=== PATIENT | female | born 1965 | race Caucasian/White ===

== ENCOUNTER 2020-05-26 15:07 | Outpatient (REF) | payer MEDICARE, MEDICAID, SELFPAY ==
[2020-05-28 20:16] LABS: HPV mRNA E6/E7 rflx Not Detected (Not Detected)
== END 2020-05-26 15:08 | disposition home or self-care (01) ==
LOC: HO.LNP 15:07
PROVIDERS: Visit Provider Internal Medicine
DX: I26.99 Other pulmonary embolism without acute cor pulmonale (principal)
CPT/HCPCS: 87624; 87625; 88142

== ENCOUNTER 2020-06-02 10:58 | Outpatient (REF) | payer MEDICARE, MEDICAID, SELFPAY ==
[2020-06-02 14:22] LABS: Cholesterol 212 mg/dL; HDL Cholesterol 66 mg/dL; LDL Cholesterol Calculated 132 mg/dl; Triglycerides 72 mg/dL
== END 2020-06-02 10:59 | disposition home or self-care (01) ==
LOC: HO.HMGCLDS 10:58
PROVIDERS: PCP Internal Medicine; Visit Provider Internal Medicine
DX: Z00.01 Encounter for general adult medical examination with abnormal findings (principal); E66.9 Obesity, unspecified
CPT/HCPCS: 80061

== ENCOUNTER 2020-07-09 11:47 | Outpatient (REF) | payer MEDICARE, MEDICAID, SELFPAY ==
--- NOTE | 2020-07-09 11:50 | MM_ITS ---
EXAMINATION: MM SCREENING DIGITAL BREAST TOMOSYNTHESIS, BILATERAL CLINICAL INFORMATION: Screening. Asymptomatic. The lifetime risk of breast cancer based on the Tyrer-Cuzick Model is 6%. COMPARISON: Mammography: 10/02/2018, 09/28/2017, 09/07/2016, 08/06/2015 TECHNIQUE: Digital breast tomosynthesis is performed in both the craniocaudal and mediolateral oblique views along with computer-aided detection (CAD). Synthesized 2D images are generated from the tomosynthesis. Additional left CC view is provided. FINDINGS: There are scattered areas of fibroglandular density (ACR BI-RADS breast composition Category b). Right breast parenchymal pattern is similar to prior studies. There is no developing density or interval mass or architectural abnormality. There are bilateral biopsy clip marker with adjacent punctate calcifications. There is similar appearing group round calcifications anterior upper outer left breast unchanged since at least 2017. Left breast has focal asymmetric density mid upper outer quadrant, better appreciated on tomography. Suspect summation artifact or incompletely compressed glandular tissue. MM/MM tomosynthesis screening BI IMPRESSION: 1. Left: Focal asymmetric density mid upper outer quadrant, possibly summation artifact or incompletely compressed glandular tissue. 2. Right: No mammographic evidence of malignancy. ASSESSMENT: BI-RADS 0: Incomplete - Need Additional Imaging Evaluation RECOMMENDATION: 1. Additional views of the left breast (3-D spot CC, 3-D ML). 2. Targeted ultrasound if warranted after review of the additional views. 3. Radiology department staff will contact the patient for additional imaging. This patient's information was entered into a reminder system with a target due date for their next mammogram.
== END 2020-07-09 11:48 | disposition home or self-care (01) ==
LOC: HO.MAMMO 11:47
PROVIDERS: Visit Provider Internal Medicine
DX: Z12.31 Encounter for screening mammogram for malignant neoplasm of breast (principal)
CPT/HCPCS: 77063; 77067

== ENCOUNTER 2020-08-11 12:56 | Outpatient (REF) | payer OTHER, SELFPAY | END 2020-08-11 12:57 | disposition home or self-care (01) | LOC: HO.LAB 12:56 | PROVIDERS: Visit Provider Internal Medicine | DX: Z20.822 Contact with and (suspected) exposure to COVID-19 (principal) | CPT/HCPCS: 36415; C9803; U0003; U0005 ==

== ENCOUNTER 2020-08-11 13:38 | Outpatient (REF) | payer OTHER, SELFPAY ==
--- NOTE | 2020-08-11 | US_ITS ---
EXAMINATION: US DIAGNOSTIC ULTRASOUND BREAST, LEFT CLINICAL INFORMATION: Density upper outer aspect left breast. COMPARISON: July 09, 2020 and studies dating back to June 18, 2012. TECHNIQUE: Ultrasound of the breast is performed with real-time garrido scale imaging and color Doppler. FINDINGS: Targeted left breast ultrasound did not demonstrate any abnormal cystic or solid masses. No region of abnormal distal sound shadowing identified. Results are provided to the patient at time of visit by the technologist. US/US breast LT limited IMPRESSION: No mammographic or ultrasound evidence of malignancy. ASSESSMENT: BI-RADS 1: Negative RECOMMENDATION: Routine annual mammography screening due in 12 months. This patient's information was entered into a reminder system with a target due date for their next mammogram.
--- NOTE | 2020-08-11 | MM_ITS ---
EXAMINATION: MM DIAGNOSTIC DIGITAL BREAST TOMOSYNTHESIS, LEFT Targeted left breast ultrasound CLINICAL INFORMATION: Focal asymmetry mid upper outer quadrant. COMPARISON: Mammography: July 09, 2020 and studies dating back to June 18, 2012 TECHNIQUE: Digital breast tomosynthesis is performed. 2D images are generated from the tomosynthesis. The following views are obtained: Spot compression craniocaudal and 90 degree mediolateral views of the left breast. Targeted left breast ultrasound FINDINGS: There are scattered areas of fibroglandular density (ACR BI-RADS breast composition Category b). The additional spot compression views appear to demonstrate that the questioned lesion was related to superimposition of fibroglandular tissue with some residual dense parenchyma in this location remaining. Targeted left breast ultrasound did not demonstrate any abnormal cystic or solid masses. No region of abnormal distal sound shadowing identified. Results are provided to the patient at time of visit by the technologist. MM/MM tomosynthesis added views L IMPRESSION: No mammographic or ultrasound evidence of malignancy. ASSESSMENT: BI-RADS 1: Negative RECOMMENDATION: Routine annual mammography screening due in 12 months. This patient's information was entered into a reminder system with a target due date for their next mammogram.
== END 2020-08-11 13:39 | disposition home or self-care (01) ==
LOC: HO.MAMMO 13:38
PROVIDERS: PCP Internal Medicine; Visit Provider Internal Medicine
DX: N64.9 Disorder of breast, unspecified (principal)
CPT/HCPCS: 76642; 77061; 77062; 77065; 77066

== ENCOUNTER 2020-10-05 11:38 | Outpatient (REF) | payer OTHER, SELFPAY | END 2020-10-05 11:39 | disposition home or self-care (01) | LOC: HO.LAB 11:38 | PROVIDERS: Visit Provider Internal Medicine | DX: Z20.822 Contact with and (suspected) exposure to COVID-19 (principal) | CPT/HCPCS: 36415; C9803; U0003; U0005 ==

== ENCOUNTER 2020-11-04 11:44 | Outpatient (REF) | payer OTHER, SELFPAY ==
[2020-11-04 12:17] LABS: COVID-19 Test Negative (Negative); IDNOW Serial# 55D5AD1C
== END 2020-11-04 11:45 | disposition home or self-care (01) ==
LOC: HO.LAB 11:44
PROVIDERS: Visit Provider Internal Medicine
DX: Z20.822 Contact with and (suspected) exposure to COVID-19 (principal)
CPT/HCPCS: 36415; 87635; C9803

== ENCOUNTER → 2020-11-24 14:55 | Outpatient (REF) | payer OTHER, SELFPAY ==
--- NOTE | 2020-11-24 14:49 | CA_ITS ---
Transthoracic Echocardiogram Patient (Last, First, Middle): Tess Fallon A Gender: Female Date of : 1965 Age: 55 Procedure Date: 11/24/2020 Procedure Type: Transthoracic Echocardiogram Location: OP Height: 160.02 cm Weight: 86.18 kg BSA: 1.89 m2 Heart Rate: bpm BP: 122 / 78 mmHg Cath Lab Manager: RACHELE Referring MD: Suzy Lares MD Registered Nurse Maternal Child: Basil Levin MD Symptoms: R01.1 - Cardiac murmur, unspecified Study Quality: Fair ECG Rhythm: Sinus Conclusions: - Essentially normal study with mild left atrial enlargement Findings Left Ventricle Normal left ventricular size, thickness, and systolic function. The visually estimated ejection fraction is between 60-65%. Diastolic function is normal for age. Right Ventricle Normal right ventricular cavity size and systolic function. Atria The left atrium is mildly dilated. There is lipomatous hypertrophy of the interatrial septum. There is no evidence of interatrial shunt. The right atrium is normal in size. Aortic Valve Normal aortic valve structure and function. There is no aortic valve stenosis. There is no aortic valve regurgitation. Mitral Valve Normal mitral valve structure and function. There is no mitral valve regurgitation. There is no mitral valve stenosis. Pulmonic Valve The pulmonic valve was not well visualized. Tricuspid Valve Likely normal tricuspid valve structure and function. There is trace tricuspid valve regurgitation. The right ventricular systolic pressure is normal. The right ventricular systolic pressure is 22 mmHg. Normal right atrial pressure. There is no evidence of pulmonary hypertension. Great Vessels All visible segments of the aorta are normal in size. The pulmonary artery was not well visualized. Venous The inferior vena cava is normal in size and collapses greater than 50% with inspiration. Pericardium/Pleural There is no evidence of pericardial effusion. Prior Study Comparison No prior study available for comparison. Measurements M-Mode Liner Measurements Normals - Women/Men AOV Cusps: 2.20 1.5-2.6 cm/m2 2D Linear Measurements IVSd: 0.65 0.6-0.9/0.6-1.0 cm LVIDd: 4.93 3.9-5.3/4.2-5.9 cm LVIDd Index: 2.61 2.4-3.2/2.2-3.1 cm/m2 LVIDs: 3.66 2.0-3.6 cm LVPWd: 0.73 0.7-1.1 cm Ao Root: 3.60 2.1-3.5 cm LA Diam: 3.20 2.7-3.8/3.0-4.0 cm LAIDs Index: 1.69 1.5-2.3 cm/m2 LV Mass: 136.42 67-162/88-224 g LV Mass Index: 72.18 43-95/49-115 g/m2 LVOT Diam: 2.20 3.0+(-)1.3 cm 2D Systolic Function EF 4C: 59.30 >55% EF 2C: 62.50 >55% EF BiP: 61.60 >55% Mitral Valve MV Pk E: 0.97 MV PK A: 0.47 MV Decel Time: 380.00 E/A: 2.10 E'Lateral: 12.10 E'Medial: 8.59 E/E' Med: 11.30 E/E' Lat: 8.00 PHT: 111.00 MVA PHT: 1.98 Decel [place]: 2.56 Aortic Valve AoV Pk Ward: 1.46 AoV Mn Ward: 1.01 AoV VTI: 0.36 AoV Pk Grad: 9.00 Aov Mn Grad: 5.00 SHASHANK Cont.VTI: 2.70 AI Pk Ward: 4.29 AI [place]: 1.52 LVOT LVOT Pk Ward: 1.03 LVOT Mn Ward: 0.65 LVOT VTI: 0.26 LVOT Pk Grad: 4.00 LVOT Mn Grad: 2.00 LVOT Diam: 2.20 LVOT Area: 3.80 Diastolic Function MV Pk E: 0.97 MV Pk A: 0.47 E/A: 2.10 E'Medial: 8.59 E/E' Med: 11.30 E' Laterial: 12.10 E/E' Lat: 8.00 Tricuspid Valve TR Pk Ward: 2.17 TR Pk Grad: 19.00 RA Press: 3.00 RVSP: 22.00 Great Vessels Aorta Ao Root-2D: 3.60 2.0-3.7 cm Ao Asc: 3.50 2.1-3.4 cm Ao Arch: 2.70 Pulmonary Valve PV Pk Ward: 0.92 Peak PV Grad: 3.00 Updated in Other Vendor System with Status of Final Basil Levin MD electronically signed on 11/25/2020 4:07:19 PM with status of Final
== END ==
LOC: HO.CARD 14:55
PROVIDERS: PCP Internal Medicine; Visit Provider Internal Medicine
DX: R01.1 Cardiac murmur, unspecified (principal); E66.9 Obesity, unspecified; Z82.49 Family history of ischemic heart disease and other diseases of the circulatory system
CPT/HCPCS: 93306

== ENCOUNTER 2020-11-24 16:05 | Emergency (ER) | payer OTHER, SELFPAY ==
--- NOTE | ~2020-11-24 | XR_ITS ---
EXAMINATION: PORTABLE CHEST 1 VIEW CLINICAL INFORMATION: Dizziness . COMPARISON: No recent pertinent prior studies are available for comparison. TECHNIQUE: Portable frontal view of the chest was obtained. FINDINGS: The lungs are well expanded. No focal infiltrate, effusion, edema, or pneumothorax. Cardiac and mediastinal silhouettes are within normal limits for technique. No acute bony abnormality seen. Degenerative changes in the shoulders and spine with cervical spine hardware partially visualized XR/XR chest 1V IMPRESSION: No evidence of acute disease.
[2020-11-24 16:18] VITALS: BP 123/67; PULSE 45; RESP 16; TEMP 36.7; O2SAT 99; BMI 33.6
--- NOTE | 2020-11-24 16:52 | ED.DIZZY ---
HPI - Dizziness General Chief Complaint: Dizziness Stated Complaint: low heart rate Time Seen by Provider: 11/24/20 16:50 Source: patient Mode of arrival: ambulatory Limitations: no limitations History of Present Illness HPI Narrative: Patient was sent from ultrasound suite for evaluation of chronic dizziness. This is a 55-year-old female was getting an elective outpatient echocardiogram for evaluation of hereditary aortic valve stenosis, patient was found bradycardic during the exam and the master automotive technician recommended her to come to the emergency room because she has been having chronic dizziness. Patient described dizziness as everything spinning around her it is intermittent, do not have it now, patient was diagnosed in the past for vertigo, patient also been having intermittent epigastric pain with exertion, nothing in the last week, patient try to walk every day as an exercise with no exertional symptoms of chest pain or shortness of breath. Patient is not taking any medication that can cause bradycardia. Patient in the emergency room is asymptomatic. Today's echocardiogram result is unavailable. Related Data Home Medications Medication Instructions Recorded Confirmed mirabegron 50 mg tablet,extended 50 mg PO DAILY 05/26/20 release 24 hr timolol 0.5 % eye drops 1 drp OPHTHALMIC (EYE) DAILY 05/26/20 travoprost 0.004 % eye drops 1 drp OPHTHALMIC (EYE) QPM 05/26/20 Previous Rx's Medication Instructions Recorded famotidine 40 mg tablet 40 mg PO BID #180 tab 05/27/20 calcium citrate 500 mg PO BID #360 tab 10/13/20 cholecalciferol (vitamin D3) 50 50 mcg PO DAILY #90 cap 10/28/20 mcg (2,000 unit) capsule Allergies Allergy/AdvReac Type Severity Reaction Status Date / Time amoxicillin [Augmentin] Allergy Unknown hives Verified 11/24/20 16:17 clavulanic acid [Augmentin] Allergy Unknown hives Verified 11/24/20 16:17 Review of Systems Review of Systems: All other systems are reviewed and are negative Constitutional: Reports as per HPI and Reports no additional constitutional complaints Eyes: Reports as per HPI and Reports no additional eye complaints Reports system reviewed and no additional complaints, except as documented Cardiovascular: Reports as per HPI and Reports no additional cardiovascular complaints Respiratory: Reports as per HPI and Reports no additional respiratory complaints Gastrointestinal: Reports as per HPI and Reports no additional gastrointestinal complaints Genitourinary: Reports no additional female genitourinary complaints Musculoskeletal: Reports no additional musculoskeletal complaints Skin/Breast: Reports system reviewed and no additional complaints, except as docu Psychiatric: Reports no additional psychiatric complaints Endocrine: Reports no additional endocrine complaints Hematologic/Lymphatic: Reports no additional hematologic/lymphatic complaints Allergic/Immunologic: Reports no additional allergic/immunologic complaints Reports system reviewed and no additional complaints, except as documented and Reports Abnormal speech present [facility] Past Medical History Medical History Annual visit for general adult medical examination with abnormal findings Cardiac murmur Carpal tunnel syndrome on right Cervical disc disease Family history of aortic aneurysm GERD (gastroesophageal reflux disease) Glaucoma Hiatal hernia Impaired fasting glucose Irritable bowel syndrome Obesity (BMI 30.0-34.9) Osteopenia of multiple sites Urinary incontinence, mixed Surgical History History of carpal tunnel surgery of right wrist History of colonoscopy History of fusion of cervical spine History of hernia repair History of tonsillectomy Family History Family History Father Leukemia Mother HTN (hypertension) Small cell lung cancer Maternal Grandmother Alzheimer's disease Dementia Maternal Grandfather No problems noted. Paternal Grandmother No problems noted. Paternal Grandfather Alzheimer's disease Dementia Daughter No problems noted. Daughter No problems noted. Son No problems noted. Sister No problems noted. Brother No problems noted. Brother No problems noted. Brother No problems noted. Brother No problems noted. Brother No problems noted. Social History Social History Alcohol intake: current Alcohol intake frequency: a few times a week Smoking Status: Former smoker Smoked in Last 30 Days: No Use of substances other than those prescribed or required for medical reasons: No Advance Directives: No Advance Directives Information Provided: Yes Patient : No Physical Exam Vital Signs: Vital Signs: Last Vital Signs Temp 98.6 F 11/24/20 19:10 Pulse 44 L 11/24/20 19:10 Resp 12 11/24/20 19:10 BP 123/69 11/24/20 19:10 Pulse Ox 99 11/24/20 19:10 Body Mass Index 33.6 Vital signs have been reviewed as appeared to be correct. Blood pressure normal. Heart bradycardia. Respiration rate normal. Temperature normal. Oxygen saturation normal. Appearance: Alert. Oriented X3. No acute distress. Head: Normal external exam. Normocephalic. Atraumatic. No Justice signs noted. No raccoon eyes noted Eyes: PERRLA. EOMI. Conjunctiva and sclera normal. Eyelids normal. ENT: TM's Normal. Pharynx normal. Uvula midline. Moist mucous membranes. No trismus noted. No drooling noted. No muffled voice noted. Neck: Normal inspection. Neck supple. FROM. No adenopathy. Thyroid Normal. No meningeal signs. No neck mass noted. CVS: Normal heart rate and rhythm. Heart sound normal. No murmurs noted. Pulses normal throughout. Respiratory: No respiratory distress. Painless inspiration. Breath sounds normal. No wheezes/rales/rhonchi noted. Chest nontender. No accessory muscle usage noted or decreased air movement noted. Abdomen: Soft and nontender. Bowel sounds normal in all 4 quadrants. No distention noted. No organomegaly noted. No visible injury noted. Back: No CVA tenderness. Full range of motion noted. Skin: Skin warm and dry. Normal skin color. Normal skin turgor. No rashes/lesions/lacerations noted. Extremities: No lower extremity edema. Extremities exhibit normal range of motion. Extremities nontender. Neuro: Oriented X 3. No motor deficit. No sensory deficit. Reflexes normal. Course Course Course Narrative: Assessment and plan. 55-year-old female was incidental finding of bradycardia, patient was chronic symptoms of dizziness (vertigo in nature), bradycardia was discovered incidentally on the echocardiogram done today. Reviewing patient's medication history nothing to trigger bradycardia by her medication. No acute intervention is needed at this point, patient has stable vital sign otherwise, normal labs, normal chest x-ray. Some white cells in the urine but patient has no symptoms to suggest UTI. Will discharge the patient to follow up with Dr. Levin cash applications coordinator as an outpatient. [facility] - Dizziness Lab Data Attestation: I reviewed the patient's lab results. Result diagrams: 11/24/20 17:05 11/24/20 17:05 Labs: Lab Results 11/24/20 11/24/20 11/24/20 Range/Units 17:05 17:05 17:05 WBC 6.3 (4.8-10.8) X10*3/uL RBC 4.27 (4.20-5.50) X10*6/uL Hgb 13.1 (12.0-16.0) g/dl Hct 38.8 (37-47) % MCV 90.9 (80-98) fL MCH 30.7 (27.0-33.0) pg MCHC 33.8 (31.0-35.0) g/dl RDW 12.2 (11.0-16.0) % Plt Count 221 (160-400) X10*3/uL MPV 10.0 (9.4-12.3) fL Immature Gran % (Auto) 0.2 (0.0-0.4) % Neut % (Auto) 41.7 L (45-73) % Lymph % (Auto) 48.0 H (20-40) % [place] % (Auto) 6.5 (2-11) % Eos % (Auto) 3.3 (0-4) % Baso % (Auto) 0.3 (0-2) % Lymph # (Auto) 3.0 (1.2-4.9) X10*3/uL [place] # (Auto) 0.4 (0.1-1.2) X10*3/uL Eos # (Auto) 0.2 (0.0-0.4) X10*3/uL Baso # (Auto) 0.0 (0.0-0.2) X10*3/uL Abs Immat Gran (auto) 0.01 (0.00-0.03) X10*3/uL Absolute Neuts (auto) 2.6 (2.0-8.3) X10*3/uL Absolute Nucleated RBC 0.000 (0.0-0.012) X10*3/uL Nucleated RBC % (auto) 0.0 (0.0-0.2) /100WBC Sodium 140 (135-145) mmol/L Potassium 3.9 (3.3-5.1) mmol/L Chloride 107 (96-108) mmol/L Carbon Dioxide 26 (22-29) mmol/L Anion Gap 11 L (12-20) BUN 17 H (9-16) mg/dL Creatinine 0.87 (0.5-1.4) mg/dL Estim Creat Clear Calc 74.2 Estimated GFR > 60 Random Glucose 81 (60-115) mg/dL Calcium 9.7 (8.4-10.2) mg/dL Total Bilirubin 0.5 (0.0-1.0) mg/dL Direct Bilirubin 0.2 (0.0-0.5) mg/dL AST 19 (5-31) U/L ALT 25 (0-31) U/L Alkaline Phosphatase 52 (39-117) U/L Troponin I High Sens (<3.5-17.0) ng/L B-Natriuretic Peptide (<100) pg/mL Total Protein 6.6 (6.5-8.0) g/dL Albumin 4.3 (3.5-5.0) g/dL Lipase 43 (8-78) U/L Urine Color Urine Appearance Urine pH (5.0-8.0) Ur Specific [place] (1.005-1.025) Urine Protein (NEG-TRACE) MG/DL Urine Glucose (UA) (NEG) MG/DL Urine Ketones (NEG) MG/DL Urine Blood (NEG) Urine Nitrite (NEG) Ur Leukocyte Esterase (NEG) Urine RBC (0) /HPF Urine WBC (0-4) /HPF Ur Squamous Epith Cells /LPF Urine Bacteria /LPF 11/24/20 11/24/20 Range/Units 17:05 18:32 WBC (4.8-10.8) X10*3/uL RBC (4.20-5.50) X10*6/uL Hgb (12.0-16.0) g/dl Hct (37-47) % MCV (80-98) fL MCH (27.0-33.0) pg MCHC (31.0-35.0) g/dl RDW (11.0-16.0) % Plt Count (160-400) X10*3/uL MPV (9.4-12.3) fL Immature Gran % (Auto) (0.0-0.4) % Neut % (Auto) (45-73) % Lymph % (Auto) (20-40) % [place] % (Auto) (2-11) % Eos % (Auto) (0-4) % Baso % (Auto) (0-2) % Lymph # (Auto) (1.2-4.9) X10*3/uL [place] # (Auto) (0.1-1.2) X10*3/uL Eos # (Auto) (0.0-0.4) X10*3/uL Baso # (Auto) (0.0-0.2) X10*3/uL Abs Immat Gran (auto) (0.00-0.03) X10*3/uL Absolute Neuts (auto) (2.0-8.3) X10*3/uL Absolute Nucleated RBC (0.0-0.012) X10*3/uL Nucleated RBC % (auto) (0.0-0.2) /100WBC Sodium (135-145) mmol/L Potassium (3.3-5.1) mmol/L Chloride (96-108) mmol/L Carbon Dioxide (22-29) mmol/L Anion Gap (12-20) BUN (9-16) mg/dL Creatinine (0.5-1.4) mg/dL Estim Creat Clear Calc Estimated GFR Random Glucose (60-115) mg/dL Calcium (8.4-10.2) mg/dL Total Bilirubin (0.0-1.0) mg/dL Direct Bilirubin (0.0-0.5) mg/dL AST (5-31) U/L ALT (0-31) U/L Alkaline Phosphatase (39-117) U/L Troponin I High Sens < 3.5 (<3.5-17.0) ng/L B-Natriuretic Peptide 133 H (<100) pg/mL Total Protein (6.5-8.0) g/dL Albumin (3.5-5.0) g/dL Lipase (8-78) U/L Urine Color STRAW Urine Appearance CLEAR Urine pH 6.5 (5.0-8.0) Ur Specific [place] 1.010 (1.005-1.025) Urine Protein NEG (NEG-TRACE) MG/DL Urine Glucose (UA) NEG (NEG) MG/DL Urine Ketones NEG (NEG) MG/DL Urine Blood NEG (NEG) Urine Nitrite NEG (NEG) Ur Leukocyte Esterase TRACE H (NEG) Urine RBC 0 (0) /HPF Urine WBC 5-9 H (0-4) /HPF Ur Squamous Epith Cells NONE /LPF Urine Bacteria 3+ /LPF Discharge Plan Discharge Clinical Impression: Bradycardia Patient Disposition: Home, Self-Care Instructions: Bradycardia (ED) Prescriptions: No Action famotidine 40 mg tablet 40 mg PO BID Qty: 180 RF: 2 calcium citrate 250 mg calcium tablet 500 mg PO BID Qty: 360 RF: 0 cholecalciferol (vitamin D3) [Vitamin D3] 50 mcg (2,000 unit) capsule 50 mcg PO DAILY Qty: 90 RF: 2 Myrbetriq 50 mg tablet extended release 24 hr 50 mg PO DAILY RF: 0 travoprost [Travatan Z] 0.004 % drops 1 drp ophthalmic (eye) QPM RF: 0 timolol 0.5 % drops 1 drp ophthalmic (eye) DAILY RF: 0 Referrals: Basil Levin MD [Physician] - 2 days
--- NOTE | 2020-11-24 16:54 | ECG_ITS ---
Test Reason : BRADYCARDIA Blood Pressure : / mmHG Vent. Rate : 045 BPM Atrial Rate : 045 BPM P-R Int : 198 ms QRS Dur : 106 ms QT Int : 456 ms P-R-T Axes : 047 -30 040 degrees QTc Int : 394 ms Sinus bradycardia Left axis deviation Incomplete right bundle branch block Abnormal ECG No previous ECGs available Referred By: Sanaz Mensah Electronically Signed By:ADAM GONZALES MD
[2020-11-24 17:07] VITALS: BP 123/70; PULSE 44; RESP 16; O2SAT 99
[2020-11-24 17:15] LABS: Basophils Percent Auto 0.3 % (0-2); Eosinophils Absolute Auto 0.2 X10*3/uL (0.0-0.4); Eosinophils Percent Auto 3.3 % (0-4); Hematocrit 38.8 % (37-47); Hemoglobin 13.1 g/dl (12.0-16.0); Imm Gran Abs Auto 0.01 X10*3/uL (0.00-0.03); Imm Gran Pct Auto 0.2 % (0.0-0.4); MANUAL DIFF FLAG NO; Mean Corpuscular HGB Conc 33.8 g/dl (31.0-35.0); Mean Corpuscular Hemoglobin 30.7 pg (27.0-33.0); Mean Corpuscular Volume 90.9 fL (80-98); Monocytes Absolute Auto 0.4 X10*3/uL (0.1-1.2); Monocytes Percent Auto 6.5 % (2-11); Neutrophils Absolute Auto 2.6 X10*3/uL (2.0-8.3); Neutrophils Percent Auto 41.7 % (45-73); Platelet Count 221 X10*3/uL (160-400); Red Blood Count 4.27 X10*6/uL (4.20-5.50); Red Cell Distribution Width 12.2 % (11.0-16.0); White Blood Count 6.3 X10*3/uL (4.8-10.8)
[2020-11-24 18:04] LABS: Anion Gap 11 (12-20); Blood Urea Nitrogen 17 mg/dL (9-16); Calcium 9.7 mg/dL (8.4-10.2); Carbon Dioxide 26 mmol/L (22-29); Chloride 107 mmol/L (96-108); Creatinine Clr Calc Pharmacy 74.2; Estimated Glomerular Filt Rate > 60; Glucose Random 81 mg/dL (60-115); Potassium 3.9 mmol/L (3.3-5.1); Sodium 140 mmol/L (135-145)
[2020-11-24 18:09] LABS: Alanine Aminotransferase 25 U/L (0-31); Albumin Level 4.3 g/dL (3.5-5.0); Alkaline Phosphatase 52 U/L (39-117); Aspartate Amino Transferase 19 U/L (5-31); Bilirubin Direct 0.2 mg/dL (0.0-0.5); Bilirubin Total 0.5 mg/dL (0.0-1.0); Lipase 43 U/L (8-78); Total Protein 6.6 g/dL (6.5-8.0)
[2020-11-24 18:11] LABS: B Type Natriuretic Peptide 133 pg/mL (<100); Troponin-I High Sensitivity < 3.5 ng/L (<3.5-17.0)
[2020-11-24 18:28] VITALS: BP 133/66; PULSE 44; RESP 18; O2SAT 100
--- NOTE | 2020-11-24 18:35 | PC.NURSE ---
RN AWARE OF PATIENT LOW HEART RATE .
[2020-11-24 18:44] LABS: Glucose Urine UA NEG (NEG); Leukocyte Esterase Urine TRACE (NEG); Nitrite Urine NEG (NEG); PH 6.5 (5.0-8.0); UACC Culture Trigger YES; Urine Blood NEG (NEG); Urine Ketones NEG (NEG); Urine Protein NEG (NEG-TRACE)
[2020-11-24 18:46] LABS: Appearance Urine CLEAR; Color Urine STRAW
[2020-11-24 18:55] LABS: Bacteria Urine 3+ /LPF; RBC Urine 0 /HPF (0)
[2020-11-24 19:10] VITALS: BP 123/69; PULSE 44; RESP 12; TEMP 37; O2SAT 99
--- NOTE | 2020-11-24 19:12 | PC.NURSE ---
Pt resting on stretcher in NAD, breathing with ease on RA. Pt aaox4, denies sensation of dizziness/lightheadedness at this time. pt does report chronic dizziness I always have vertigo, but this is nothing new or different. Pt denies CP, sob, n/v/d. Pt offers no complaints. pt awaiting dispo, requesting DC to home. Pt stretcher is in lowest locked position, rails raised, call richards within reach. Pt SB on monitoring coordinator, vss.
== END 2020-11-24 19:51 | disposition home or self-care (01) ==
PROVIDERS: Emergency Provider Emergency Medicine; PCP Internal Medicine
DX: R00.1 Bradycardia, unspecified (principal); R42 Dizziness and giddiness
CPT/HCPCS: 36415; 71045; 80048; 80076; 81001; 81003; 83690; 83880; 84484; 85025; 87086; 87088; 87186; 93005; 99285

== ENCOUNTER → 2020-11-30 13:51 | Outpatient (BNVA) | payer OTHER, SELFPAY | PROVIDERS: PCP Internal Medicine; Referring Provider Internal Medicine; Visit Provider Internal Medicine Cardiovascular Disease | DX: R00.1 Bradycardia, unspecified (principal) | CPT/HCPCS: 99202 ==

== ENCOUNTER → 2020-12-14 09:24 | Outpatient (REF) | payer OTHER, SELFPAY ==
--- NOTE | 2020-12-14 09:27 | CA_ITS ---
Acquisition Time: 2020-12-14 09:37:47 Total Exercise Time: 00:07:09 Test Indications: Abnormal ECG Medications: MYRBETRIQ FAMOTIDINE Protocol: RENÉE Max HR: 108 BPM 66% of Pred: 163 BPM Max BP: 134/050 mmHG Max Work Load: 8.7 METS Exercise stress test with exercise 7 min 9 sec of Renée protocol, with moderate shortness of breath and request to stop exercise, no chest discomfort, without arrythmia, with normal chronotropic response in heart rate acheiving 105 b/min, 64% MPHR ( which was rise from 48 b/min, 29 % MPHR), with nondiagnostic EKG for ischemia. Ability to assess for blunted max heart rate limited by her sob and need to stop. In recovery heart rate returned the 40s with 3 min rest. Test reviewed with Dr Levin Referred By: Basil Levin Overread By: MICHELE MICHEL
--- NOTE | 2020-12-14 10:15 | ECG_ITS ---
Hook-up date: 2020-12-14 10:34:00 Duration: 27:39:00 Test Indications: BRADYCARDIA, UNSPECIFIED Medications: 92121 QRS complexes 12 Ventricular ectopics which represent <1 % of total QRS comp. 31 Supraventricular ectopics which represent <1 % of total QRS comp. * Paced QRS complexs which represent % of total QRS comp. VENTRICULAR ECTOPY 12 Isolated 10 Bigeminal Cycles 0 Couplets 0 Runs 0 Beats in Runs * Beats LONGEST at * BPM at :: -- * Beats FASTEST at * BPM at :: -- SUPRAVENTRICULAR ECTOPY 23 Isolated 0 Couplets 1 Runs 8 Beats in Runs 8 Beats LONGEST at 106 BPM at 00:06:03 2020-12-15 8 Beats FASTEST at 106 BPM at 00:06:03 2020-12-15 HEART RATES 38 MIN at 10:33:56 2020-12-15 54 AVG 106 MAX at 11:26:16 2020-12-14 LONGEST RR 1.7360 secs at 10:33:48 2020-12-15 S-T LEVELS Channel 1 - 128 mm at 10:34:00 2020-12-14 - 128 mm at 10:34:00 2020-12-14 Channel 2 - 128 mm at 10:34:00 2020-12-14 - 128 mm at 10:34:00 2020-12-14 Channel 3 - 128 mm at 02:95:31 -- - 128 mm at 02:95:31 Basic rhythm Sinus bradycardia 81% of time HR < 60 bpm with lowest HR of 38 bpm No long pauses Rare Premature ventricular complexes Rare Premature atrial complexes Patient reported symptoms correlated with NSR Referred By: Basil Levin Overread By: BASIL LEVIN MD
== END ==
LOC: HO.CARD 09:24
PROVIDERS: Visit Provider Internal Medicine Cardiovascular Disease
DX: R00.1 Bradycardia, unspecified (principal)
CPT/HCPCS: 93016; 93017; 93018; 93225; 93226

== ENCOUNTER 2020-12-15 12:41 | Outpatient (REF) | payer OTHER, SELFPAY ==
[2020-12-20 10:12] LABS: N-Telopeptide 37 (see note); NTXCreaRU 83 mg/dL (20-275)
== END 2020-12-15 12:42 | disposition home or self-care (01) ==
LOC: HO.LNP 12:41
PROVIDERS: Visit Provider Internal Medicine Endocrinology, Diabetes & Metabolism
DX: M85.89 Other specified disorders of bone density and structure, multiple sites (principal)
CPT/HCPCS: 82523

== ENCOUNTER → 2021-01-04 15:47 | Outpatient (BNVA) | payer OTHER, SELFPAY | PROVIDERS: PCP Internal Medicine; Visit Provider Internal Medicine Cardiovascular Disease | DX: I49.5 Sick sinus syndrome (principal); I45.89 Other specified conduction disorders; Z82.49 Family history of ischemic heart disease and other diseases of the circulatory system | CPT/HCPCS: Q3014 ==

== ENCOUNTER → 2021-02-09 13:08 | Outpatient (BNVA) | payer OTHER, SELFPAY | PROVIDERS: PCP Internal Medicine; Visit Provider Physician Assistant | DX: K21.9 Gastro-esophageal reflux disease without esophagitis (principal); R10.9 Unspecified abdominal pain; Z78.9 Other specified health status | CPT/HCPCS: 99212 ==

== ENCOUNTER 2021-02-16 | Outpatient (REF) | payer OTHER, SELFPAY | END 2021-02-16 00:01 | disposition home or self-care (01) | LOC: HO.LNP | PROVIDERS: Visit Provider Hospitalist | DX: R30.0 Dysuria (principal) | CPT/HCPCS: 87086 ==

== ENCOUNTER 2021-02-18 08:51 | Outpatient (REF) | payer OTHER, SELFPAY ==
--- NOTE | ~2021-02-18 | US_ITS ---
EXAMINATION: US ABDOMEN COMPLETE CLINICAL INFORMATION: Unspecified abdominal pain. COMPARISON: CT abdomen and pelvis with intravenous contrast only dated 03/29/2014. X-ray abdomen dated 02/24/2009. TECHNIQUE: Real-time imaging of the abdominal viscera. FINDINGS: PANCREAS: Normal. ABDOMINAL AORTA: The proximal, mid, and distal segments are normal in caliber. INFERIOR VENA CAVA: Visualized portions are normal. LIVER: There is anechoic cyst cyst in the left hepatic lobe measuring 1.5 x 1.0 x 2.0 cm and cyst in the right hepatic lobe posteriorly measuring 1.2 x 0.9 x 1.2 cm. The liver is normal in size. The liver contour is normal. Parenchymal echogenicity is normal. There is no intrahepatic biliary duct dilatation seen. GALLBLADDER: There are small nonmobile echogenic polyp measuring 0.3 x 0.2 x 0.4 cm. The gallbladder is physiologically distended without evidence of stones, sludge, wall thickening or pericholecystic fluid. COMMON BILE DUCT: Normal in caliber measuring 0.21 cm in diameter. RIGHT KIDNEY: No hydronephrosis. No renal calculi or focal parenchymal lesions. The kidney measures 11.0 cm in maximum dimension. No focal lesion seen as was noted on the CT abdomen exam. LEFT KIDNEY: There is a echogenic stone lower pole measuring 0.2 x 0.2 x 0.3 cm. No additional echogenic stones seen. There is no caliectasis. No hydronephrosis or focal parenchymal lesions. The kidney measures 10.3 cm in maximum dimension. SPLEEN: Normal. The spleen measures 9.8 cm in maximum dimension. FREE FLUID: None. US/US abdomen complete IMPRESSION: Small nonobstructive echogenic stone lower pole left kidney. There are 2, right and left hepatic lobe small cysts. There is a small nonmobile echogenic gallbladder polyp. No echogenic gallstones or wall thickening.
== END 2021-02-18 08:52 | disposition home or self-care (01) ==
LOC: HO.HMGCX 08:51
PROVIDERS: PCP Internal Medicine; Referring Provider Nurse Practitioner Family; Visit Provider Physician Assistant
DX: R68.89 Other general symptoms and signs (principal); R10.9 Unspecified abdominal pain; Z20.822 Contact with and (suspected) exposure to COVID-19
CPT/HCPCS: 76700; U0003; U0005

== ENCOUNTER 2021-03-26 10:49 | Day surgery (SDC) | payer OTHER, SELFPAY ==
[2021-03-23 14:42] VITALS: BMI 33.6
[2021-03-23 15:20] VITALS: BMI 33.6
--- NOTE | 2021-03-24 15:25 | P.CONAN_ITS ---
Documented by User: Lamar Hunter NP 03/24/21 15:28 HPI - Anesthesia Eval Consult details Narrative: 55yo F for Pacemaker Insertion, Dual (Sick Sinus Syndrome) [facility] Active Problems Active Problems: All Active Problems (Updated 03/04/21 @ 10:50 by Gail Weston PA-C) Congestion of throat (Acute) Acute sinusitis (Acute) Dysuria (Acute) Abdominal pain (Acute) Poor historian (Acute) Sick sinus syndrome (Acute) Family history of aortic aneurysm (Acute) Cardiac murmur (Acute) Obesity (BMI 30.0-34.9) (Acute) Carpal tunnel syndrome on right (Acute) Urinary incontinence, mixed (Acute) Impaired fasting glucose (Acute) Irritable bowel syndrome (Acute) Osteopenia of multiple sites (Acute) Hiatal hernia (Acute) Cervical disc disease (Acute) Glaucoma (Acute) GERD (gastroesophageal reflux disease) (Acute) Past Medical History Medical History Cardiac murmur Carpal tunnel syndrome on right Cervical disc disease Family history of aortic aneurysm GERD (gastroesophageal reflux disease) Glaucoma Hiatal hernia Impaired fasting glucose Irritable bowel syndrome Obesity (BMI 30.0-34.9) Osteopenia of multiple sites Sick sinus syndrome Urinary incontinence, mixed Family History Family History Father Leukemia Mother HTN (hypertension) Small cell lung cancer Maternal Grandmother Alzheimer's disease Dementia Maternal Grandfather No problems noted. Paternal Grandmother No problems noted. Paternal Grandfather Alzheimer's disease Dementia Daughter No problems noted. Daughter No problems noted. Son No problems noted. Sister No problems noted. Brother Hx of CABG S/P AVR (aortic valve replacement) AAA (abdominal aortic aneurysm) Brother No problems noted. Brother No problems noted. Brother No problems noted. Brother No problems noted. Surgical History Surgical History History of carpal tunnel surgery of right wrist History of colonoscopy History of fusion of cervical spine History of hernia repair History of tonsillectomy Social History Social History Are you a primary medicare insurance specialist to a significant other at home: No Do you presently have visiting nurse or other home services: No Alcohol intake: current Alcohol intake frequency: a few times a week Alcohol type: wine Patient Tobacco Use Status: Former Tobacco user Quit Date: Tobacco use type: Cigarette Use of substances other than those prescribed or required for medical reasons: No Have you been hit, kicked, punched, or otherwise hurt by someone within the past year? If so, by whom?: No Are you DNR?: No Advance Directives: No Advance Directives Information Provided: No Advance Directives on File: No Recently lost weight without trying: No Meds Allergies Allergy/AdvReac Type Severity Reaction Status Date / Time amoxicillin [Augmentin] Allergy Severe hives Verified 03/23/21 15:17 clavulanic acid [Augmentin] Allergy Severe hives Verified 03/23/21 15:17 Home Medications Medication Instructions Recorded Confirmed Last Taken Type mirabegron 50 mg tablet,extended 50 mg PO DAILY 05/26/20 03/23/21 03/26/21 History release 24 hr (Myrbetriq) timolol 0.5 % eye drops 1 drp OPHTHALMIC (EYE) DAILY 05/26/20 03/23/21 Unknown History travoprost 0.004 % eye drops 1 drp OPHTHALMIC (EYE) QPM 05/26/20 03/23/21 Unknown History (Travatan Z) biotin 03/23/21 Unknown History cranberry 03/23/21 03/23/21 Unknown History Exam Exam Date and Time: March 24, 2021 1525 Height,Weight and Vital Signs: Height 5 ft 3 in Weight 86.183 kg Pertinent Lab Results Pertinent Lab Results: Laboratory Tests 11/24/20 11/24/20 17:05 17:05 WBC 6.3 Hgb 13.1 Plt Count 221 Sodium 140 Potassium 3.9 Chloride 107 Carbon Dioxide 26 BUN 17 H Creatinine 0.87 Narrative Narrative: Echo 11/2020 Conclusions: - Essentially normal study with mild left atrial enlargement ? ? EKG Vent. Rate : 045 BPM ? ? Atrial Rate : 045 BPM ?? P-R Int : 198 ms? QRS Dur : 106 ms ? ? QT Int : 456 ms ? ? ? P-R-T Axes : 047 -30 040 degrees ?? QTc Int : 394 ms ? Sinus bradycardia Left axis deviation Incomplete right bundle branch block Abnormal ECG No previous ECGs available Holter monitor was remarkable for frequent sinus bradycardia with 80% of the time heart rate below 60 beats per minute.? stress test was abnormal with achieving only 64% of age predicted maximum heart rate at maximal effort and walking for 7 minutes and 9 seconds and having to stop for shortness of breath.?? Assessment and Plan Assessment Anesthesia Assessment: Chart Reviewed Documented by User: Jeanne Samuels MD 03/26/21 13:27 [facility] Past Medical History Medical History Cardiac murmur Carpal tunnel syndrome on right Cervical disc disease Family history of aortic aneurysm GERD (gastroesophageal reflux disease) Glaucoma Hiatal hernia Impaired fasting glucose Irritable bowel syndrome Obesity (BMI 30.0-34.9) Osteopenia of multiple sites Sick sinus syndrome Urinary incontinence, mixed Family History Family History Father Leukemia Mother HTN (hypertension) Small cell lung cancer Maternal Grandmother Alzheimer's disease Dementia Maternal Grandfather No problems noted. Paternal Grandmother No problems noted. Paternal Grandfather Alzheimer's disease Dementia Daughter No problems noted. Daughter No problems noted. Son No problems noted. Sister No problems noted. Brother Hx of CABG S/P AVR (aortic valve replacement) AAA (abdominal aortic aneurysm) Brother No problems noted. Brother No problems noted. Brother No problems noted. Brother No problems noted. Family history of problems with anesthesia: No Surgical History Surgical History History of carpal tunnel surgery of right wrist History of colonoscopy History of fusion of cervical spine History of hernia repair History of tonsillectomy History of Problems with Anesthesia: No Social History Social History Are you a primary medicare insurance specialist to a significant other at home: No Do you presently have visiting nurse or other home services: No Alcohol intake: current Alcohol intake frequency: a few times a week Alcohol type: wine Patient Tobacco Use Status: Former Tobacco user Quit Date: Tobacco use type: Cigarette Use of substances other than those prescribed or required for medical reasons: No Have you been hit, kicked, punched, or otherwise hurt by someone within the past year? If so, by whom?: No Are you DNR?: No Advance Directives: No Advance Directives Information Provided: No Advance Directives on File: No Recently lost weight without trying: No Meds Allergies Allergy/AdvReac Type Severity Reaction Status Date / Time amoxicillin [Augmentin] Allergy Severe hives Verified 03/23/21 15:17 clavulanic acid [Augmentin] Allergy Severe hives Verified 03/23/21 15:17 Home Medications Medication Instructions Recorded Confirmed Last Taken Type mirabegron 50 mg tablet,extended 50 mg PO DAILY 05/26/20 03/23/21 03/26/21 History release 24 hr (Myrbetriq) timolol 0.5 % eye drops 1 drp OPHTHALMIC (EYE) DAILY 05/26/20 03/23/21 Unknown History travoprost 0.004 % eye drops 1 drp OPHTHALMIC (EYE) QPM 05/26/20 03/23/21 Unknown History (Travatan Z) biotin 03/23/21 Unknown History cranberry 03/23/21 03/23/21 Unknown History Exam Airway Mallampati Class: II TM Dist: >3cm Neck ROM: Full Assessment and Plan Final Anesthetic Review Family History of Problems with Anesthesia: No History of Problems with Anesthesia: No NPO: Yes ASA Class: III Final Preanesthetic Review: No Changes in Pt Med Stat, Meds/Allgs Chart Reviewed, Consent Obtained/Reviewed and Anes Risks/Benef Reviewed Patient Risk: Intermediate Procedure Risk: Low Assessment/Block/Sedation in SS: Assess/Block/Sedation-SS Anesthetic Plan Anesthetic Plan: MAC: Disposition: Standard PACU
[2021-03-26] VITALS (13 sets, daily range): BP systolic 110–139; BP diastolic 54–88; PULSE 45–63; RESP 16–20; TEMP 36.1–36.6; O2SAT 95–100
--- NOTE | ~2021-03-26 | XR_ITS ---
EXAMINATION: XR CHEST CLINICAL INFORMATION: Pacer COMPARISON: Chest radiograph from 11/24/2020 TECHNIQUE: Frontal view of the chest was obtained. FINDINGS: Interval placement of left-sided dual-lead pacer with its leads terminating in the right atrium and ventricle. No pneumothorax. Trachea is midline. Cardiac mediastinal silhouette is stable. No large pleural effusion. Osseous structures are intact with relatively visualized lower cervical spinal hardware. Soft tissues are unremarkable. XR/XR chest 1V IMPRESSION: Interval placement of left-sided dual-lead pacer with its leads terminating in the right atrium and ventricle.
--- NOTE | ~2021-03-26 | FL_ITS ---
EXAMINATION: XR FLUOROSCOPY CLINICAL INFORMATION: Pacemaker placement COMPARISON: CXR from 11/24/2020 and 03/26/2021 TECHNIQUE: Fluoroscopic imaging equipment utilized in operating room for dual-chamber pacemaker placement. Fluoroscopy time: 228.2 seconds Dose: 70.17 mGy Images: 1 image saved from the fluoroscopic guided procedure. FL/FL guidance in OR FINDINGS AND IMPRESSION: There has been placement of a dual-chamber cardiac pacemaker. The tips of the leads overlie the region of the right atrium and apex of the right ventricle.
[2021-03-26 11:42] LABS: COVID-19 Test Negative (Negative)
[2021-03-26] MEDS: Lactated Ringers 1,000 ML 100 ML IVCONT ×2 (11:49→18:27)
--- NOTE | 2021-03-26 12:03 | MHC.SHP ---
Pre-Procedural Eval Section A Date of Service: 03/26/21 Section B Chief Complaint: Sick sinus syndrome Allergies: Allergies Allergy/AdvReac Type Severity Reaction Status Date / Time amoxicillin [Augmentin] Allergy Severe hives Verified 03/23/21 15:17 clavulanic acid [Augmentin] Allergy Severe hives Verified 03/23/21 15:17 Plan I have reviewed the history and physical and performed a pertinent physical examination on my patient. No changes have occurred unless specified.
--- NOTE | 2021-03-26 13:57 | P.OP_ITS ---
Operative Note Operative Note Date of Service: 03/26/21 Narrative: Preoperative diagnosis: Sick sinus syndrome Postoperative diagnosis: Same Operation: Placement of dual-chamber permanent pacemaker with fluoroscopic guidance Surgeon: Racheal Hayes MD Specimens: None EBL: 5 cc Operative findings: The pacemaker placed was a [employer]urity MRI serial [id number]. The atrial lead was a [employer] serial number [id number]. The ventricular lead was a [employer] serial number [id number]. Parameters in the right atrial lead sensing was 1.1 with impedance of 507 with a threshold of 0.5 volts at 0.5 milliseconds. In the ventricular lead sensing was 8.8 mV and the threshold was 0.5 volts at 0.5 milliseconds with an impedance of 860 Ohms. Patient tolerated procedure well. Operation in detail: The patient was brought to the operating room, placed supine on the operating room table, anesthesia moderate of ices were placed, and the patient was gently sedated. A time-out was performed confirming the correct patient site and procedure. After injection of local anesthetic, a 3 cm incision was made in the left infraclavicular region and carried down to the pectoralis fascia with electrocautery. The patient was then placed in Trendelenburg and an 18 gauge needle was used to access subclavian vein on the 1st take. And a wire was placed into the right atrium under fluoroscopic guidance. A 2nd 18 gauge needle was then used to access the subclavian vein again on the 1st ache and a wire was placed under fluoroscopic guidance and parked in the right atrium. The patient was then taken out of Trendelenburg and a pocket was formed using blunt and electrocautery dissection. The 1st 6 [place]ese sheath was then placed over wire and the wire and dilator were removed. The ventricular lead was then placed through the sheath and parked in the right atrium and the peel-away sheath was removed. After several attempts using a curved stylet we were eventually able to access the right ventricle and the tip of the lead was positioned at the rig ht ventricular apex. The endocardial screw was deployed and the lead was tested with excellent parameters above. This lead was then secured with silk sutures to the pectoralis fascia. The 2nd 6 [place]ese sheath was then placed over the 2nd wire and a wire dilator removed. The atrial lead was then placed and parked in the right atrium. AJ stylet was used to position this in the right atrial appen dage. The endocardial screws deployed and the lead was tested with excellent parameters above. This lead was also secured with silk sutures to the pectoralis fascia. The pocket was then copiously irrigated with antibiotic solution. The leads were then placed in their appropriate receptacles and the pacemaker was tested again with excellent parameters. The generator and excess lead was then placed into the pocket. The wound was then closed with a deep running 3-0 Vicryl suture followed by running 3-0 Vicryl suture and Exofin glue in the skin. The patient was then brought back to the ICU in stable condition.
[2021-03-26] MEDS: oxyCODONE HCl Immed Release 5 MG TABLET PO ×2 (14:25→18:26)
[2021-03-26] MEDS: Acetaminophen 325 MG TABLET 650 MG PO ×2 (14:26→23:39)
[2021-03-26] MEDS: Famotidine 20 MG TABLET 40 MG PO (20:12)
[2021-03-26] MEDS: Heparin Sodium,Porcine 5,000 UNIT/ML VIAL 5000 UNIT SUBCUT (22:31)
[2021-03-27] MEDS: oxyCODONE HCl Immed Release 5 MG TABLET PO ×3 (00:02→13:22)
[2021-03-27] MEDS: Lactated Ringers 1,000 ML 100 ML IVCONT (02:35)
[2021-03-27 03:38] VITALS: BP 135/63; PULSE 59; RESP 18; TEMP 37.1; O2SAT 98
[2021-03-27 06:27] LABS: MANUAL DIFF FLAG NO
[2021-03-27 06:30] LABS: Basophils Percent Auto 0.3 % (0-2); Eosinophils Absolute Auto 0.1 X10*3/uL (0.0-0.4); Eosinophils Percent Auto 1.4 % (0-4); Hematocrit 39.2 % (37-47); Hemoglobin 12.9 g/dl (12.0-16.0); Imm Gran Abs Auto 0.02 X10*3/uL (0.00-0.03); Imm Gran Pct Auto 0.3 % (0.0-0.4); Lymphocytes Absolute Auto 2.5 X10*3/uL (1.2-4.9); Mean Corpuscular HGB Conc 32.9 g/dl (31.0-35.0); Mean Corpuscular Hemoglobin 30.4 pg (27.0-33.0); Mean Corpuscular Volume 92.2 fL (80-98); Monocytes Absolute Auto 0.5 X10*3/uL (0.1-1.2); Neutrophils Absolute Auto 3.8 X10*3/uL (2.0-8.3); Platelet Count 214 X10*3/uL (160-400); Red Blood Count 4.25 X10*6/uL (4.20-5.50); Red Cell Distribution Width 12.5 % (11.0-16.0)
[2021-03-27 07:15] LABS: Anion Gap 9 (12-20); Blood Urea Nitrogen 12 mg/dL (9-16); Calcium 9.3 mg/dL (8.4-10.2); Carbon Dioxide 29 mmol/L (22-29); Chloride 107 mmol/L (96-108); Creatinine Clr Calc Pharmacy 79.7; Estimated Glomerular Filt Rate > 60; Glucose Random 84 mg/dL (60-115); Potassium 4.2 mmol/L (3.3-5.1); Sodium 141 mmol/L (135-145)
[2021-03-27 07:21] VITALS: BP 101/65; PULSE 65; RESP 18; TEMP 36.6; O2SAT 100
--- NOTE | 2021-03-27 08:16 | MHC.CM.PN ---
CM met with Patient at bedside. Patient lives in a house with her /HCP and 26 year old Daughter and she had no prior services nor DME. Home/no services is the goal for dc and CM has initiated and will follow for dc planning.PCP is Dr. Suzy Lares.
[2021-03-27] MEDS: Famotidine 20 MG TABLET 40 MG PO (09:38)
[2021-03-27] MEDS: Mirabegron 50 MG TAB.ER.24H PO (09:39)
[2021-03-27] MEDS: Cholecalciferol (Vitamin D3) 25 MCG TABLET 50 MCG PO (09:39)
[2021-03-27] MEDS: timoloL maleate 0.5 % Oph Sol 5 ML DRBTL 1 DROP EYE-BOTH (09:40)
[2021-03-27 11:30] VITALS: BP 99/56; PULSE 67; RESP 18; TEMP 36.3; O2SAT 98
[2021-03-27] MEDS: Acetaminophen 325 MG TABLET 650 MG PO (13:34)
--- NOTE | 2021-03-27 14:18 | P.DS_ITS ---
DS: Providers Provider Date of Service: 03/27/21 Date of admission: 03/26/2021 Date of discharge: 03/27/21 Primary care physician: Suzy Lares MD DS: Diagnosis Discharge Diagnosis (1) Sick sinus syndrome: Status: Acute DS: Summary Hospital Course Hospital Course: Ms. Fallon was taken to the operating room with Dr. Hayes on 03/26/2021 where she had a dual chamber pacemaker inserted ([employer]). This went well and without issue. Overnight the patient did well although has been requiring fairly regular narcotic pain medication due to discomfort at her incision site. The pacemaker was interrogated on POD#1 and had no issues per report. Patient remained hemodynamically stable with no respiratory issues. She has been OOB ambulating to the bathroom often and has been tolerating PO intake without issue. She does have a complaint of urinary frequency and the sensation of incomplete emptying which she states are symptoms of UTI. States she gets a UTI about 1-2 times a month and her PCP just calls her in antibiotics which improves her symptoms. She denies any flank pain or dysuria. Time Spent with Patient Time attestation: Total time spent providing and/or coordinating discharge services: Discharge coordination time: Less than 30 minutes Quality: Stroke Does the patient have a stroke diagnosis?: No Physical Exam Vital Signs: Vital Signs: Last Vital Signs Temp 97.3 F 03/27/21 11:30 Pulse 67 03/27/21 11:30 Resp 18 03/27/21 11:30 BP 99/56 L 03/27/21 11:30 Pulse Ox 98 03/27/21 11:30 Body Mass Index 33.6 General: No acute distress, resting comfortably in bed, well developed, hu sband at bedside Head: Normocephalic, atraumatic, symmetric Eyes: Sclera anicteric, eyelids without edema or erythema, +EOMS intact ENT: Oral mucosa and tongue are moist without lesions or exudates Neck: Soft, supple, symmetric, trachea midline, no crepitus Cardiovascular: Regular rate and rhythm, no murmur/rubs/gallops, BUE and BLE without edema, no calf tenderness bilaterally Respiratory: Lungs CTA B, breathing nonlabored, speaking in full sentences, on room air. No use of accessory muscles. Chest wall: Left infraclavicular pacer pocket incision C/D/I without erythema, edema, or ecchymosis. This area is appropriately TTP. No crepitus. Gastrointestinal: Soft, non-tender, non-distended, +normoactive bowel sounds. Skin: Warm and dry throughout, no rashes Musculoskeletal: LUE in sling. Hand warm, +M/S, palpable radial pulse. Neurological: Alert and oriented x 3, no focal neurological deficit noted Psychiatric: No agitation, appropriate affect DS: Data Data Completed and Pending Labs on day of discharge: Laboratory Results - last 24 hr 03/27/21 03/27/21 06:00 06:00 WBC 7.0 RBC 4.25 Hgb 12.9 Hct 39.2 MCV 92.2 MCH 30.4 MCHC 32.9 RDW 12.5 Plt Count 214 MPV 10.0 Immature Gran % (Auto) 0.3 Neut % (Auto) 55.0 Lymph % (Auto) 36.0 Guthrie % (Auto) 7.0 Eos % (Auto) 1.4 Baso % (Auto) 0.3 Lymph # (Auto) 2.5 Guthrie # (Auto) 0.5 Eos # (Auto) 0.1 Baso # (Auto) 0.0 Abs Immat Gran (auto) 0.02 Absolute Neuts (auto) 3.8 Absolute Nucleated RBC 0.000 Nucleated RBC % (auto) 0.0 Sodium 141 Potassium 4.2 Chloride 107 Carbon Dioxide 29 Anion Gap 9 L BUN 12 Creatinine 0.81 Estim Creat Clear Calc 79.7 Estimated GFR > 60 Random Glucose 84 Calcium 9.3 Discharge Plan Discharge Patient Disposition: Home, Self-Care Referrals: Suzy Lares MD [Primary Care Provider] - 1 Week Discharge Medications: New oxycodone 5 mg Tablet 5 mg PO Q6H PRN (Reason: pain) Qty: 30 RF: 0 acetaminophen 325 mg Tablet 650 mg PO Q4H PRN (Reason: Pain, Moderate (Pain Scale 4-6) 7 Days Qty: 30 RF: 0 sulfamethoxazole-trimethoprim [Bactrim DS] 800-160 mg tablet 1 tab PO Q12H Qty: 10 RF: 0 Continued cholecalciferol (vitamin D3) [Vitamin D3] 50 mcg (2,000 unit) capsule 50 mcg PO DAILY Qty: 90 RF: 2 calcium citrate 250 mg calcium tablet 500 mg PO BID Qty: 360 RF: 0 famotidine 40 mg tablet 40 mg PO BID Qty: 180 RF: 2 biotin RF: 0 cranberry RF: 0 Myrbetriq 50 mg tablet extended release 24 hr 50 mg PO DAILY RF: 0 travoprost [Travatan Z] 0.004 % drops 1 drp ophthalmic (eye) QPM RF: 0 timolol 0.5 % drops 1 drp ophthalmic (eye) DAILY RF: 0 Discharge Orders: Discharge Order (Routine); Ordered 03/27/21 Ordered By: Jennifer Luna Patient Instructions: Pacemaker (DC) Activity Restrictions/Additional Instructions: ACTIVITY: * ARM MOVEMENT RESTRICTIONS: No lifting your left arm over your head or behind your back, no pushing/pulling/lifting anything >10lb with your left arm for 6- 8 weeks. This ensures the pacemaker wires stay in place and do not get pulled out accidentally. Make sure you are doing gentle range of motion exercises with the left arm (such as pendulum exercise) to make sure your elbow and shoulder do not get frozen up. * ARM SLING: Keep the sling on until tomorrow. You may then take the sling off and leave it off. HOWEVER, if you are noticing a difficulty limiting your left arm movement (as outline above) then wear your sling during the day to m ana sure you are adhering to the restrictions above. * Ask your doctor when you can expect to return to work. * You can still exercise. It is good for your body and your heart. Talk with y our doctor about an exercise plan. INCISION CARE: * You may shower starting tomorrow, 03/28/2021. Sponge bathe only until then. * Do not submerge yourself in water (baths, pools, etc.) for 2 weeks. * Monitor the incision for increased redness, swelling, bruising, pain, open area, or drainage. OTHER PRECAUTIONS: * Before you receive any treatment, tell all healthcare providers (including your dentist) that you have a pacemaker. * You will be given an ID card that contains information about your pacemaker. Always carry this card with you. You can show this card if your pacemaker sets off a metal detector. You should also show it to avoid screening with a hand-held security wand. * Keep your cell phone away from your pacemaker. Do not carry the phone in your shirt pocket, even it if is turned off. * Avoid strong magnets. Examples are those used in MRI's or in hand-held security wands. * Avoid strong electrical candelaria. Examples are those made by radio transmitting towers, ham radios, and heavy-duty electrical equipment. * Avoid leaning over the open muro of a running car. A running engine creates an electrical field. Most household and yard appliances will not cause any problems. If you use any large power tools, such as an industrial junior architect, talk with your doctor. WHEN TO CALL YOUR DOCTOR: Call your doctor immediately if you have any of the following: * Dizziness * Chest pain * Lack of energy * Fainting spells * Twitching chest muscles * Rapid pule or pounding heartbeat * Shortness of breath * Pain around your pacemaker * Fever above 100.4 F (38 C) or other signs of infection (redness, swelling, drainage, or warmth at the incision site). * Hiccups that will not stop FOLLOWUP APPOINTMENTS: * Call Dr. Hayes's office (Thoracic Surgery) on Monday to schedule a followup appointment for 2 weeks from now. The office number is . * Call your souvenir assembler to make an appointment for the next couple weeks. Make regular follow-up appointments with your doctor. He or she will check the pacemaker to make sure it is working properly.
--- NOTE | 2021-03-27 14:38 | MHC.CM.PN ---
Patient has been medically cleared for dc to home today, no services.
--- NOTE | 2021-03-27 17:35 | HO.POSTANES ---
Post Anesthesia Evaluation Post Anesthesia Evaluation Vital Signs: Vital Signs Temp Pulse Resp BP Pulse Ox 03/27/21 11:30 97.3 F 67 18 99/56 L 98 03/27/21 07:21 97.9 F 65 18 101/65 100 Anesthesia: Monitored Mental Status: Awake Pain Control: Satisfactory Nausea/Vomiting: None Hydration: Adequate Anesthesia-Related Issues: No Anes. Related Issues
== END 2021-03-27 16:00 | disposition home or self-care (01) ==
LOC: HO.SSS 12:23 → HO.IMC 17:16
PROVIDERS: Nurse Practitioner Family; PCP Internal Medicine; Visit Provider Surgery
PROC: (CPT 33208; principal; 2021-03-26 12:40)
DX: I49.5 Sick sinus syndrome (principal); Z20.822 Contact with and (suspected) exposure to COVID-19; Z88.0 Allergy status to penicillin
CPT/HCPCS: 33208; 36415; 71045; 80048; 85025; 87635; C1785; C1892; C1898; J0690; J2250; J2405; J3010; J3370

== ENCOUNTER → 2021-04-09 10:35 | Outpatient (BNVA) | payer OTHER, SELFPAY | PROVIDERS: PCP Internal Medicine; Visit Provider Surgery | DX: Z45.018 Encounter for adjustment and management of other part of cardiac pacemaker (principal); Z87.891 Personal history of nicotine dependence | CPT/HCPCS: 99212 ==

== ENCOUNTER 2021-05-10 13:08 | Outpatient (REF) | payer OTHER, SELFPAY ==
[2021-05-10 14:46] LABS: Blood Urea Nitrogen 20 mg/dL (9-16); Estimated Glomerular Filt Rate > 60
[2021-05-10 15:10] LABS: TSH reflex Free T4 1.94 uIU/mL (0.32-4.0)
== END 2021-05-10 13:09 | disposition home or self-care (01) ==
LOC: HO.LAB 13:08
PROVIDERS: Internal Medicine Cardiovascular Disease; PCP Internal Medicine; Referring Provider Internal Medicine; Visit Provider Surgery
DX: R10.13 Epigastric pain (principal); G89.29 Other chronic pain; I49.5 Sick sinus syndrome
CPT/HCPCS: 36415; 82565; 84443; 84520; 99202

== ENCOUNTER → 2021-05-11 12:25 | Outpatient (BNVA) | payer OTHER, SELFPAY | PROVIDERS: PCP Internal Medicine; Referring Provider Internal Medicine; Visit Provider Internal Medicine Cardiovascular Disease | DX: Z45.018 Encounter for adjustment and management of other part of cardiac pacemaker (principal); R06.02 Shortness of breath | CPT/HCPCS: 99212 ==

== ENCOUNTER → 2021-05-28 09:32 | Outpatient (REF) | payer OTHER, SELFPAY ==
--- NOTE | ~2021-05-28 | NM_ITS ---
Lexiscan Myocardial perfusion study Indication: Shortness of breath, assess for coronary disease and ischemia Technique: The patient was brought in for a Lexiscan perfusion study on 05/28/2021 and was injected 0.4 mg of Lexiscan intravenously. Within a minute of this injection 30 mCi of sestamibi was given intravenously. Images were obtained using the SPECT gamma camera interlaced with the gating device. Images were obtained in supine position. Resting perfusion study was performed on 05/31/2021. Patient was administered 30 mCi of sestamibi intravenously at rest. Images were then obtained in supine position. Total DLP 113mGy-cm. Images were processed with the software and compared side to side in short axis, horizontal long axis and vertical long axis views. Findings: Raw acquisition was reviewed. The stress perfusion study showed slight decrease in tracer uptake in the distal part of lateral wall. This area seems to improve with CT attenuation correction and hence could be from soft tissue attenuation artifact. The gated study shows normal LV systolic function with calculated LVEF of 60%. LV cavity is normal in size. The gated study shows normal wall thickening and contraction of segments. Resting study shows no significant perfusion abnormality. Gating at rest reveals normal wall motion with ejection fraction at 60%. The findings are consistent with mild apical lateral reversible defect, but improving with CT attenuation correction; hence likely from soft tissue attenuation artifact. NM/NM maritza perf SPECT rest & str Impression: 1. Myocardial perfusion imaging study shows likely normal myocardial perfusion. 2. Gated LVEF is 60% during stress and rest. 3. Transient ischemic dilatation not present. EKG component of the test reported separately.
--- NOTE | 2021-05-28 09:35 | CA_ITS ---
Acquisition Time: 2021-05-28 10:12:57 Total Exercise Time: 00:02:00 Test Indications: Dyspnea Medications: OMEPRAZOLE Protocol: LEXISCAN Max HR: 077 BPM 47% of Pred: 162 BPM Max BP: 120/068 mmHG Max Work Load: 1.0 METS Pharmacological stress test with Lexiscan injection, while sitting and kicking her legs, with moderate shortness of breath post injection, no chest discomfort, without arrythmia, with normotensive response to injection, with nondiagnostic EKG for ischemia. In recovery she was treated with Aminophylline 75mg IVP to reverse Lexiscan with resolution of shortness of breath. Nuclear images pending.Test reviewed with Dr Willoughby. Referred By: Basil Levin Overread By: MICHELE MICHEL
== END ==
LOC: HO.CARD 09:32
PROVIDERS: Visit Provider Internal Medicine Cardiovascular Disease
DX: R06.02 Shortness of breath (principal)
CPT/HCPCS: 78452; 93017; A9500; J0280; J2785

== ENCOUNTER 2021-06-10 14:48 | Outpatient (REF) | payer OTHER, SELFPAY ==
--- NOTE | ~2021-06-10 | CT_ITS ---
EXAMINATION: CT ABDOMEN AND PELVIS WITH CONTRAST CLINICAL INFORMATION: Epigastric pain COMPARISON: Previous ultrasound of the abdomen February [address] of the abdomen and pelvis March 2014 TECHNIQUE: Multidetector volumetric images were obtained from the superior aspect of the liver through the pubic symphysis following administration 85 mL of Omnipaque 350 intravenous contrast. Sagittal and coronal reformatted images were obtained on the technologist's workstation. Oral contrast: Yes This CT examination was performed using dose optimization techniques as appropriate, variously including the following: *Automated exposure control *Adjustment of mA and/or kV according to patient size (this includes techniques or standardized protocols for targeted exams where dose is matched to indication/reason for exam; i.e. extremities or head) *Use of iterative reconstruction technique DLP: 664 mGy-cm FINDINGS: LUNG BASES: The visualized lung bases are unremarkable. LIVER, GALLBLADDER, AND BILIARY TREE: There are 3 liver cysts measuring 1 x 2 cm high in the liver near the IVC and venous confluence axial image 14 series 3, measuring 6 mm in the inferior lateral segment of the left lobe axial image 23 series 3 and measuring 1 cm in the right lobe axial image 36 series 3. There is a third probable smaller cyst in the right lobe measuring 4 mm axial image 40 series 3. The gallbladder is unremarkable. There is no biliary duct dilatation. PANCREAS: Unremarkable. SPLEEN: Unremarkable. ADRENAL GLANDS: Unremarkable. KIDNEYS AND URETERS: There is a fatty lesion exophytic to the medial lower pole of the right kidney measuring 2.8 cm suggestive of an angiomyolipoma. This is increased in size from 1.6 x 2 cm March 2014 exam. BLADDER: Unremarkable. GASTROINTESTINAL TRACT: The small and large bowel are unremarkable. The appendix is unremarkable. The stomach is not optimally distended. There is difficult to exclude wall thickening of the proximal stomach. There is a small esophageal hernia. ABDOMINAL WALL: There are several small adjacent upper midline ventral hernias containing fat. There is a right inguinal hernia containing fat. LYMPH NODES: Normal. VASCULAR: Unremarkable. PELVIC VISCERA: Unremarkable. OSSEOUS STRUCTURES: There are degenerative changes of the spine. CT/CT abdomen pelvis w con IMPRESSION: Multiple upper abdominal midline ventral hernias containing fat. Multiple liver cysts. Increasing fatty lesion exophytic to the medial lower pole of the right kidney probably representing an angiomyolipoma measuring 3 cm. Right inguinal hernia containing fat. Fleischner guidelines were followed.
[2021-06-10] MEDS: iohexoL 350 MG/ML 100 ML INFUS..BTL IV (15:25)
== END 2021-06-10 14:49 | disposition home or self-care (01) ==
LOC: HO.CT 14:48
PROVIDERS: Visit Provider Surgery
DX: R10.13 Epigastric pain (principal); G89.29 Other chronic pain
CPT/HCPCS: 74177; Q9967

== ENCOUNTER → 2021-06-24 14:39 | Outpatient (BNVA) | payer OTHER, SELFPAY | PROVIDERS: PCP Internal Medicine; Referring Provider Internal Medicine; Visit Provider Surgery | DX: K43.9 Ventral hernia without obstruction or gangrene (principal) | CPT/HCPCS: 99212 ==

== ENCOUNTER 2021-07-27 07:33 | Day surgery (SDC) | payer OTHER, SELFPAY ==
[2021-07-21 10:08] VITALS: BMI 35.6
[2021-07-21 11:30] VITALS: BMI 35.6
--- NOTE | 2021-07-26 09:30 | P.CONAN_ITS ---
Documented by User: Lamar Hunter NP 07/26/21 09:37 HPI - Anesthesia Eval Consult details Narrative: 56yo F for Hernia Repair Epigastric with Poss Mesh s/p Pacer insertion for SSS 03/2021 with TIVA PMFSH Active Problems Active Problems: All Active Problems (Updated 07/21/21 @ 11:28 by Maggie Acevedo, DEONNA) Poor historian (Acute) Abdominal pain (Acute) Dysuria (Acute) Epigastric hernia (Acute) Chronic epigastric pain (Acute) Cardiac pacemaker (Acute ~03/2021) Sick sinus syndrome (Acute) Cardiac murmur (Acute) Impaired fasting glucose (Acute) Osteopenia of multiple sites (Acute) Cervical disc disease (Acute) Urinary incontinence, mixed (Acute) GERD (gastroesophageal reflux disease) (Acute) Irritable bowel syndrome (Acute) Hiatal hernia (Acute) Glaucoma (Acute) Obesity (BMI 30.0-34.9) (Acute) Carpal tunnel syndrome on right (Acute) Family history of aortic aneurysm (Acute) Past Medical History Medical History Cardiac murmur Cardiac pacemaker (~03/2021) Carpal tunnel syndrome on right Cervical disc disease Chronic epigastric pain Epigastric hernia Family history of aortic aneurysm GERD (gastroesophageal reflux disease) Glaucoma Hiatal hernia Impaired fasting glucose Insomnia Irritable bowel syndrome Obesity (BMI 30.0-34.9) Osteopenia of multiple sites Sick sinus syndrome Urinary incontinence, mixed Family History Family History Father Leukemia Mother HTN (hypertension) Small cell lung cancer Maternal Grandmother Alzheimer's disease Dementia Maternal Grandfather No problems noted. Paternal Grandmother No problems noted. Paternal Grandfather Alzheimer's disease Dementia Daughter No problems noted. Daughter No problems noted. Son No problems noted. Sister No problems noted. Brother Hx of CABG S/P AVR (aortic valve replacement) AAA (abdominal aortic aneurysm) Brother No problems noted. Brother No problems noted. Brother No problems noted. Brother No problems noted. Family history of problems with anesthesia: No Surgical History Surgical History History of cardiac pacemaker (~2020) History of carpal tunnel surgery of right wrist (~2013) History of colonoscopy (~2013) History of fusion of cervical spine History of hernia repair (~2008) History of shoulder surgery History of tonsillectomy Hx of elbow surgery History of Problems with Anesthesia: No Social History Social History Household Members: Spouse Housing: House Are you a primary wound care coordinator to a significant other at home: No Do you presently have visiting nurse or other home services: No Alcohol intake: current Alcohol intake frequency: a few times a week Alcohol type: wine Patient Tobacco Use Status: Former Tobacco user Quit Date: Tobacco use type: Cigarette e-Cigarette/Vaping Use: Never Used Use of substances other than those prescribed or required for medical reasons: No Are you DNR?: No Advance Directives: No Advance Directives Information Provided: Yes Advance Directives on File: No Recently lost weight without trying: No service: No Current occupational status: retired Meds Allergies Allergy/AdvReac Type Severity Reaction Status Date / Time amoxicillin [Augmentin] Allergy Severe hives Verified 07/26/21 10:28 clavulanic acid [Augmentin] Allergy Severe hives Verified 07/26/21 10:28 Home Medications Medication Instructions Recorded Confirmed Last Taken Type mirabegron 50 mg tablet,extended 50 mg PO DAILY 05/26/20 07/26/21 03/26/21 History release 24 hr (Myrbetriq) timolol 0.5 % eye drops 1 drp OPHTHALMIC (EYE) DAILY 05/26/20 07/26/21 Unknown History travoprost 0.004 % eye drops 1 drp OPHTHALMIC (EYE) QPM 05/26/20 07/26/21 Unknown History (Travatan Z) biotin DAILY 03/23/21 07/26/21 Unknown History cranberry 03/23/21 07/26/21 Unknown History famotidine 40 mg tablet 1 tab PO BID 07/27/21 07/27/21 07/27/21 History Exam Exam Date and Time: July 26, [id number] Height,Weight and Vital Signs: Height 5 ft 3 in Weight 91.172 kg Pertinent Lab Results Pertinent Lab Results: Laboratory Tests 03/27/21 03/27/21 05/10/21 06:00 06:00 14:02 WBC 7.0 Hgb 12.9 Hct 39.2 Plt Count 214 Sodium 141 Potassium 4.2 Chloride 107 Carbon Dioxide 29 BUN 20 H D Creatinine 0.77 Narrative Narrative: ECHO 11/2020 Conclusions: - Essentially normal study with mild left atrial enlargement ? ? NM maritza perf SPECT rest & str 05/2021 Impression: ? 1.? Myocardial perfusion imaging study shows likely normal myocardial perfusion. 2.? Gated LVEF is 60% during stress and rest. 3. Transient ischemic dilatation not present. ? EKG component of the test reported separately. (Nondiagnostic) Cardiac Device Check Details: Remote pacemaker report generated 07/20/2020.? Pacemaker function is adequate [id number] Cardiac Device Interrogation, pacemaker Procedure code (CPT) selection complete Assessment and Plan Assessment Anesthesia Assessment: Chart Reviewed Final Anesthetic Review Family History of Problems with Anesthesia: No History of Problems with Anesthesia: No Documented by User: Bailey Marie MD 07/27/21 08:49 [facility] Active Problems Active Problems: All Active Problems (Updated 07/21/21 @ 11:28 by Maggie Acevedo, DEONNA) Poor historian (Acute) Abdominal pain (Acute) Dysuria (Acute) Epigastric hernia (Acute) Chronic epigastric pain (Acute) Cardiac pacemaker (Acute ~03/2021) Sick sinus syndrome (Acute) Cardiac murmur (Acute) Impaired fasting glucose (Acute) Osteopenia of multiple sites (Acute) Cervical disc disease (Acute) Urinary incontinence, mixed (Acute) GERD (gastroesophageal reflux disease) (Acute) Irritable bowel syndrome (Acute) Hiatal hernia (Acute) Glaucoma (Acute) Obesity (BMI 30.0-34.9) (Acute) Carpal tunnel syndrome on right (Acute) Family history of aortic aneurysm (Acute) Pacemaker insertion for chronotropic incompetence and SSS. Had wcho done secondary to family h/o aortic aneurysm and AVR. Normal echo. EF 60-65%. No valvular abnormalities. Mild LAE Vertigo Still with some SOB, dizziness. No CP Past Medical History Medical History Cardiac murmur Cardiac pacemaker (~03/2021) Carpal tunnel syndrome on right Cervical disc disease Chronic epigastric pain Epigastric hernia Family history of aortic aneurysm GERD (gastroesophageal reflux disease) Glaucoma Hiatal hernia Impaired fasting glucose Insomnia Irritable bowel syndrome Obesity (BMI 30.0-34.9) Osteopenia of multiple sites Sick sinus syndrome Urinary incontinence, mixed Family History Family History Father Leukemia Mother HTN (hypertension) Small cell lung cancer Maternal Grandmother Alzheimer's disease Dementia Maternal Grandfather No problems noted. Paternal Grandmother No problems noted. Paternal Grandfather Alzheimer's disease Dementia Daughter No problems noted. Daughter No problems noted. Son No problems noted. Sister No problems noted. Brother Hx of CABG S/P AVR (aortic valve replacement) AAA (abdominal aortic aneurysm) Brother No problems noted. Brother No problems noted. Brother No problems noted. Brother No problems noted. Surgical History Surgical History History of cardiac pacemaker (~2020) History of carpal tunnel surgery of right wrist (~2013) History of colonoscopy (~2013) History of fusion of cervical spine History of hernia repair (~2008) History of shoulder surgery History of tonsillectomy Hx of elbow surgery Social History Social History Household Members: Spouse Housing: House Are you a primary wound care coordinator to a significant other at home: No Do you presently have visiting nurse or other home services: No Alcohol intake: current Alcohol intake frequency: a few times a week Alcohol type: wine Patient Tobacco Use Status: Former Tobacco user Quit Date: Tobacco use type: Cigarette e-Cigarette/Vaping Use: Never Used Use of substances other than those prescribed or required for medical reasons: No Are you DNR?: No Advance Directives: No Advance Directives Information Provided: Yes Advance Directives on File: No Recently lost weight without trying: No service: No Current occupational status: retired Meds Allergies Allergy/AdvReac Type Severity Reaction Status Date / Time amoxicillin [Augmentin] Allergy Severe hives Verified 07/26/21 10:28 clavulanic acid [Augmentin] Allergy Severe hives Verified 07/26/21 10:28 Home Medications Medication Instructions Recorded Confirmed Last Taken Type mirabegron 50 mg tablet,extended 50 mg PO DAILY 05/26/20 07/26/21 03/26/21 History release 24 hr (Myrbetriq) timolol 0.5 % eye drops 1 drp OPHTHALMIC (EYE) DAILY 05/26/20 07/26/21 Unknown History travoprost 0.004 % eye drops 1 drp OPHTHALMIC (EYE) QPM 05/26/20 07/26/21 Unknown History (Travatan Z) biotin DAILY 03/23/21 07/26/21 Unknown History cranberry 03/23/21 07/26/21 Unknown History famotidine 40 mg tablet 1 tab PO BID 07/27/21 07/27/21 07/27/21 History Exam Height,Weight and Vital Signs: Height 5 ft 3 in Weight 91.172 kg Vital Signs Temp Pulse Resp BP Pulse Ox 07/27/21 07:50 97.7 F 60 16 128/71 98 Pertinent Lab Results Pertinent Lab Results: Laboratory Tests 03/27/21 03/27/21 05/10/21 06:00 06:00 14:02 WBC 7.0 Hgb 12.9 Hct 39.2 Plt Count 214 Sodium 141 Potassium 4.2 Chloride 107 Carbon Dioxide 29 BUN 20 H D Creatinine 0.77 Airway Mallampati Class: II TM Dist: >3cm Neck ROM: Full (S/p cervical disc fusion. Good extension. No UE weakness/numbness) Loose/Missing/Broken Teeth: No Heart: RRR Lungs: CTAB Assessment and Plan Assessment Anesthesia Assessment: Anesthesia Plan Discussed Final Anesthetic Review NPO: Yes ASA Class: III Final Preanesthetic Review: No Changes in Pt Med Stat, Meds/Allgs Chart Reviewed, Consent Obtained/Reviewed and Anes Risks/Benef Reviewed Patient Risk: Intermediate Procedure Risk: Low Assessment/Block/Sedation in SS: Assess/Block/Sedation-SS Anesthetic Plan Anesthetic Plan: GA Disposition: Standard PACU
[2021-07-27] VITALS (14 sets, daily range): BP systolic 88–128; BP diastolic 50–71; PULSE 60; RESP 10–16; TEMP 36.5–36.6; O2SAT 85–100
[2021-07-27] MEDS: Lactated Ringers 1,000 ML 100 ML IVCONT (08:18)
--- NOTE | 2021-07-27 08:26 | MHC.SHP ---
Pre-Procedural Eval Section A Date of Service: 07/27/21 The patient is an INPATIENT: No Changes since office visit: No Cold of Flu in the past 2 weeks, No New Medical Problems, No Changes in Medication and No Patient answered all questions Section B Chief Complaint: Epigastric Hernia Details of Present Illness: has pain on previous hernia repair site, with a CT scan showing small fat containing hernias x2 Relevant Family History (Specify if Yes): No Relevant Social History: None Present Medications: see Short Stay Collaborative assessment Medical History: Significant History ( impaired fasting glucose, sick sinus syndrome, GERD, IBS) History of Previous Operations: Relevant previous surgery/procedure and date(s) ( epigastric hernia repair, 2008) Allergies: Allergies Allergy/AdvReac Type Severity Reaction Status Date / Time amoxicillin [Augmentin] Allergy Severe hives Verified 07/26/21 10:28 clavulanic acid [Augmentin] Allergy Severe hives Verified 07/26/21 10:28 Review of Systems Sugical H&P ROS: Negative: Constitution, Cardiovascular, Respiratory, Neurological, Psychiatric, Hem-Onc, Allergic/Immunologic, Gastrointestinal, Genitourinary, Musculoskeletal, Integumentary, Endocrine and Eyes/Ears/Nose/Throat Exam Surgical H&P Exam: Normal: HEENT, Normal: Heart, Normal: Lungs, Normal: Extremities, Normal: Skin and Normal: Neurological and Significant Findings: Abdomen ( vague hernia along the incision epigastric area, small) Plan Diagnosis/Plan: Unchanged I have reviewed the history and physical and performed a pertinent physical examination on my patient. No changes have occurred unless specified.
--- NOTE | 2021-07-27 09:50 | P.OP_ITS ---
Operative Note Operative Note Date of Service: 07/27/21 Narrative: Preop diagnosis: Incisional hernias x2 Postop diagnosis: Incisional hernias x2 Procedure: Repair of incisional hernias x2 with Ventralex mesh Surgeon: Coleman Hong MD assistant manager retail: G[employer] Ludwig The patient is a 56-year-old female with pain on a previous incision from a previous epigastric hernia repair. She had a CAT scan showing 2 areas with 2 small fat containing hernias. She understood the technique of repair with mesh. Was aware of the risks, benefits, and alternatives. She was brought to the operating table and placed supine under general anesthesia via laryngeal mask airway. The abdomen was prepped and draped in the usual sterile fashion. A surgical time-out was done. The patient received cefazolin 2 g IV preoperatively . I marked the planned line of incisions based on the CT scan imaging.One hernia was just above the umbilicus in the 2nd hernia was on the most superior part of the old epigastric incision. I first made an incision on the skin l on the midline only above the umbilicus using a blade number 15. this was carried down through the full-thickness of skin and thick subcutaneous fat until was able to visualize hernia contents. This was omental fat. I continued to dissect this hernia contents of the rest of the subcutaneous layer using sharp dissection with Metzenbaum scissors all the way down to the fascial defect. I released the adhesions tethering the hernia contents off the fascial edge circumferentially until was able to completely reduce the hernia. Applied a Jevon clamp on the fascial edge to allow me to lift this up and visualize the underside. The margins appeared to be clear we had enough space for the mesh. The fascial defect was about 1.3 cm in diameter. I therefore used as small-sized Ventralex mesh. This was positioned flat under the fascial defect. Once this appeared to be flat and fully expanded, I proceeded to then secure the Prolene straps of the mesh to the fascial edge with Prolene 2 sutures. I trimmed the Prolene straps flush. I then closed the fascial defect with a [id number] Maxon 1 stitch. I then proceeded to make another other incision on the superior part of the old hernia incision using a blade 15. This was carried down through the full- thickness of skin and thick subcutaneous fat with Metzenbaum scissors and electrocautery until was able to visualize hernia contents. These hernia contents consisted only of omental fat again. I proceeded to sharply dissect the base of the hernia to free up the hernia contents from the fascial edge using Metzenbaum scissors. By doing so was able to completely reduce the hernia. The defect was about 1 cm in diameter. I applied a Jevon clamp to retract this in visualized underside. Again appeared to have adequate margins to position the mesh. I used a small-sized Ventralex mesh and this was flattened under the fascial defect. I made sure that this was expanded and flatten. I secured the Prolene straps of the mesh with Prolene 2-0 sutures to the fascial edge. I then trimmed the Prolene straps flush on the fascial level. I closed the fascial defect with a [id number] Maxon 1 stitch. We then reapposed the subcutaneous layer on both incisions with Dexon 3-0 sutures. Skin closure was achieved on all incisions using Dexon 4-0 subcuticular running stitch. Both incisions were infiltrated with Marcaine 0.5% for postop analgesia. Steri-Strips and dressings were applied The procedure was then completed The patient tolerated procedure well. There were no complications noted. Initial and final counts of sponges and instruments were correct. Estimated blood loss was less than 5 cc . The patient was extubated without difficulty and transferred to the recovery room with stable vital signs.
[2021-07-27] MEDS: oxyCODONE HCl Immed Release 5 MG TABLET PO (10:15)
[2021-07-27] MEDS: Acetaminophen 325 MG TABLET 650 MG PO (10:15)
[2021-07-27] MEDS: fentaNYL citrate/PF 100 MCG/2 ML VIAL 25 MCG IVPUSH (10:21)
[2021-07-27] MEDS: Ketorolac Tromethamine 30 MG/ML VIAL IVPUSH (10:53)
== END 2021-07-27 12:13 | disposition home or self-care (01) ==
PROVIDERS: Visit Provider Surgery
PROC: (CPT 49565; principal; 2021-07-27 09:10)
DX: K43.9 Ventral hernia without obstruction or gangrene (principal); K43.2 Incisional hernia without obstruction or gangrene; K21.9 Gastro-esophageal reflux disease without esophagitis; K58.9 Irritable bowel syndrome, unspecified; I49.5 Sick sinus syndrome; Z95.0 Presence of cardiac pacemaker; R73.01 Impaired fasting glucose; Z79.899 Other long term (current) drug therapy; Z87.891 Personal history of nicotine dependence; Z88.1 Allergy status to other antibiotic agents
CPT/HCPCS: 49565 ×2; 49568 ×2; C1781; J0690; J1100; J1885; J2250; J2370; J2405; J3010

== ENCOUNTER → 2021-08-09 12:54 | Outpatient (BNVA) | payer OTHER, SELFPAY | PROVIDERS: PCP Internal Medicine; Referring Provider Internal Medicine; Visit Provider Surgery | DX: Z09 Encounter for follow-up examination after completed treatment for conditions other than malignant neoplasm (principal); Z87.19 Personal history of other diseases of the digestive system | CPT/HCPCS: 99212 ==

== ENCOUNTER 2021-08-19 10:54 | Outpatient (REF) | payer OTHER, SELFPAY ==
[2021-08-19 14:07] LABS: Alanine Aminotransferase 6 U/L (0-31); Anion Gap 11 (12-20); Aspartate Amino Transferase 15 U/L (5-31); Blood Urea Nitrogen 15 mg/dL (9-16); Calcium 9.8 mg/dL (8.4-10.2); Carbon Dioxide 27 mmol/L (22-29); Chloride 107 mmol/L (96-108); Cholesterol 212 mg/dL; Estimated Glomerular Filt Rate > 60; Glucose Fasting 94 mg/dL (60-99); HDL Cholesterol 60 mg/dL; LDL Cholesterol Calculated 136 mg/dl; Potassium 4.7 mmol/L (3.3-5.1); Sodium 140 mmol/L (135-145); Triglycerides 84 mg/dL
[2021-08-19 14:30] LABS: Vitamin D 25-OH Total 41.4 ng/mL (>30)
== END 2021-08-19 10:55 | disposition home or self-care (01) ==
LOC: HO.HMGCLDS 10:54
PROVIDERS: Visit Provider Internal Medicine
DX: Z00.01 Encounter for general adult medical examination with abnormal findings (principal); E66.9 Obesity, unspecified; M85.89 Other specified disorders of bone density and structure, multiple sites; R73.01 Impaired fasting glucose
CPT/HCPCS: 36415; 80048; 80061; 82306; 84450; 84460

== ENCOUNTER 2021-08-26 14:37 | Outpatient (REF) | payer OTHER, SELFPAY ==
--- NOTE | ~2021-08-26 | MM_ITS ---
EXAMINATION: MM SCREENING DIGITAL BREAST TOMOSYNTHESIS, BILATERAL CLINICAL INFORMATION: Screening. Asymptomatic. The lifetime risk of breast cancer based on the Tyrer-Cuzick Model is 7%. COMPARISON: Mammography: 08/11/2020, 07/09/2020, 10/02/2018, 09/28/2017 TECHNIQUE: Digital breast tomosynthesis is performed in both the craniocaudal and mediolateral oblique views along with computer-aided detection (CAD). Synthesized 2D images are generated from the tomosynthesis. Additional left CC and left MLO views are provided. FINDINGS: There are scattered areas of fibroglandular density (ACR BI-RADS breast composition Category b). There are no significant masses, abnormal calcifications, or other abnormalities. Pacemaker generator overlies and partly obscures posterior left axilla on MLO view. There are biopsy clip marker is seen in each breast. Some fine regional round calcifications left breast are stable. No significant changes from prior studies. MM/MM tomosynthesis screening BI IMPRESSION: No mammographic evidence of malignancy. ASSESSMENT: BI-RADS 2: Benign RECOMMENDATION: Routine annual mammography screening. This patient's information was entered into a reminder system with a target due date for their next mammogram.
== END 2021-08-26 14:38 | disposition home or self-care (01) ==
LOC: HO.MAMMO 14:37
PROVIDERS: PCP Internal Medicine; Visit Provider Internal Medicine
DX: Z12.31 Encounter for screening mammogram for malignant neoplasm of breast (principal)
CPT/HCPCS: 77063; 77067

== ENCOUNTER → 2021-09-30 12:57 | Outpatient (BNVA) | payer OTHER, SELFPAY | PROVIDERS: PCP Internal Medicine; Visit Provider Internal Medicine Endocrinology, Diabetes & Metabolism | DX: M85.89 Other specified disorders of bone density and structure, multiple sites (principal) | CPT/HCPCS: 99212 ==

== ENCOUNTER 2021-10-12 09:27 | Outpatient (REF) | payer OTHER, SELFPAY ==
[2021-10-12 09:55] LABS: COVID-19 Test Positive (Negative)
== END 2021-10-12 09:28 | disposition home or self-care (01) ==
LOC: HO.LAB 09:27
PROVIDERS: PCP Internal Medicine; Visit Provider Internal Medicine
DX: Z20.822 Contact with and (suspected) exposure to COVID-19 (principal)
CPT/HCPCS: 87635; C9803

== ENCOUNTER 2021-11-03 12:36 | Outpatient (REF) | payer OTHER, SELFPAY ==
--- NOTE | ~2021-11-03 | MM_ITS ---
EXAMINATION: BONE DENSITOMETRY CLINICAL INDICATION: Osteopenia. COMPARISON: Previous BD dated 09/02/2019 and baseline BD dated 08/01/2013. TECHNIQUE: Using a [employer] DXA System (software version: 13.1) manufactured by [employer] (P), dual-energy x-ray absorptiometry was performed of the lumbar spine and left hip. The images are of good technical quality. Summary results are attached. FINDINGS: AP SPINE L1-L4: Current: BMD 0.955 g/cm2, Z-score -1.6, T-score -1.9, osteopenia, 1.2% decrease from previous, 5.3% decrease from baseline (<5% change is not significant). Prior: BMD 0.967 g/cm2. Baseline: BMD 1.008 g/cm2. LEFT FEMUR, NECK: Current: BMD 0.849 g/cm2, Z-score -0.7, T-score -1.4, osteopenia. Prior: BMD 0.806 g/cm2. Baseline: BMD 0.840 g/cm2. LEFT FEMUR, TOTAL: Current: BMD 0.844 g/cm2, Z-score -1.0, T-score -1.3, osteopenia, 2.2% increase from previous, 2.1% decrease from baseline (<5% change is not significant). Prior: BMD 0.826 g/cm2. Baseline: BMD 0.862 g/cm2. IDENTIFIED RISK FACTORS: Menopause, anticonvulsant, history of fracture (adult), low calcium intake. HISTORY OF FRACTURE: Elbow, wrist. MEDICATIONS: Calcium, vitamin D. MM/XR DEXA axial skeleton IMPRESSION: 1. DIAGNOSIS: Osteopenia based on the lowest T-score value of -1.9 in the lumbar spine applying World Health Organization criteria. 2. 10-YEAR FRACTURE RISK PREDICTION, FRAX: Major osteoporotic fracture (clinical spine, forearm, hip or shoulder) 11.9%. Hip fracture 0.9%. 3. Treatment Recommendations: NOF guidelines recommend consideration for treatment in postmenopausal women and men age 50 and older presenting with the following: -A hip or vertebral (clinical or morphometric) fracture. -T-score less than or equal to -2.5 at the femoral neck or spine after appropriate evaluation to exclude secondary causes. -Low bone mass at the hip or spine and a 10-year fracture probability by FRAX of greater than or equal to 3% for hip fracture or greater than or equal to 20% for major osteoporotic fracture based on the [place] adapted WHO algorithm. 4. Other Recommendations: All treatment decisions require clinical judgment and consideration of individual patient factors, including patient preferences, comorbidities, previous drug use, risk factors not captured in the FRAX model (e.g. frailty, falls, vitamin D deficiency, increased bone turnover, interval significant decline in bone density) and possible under or overestimation of fracture risk by FRAX. Additional medical evaluation for secondary cause of low bone mineral density may be appropriate. FUTURE SCAN RECOMMENDATION: People with diagnosed cases of osteoporosis or at high risk for fracture should have regular bone mineral density tests. For patients eligible for Medicare, routine testing is allowed once every 2 years. The testing frequency can be increased to one year for patients who have rapidly progressing disease, those who are receiving or discontinuing medical therapy to restore bone mass, or have additional risk factors.
== END 2021-11-03 12:37 | disposition home or self-care (01) ==
LOC: HO.MAMMO 12:36
PROVIDERS: Visit Provider Internal Medicine Endocrinology, Diabetes & Metabolism
DX: Z13.820 Encounter for screening for osteoporosis (principal); M85.89 Other specified disorders of bone density and structure, multiple sites; Z78.0 Asymptomatic menopausal state; Z79.899 Other long term (current) drug therapy
CPT/HCPCS: 77080

== ENCOUNTER → 2021-12-13 14:16 | Outpatient (BNVA) | payer OTHER, SELFPAY | PROVIDERS: PCP Internal Medicine; Referring Provider Internal Medicine; Visit Provider Internal Medicine Cardiovascular Disease | DX: Z45.018 Encounter for adjustment and management of other part of cardiac pacemaker (principal) | CPT/HCPCS: 93280; 99212 ==

== ENCOUNTER 2021-12-20 10:07 | Outpatient (REF) | payer OTHER, SELFPAY ==
[2021-12-20 10:15] LABS: Total Volume 24 Hour Urine 3050 mL
[2021-12-20 12:42] LABS: Creatinine, 24Hr Urine 1.4 G/Day (1.0-2.0); Creatinine, mg/dL 47.41
[2021-12-21 18:26] LABS: Calcium, 24 Hr Urine 131 mg/24 h; Calcium/Creatinine Ratio 86 mg/g creat (30-275); Creatinine 24Hr Urine 1.53 g/24 h (0.50-2.15)
== END 2021-12-20 10:08 | disposition home or self-care (01) ==
LOC: HO.LNP 10:07
PROVIDERS: Visit Provider Internal Medicine Endocrinology, Diabetes & Metabolism
DX: M85.89 Other specified disorders of bone density and structure, multiple sites (principal)
CPT/HCPCS: 82340; 82570

== ENCOUNTER → 2022-04-28 14:24 | Outpatient (BNVA) | payer OTHER, SELFPAY | PROVIDERS: PCP Internal Medicine; Visit Provider Surgery | DX: R10.13 Epigastric pain (principal); G89.29 Other chronic pain | CPT/HCPCS: 99212 ==

== ENCOUNTER 2022-05-16 14:25 | Outpatient (REF) | payer OTHER, SELFPAY ==
--- NOTE | ~2022-05-16 | CT_ITS ---
EXAMINATION: CT ABDOMEN AND PELVIS WITHOUT CONTRAST CLINICAL INFORMATION: Epigastric pain. COMPARISON: CT abdomen pelvis 12-21 TECHNIQUE: Multidetector volumetric imaging was performed from the superior aspect of the liver through the pubic symphysis. Sagittal and coronal reformatted images were obtained on the technologist's workstation. This CT examination was performed using dose optimization techniques as appropriate, variously including the following: *Automated exposure control *Adjustment of mA and/or kV according to patient size (this includes techniques or standardized protocols for targeted exams where dose is matched to indication/reason for exam; i.e. extremities or head) *Use of iterative reconstruction technique DLP: 664 mGy-cm FINDINGS: LUNG BASES: The lung bases are clear. Heart size is normal. Solitary pacer electrode is seen in the right ventricle. LIVER, GALLBLADDER, AND BILIARY TREE: The liver is normal in size, shape, and attenuation. There is a 1.2 cm hypodense lesion right hepatic lobe and 8 mm hypodense lesion left hepatic lobe, stable compared to previous exam. They are most likely small cysts. A third lesion is seen adjacent to the IVC high in the right hepatic lobe measuring 2.3 cm. The gallbladder is unremarkable with no evidence of radiopaque gallstones, gallbladder wall thickening, or obvious pericholecystic inflammatory changes. PANCREAS: Unremarkable. SPLEEN: Unremarkable. ADRENAL GLANDS: Unremarkable. KIDNEYS AND URETERS: The kidneys are normal in size, shape, and attenuation. No hydronephrosis, hydroureter, or calculi seen. No perinephric stranding. 2.9 cm hypodense lesion lower pole right kidney, exophytic. BLADDER: Unremarkable. GASTROINTESTINAL TRACT: There is moderate scattered stool and gas seen throughout the colon without any significant distention. The appendix is long and normal caliber. Contrast-opacified small-bowel loops are normal caliber. ABDOMINAL WALL: No significant hernia is appreciated. LYMPH NODES: Normal. VASCULAR: Unremarkable. PELVIC VISCERA: The uterus is anteverted and appears unremarkable. There is no adnexal mass, free air or free fluid. No abnormal pelvic or inguinal lymph nodes seen. OSSEOUS STRUCTURES: No aggressive lytic or sclerotic process seen. CT/CT abdomen pelvis wo IV con IMPRESSION: 1. No acute intra-abdominal process seen. 2. Constipation without obstruction. 3. Hepatic cysts, stable. 4. A 2.9 cm partially hypodense exophytic lesion lower pole right kidney, likely angiomyolipoma, stable. Fleischner guidelines were followed.
[2022-05-16] MEDS: Barium Sulfate Oral (Berry) 450 ML ORAL.SUSP 900 ML PO (16:36)
== END 2022-05-16 14:26 | disposition home or self-care (01) ==
LOC: HO.CT 14:25
PROVIDERS: PCP Internal Medicine; Visit Provider Surgery
DX: R10.13 Epigastric pain (principal); G89.29 Other chronic pain
CPT/HCPCS: 74176

== ENCOUNTER → 2022-06-13 11:15 | Outpatient (BNVA) | payer OTHER, SELFPAY | PROVIDERS: PCP Internal Medicine; Referring Provider Internal Medicine; Visit Provider Physician Assistant | DX: R10.13 Epigastric pain (principal); K21.9 Gastro-esophageal reflux disease without esophagitis; R13.10 Dysphagia, unspecified; Z95.0 Presence of cardiac pacemaker | CPT/HCPCS: 99202 ==

== ENCOUNTER 2022-07-24 10:33 | Outpatient (REF) | payer OTHER, SELFPAY ==
[2022-08-02 20:08] LABS: HPV mRNA E6/E7 rflx Not Detected (Not Detected)
== END 2022-07-24 10:34 | disposition home or self-care (01) ==
LOC: HO.LNP 10:33
PROVIDERS: Visit Provider Internal Medicine
DX: Z13.89 Encounter for screening for other disorder (principal)

== ENCOUNTER 2022-07-27 12:21 | Outpatient (AMB) | payer OTHER, SELFPAY ==
--- NOTE | 2022-07-27 12:33 | MHC.PC.OV ---
Vital Signs 07/27/22 12:43 Height 5 ft 5 in Weight 211 lb BMI 35.1 BP 100/80 Blood Pressure Location Rt brachial Position Sitting Pulse 60 Pulse Source Pulse Oximeter Pulse Oximetry (%) 97 Oxygen Delivery Method Room Air Intake Visit Reasons: PE Intake Note: Pt is here today for her PE Allergies amoxicillin (Augmentin) Allergy (Severe, Verified 05/15/25 14:25) hives clavulanic acid (Augmentin) Allergy (Severe, Verified 05/15/25 14:25) hives Medication List - Last Reconciled 07/27/22 by Suzy Lares MD acetaminophen 650 mg (2 x 325 mg) PO Q4H PRN 7 days calcium citrate 250 mg PO BID cholecalciferol (vitamin D3) (Vitamin D3) 50 mcg PO DAILY [cranberry ] ibuprofen 600 mg PO Q6H PRN mirabegron ER (Myrbetriq) 50 mg PO DAILY omeprazole 20 mg PO DAILY oxybutynin chloride ER 10 mg PO DAILY sucralfate 1 g PO QID timolol 0.5% 1 drp ophthalmic (eye) DAILY travoprost 0.004% (Travatan Z) 1 drp ophthalmic (eye) QPM Tobacco use date assessed: 07/27/22 [facility] Medical History (Updated 05/24/25 @ 20:45 by Suzy Lares MD) Hypercholesterolemia Arthritis Urinary incontinence Chronic pain of right wrist Colon adenomas Anxiety and depression Epigastric hernia Cardiac pacemaker (~03/2021) Sick sinus syndrome Family history of aortic aneurysm Cardiac murmur Obesity (BMI 30.0-34.9) Carpal tunnel syndrome on right Urinary incontinence, mixed Impaired fasting glucose Irritable bowel syndrome Osteopenia of multiple sites Hiatal hernia Cervical disc disease Glaucoma GERD (gastroesophageal reflux disease) Surgical History History of esophagogastroduodenoscopy (EGD) History of incisional hernia repair History of shoulder surgery Hx of elbow surgery History of cardiac pacemaker (~2020) History of carpal tunnel surgery of right wrist (~2013) History of colonoscopy (~2013) History of fusion of cervical spine History of hernia repair (~2008) History of tonsillectomy Family History Father Leukemia Crohn disease Mother HTN (hypertension) Small cell lung cancer Maternal Grandmother Alzheimer's disease Dementia Maternal Grandfather No problems noted. Paternal Grandmother No problems noted. Paternal Grandfather Alzheimer's disease Dementia Daughter No problems noted. Daughter No problems noted. Son No problems noted. Sister No problems noted. Brother Hx of CABG S/P AVR (aortic valve replacement) AAA (abdominal aortic aneurysm) Brother No problems noted. Brother No problems noted. Brother No problems noted. Brother No problems noted. Social History Household Members: Spouse Housing: House Are you a primary senior care manager to a significant other at home: No Do you presently have visiting nurse or other home services: No Alcohol intake: current Alcohol intake frequency: holidays/special occasions only Alcohol type: wine Patient Tobacco Use Status: Former Tobacco user Tobacco use type: Cigarette e-Cigarette/Vaping Use: Never Used service: No Current occupational status: retired Cognitive needs: No Hearing needs: No Vision needs: Yes Questionnaire PHQ-9 Over the last 2 weeks, how often have you been bothered by any of the following problems? 1. Little interest or pleasure in doing things: several days 2. Feeling down, depressed, or hopeless: several days 3. Trouble falling or staying asleep, or sleeping too much: more than half the days 4. Feeling tired or having little energy: several days 5. Poor appetite or overeating: several days 6. Feeling bad about yourself - or that you are a failure or have let yourself or your family down: not at all 7. Trouble concentrating on things, such as reading the newspaper or watching television: not at all 8. Moving or speaking so slowly that other people could have noticed. Or the opposite - being so fidgety or restless that you have been moving around a lot more than usual: not at all 9. Thoughts that you would be better off or of hurting yourself in some way: not at all Total score: 6 Depression Screening Interpretation: Positive Depression Screening Follow-up: Existing condition, New Medication prescribed and Follow-up Visit Requested Source: Developed by Drs. Baudilio Patel, Anjelica B.Catracho Wilson and colleagues, with an educational tracee from [employer]. Thrive Questionnaire Declines Thrive assessment: No Date Thrive assessed: 07/27/22 I am a: Patient What is your living situation today?: I have a steady place to live Within the past 12 months, did the food you bought not last and you didn't have the money to get more?: Never true Within the past 12 months, did you worry whether your food would run out before you got money to buy more?: Never true Do you have trouble paying for medicines?: No Do you have trouble getting transportation to medical appointments?: No Do you have trouble paying your heating and electricity bill?: No Do you have trouble taking care of your child, family member or friend?: No Do you have trouble with day-to-day activities such as bathing, preparing meals, shopping, managing finances, etc.?: No Are you currently unemployed and looking for a job?: No Are you interested in more education?: No AUDIT C Alcohol Use Questionnaire (AUDIT-C) 1. How often do you have a drink containing alcohol?: Monthly or less 2. How many drinks containing alcohol do you have on a typical day when you are drinking?: 1 or 2 3. How often do you have six or more drinks on one occasion?: Never Total Score: 1 GABI-7 AMB Questionnaire GABI-7 Date GABI - 7 assessed: 07/27/22 Feeling nervous, anxious, or on edge: 0 = Not at all Not being able to stop or control worryin = Several days Worrying too much about different things: 2 = More than half the days Trouble relaxin = Several days Being so restless that it is hard to sit still: 0 = Not at all Becoming easily annoyed or irritable: 1 = Several days Feeling afraid as if something awful might happen: 2 = More than half the days Total GABI-7 score (0-4 normal; 5-9 mild; 10-14 moderate; 15-21 severe): 7 Source: Developed by Drs. Baudilio Patel, Catracho Dickinson and colleagues, with an educational tracee from [employer]. GABI-7 Assessment Billing GABI-7 Assessment Tool: GABI-7 Assessment 19261 Physical exam (Primary Care) Vital Signs: Last Vital Signs Pulse 60 07/27/22 12:43 BP 100/80 07/27/22 12:43 Pulse Ox 97 07/27/22 12:43 Oxygen Delivery Method Room Air 07/27/22 12:43 BMI result Body Mass Index 35.1 Tobacco/Smoking Status: Tobacco use Status Tobacco use date assessed 07/27/22 07/27/22 12:39 Patient Tobacco Use Status Former Tobacco user 07/27/22 12:37 Tobacco use type Cigarette 07/27/22 12:37 e-Cigarette/Vaping Use Never Used 07/27/22 12:37 PHQ-9: PHQ-9 Score PHQ-9: Total score 6 07/27/22 13:50 Depression Screening Interpretation: Positive Depression Screening Follow-up: Existing condition, New Medication prescribed and Follow-up Visit Requested Thrive Assessment: Date of Thrive Assessment Date Thrive assessed 07/27/22 07/27/22 12:44 Chest Other: Pacemaker in place Chest palpation & inspection: normal inspection of the chest Breast/axilla inspection: normal inspection of the breasts Breast/axilla palpation: normal palpation of the breasts Resp Auscultation: clear to auscultation bilaterally Cardio Other: S1-S2 present regular in rhythm GI Inspection: Yes obesity Palpation (GI): Soft to palpation, nontender, no guarding and no masses General: Yes no CVA tenderness External Female Exam: normal external appearance and normal appearance of the urethra Speculum Exam - Vagina: normal appearance of the vagina, normal palpation and normal vaginal discharge Speculum Exam - Cervix: normal appearance of the cervix, normal palpation, Cervical os open and nontender Bimanual exam- vagina & uterus: normal bimanual exam, normal palpation, consistency normal, normal palpation, No Cervical tenderness present and non-tender Bimanual Exam- Adnexa, other: normal adnexae, no masses, normal and No adnexal tenderness OB/external & speculum: Cervical os open Back/Spine/Pelvis Back: no CVA tenderness Extrem Other: Erythematous swelling with decreased range of motion of right 5th toe, slightly tender to palpation Psych Appearance: grossly normal Mental Status: mental status grossly normal Speech and movement: Normal speech and movement present Affect: Sad affect present Attitude: cooperative Thought process: Normal thought process present Thought content: Normal thought content present Results AMB Urinalysis, Automated UA Leukoctes 0 Chaz/uL Last Edit by Maris Singh CMA on 07/27/22 12:51 UA Nitrite Negative Last Edit by Maris Singh CMA on 07/27/22 12:51 UA Urobilinogen 0.2 mg/dL Last Edit by Maris Singh CMA on 07/27/22 12:51 UA Protein 0 mg/dL Last Edit by Maris Singh CMA on 07/27/22 12:51 UA pH 7.0 Last Edit by Maris Singh, DAJUNA on 07/27/22 12:51 UA Blood 0 New/uL Last Edit by Maris Singh, DAJUAN on 07/27/22 12:51 UA Specific [place] 1.010 Last Edit by Maris Singh CMA on 07/27/22 12:51 UA Ketone Negative Last Edit by Maris Singh CMA on 07/27/22 12:51 UA Bilirubin 0 mg/dL Last Edit by Maris Singh CMA on 07/27/22 12:51 UA Glucose 0 mg/dL Last Edit by Maris Singh CMA on 07/27/22 12:51 Results Reviewed Results Reviewed: Laboratory Last Values Urine pH (Auto) 7.0 07/27/22 12:48 Specific [place] (Auto) 1.010 07/27/22 12:48 Urine Protein (Auto) 0 mg/dL 07/27/22 12:48 Glucose (UA)(Auto) 0 mg/dL 07/27/22 12:48 Urine Ketones (Auto) Negative 07/27/22 12:48 Urine Blood (Auto) 0 New/uL 07/27/22 12:48 Urine Nitrite (Auto) Negative 07/27/22 12:48 Urine Bilirubin (Auto) 0 mg/dL 07/27/22 12:48 Urine Urobilinogen (Auto) 0.2 mg/dL 07/27/22 12:48 Leukocyte Esterase (Auto) 0 Chaz/uL 07/27/22 12:48 Coding Level of Care Code Admin Sign Off/No Billing Diagnoses Pain and swelling of toe of right foot M79.674; M79.89 Impaired fasting glucose R73.01 Osteopenia of multiple sites M85.89 GERD (gastroesophageal reflux disease) K21.9 Obesity (BMI 30.0-34.9) E66.9 Annual visit for general adult medical examination with abnormal findings Z00.01 Cervical cancer screening Z12.4 Anxiety and depression F41.9; F32.A Additional Codes GABI-7 Assessment Billing - GABI-7 Assessment Tool: GABI-7 Assessment [id number] ([id number])
[2022-07-27 12:43] VITALS: BP 100/80; PULSE 60; O2SAT 97; BMI 35.1
== END 2022-07-27 13:49 | disposition home or self-care (01) ==
LOC: HO.HMGC 12:21
PROVIDERS: PCP Internal Medicine; Visit Provider Internal Medicine
DX: M79.674 Pain in right toe(s) (principal); M79.89 Other specified soft tissue disorders; R73.01 Impaired fasting glucose; M85.89 Other specified disorders of bone density and structure, multiple sites; K21.9 Gastro-esophageal reflux disease without esophagitis; E66.9 Obesity, unspecified; Z00.01 Encounter for general adult medical examination with abnormal findings; Z12.4 Encounter for screening for malignant neoplasm of cervix; F41.9 Anxiety disorder, unspecified; F32.A Depression, unspecified
CPT/HCPCS: 99499

== ENCOUNTER 2022-07-27 13:50 | Outpatient (REF) | payer OTHER, SELFPAY ==
--- NOTE | ~2022-07-27 | XR_ITS ---
EXAMINATION: XR TOES, RIGHT CLINICAL INFORMATION: Pain in right toes COMPARISON: None TECHNIQUE: 3 views of the right toes were obtained. FINDINGS: Bones of the right foot have normal alignment. The joint spaces are maintained. No erosions or periostitis. No acute fracture or subluxation. There is a small plantar calcaneal enthesophyte. Small dorsal osteophytes are noted at the navicular-cuneiform articulation. The soft tissues of the foot are grossly unremarkable. XR/XR toe RT min 2V IMPRESSION: No significant radiographic findings. No acute osseous injury in the right foot.
== END 2022-07-27 13:51 | disposition home or self-care (01) ==
LOC: HO.HMGCX 13:50
PROVIDERS: PCP Internal Medicine; Visit Provider Internal Medicine
DX: Z01.419 Encounter for gynecological examination (general) (routine) without abnormal findings (principal); M79.674 Pain in right toe(s); M79.89 Other specified soft tissue disorders
CPT/HCPCS: 73660; 88142

== ENCOUNTER 2022-08-01 12:33 | Outpatient (REF) | payer OTHER, SELFPAY ==
[2022-08-01 14:43] LABS: Alanine Aminotransferase 9 U/L (0-31); Anion Gap 12 (12-20); Aspartate Amino Transferase 12 U/L (5-31); Blood Urea Nitrogen 17 mg/dL (9-16); Calcium 9.6 mg/dL (8.4-10.2); Carbon Dioxide 29 mmol/L (22-29); Chloride 109 mmol/L (96-108); Cholesterol 199 mg/dL; Estimated Glomerular Filt Rate > 60; Glucose Fasting 87 mg/dL (60-99); HDL Cholesterol 63 mg/dL; LDL Cholesterol Calculated 122 mg/dl; Potassium 4.6 mmol/L (3.3-5.1); Sodium 145 mmol/L (135-145); Triglycerides 73 mg/dL
[2022-08-01 14:47] LABS: Vitamin D 25-OH Total 45.9 ng/mL (>30)
== END 2022-08-01 12:34 | disposition home or self-care (01) ==
LOC: HO.HMGCLDS 12:33
PROVIDERS: PCP Internal Medicine; Visit Provider Internal Medicine
DX: Z00.01 Encounter for general adult medical examination with abnormal findings (principal); E66.9 Obesity, unspecified; F32.A Depression, unspecified; F41.9 Anxiety disorder, unspecified; K21.9 Gastro-esophageal reflux disease without esophagitis; M85.89 Other specified disorders of bone density and structure, multiple sites; R73.01 Impaired fasting glucose
CPT/HCPCS: 36415; 80048; 80061; 82306; 84450; 84460

== ENCOUNTER 2022-08-04 09:20 | Outpatient (REF) | payer OTHER, SELFPAY ==
--- NOTE | ~2022-08-04 | FL_ITS ---
EXAMINATION: XR FLUOROSCOPY UPPER GI WITH AIR CLINICAL INFORMATION: Dysphagia. COMPARISON: 11/16/2015 TECHNIQUE: Fluoroscopic assessment of the upper GI tract was performed in various upright and supine/prone obliquities utilizing thin and thick high density barium contrast material and effervescent granules. 13 mm barium tablet utilized. FINDINGS: Cervical fusion hardware noted. The esophagus was normal in course, caliber, and contour. There was normal distensibility with no fixed segment of narrowing. No focal mucosal abnormality was identified. There was a delay in passage of the 13 mm barium tablet at the level of the midesophagus. This eventually cleared with additional swallows of water. Mild esophageal dysmotility was observed. Contrast passed freely across the gastroesophageal junction into the stomach. No significant hiatal hernia. There was normal distensibility of the stomach with no focal abnormality identified. There was prompt gastric emptying into the duodenum which demonstrated a normal appearance. Mild gastroesophageal reflux was observed. FLUOROSCOPY TIME: 2.3 minutes DOSE AREA PRODUCT: 20.865 Gy-cm2 (garrido-centimeter squared) FL/FL upper GI series IMPRESSION: Mild esophageal dysmotility. Delayed passage of the barium tablet at the midesophagus. Mild gastroesophageal reflux.
== END 2022-08-04 09:21 | disposition home or self-care (01) ==
LOC: HO.XRAY 09:20
PROVIDERS: PCP Internal Medicine; Visit Provider Physician Assistant
DX: R13.10 Dysphagia, unspecified (principal)
CPT/HCPCS: 74240

== ENCOUNTER → 2022-08-10 09:33 | Outpatient (BNVA) | payer OTHER, SELFPAY | PROVIDERS: PCP Internal Medicine; Visit Provider Physician Assistant | DX: R13.10 Dysphagia, unspecified (principal); R10.13 Epigastric pain | CPT/HCPCS: 99212 ==

== ENCOUNTER 2022-09-01 15:05 | Outpatient (REF) | payer OTHER, SELFPAY ==
--- NOTE | ~2022-09-01 | MM_ITS ---
EXAMINATION: MM SCREENING DIGITAL BREAST TOMOSYNTHESIS, BILATERAL CLINICAL INFORMATION: Screening. Asymptomatic. The lifetime risk of breast cancer based on the Tyrer-Cuzick Model is 6%. COMPARISON: Mammography: 08/26/2021, 08/11/2020, 07/09/2020 TECHNIQUE: Digital breast tomosynthesis is performed in both the craniocaudal and mediolateral oblique views along with computer-aided detection (CAD). Synthesized 2D images are generated from the tomosynthesis. FINDINGS: There are scattered areas of fibroglandular density (ACR BI-RADS breast composition Category b). Parenchymal pattern is similar to prior studies and there is no developing density or architectural abnormality. There are biopsy clip markers again seen mid central 3:00 left breast and anterior central right breast. There are no abnormal calcifications. The axilla and skin contours are unremarkable. MM/MM tomosynthesis screening BI IMPRESSION: No mammographic evidence of malignancy. ASSESSMENT: BI-RADS 2: Benign RECOMMENDATION: Routine annual mammography screening. This patient's information was entered into a reminder system with a target due date for their next mammogram.
== END 2022-09-01 15:06 | disposition home or self-care (01) ==
LOC: HO.MAMMO 15:05
PROVIDERS: Visit Provider Internal Medicine
DX: Z12.31 Encounter for screening mammogram for malignant neoplasm of breast (principal)
CPT/HCPCS: 77063; 77067

== ENCOUNTER → 2022-09-29 12:49 | Outpatient (BNVA) | payer OTHER, SELFPAY | PROVIDERS: PCP Internal Medicine; Visit Provider Internal Medicine Endocrinology, Diabetes & Metabolism | DX: M85.89 Other specified disorders of bone density and structure, multiple sites (principal); E83.51 Hypocalcemia; Z78.0 Asymptomatic menopausal state | CPT/HCPCS: 99212 ==

== ENCOUNTER 2022-10-14 10:02 | Day surgery (SDC) | payer OTHER, SELFPAY ==
--- NOTE | 2022-10-14 10:09 | P.CONAN_ITS ---
[facility] Active Problems Active Problems: All Active Problems (Updated 07/27/22 @ 13:47 by Suzy Lares MD) Poor historian (Acute) URI (upper respiratory infection) (Acute) Laryngeal injury (Acute) Neck injury (Acute) Hoarseness of voice (Acute) Encounter for screening colonoscopy (Acute) Epigastric pain (Acute) Dysphagia (Acute) Anxiety and depression (Acute) Epigastric hernia (Acute) Chronic epigastric pain (Acute) Cardiac pacemaker (Acute ~03/2021) Sick sinus syndrome (Acute) Impaired fasting glucose (Acute) Osteopenia of multiple sites (Acute) Cervical disc disease (Acute) Urinary incontinence, mixed (Acute) GERD (gastroesophageal reflux disease) (Acute) Irritable bowel syndrome (Acute) Hiatal hernia (Acute) Glaucoma (Acute) Obesity (BMI 30.0-34.9) (Acute) Carpal tunnel syndrome on right (Acute) Family history of aortic aneurysm (Acute) Past Medical History Medical History Anxiety and depression Cardiac murmur Cardiac pacemaker (~03/2021) Carpal tunnel syndrome on right Cervical disc disease Chronic epigastric pain Epigastric hernia Family history of aortic aneurysm GERD (gastroesophageal reflux disease) Glaucoma Hiatal hernia Impaired fasting glucose Insomnia Irritable bowel syndrome Obesity (BMI 30.0-34.9) Osteopenia of multiple sites Sick sinus syndrome Urinary incontinence, mixed Family History Family History Father Leukemia Crohn disease Mother HTN (hypertension) Small cell lung cancer Maternal Grandmother Alzheimer's disease Dementia Maternal Grandfather No problems noted. Paternal Grandmother No problems noted. Paternal Grandfather Alzheimer's disease Dementia Daughter No problems noted. Daughter No problems noted. Son No problems noted. Sister No problems noted. Brother Hx of CABG S/P AVR (aortic valve replacement) AAA (abdominal aortic aneurysm) Brother No problems noted. Brother No problems noted. Brother No problems noted. Brother No problems noted. Family history of problems with anesthesia: No Surgical History Surgical History (Updated 10/11/22 @ 10:40 by Kamilah John RN) History of cardiac pacemaker (~2020) History of carpal tunnel surgery of right wrist (~2013) History of colonoscopy (~2013) History of fusion of cervical spine History of hernia repair (~2008) History of incisional hernia repair History of shoulder surgery History of tonsillectomy Hx of elbow surgery History of Problems with Anesthesia: No Social History Social History Household Members: Spouse Housing: House Are you a primary disabilities caregiver to a significant other at home: No Do you presently have visiting nurse or other home services: No Alcohol intake: current Alcohol intake frequency: a few times a week Alcohol type: wine Patient Tobacco Use Status: Former Tobacco user Quit Date: Tobacco use type: Cigarette e-Cigarette/Vaping Use: Never Used service: No Current occupational status: retired Cognitive needs: No Hearing needs: No Vision needs: Yes Meds Allergies Allergy/AdvReac Type Severity Reaction Status Date / Time amoxicillin [Augmentin] Allergy Severe hives Verified 10/11/22 10:41 clavulanic acid [Augmentin] Allergy Severe hives Verified 10/11/22 10:41 Active Medications: Current Medications Lactated Ringer's (Lr) 1,000 mls @ 50 mls/hr IVCONT .Q20H [facility] Home Medications Medication Instructions Recorded Confirmed Last Taken Type mirabegron 50 mg tablet,extended 50 mg PO DAILY 05/26/20 10/11/22 03/26/21 History release 24 hr (Myrbetriq) timolol 0.5 % eye drops 1 drp ophthalmic (eye) DAILY 05/26/20 10/11/22 Unknown History cranberry 03/23/21 09/29/22 Unknown History oxybutynin chloride 10 mg 10 mg PO DAILY 01/13/22 10/11/22 Unknown History tablet,extended release 24 hr bimatoprost 0.01 % eye drops 1 drp ophthalmic (eye) QPM 09/29/22 10/11/22 Unknown History (Lumigan) bimatoprost 0.01 % eye drops 1 drp ophthalmic (eye) BEDTIME 10/14/22 10/14/22 Unknown History (Lumigan) Exam Exam Date and Time: October 14, 2022 1009 Airway Mallampati Class: II (one cap top ,aterally) TM Dist: >3cm Neck ROM: Full Heart: rrr Lungs: cta Assessment and Plan Assessment Anesthesia Assessment: Anesthesia Plan Discussed and Chart Reviewed Final Anesthetic Review Family History of Problems with Anesthesia: No History of Problems with Anesthesia: No NPO: Yes ASA Class: III Final Preanesthetic Review: No Changes in Pt Med Stat, Meds/Allgs Chart Reviewed and Consent Obtained/Reviewed Patient Risk: Intermediate Procedure Risk: Intermediate Anesthetic Plan Anesthetic Plan: MAC: Disposition: Standard PACU
[2022-10-14 10:22] VITALS: BMI 34.9
[2022-10-14 10:25] VITALS: BP 134/84; PULSE 60; RESP 18; TEMP 36.3; O2SAT 97
[2022-10-14] MEDS: Lactated Ringers 1,000 ML 50 ML IVCONT (10:43)
--- NOTE | 2022-10-14 11:12 | MHC.SHP ---
Pre-Procedural Eval Section A Date of Service: 10/14/22 The patient is an INPATIENT: No The History & Physical has been completed within 30 days and I have reviewed it.: No Section B Chief Complaint: reflux disease,screening Details of Present Illness: Colon cancer screening, GERD, dysphagia, epigastric pain Relevant Family History (Specify if Yes): No Relevant Social History: Tobacco Use (Former smoker) Present Medications: see Short Stay Collaborative assessment Medical History: Significant History (Cardiac pacemaker (~03/2021) Carpal tunnel syndrome on right Cervical disc disease Chronic epigastric pain Epigastric hernia Family history of aortic aneurysm GERD (gastroesophageal reflux disease) Glaucoma Hiatal hernia Impaired fasting glucose Insomnia Irritable bowel syndrome Obesity (BMI 30.0-34) History of Previous Operations: Relevant previous surgery/procedure and date(s) (History of cardiac pacemaker (~2020) History of carpal tunnel surgery of right wrist (~2013) History of colonoscopy (~2013) History of fusion of cervical spine History of hernia repair (~2008) History of shoulder surgery History of tonsillectomy Hx of elbow surgery) Allergies: Allergies Allergy/AdvReac Type Severity Reaction Status Date / Time amoxicillin [Augmentin] Allergy Severe hives Verified 10/11/22 10:41 clavulanic acid [Augmentin] Allergy Severe hives Verified 10/11/22 10:41 Review of Systems Sugical H&P ROS: Negative: Constitution, Cardiovascular, Respiratory and Gastrointestinal Exam Surgical H&P Exam: Normal: Heart, Normal: Lungs, Normal: Extremities and Normal: Abdomen Plan Diagnosis/Plan: Unchanged I have reviewed the history and physical and performed a pertinent physical examination on my patient. No changes have occurred unless specified. Time Spent With Patient Time: Total time managing care of this patient today ____ minutes.
--- NOTE | 2022-10-14 11:59 | W.PM.OPN ---
Operative Note Operative Note Date of Service: 10/14/22 Narrative: FLEXIBLE TRANSORAL UPPER GASTROINTESTINAL ENDOSCOPY WITH BIOPSIES AND ESOPHAGEAL BALLOON DILATION AND COLONOSCOPY TILL CECUM WITH SNARE POLYPECTOMY, SUBMUCOSAL INJECTION AND HEMOCLIP PLACEMENT Pre-op diagnosis: Colon cancer screening, epigastric pain, dysphagia Post-op diagnosis:? Endoscopist:? Krishna Baxter MD Anesthesia:?MAC UPPER ENDOSCOPY Consent: Indications for the procedure and potential complications of bleeding, perforation, reaction to medications and missed diagnosis were discussed with the patient and informed consent was obtained. Instrument: Olympus GIF H 190 mid size upper endoscope Monitoring: Vital signs and clinical assessment, continuous EKG monitoring, Pulse oximetry, Carbon Dioxide monitoring and blood pressure monitoring were done throughout the procedure. Procedure: The patient was placed in the left lateral decubitis position and pre-procedure medications were administered and a bite block was placed. The endoscope was inserted into the mouth and advanced under direct vision to the third part of duodenum. A careful inspection was made as the upper endoscope was withdrawn including a retroflexed examination of the proximal stomach; Findings and interventions are described below. Findings: Larynx: Normal Esophagus: GE junction at 32 cms, hiatal hernia 32 to 35 cms. Tortuous esophagus with decreased contractions without stricture or ring. Biopsies were obtained from proximal esophagus to check for EOE. Esophageal balloon dilation was performed with a 20 mm (60 F) CRE balloon for 60 seconds No esophagitis or Lama's. Stomach: Mild gastric erythema. Biopsies were obtained. Grade 2 flap valve on retroflexed examination of the cardia. Duodenum: Normal bulb and a medium sized diverticulum in the 2nd part of descending duodenum. Biopsies were obtained from 3rd part of the duodenum to check for celiac sprue. Intervention: Biopsies and esophageal balloon dilation as noted above COLONOSCOPY PROCEDURE NOTE Consent: Indications for the procedure and potential complications of bleeding, perforation, reaction to medications and missed diagnosis were discussed with the patient and informed consent was obtained. Instrument: Olympus PCF H 190 L variable stiffness pediatric colonoscope Monitoring: Vital signs and clinical assessment, intermittent blood pressure monitoring, continuous EKG monitoring, Pulse oximetry and Carbon Dioxide monitoring were done throughout the procedure. Colon withdrawl time was 28 minutes. Procedure: The patient was placed in the left lateral decubitis position and pre-procedure medications were administered. After a digital rectal examination of the ano-rectum, the video colonoscope was inserted into the rectum and advanced through the colon to the cecum. The colonoscope was slowly withdrawn in a retrograde panoramic fashion and the colon mucosa was carefully examined including a retroflexed view of the rectum. Findings and interventions are described below. Procedure Difficulty: Colon was long, tortuous and redundant and there was recurrent loop formation. LLQ pressure applied to intubate the cecum Findings: Terminal Ileum: Not evaluated Cecum: Normal Ascending Colon: A 3 x 2.5 cms flat polyp in the proximal AC at 80 cms. Polyp was raised with 4 cc of Eleview and removed with a hot snare. Polypectomy site was closed with 1 hemoclip and marked by Noa ink. A 2nd 3 x 2.5 cms flat polyp in the mid ascending colon at 75 cms. Polyp was raised with 4 cc of Eleview and removed with a hot snare. Polypectomy site was closed with 1 hemoclip and marked by Noa ink. Transverse Colon: Normal Descending Colon: Moderate diverticulosis Sigmoid Colon: Moderate diverticulosis Rectum: Normal Ano-rectum: Moderate internal hemorrhoids Colon preparation: Good after copious irrigation Impression and Post Procedure Diagnosis: Endoscopy Findings: ESOPHAGUS: GE junction at 32 cms, hiatal hernia 32 to 35 cms. Tortuous esophagus with decreased contractions without stricture or ring. Biopsies were obtained from proximal esophagus to check for EOE. Esophageal balloon dilation was performed with a 20 mm (60 F) CRE balloon for 60 seconds No esophagitis or Lama's. STOMACH: Mild gastric erythema. Biopsies were obtained. DUODENUM: Normal bulb and a medium sized diverticulum in the 2nd part of descending duodenum. Biopsies were obtained from 3rd part of the duodenum to check for celiac sprue. Colonoscopy Findings: Two large polyps removed Random biopsies were obtained from the right colon to check for microscopic colitis Moderate diverticulosis seen in the left colon Moderate hemorrhoids on retroflexed exam. Plan: Await pathology results Patient has an appointment on 11/10/22 in the [facility] with [facility] . Repeat Colonoscopy interval based on path results - in 6 to 12 months years if polyps are adenomatous to check polypectomy site in the ascending colon and 5 years if polyps are hyperplastic. (adult colonoscope for future colonoscopies) Above findings were reviewed with the patient and colon polyps and diverticulosis handouts were given in the discharge area ADDENDUM: Pt complained of diffuse abdominal pain after the procedure which improved after she passed some gas.
[2022-10-14 13:17] VITALS: BP 130/80; PULSE 59; RESP 16; TEMP 36.1; O2SAT 96
[2022-10-14 13:32] VITALS: BP 132/91; PULSE 60; RESP 18; O2SAT 100
--- NOTE | 2022-10-14 13:36 | PC.NURSE ---
abdiaziz to bedside patient stating pain, assessed repositioned and discussed gas pain. otherwise continued encouragement of passing gas.
[2022-10-14 13:47] VITALS: BP 138/87; PULSE 60; RESP 16; O2SAT 100
[2022-10-14 13:59] VITALS: BP 125/95; PULSE 60; RESP 16; TEMP 36.2; O2SAT 99
== END 2022-10-14 14:18 | disposition home or self-care (01) ==
PROVIDERS: PCP Internal Medicine; Visit Provider Internal Medicine Gastroenterology
PROC: (CPT 45385; principal; 2022-10-14 11:00)
DX: Z12.11 Encounter for screening for malignant neoplasm of colon (principal); D12.2 Benign neoplasm of ascending colon; K57.30 Diverticulosis of large intestine without perforation or abscess without bleeding; K58.9 Irritable bowel syndrome, unspecified; K21.9 Gastro-esophageal reflux disease without esophagitis; K22.2 Esophageal obstruction; K57.10 Diverticulosis of small intestine without perforation or abscess without bleeding; K29.50 Unspecified chronic gastritis without bleeding; K44.9 Diaphragmatic hernia without obstruction or gangrene; R73.01 Impaired fasting glucose; I49.5 Sick sinus syndrome; Z95.0 Presence of cardiac pacemaker; Z79.1 Long term (current) use of non-steroidal anti-inflammatories (NSAID); Z79.899 Other long term (current) drug therapy; Z88.1 Allergy status to other antibiotic agents; Z87.891 Personal history of nicotine dependence
CPT/HCPCS: 45385; 45381; 43249; 43239; 88305; 88342

== ENCOUNTER → 2022-10-26 11:27 | Outpatient (BNVA) | payer OTHER, SELFPAY | PROVIDERS: PCP Internal Medicine; Visit Provider Surgery | DX: R10.13 Epigastric pain (principal); G89.29 Other chronic pain | CPT/HCPCS: 99212 ==

== ENCOUNTER 2022-11-10 12:49 | Outpatient (REF) | payer OTHER, SELFPAY ==
[2022-11-10 14:20] LABS: MANUAL DIFF FLAG NO
[2022-11-10 15:07] LABS: Basophils Percent Auto 0.4 % (0-2); Eosinophils Absolute Auto 0.2 X10*3/uL (0.0-0.4); Eosinophils Percent Auto 2.9 % (0-4); Hematocrit 39.1 % (37.0-47.0); Imm Gran Abs Auto 0.02 X10*3/uL (0.00-0.03); Imm Gran Pct Auto 0.4 % (0.0-0.4); Lymphocytes Absolute Auto 1.9 X10*3/uL (1.2-4.9); Lymphocytes Percent Auto 35.2 % (20-40); Mean Corpuscular HGB Conc 33.2 g/dl (31.0-35.0); Mean Corpuscular Volume 90.1 fL (80.0-98.0); Mean Platelet Volume 10.7 fL (9.4-12.3); Monocytes Absolute Auto 0.3 X10*3/uL (0.1-1.2); Monocytes Percent Auto 6.2 % (2-11); Neutrophils Percent Auto 54.9 % (45-73); Platelet Count 232 X10*3/uL (160-400); Red Blood Count 4.34 X10*6/uL (4.20-5.50); Red Cell Distribution Width 12.7 % (11.0-16.0); White Blood Count 5.5 X10*3/uL (4.8-10.8)
[2022-11-10 15:41] LABS: Alanine Aminotransferase 11 U/L (0-31); Albumin Level 4.1 g/dL (3.5-5.0); Alkaline Phosphatase 80 U/L (39-117); Anion Gap 12 (12-20); Aspartate Amino Transferase 16 U/L (5-31); Bilirubin Total 0.3 mg/dL (0.0-1.0); Blood Urea Nitrogen 22 mg/dL (9-16); Calcium 9.6 mg/dL (8.4-10.2); Carbon Dioxide 23 mmol/L (22-29); Chloride 108 mmol/L (96-108); Estimated Glomerular Filt Rate > 60; Glucose Random 88 mg/dL (60-115); Potassium 4.6 mmol/L (3.3-5.1); Sodium 138 mmol/L (135-145); Total Protein 6.5 g/dL (6.5-8.0)
== END 2022-11-10 12:50 | disposition home or self-care (01) ==
LOC: HO.LAB 12:49
PROVIDERS: PCP Internal Medicine; Visit Provider Physician Assistant
DX: K44.9 Diaphragmatic hernia without obstruction or gangrene (principal); K58.9 Irritable bowel syndrome, unspecified; K21.9 Gastro-esophageal reflux disease without esophagitis; R10.13 Epigastric pain; R13.10 Dysphagia, unspecified; G89.29 Other chronic pain; D12.6 Benign neoplasm of colon, unspecified; Z79.899 Other long term (current) drug therapy
CPT/HCPCS: 36415; 80053; 85025; 99212

== ENCOUNTER → 2022-12-22 15:02 | Outpatient (BNVA) | payer OTHER, SELFPAY | PROVIDERS: PCP Internal Medicine; Referring Provider Internal Medicine; Visit Provider Internal Medicine Cardiovascular Disease | DX: Z45.018 Encounter for adjustment and management of other part of cardiac pacemaker (principal); R06.02 Shortness of breath | CPT/HCPCS: 93005; 93280; 99212 ==

== ENCOUNTER → 2023-01-17 23:59 | Outpatient (BNV) | payer OTHER, SELFPAY ==
--- NOTE | 2023-01-17 10:51 | MHC.OFFVIS ---
Intake Intake Visit Reasons: Remote Device Check- [facility] Allergies amoxicillin [Augmentin] Allergy (Severe, Verified 11/10/22 12:54) hives clavulanic acid [Augmentin] Allergy (Severe, Verified 11/10/22 12:54) hives [facility] Medical History Anxiety and depression Cardiac murmur Cardiac pacemaker (~03/2021) Carpal tunnel syndrome on right Cervical disc disease Chronic epigastric pain Epigastric hernia Family history of aortic aneurysm GERD (gastroesophageal reflux disease) Glaucoma Hiatal hernia Impaired fasting glucose Insomnia Irritable bowel syndrome Obesity (BMI 30.0-34.9) Osteopenia of multiple sites Sick sinus syndrome Urinary incontinence, mixed Surgical History History of cardiac pacemaker (~2020) History of carpal tunnel surgery of right wrist (~2013) History of colonoscopy (~2013) History of esophagogastroduodenoscopy (EGD) History of fusion of cervical spine History of hernia repair (~2008) History of incisional hernia repair History of shoulder surgery History of tonsillectomy Hx of elbow surgery Family History Father Leukemia Crohn disease Mother HTN (hypertension) Small cell lung cancer Maternal Grandmother Alzheimer's disease Dementia Maternal Grandfather No problems noted. Paternal Grandmother No problems noted. Paternal Grandfather Alzheimer's disease Dementia Daughter No problems noted. Daughter No problems noted. Son No problems noted. Sister No problems noted. Brother Hx of CABG S/P AVR (aortic valve replacement) AAA (abdominal aortic aneurysm) Brother No problems noted. Brother No problems noted. Brother No problems noted. Brother No problems noted. Social History Household Members: Spouse Housing: House Are you a primary residential care officer to a significant other at home: No Do you presently have visiting nurse or other home services: No Alcohol intake: current Alcohol intake frequency: a few times a week Alcohol type: wine Patient Tobacco Use Status: Former Tobacco user Quit Date: Tobacco use type: Cigarette e-Cigarette/Vaping Use: Never Used service: No Current occupational status: retired Cognitive needs: No Hearing needs: No Vision needs: Yes Office Procedures Cardiac Device Check Cardiac Device Check Details: Remote pacemaker report generated 01/17/2023. Pacemaker function is adequate. One high ventricular rate episode consistent with SVT [id number] Cardiac Device Interrogation, pacemaker Procedure code (CPT) selection complete Coding Level of Care Code Procedure Only Diagnoses CPT Codes Cardiac Device Check - Cardiac Device 12: [id number] Cardiac Device Interrogation, pacemaker ([id number])
== END ==
PROVIDERS: PCP Internal Medicine; Visit Provider Internal Medicine Cardiovascular Disease
DX: I49.5 Sick sinus syndrome (principal); Z95.0 Presence of cardiac pacemaker
CPT/HCPCS: 93294

== ENCOUNTER → 2023-04-19 23:59 | Outpatient (BNV) | payer OTHER, SELFPAY ==
--- NOTE | 2023-05-01 08:28 | A.OFFVIS_ITS ---
Intake Intake Visit Reasons: Remote Device Check- [facility] Allergies amoxicillin [Augmentin] Allergy (Severe, Verified 11/10/22 12:54) hives clavulanic acid [Augmentin] Allergy (Severe, Verified 11/10/22 12:54) hives [facility] Medical History Anxiety and depression Cardiac murmur Cardiac pacemaker (~03/2021) Carpal tunnel syndrome on right Cervical disc disease Chronic epigastric pain Epigastric hernia Family history of aortic aneurysm GERD (gastroesophageal reflux disease) Glaucoma Hiatal hernia Impaired fasting glucose Insomnia Irritable bowel syndrome Obesity (BMI 30.0-34.9) Osteopenia of multiple sites Sick sinus syndrome Urinary incontinence, mixed Surgical History History of cardiac pacemaker (~2020) History of carpal tunnel surgery of right wrist (~2013) History of colonoscopy (~2013) History of esophagogastroduodenoscopy (EGD) History of fusion of cervical spine History of hernia repair (~2008) History of incisional hernia repair History of shoulder surgery History of tonsillectomy Hx of elbow surgery Family History Father Leukemia Crohn disease Mother HTN (hypertension) Small cell lung cancer Maternal Grandmother Alzheimer's disease Dementia Maternal Grandfather No problems noted. Paternal Grandmother No problems noted. Paternal Grandfather Alzheimer's disease Dementia Daughter No problems noted. Daughter No problems noted. Son No problems noted. Sister No problems noted. Brother Hx of CABG S/P AVR (aortic valve replacement) AAA (abdominal aortic aneurysm) Brother No problems noted. Brother No problems noted. Brother No problems noted. Brother No problems noted. Social History Household Members: Spouse Housing: House Are you a primary palliative care physician to a significant other at home: No Do you presently have visiting nurse or other home services: No Alcohol intake: current Alcohol intake frequency: a few times a week Alcohol type: wine Patient Tobacco Use Status: Former Tobacco user Quit Date: Tobacco use type: Cigarette e-Cigarette/Vaping Use: Never Used service: No Current occupational status: retired Cognitive needs: No Hearing needs: No Vision needs: Yes Office Procedures Cardiac Device Check Cardiac Device Check Details: Remote pacemaker report generated 04/19/2023. Pacemaker function is adequate. Two brief episodes of SVT noted [id number] Cardiac Device Interrogation, pacemaker Procedure code (CPT) selection complete Coding Level of Care Code Procedure Only CPT Codes Cardiac Device Check - Cardiac Device 12: [id number] Cardiac Device Interrogation, pacemaker ([id number])
== END ==
PROVIDERS: PCP Internal Medicine; Visit Provider Internal Medicine Cardiovascular Disease
DX: I49.5 Sick sinus syndrome (principal); Z95.0 Presence of cardiac pacemaker
CPT/HCPCS: 93294

== ENCOUNTER 2023-05-04 15:27 | Outpatient (AMB) | payer OTHER, SELFPAY ==
[2023-05-04 15:28] VITALS: BP 138/84; PULSE 54; TEMP 36.6; O2SAT 98; BMI 34.4
--- NOTE | 2023-05-04 15:28 | MHC.OFFWIV ---
Intake Vital Signs 05/04/23 15:28 Height 5 ft 5 in Weight 207 lb BMI 34.4 BP 138/84 Blood Pressure Location Lt brachial Position Sitting Pulse 54 Pulse Source Pulse Oximeter Temp 97.8 F Temp Source Temporal Artery Scan Pulse Oximetry (%) 98 Oxygen Delivery Method Room Air Intake Visit Reasons: EST/cold symptoms since monday (masked lobby) Intake Note: Pt presents to the office today for c/o cold symptoms. Pt states she has chest congestion, sinus pressure, and a dry cough which all started on 04/30/23 Patient Tobacco Use Status: Former Tobacco user Quit Date: Allergies amoxicillin [Augmentin] Allergy (Severe, Verified 05/04/23 15:30) hives clavulanic acid [Augmentin] Allergy (Severe, Verified 05/04/23 15:30) hives HPI HPI Comments History of Present Illness Details 58-year-old female presents with chest congestion cough or runny nose x4 days. Patient has been around her daughter with similar symptoms. [facility] Medical History Anxiety and depression Insomnia Epigastric hernia Chronic epigastric pain Cardiac pacemaker (~03/2021) Sick sinus syndrome Family history of aortic aneurysm Cardiac murmur Obesity (BMI 30.0-34.9) Carpal tunnel syndrome on right Urinary incontinence, mixed Impaired fasting glucose Irritable bowel syndrome Osteopenia of multiple sites Hiatal hernia Cervical disc disease Glaucoma GERD (gastroesophageal reflux disease) Surgical History History of esophagogastroduodenoscopy (EGD) History of incisional hernia repair History of shoulder surgery Hx of elbow surgery History of cardiac pacemaker (~2020) History of carpal tunnel surgery of right wrist (~2013) History of colonoscopy (~2013) History of fusion of cervical spine History of hernia repair (~2008) History of tonsillectomy Family History Father Leukemia Crohn disease Mother HTN (hypertension) Small cell lung cancer Maternal Grandmother Alzheimer's disease Dementia Maternal Grandfather No problems noted. Paternal Grandmother No problems noted. Paternal Grandfather Alzheimer's disease Dementia Daughter No problems noted. Daughter No problems noted. Son No problems noted. Sister No problems noted. Brother Hx of CABG S/P AVR (aortic valve replacement) AAA (abdominal aortic aneurysm) Brother No problems noted. Brother No problems noted. Brother No problems noted. Brother No problems noted. Social History Household Members: Spouse Housing: House Are you a primary progressive care nurse to a significant other at home: No Do you presently have visiting nurse or other home services: No Alcohol intake: current Alcohol intake frequency: holidays/special occasions only Alcohol type: wine Patient Tobacco Use Status: Former Tobacco user Quit Date: Tobacco use type: Cigarette e-Cigarette/Vaping Use: Never Used service: No Current occupational status: retired Cognitive needs: No Hearing needs: No Vision needs: Yes Review of Systems Resp Reports change in phlegm color, Reports chest congestion, Reports cough and Reports pain with cough Physical Exam Vital Signs: Last Vital Signs Temp 97.8 F 05/04/23 15:28 Pulse 54 05/04/23 15:28 BP 138/84 05/04/23 15:28 Pulse Ox 98 05/04/23 15:28 Oxygen Delivery Method Room Air 05/04/23 15:28 BMI result Body Mass Index 34.4 Const General: cooperative, no acute distress and alert Orientation/consciousness: patient oriented x3 Limitations: no limitations HEENT Head: Yes normal to inspection Ears: hearing grossly normal bilaterally and external ears normal General nose exam: Normal external nose present Eyes General: appearance normal, both eyes and all related structures Neck Neck: Yes normal visual inspection Chest Chest palpation & inspection: normal inspection of the chest Resp Other: Question of adventitious breath sounds in the left lower lobe Effort & Inspection: normal respiratory effort, able to speak in complete sentences and no audible wheezes Cardio Rate: regular rate Rhythm: regular rhythm GI Inspection: Yes normal to inspection Palpation (GI): Soft to palpation and nontender Skin General skin exam: no rashes or lesions noted Neuro General: patient oriented x3 Psych Appearance: grossly normal Mental Status: mental status grossly normal Speech and movement: Normal speech and movement present Affect: normal affect Attitude: cooperative Thought process: Normal thought process present Thought content: Normal thought content present Assessment & Plan Assessment & Plan (1) Respiratory infection: Code(s): J98.8 - Other specified respiratory disorders Plan: Suspect a viral URI however given risk factors as well as adventitious breath sounds will perform chest x-ray. No acute abnormalities when chest x-ray likely suffering from bronchitis. Discharge instructions, follow up and treatment are discussed with patient in my usual fashion. Alternatives in treatment are also discussed. The patient will return for worsening symptoms or as needed. Advised that any labs/imaging ordered will be followed up on and contact made if further treatment needed. Counseled that patient's condition may require further evaluation and/or treatment. Symptoms of concern for worsening disorder discussed in detail in my customary manner. Patient does verbalize understanding of the plan, there are no apparent barriers to communication. The patient is given the opportunity to ask questions and have them answered to his/her satisfaction Orders: Orders SARS-CoV2/FLU/RSV Today R05.9 - Cough, unspecified XR chest 2V Today R06.02 - Shortness of breath Coding Level of Care Code Est Pt Level 3 (68072) Diagnoses Respiratory infection J98.8
== END 2023-05-04 16:48 | disposition home or self-care (01) ==
PROVIDERS: PCP Internal Medicine; Visit Provider Physician Assistant
DX: J98.8 Other specified respiratory disorders (principal)
CPT/HCPCS: 99213

== ENCOUNTER 2023-05-04 16:19 | Outpatient (REF) | payer OTHER, SELFPAY ==
--- NOTE | ~2023-05-04 | XR_ITS ---
EXAMINATION: XR CHEST CLINICAL INFORMATION: Shortness of breath COMPARISON: Chest x-ray March 26, 2021 TECHNIQUE: 2 views of the chest were obtained. FINDINGS: No change position of pacemaker leads in the right atrium and right ventricle. Heart size is normal. No acute abnormality. Lungs are normally aerated. No pulmonary vascular congestion. There is no pleural effusion and no pneumothorax. Orthopedic plate and screw at lower cervical spine. XR/XR chest 2V IMPRESSION: No acute abnormality of the chest.
[2023-05-05 13:00] LABS: Influenza A PCR NEGATIVE (Negative); Influenza B PCR NEGATIVE (Negative); Resp Syncy Virus RNA Qual PCR NEGATIVE (Negative); SARS COV2 PCR INHOUSE POSITIVE (Negative)
== END 2023-05-04 16:20 | disposition home or self-care (01) ==
LOC: HO.LAB 16:19
PROVIDERS: Visit Provider Physician Assistant
DX: R06.02 Shortness of breath (principal); Z11.52 Encounter for screening for COVID-19
CPT/HCPCS: 0241U; 71046

== ENCOUNTER 2023-05-04 16:20 | Outpatient (REF) | payer OTHER, SELFPAY | END 2023-05-04 16:21 | disposition home or self-care (01) | LOC: HO.HMGCX 16:20 | PROVIDERS: PCP Internal Medicine; Visit Provider Physician Assistant | DX: Z13.89 Encounter for screening for other disorder (principal) ==

== ENCOUNTER → 2023-07-18 23:59 | Outpatient (BNV) | payer OTHER, SELFPAY ==
--- NOTE | 2023-07-18 16:13 | A.OFFVIS_ITS ---
Intake Intake Visit Reasons: Remote Device Check- [facility] Allergies amoxicillin [Augmentin] Allergy (Severe, Verified 05/04/23 15:30) hives clavulanic acid [Augmentin] Allergy (Severe, Verified 05/04/23 15:30) hives [facility] Medical History Anxiety and depression Insomnia Epigastric hernia Chronic epigastric pain Cardiac pacemaker (~03/2021) Sick sinus syndrome Family history of aortic aneurysm Cardiac murmur Obesity (BMI 30.0-34.9) Carpal tunnel syndrome on right Urinary incontinence, mixed Impaired fasting glucose Irritable bowel syndrome Osteopenia of multiple sites Hiatal hernia Cervical disc disease Glaucoma GERD (gastroesophageal reflux disease) Surgical History History of esophagogastroduodenoscopy (EGD) History of incisional hernia repair History of shoulder surgery Hx of elbow surgery History of cardiac pacemaker (~2020) History of carpal tunnel surgery of right wrist (~2013) History of colonoscopy (~2013) History of fusion of cervical spine History of hernia repair (~2008) History of tonsillectomy Family History Father Leukemia Crohn disease Mother HTN (hypertension) Small cell lung cancer Maternal Grandmother Alzheimer's disease Dementia Maternal Grandfather No problems noted. Paternal Grandmother No problems noted. Paternal Grandfather Alzheimer's disease Dementia Daughter No problems noted. Daughter No problems noted. Son No problems noted. Sister No problems noted. Brother Hx of CABG S/P AVR (aortic valve replacement) AAA (abdominal aortic aneurysm) Brother No problems noted. Brother No problems noted. Brother No problems noted. Brother No problems noted. Social History Household Members: Spouse Housing: House Are you a primary insurance healthcare representative to a significant other at home: No Do you presently have visiting nurse or other home services: No Alcohol intake: current Alcohol intake frequency: holidays/special occasions only Alcohol type: wine Patient Tobacco Use Status: Former Tobacco user Quit Date: Tobacco use type: Cigarette e-Cigarette/Vaping Use: Never Used service: No Current occupational status: retired Cognitive needs: No Hearing needs: No Vision needs: Yes Office Procedures Cardiac Device Check Cardiac Device Check Details: Remote pacemaker report generated 07/18/2023. Pacemaker function is adequate. [id number] Cardiac Device Interrogation, pacemaker Procedure code (CPT) selection complete Assessment & Plan Assessment & Plan (1) Cardiac pacemaker: Onset Date: ~03/2021 Comment: ([facility] DCPP - placed 03/2021) Code(s): Z95.0 - Presence of cardiac pacemaker Plan: See above Coding Level of Care Code Procedure Only Diagnoses Cardiac pacemaker Z95.0 CPT Codes Cardiac Device Check - Cardiac Device 12: [id number] Cardiac Device Interrogation, pacemaker ([id number])
== END ==
PROVIDERS: PCP Internal Medicine; Visit Provider Internal Medicine Cardiovascular Disease
DX: I49.5 Sick sinus syndrome (principal); Z95.0 Presence of cardiac pacemaker
CPT/HCPCS: 93294

== ENCOUNTER 2023-08-11 07:24 | Day surgery (SDC) | payer OTHER, SELFPAY ==
[2023-08-11 07:35] VITALS: BMI 35.4
--- NOTE | 2023-08-11 07:35 | MHC.SHP ---
Pre-Procedural Eval Section A - 24 Hr Update-Section A only Date of Service: 08/11/23 The patient is an INPATIENT: No The patient has been examined within 24 hours of the surgical procedure. The History & Physical has been completed within 30 days and I have reviewed it.: No Section B - Complete if H&P > 30 days Chief Complaint: Benign neoplasm of colon, unspecified Details of Present Illness: Colon cancer screening, GERD, dysphagia, epigastric pain Relevant Family History (Specify if Yes): No Relevant Social History: Tobacco Use (Former smoker) Present Medications: see Short Stay Collaborative assessment Medical History: Significant History (Cardiac pacemaker (~03/2021) Carpal tunnel syndrome on right Cervical disc disease Chronic epigastric pain Epigastric hernia Family history of aortic aneurysm GERD (gastroesophageal reflux disease) Glaucoma Hiatal hernia Impaired fasting glucose Insomnia Irritable bowel syndrome Obesity (BMI 30.0-34) History of Previous Operations: Relevant previous surgery/procedure and date(s) (History of cardiac pacemaker (~2020) History of carpal tunnel surgery of right wrist (~2013) History of colonoscopy (~2013) History of fusion of cervical spine History of hernia repair (~2008) History of shoulder surgery History of tonsillectomy Hx of elbow surgery) Allergies: Allergies Allergy/AdvReac Type Severity Reaction Status Date / Time amoxicillin [Augmentin] Allergy Severe hives Verified 05/04/23 15:30 clavulanic acid [Augmentin] Allergy Severe hives Verified 05/04/23 15:30 Review of Systems Sugical H&P ROS: Negative: Constitution, Cardiovascular, Respiratory and Gastrointestinal Exam Surgical H&P Exam: Normal: Heart, Normal: Lungs, Normal: Extremities and Normal: Abdomen Plan Diagnosis/Plan: Unchanged I have reviewed the history and physical and performed a pertinent physical examination on my patient. No changes have occurred unless specified. Time Spent With Patient Time: Total time managing care of this patient today ____ minutes.
[2023-08-11 07:43] VITALS: BP 118/80; PULSE 65; RESP 16; TEMP 36.5; O2SAT 95
[2023-08-11] MEDS: Lactated Ringers 1,000 ML 100 ML IVCONT (07:57)
[2023-08-11] MEDS: Sodium Phosphate,Mono-Dibasic 133 ML ENEMA PR ×2 (08:25→08:42)
--- NOTE | 2023-08-11 08:25 | HO.ANESPROP2 ---
Documented by User: Lamar Hunter NP 08/10/23 09:24 HPI - Anesthesia Eval Consult details Narrative: 58yo F for Upper Endoscopy and Colonoscopy Pacer in situ (SSS) Follows [facility] [place] cardiology. Last office visit 12/2022. Stable for 1 year f/u [facility] Active Problems Active Problems: All Active Problems (Updated 11/16/22 @ 14:04 by Jennifer Fuller PA-C) Colon adenomas (Acute) Poor historian (Acute) URI (upper respiratory infection) (Acute) Laryngeal injury (Acute) Neck injury (Acute) Hoarseness of voice (Acute) Encounter for screening colonoscopy (Acute) Epigastric pain (Acute) Dysphagia (Acute) Anxiety and depression (Acute) Epigastric hernia (Acute) Chronic epigastric pain (Acute) Cardiac pacemaker (Acute ~03/2021) Sick sinus syndrome (Acute) Impaired fasting glucose (Acute) Osteopenia of multiple sites (Acute) Cervical disc disease (Acute) Urinary incontinence, mixed (Acute) GERD (gastroesophageal reflux disease) (Acute) Irritable bowel syndrome (Acute) Hiatal hernia (Acute) Glaucoma (Acute) Obesity (BMI 30.0-34.9) (Acute) Carpal tunnel syndrome on right (Acute) Family history of aortic aneurysm (Acute) Past Medical History Medical History Anxiety and depression Insomnia Epigastric hernia Chronic epigastric pain Cardiac pacemaker (~03/2021) Sick sinus syndrome Family history of aortic aneurysm Cardiac murmur Obesity (BMI 30.0-34.9) Carpal tunnel syndrome on right Urinary incontinence, mixed Impaired fasting glucose Irritable bowel syndrome Osteopenia of multiple sites Hiatal hernia Cervical disc disease Glaucoma GERD (gastroesophageal reflux disease) Family History Family History Father Leukemia Crohn disease Mother HTN (hypertension) Small cell lung cancer Maternal Grandmother Alzheimer's disease Dementia Maternal Grandfather No problems noted. Paternal Grandmother No problems noted. Paternal Grandfather Alzheimer's disease Dementia Daughter No problems noted. Daughter No problems noted. Son No problems noted. Sister No problems noted. Brother Hx of CABG S/P AVR (aortic valve replacement) AAA (abdominal aortic aneurysm) Brother No problems noted. Brother No problems noted. Brother No problems noted. Brother No problems noted. Family history of problems with anesthesia: No Surgical History Surgical History History of esophagogastroduodenoscopy (EGD) History of incisional hernia repair History of shoulder surgery Hx of elbow surgery History of cardiac pacemaker (~2020) History of carpal tunnel surgery of right wrist (~2013) History of colonoscopy (~2013) History of fusion of cervical spine History of hernia repair (~2008) History of tonsillectomy History of Problems with Anesthesia: No Social History Social History Household Members: Spouse Housing: House Are you a primary pharmacy customer care specialist to a significant other at home: No Do you presently have visiting nurse or other home services: No Alcohol intake: current Alcohol intake frequency: holidays/special occasions only Alcohol type: wine Patient Tobacco Use Status: Former Tobacco user Quit Date: > 40 yrs ago Tobacco use type: Cigarette e-Cigarette/Vaping Use: Never Used Use of substances other than those prescribed or required for medical reasons: No Are you DNR?: No Advance Directives: No Advance Directives Information Provided: Yes service: No Current occupational status: retired Cognitive needs: No Hearing needs: No Vision needs: Yes Meds Allergies Allergy/AdvReac Type Severity Reaction Status Date / Time amoxicillin [Augmentin] Allergy Severe hives Verified 05/04/23 15:30 clavulanic acid [Augmentin] Allergy Severe hives Verified 05/04/23 15:30 Home Medications Medication Instructions Recorded Confirmed Last Taken Type mirabegron 50 mg tablet,extended 50 mg PO DAILY 05/26/20 12/22/22 03/26/21 History release 24 hr (Myrbetriq) cranberry 03/23/21 12/22/22 Unknown History oxybutynin chloride 10 mg 10 mg PO DAILY 01/13/22 12/22/22 Unknown History tablet,extended release 24 hr bimatoprost 0.01 % eye drops 1 drp ophthalmic (eye) BEDTIME 10/14/22 12/22/22 Unknown History (Luciano) Exam Narrative Narrative: Cardiac Device Check 12/2022 Details: Dual-chamber [place] pacemaker in place programmed in DDDR at 60/1 30 beats per minute. Atrial pacing 70% of the time. No arrhythmias noted. Atrial pacing thresholds excellent and in our capture mode. Ventricular pacing thresholds are slightly elevated. Atrial ventricular sensing is adequate. Pacing lead impedance is stable. Battery life is excellent at about 6 years. [id number] Cardiac Device Check, pacemaker dual lead Procedure code (CPT) selection complete EKG 12/2022 Details: EKG shows atrially paced, ventricularly sensed rhythm with incomplete right bundle-branch block Assessment and Plan Assessment Anesthesia Assessment: Chart Reviewed Final Anesthetic Review Family History of Problems with Anesthesia: No History of Problems with Anesthesia: No Documented by User: Clair Marie DO 08/11/23 08:28 [facility] Past Medical History Medical History Anxiety and depression Insomnia Epigastric hernia Chronic epigastric pain Cardiac pacemaker (~03/2021) Sick sinus syndrome Family history of aortic aneurysm Cardiac murmur Obesity (BMI 30.0-34.9) Carpal tunnel syndrome on right Urinary incontinence, mixed Impaired fasting glucose Irritable bowel syndrome Osteopenia of multiple sites Hiatal hernia Cervical disc disease Glaucoma GERD (gastroesophageal reflux disease) Family History Family History Father Leukemia Crohn disease Mother HTN (hypertension) Small cell lung cancer Maternal Grandmother Alzheimer's disease Dementia Maternal Grandfather No problems noted. Paternal Grandmother No problems noted. Paternal Grandfather Alzheimer's disease Dementia Daughter No problems noted. Daughter No problems noted. Son No problems noted. Sister No problems noted. Brother Hx of CABG S/P AVR (aortic valve replacement) AAA (abdominal aortic aneurysm) Brother No problems noted. Brother No problems noted. Brother No problems noted. Brother No problems noted. Family history of problems with anesthesia: No Surgical History Surgical History History of esophagogastroduodenoscopy (EGD) History of incisional hernia repair History of shoulder surgery Hx of elbow surgery History of cardiac pacemaker (~2020) History of carpal tunnel surgery of right wrist (~2013) History of colonoscopy (~2013) History of fusion of cervical spine History of hernia repair (~2008) History of tonsillectomy History of Problems with Anesthesia: No Social History Social History Household Members: Spouse Housing: House Are you a primary pharmacy customer care specialist to a significant other at home: No Do you presently have visiting nurse or other home services: No Alcohol intake: current Alcohol intake frequency: holidays/special occasions only Alcohol type: wine Patient Tobacco Use Status: Former Tobacco user Quit Date: > 40 yrs ago Tobacco use type: Cigarette e-Cigarette/Vaping Use: Never Used Use of substances other than those prescribed or required for medical reasons: No Are you DNR?: No Advance Directives: No Advance Directives Information Provided: Yes service: No Current occupational status: retired Cognitive needs: No Hearing needs: No Vision needs: Yes Meds Allergies Allergy/AdvReac Type Severity Reaction Status Date / Time amoxicillin [Augmentin] Allergy Severe hives Verified 05/04/23 15:30 clavulanic acid [Augmentin] Allergy Severe hives Verified 05/04/23 15:30 Home Medications Medication Instructions Recorded Confirmed Last Taken Type mirabegron 50 mg tablet,extended 50 mg PO DAILY 05/26/20 12/22/22 03/26/21 History release 24 hr (Myrbetriq) cranberry 03/23/21 12/22/22 Unknown History oxybutynin chloride 10 mg 10 mg PO DAILY 01/13/22 12/22/22 Unknown History tablet,extended release 24 hr bimatoprost 0.01 % eye drops 1 drp ophthalmic (eye) BEDTIME 10/14/22 12/22/22 Unknown History (Luciano) Exam Exam Date and Time: August 11, 2023 0825 Height,Weight and Vital Signs: Height 5 ft 4 in Weight 93.44 kg Vital Signs Temperature 97.7 F 08/11/23 07:43 Pulse Rate 65 08/11/23 07:43 Respiratory Rate 16 08/11/23 07:43 Blood Pressure 118/80 08/11/23 07:43 Pulse Oximetry 95 08/11/23 07:43 Oxygen Delivery Method Room Air 08/11/23 07:43 Temperature 97.7 F 08/11/23 07:43 Pulse Rate 65 08/11/23 07:43 Respiratory Rate 16 08/11/23 07:43 Blood Pressure 118/80 08/11/23 07:43 Pulse Oximetry 95 08/11/23 07:43 Oxygen Delivery Method Room Air 08/11/23 07:43 Airway Mallampati Class: I TM Dist: >3cm Neck ROM: Full Loose/Missing/Broken Teeth: No Heart: S1S2 Lungs: CTAB Assessment and Plan Assessment Anesthesia Assessment: Anesthesia Plan Discussed and Chart Reviewed Final Anesthetic Review Family History of Problems with Anesthesia: No History of Problems with Anesthesia: No NPO: Yes ASA Class: III Final Preanesthetic Review: No Changes in Pt Med Stat, Meds/Allgs Chart Reviewed, Consent Obtained/Reviewed and Anes Risks/Benef Reviewed Patient Risk: Intermediate Procedure Risk: Low Anesthetic Plan Anesthetic Plan: MAC: and Agree w/ Assess. and Plan Disposition: Standard PACU
--- NOTE | 2023-08-11 09:05 | P.CONAN_ITS ---
[facility] Active Problems Active Problems: All Active Problems (Updated 11/16/22 @ 14:04 by Jennifer Fuller PA-C) Colon adenomas (Acute) Poor historian (Acute) URI (upper respiratory infection) (Acute) Laryngeal injury (Acute) Neck injury (Acute) Hoarseness of voice (Acute) Encounter for screening colonoscopy (Acute) Epigastric pain (Acute) Dysphagia (Acute) Anxiety and depression (Acute) Epigastric hernia (Acute) Chronic epigastric pain (Acute) Cardiac pacemaker (Acute ~03/2021) Sick sinus syndrome (Acute) Impaired fasting glucose (Acute) Osteopenia of multiple sites (Acute) Cervical disc disease (Acute) Urinary incontinence, mixed (Acute) GERD (gastroesophageal reflux disease) (Acute) Irritable bowel syndrome (Acute) Hiatal hernia (Acute) Glaucoma (Acute) Obesity (BMI 30.0-34.9) (Acute) Carpal tunnel syndrome on right (Acute) Family history of aortic aneurysm (Acute) Past Medical History Medical History Anxiety and depression Insomnia Epigastric hernia Chronic epigastric pain Cardiac pacemaker (~03/2021) Sick sinus syndrome Family history of aortic aneurysm Cardiac murmur Obesity (BMI 30.0-34.9) Carpal tunnel syndrome on right Urinary incontinence, mixed Impaired fasting glucose Irritable bowel syndrome Osteopenia of multiple sites Hiatal hernia Cervical disc disease Glaucoma GERD (gastroesophageal reflux disease) Family History Family History Father Leukemia Crohn disease Mother HTN (hypertension) Small cell lung cancer Maternal Grandmother Alzheimer's disease Dementia Maternal Grandfather No problems noted. Paternal Grandmother No problems noted. Paternal Grandfather Alzheimer's disease Dementia Daughter No problems noted. Daughter No problems noted. Son No problems noted. Sister No problems noted. Brother Hx of CABG S/P AVR (aortic valve replacement) AAA (abdominal aortic aneurysm) Brother No problems noted. Brother No problems noted. Brother No problems noted. Brother No problems noted. Family history of problems with anesthesia: No Surgical History Surgical History History of esophagogastroduodenoscopy (EGD) History of incisional hernia repair History of shoulder surgery Hx of elbow surgery History of cardiac pacemaker (~2020) History of carpal tunnel surgery of right wrist (~2013) History of colonoscopy (~2013) History of fusion of cervical spine History of hernia repair (~2008) History of tonsillectomy History of Problems with Anesthesia: No Social History Social History Household Members: Spouse Housing: House Are you a primary managed care liaison to a significant other at home: No Do you presently have visiting nurse or other home services: No Alcohol intake: current Alcohol intake frequency: holidays/special occasions only Alcohol type: wine Patient Tobacco Use Status: Former Tobacco user Quit Date: > 40 yrs ago Tobacco use type: Cigarette e-Cigarette/Vaping Use: Never Used Use of substances other than those prescribed or required for medical reasons: No Are you DNR?: No Advance Directives: No Advance Directives Information Provided: Yes service: No Current occupational status: retired Cognitive needs: No Hearing needs: No Vision needs: Yes Meds Allergies Allergy/AdvReac Type Severity Reaction Status Date / Time amoxicillin [Augmentin] Allergy Severe hives Verified 05/04/23 15:30 clavulanic acid [Augmentin] Allergy Severe hives Verified 05/04/23 15:30 Active Medications: Current Medications Lactated Ringer's (Lr) 1,000 mls @ 100 mls/hr IVCONT .Q10H ADRIENNE Last Admin: 08/11/23 07:57 Dose: 100 mls/hr Ondansetron HCl (Ondansetron Hcl 4 Mg/2 Ml Vial) 4 mg IVPUSH ONCE PRN PRN Reason: Nausea and Vomiting Sodium Biphosphate/Sodium Phosphate (Sodium Phosphate,[place]-Dibasic 133 Ml Enema) 133 ml MN ONCE PRN PRN Reason: Poor Colonoscopy Prep Results Last Admin: 08/11/23 08:25 Dose: 133 ml Sodium Biphosphate/Sodium Phosphate (Sodium Phosphate,[place]-Dibasic 133 Ml Enema) 133 ml MN ONCE PRN PRN Reason: Poor Colonoscopy Prep Results Last Admin: 08/11/23 08:42 Dose: 133 ml Home Medications Medication Instructions Recorded Confirmed Last Taken Type mirabegron 50 mg tablet,extended 50 mg PO DAILY 05/26/20 12/22/22 03/26/21 History release 24 hr (Myrbetriq) cranberry 03/23/21 12/22/22 Unknown History oxybutynin chloride 10 mg 10 mg PO DAILY 01/13/22 12/22/22 Unknown History tablet,extended release 24 hr bimatoprost 0.01 % eye drops 1 drp ophthalmic (eye) BEDTIME 10/14/22 12/22/22 Unknown History (Lumigan) Exam Height,Weight and Vital Signs: Height 5 ft 4 in Weight 93.44 kg Last Vital Signs Temp 97.7 F 08/11/23 07:43 Pulse 65 08/11/23 07:43 Resp 16 08/11/23 07:43 BP 118/80 08/11/23 07:43 Pulse Ox 95 08/11/23 07:43 O2 Del Method Room Air 08/11/23 07:43 Airway Mallampati Class: II TM Dist: >3cm Heart: RRR Lungs: CTA Assessment and Plan Assessment Anesthesia Assessment: Anesthesia Plan Discussed Final Anesthetic Review Family History of Problems with Anesthesia: No History of Problems with Anesthesia: No ASA Class: II Final Preanesthetic Review: Meds/Allgs Chart Reviewed, Consent Obtained/Reviewed and Anes Risks/Benef Reviewed Patient Risk: Low Procedure Risk: Low
--- NOTE | 2023-08-11 09:47 | W.PM.OPN ---
Operative Note Operative Note Date of Service: 08/11/23 Narrative: FLEXIBLE TRANSORAL UPPER GASTROINTESTINAL ENDOSCOPY WITH BIOPSIES AND ESOPHAGEAL BALLOON DILATION AND COLONOSCOPY TILL CECUM Pre-op diagnosis: Surveillance for colon polyp, abdominal pain, dysphagia Post-op diagnosis: GERD, dysphagia, hiatal hernia, gastritis, duodenal diverticulum, diverticulosis, hemorrhoids? Endoscopist:? Krishna Baxter MD Anesthesia:?MAC UPPER ENDOSCOPY Consent: Indications for the procedure and potential complications of bleeding, perforation, reaction to medications and missed diagnosis were discussed with the patient and informed consent was obtained. Instrument: Olympus GIF H 190 mid size upper endoscope Monitoring: Vital signs and clinical assessment, continuous EKG monitoring, Pulse oximetry, Carbon Dioxide monitoring and blood pressure monitoring were done throughout the procedure. Procedure: The patient was placed in the left lateral decubitis position and pre-procedure medications were administered and a bite block was placed. The endoscope was inserted into the mouth and advanced under direct vision to the third part of duodenum. A careful inspection was made as the upper endoscope was withdrawn including a retroflexed examination of the proximal stomach; Findings and interventions are described below. Findings: Larynx: Normal Esophagus: GE junction at 33 cms, hiatal hernia 33 to 35 cms. Tortuous esophagus with decreased contractions without stricture or ring. Biopsies obtained during past EGD were negative for EOE. Empiric esophageal balloon dilation was performed with a 20 mm (60 F) CRE balloon for 60 seconds A 1 cms tongue of possible Lama's - biopsies were obtained.. Stomach: Mild gastric erythema. Biopsies were obtained. Grade 2 flap valve on retroflexed examination of the cardia. Duodenum: Normal bulb and a medium sized diverticulum in the 2nd part of descending duodenum. (Biopsies obtained from 3rd part of the duodenum during past EGD were negative for celiac sprue). Intervention: Biopsies and esophageal balloon dilation as noted above COLONOSCOPY PROCEDURE NOTE Consent: Indications for the procedure and potential complications of bleeding, perforation, reaction to medications and missed diagnosis were discussed with the patient and informed consent was obtained. Instrument: Olympus CF H 190 L variable stiffness adult colonoscope Monitoring: Vital signs and clinical assessment, intermittent blood pressure monitoring, continuous EKG monitoring, Pulse oximetry and Carbon Dioxide monitoring were done throughout the procedure. Colon withdrawl time was 11 minutes. Procedure: The patient was placed in the left lateral decubitis position and pre-procedure medications were administered. After a digital rectal examination of the ano-rectum, the video colonoscope was inserted into the rectum and advanced through the colon to the cecum. The colonoscope was slowly withdrawn in a retrograde panoramic fashion and the colon mucosa was carefully examined including a retroflexed view of the rectum. Findings and interventions are described below. Procedure Difficulty: : Without difficulty Findings: Terminal Ileum: Not evaluated Cecum: Partially evaluated due to undigested vegetable matter which could not be suctioned Ascending Colon: Polypectomy sites were examined and no recurrent/residual polyp noted. Transverse Colon: Normal Descending Colon: Moderate diverticulosis Sigmoid Colon: Moderate diverticulosis Rectum: Normal Ano-rectum: Moderate internal hemorrhoids Colon preparation: Good in the transverse and left colon after copious irrigation, Fair in the ascending colon and poor in the cecum Impression and Post Procedure Diagnosis: Endoscopy Findings: ESOPHAGUS: GE junction at 33 cms, hiatal hernia 33 to 35 cms. Tortuous esophagus with decreased contractions without stricture or ring. A 1 cms tongue of possible Lama's - biopsies were obtained. Biopsies obtained during past EGD were negative for EOE. Empiric esophageal balloon dilation was performed with a 20 mm (60 F) CRE balloon for 60 seconds STOMACH: Mild gastritis DUODENUM: Normal bulb and a medium sized diverticulum in the 2nd part of descending duodenum. Colonoscopy Findings: No polyps were detected Moderate diverticulosis seen in the sigmoid colon Moderate hemorrhoids on retroflexed exam. Plan: Await pathology results Patient has an appointment on 08/24/23 in the GI Clinic with Krishna Baxter M.D. Repeat Colonoscopy interval based on path results - in 3 years due to a history of large adenomatous colon polyps. Above findings were reviewed with the patient and GERD and diverticulosis handouts were given in the discharge area
[2023-08-11 10:45] VITALS: BP 91/59; PULSE 60; RESP 16; TEMP 36.2; O2SAT 95
[2023-08-11 11:00] VITALS: BP 102/75; PULSE 60; RESP 16; O2SAT 98
[2023-08-11 11:15] VITALS: BP 120/72; PULSE 60; RESP 18; TEMP 36.2; O2SAT 98
--- NOTE | 2023-08-11 11:18 | HO.POSTANES ---
Post Anesthesia Evaluation Post Anesthesia Evaluation Date of Service: 08/11/23 Vital Signs: Vital Signs Temp Pulse Resp BP Pulse Ox O2 Del Method 08/11/23 11:00 60 16 102/75 98 Room Air 08/11/23 10:45 97.2 F 60 16 91/59 L 95 Room Air 08/11/23 07:43 97.7 F 65 16 118/80 95 Room Air Anesthesia: Monitored Mental Status: Awake Pain Control: Satisfactory Nausea/Vomiting: None Hydration: Adequate Anesthesia-Related Issues: No Anes. Related Issues
== END 2023-08-11 11:45 | disposition home or self-care (01) ==
PROVIDERS: PCP Internal Medicine; Visit Provider Internal Medicine Gastroenterology
PROC: (CPT 43249; principal; 2023-08-11 08:30)
DX: K29.60 Other gastritis without bleeding (principal); K22.2 Esophageal obstruction; K44.9 Diaphragmatic hernia without obstruction or gangrene; K21.9 Gastro-esophageal reflux disease without esophagitis; R13.10 Dysphagia, unspecified; Z12.11 Encounter for screening for malignant neoplasm of colon; K57.30 Diverticulosis of large intestine without perforation or abscess without bleeding; K64.8 Other hemorrhoids; Z86.010 Personal history of colon polyps; Z95.0 Presence of cardiac pacemaker; E66.9 Obesity, unspecified; Z68.34 Body mass index [BMI] 34.0-34.9, adult
CPT/HCPCS: 43249; 43239; G0121; 88305; 88313; 88342; C1726; J2704

== ENCOUNTER → 2023-08-11 07:24 | Outpatient (BNV) | payer OTHER, SELFPAY | PROVIDERS: PCP Internal Medicine; Visit Provider Internal Medicine Gastroenterology | DX: Z12.11 Encounter for screening for malignant neoplasm of colon (principal); Z86.010 Personal history of colon polyps; K57.90 Diverticulosis of intestine, part unspecified, without perforation or abscess without bleeding; K64.8 Other hemorrhoids; K21.9 Gastro-esophageal reflux disease without esophagitis; R13.10 Dysphagia, unspecified; K29.70 Gastritis, unspecified, without bleeding; K57.11 Diverticulosis of small intestine without perforation or abscess with bleeding | CPT/HCPCS: 43239; 43249; G0105 ==

== ENCOUNTER 2023-08-24 11:55 | Outpatient (AMB) | payer OTHER, SELFPAY ==
--- NOTE | 2023-08-24 12:04 | A.OFFVIS_ITS ---
Vital Signs 08/24/23 12:07 Height 5 ft 1 in Weight 205 lb BMI 38.7 BP 122/58 L Blood Pressure Location Lt brachial Position Sitting Pulse 60 Intake Visit Reasons: s/P Holcomb; Dr. Baxter Intake Note: Patient follow up for Colonoscopy results Patient cc: upper abdominal pain with some problems when she swallow. Denies any other GI issues. Technology Instructor Required: No Accompanied by: Self / Same As Patient Allergies amoxicillin [Augmentin] Allergy (Severe, Verified 12/14/23 08:04) hives clavulanic acid [Augmentin] Allergy (Severe, Verified 12/14/23 08:04) hives Medication List - Last Reconciled 08/24/23 by Krishna Baxter MD acetaminophen 650 mg (2 x 325 mg) PO Q4H PRN 7 days bimatoprost 0.01% (Lumigan) 1 drp ophthalmic (eye) BEDTIME calcium citrate 250 mg PO BID cholecalciferol (vitamin D3) (Vitamin D3) 50 mcg PO DAILY [cranberry ] ibuprofen 600 mg PO Q6H PRN methylcellulose (laxative) (Fiber Therapy (methylcellulose)) 500 mg PO TID mirabegron ER (Myrbetriq) 50 mg PO DAILY omeprazole 20 mg PO DAILY oxybutynin chloride ER 10 mg PO DAILY simethicone 125 mg PO TID-QID PRN sucralfate 1 g PO BID PRN 4 weeks HPI HPI s/P Holcomb; Dr. Baxter: Details: GI clinic visit for this 58 YF for FU after EGD and colonoscopy LABS IN [facility] : [] IMAGING STUDIES: [] ENDOSCOPIC STUDIES: 08/11/23 EGD AND COLON SHOWED: Endoscopy Findings: ESOPHAGUS: GE junction at 33 cms, hiatal hernia 33 to 35 cms. Tortuous esophagus with decreased contractions without stricture or ring. A 1 cms tongue of possible Lama's - biopsies were obtained. Biopsies obtained during past EGD were negative for EOE. Empiric esophageal balloon dilation was performed with a 20 mm (60 F) CRE balloon for 60 seconds STOMACH: Mild gastritis DUODENUM: Normal bulb and a medium sized diverticulum in the 2nd part of descending duodenum. Colonoscopy Findings: No polyps were detected Moderate diverticulosis seen in the sigmoid colon Moderate hemorrhoids on retroflexed exam. Plan: Repeat Colonoscopy interval based on path results - in 3 years due to a history of large adenomatous colon polyps. BIOPSIES SHOWED: A. Gastric antrum, biopsy: Gastric antral mucosa with minimal chronic inactive gastritis; negative for H pylori, intestinal metaplasia and dysplasia. B. Esophagus, distal, biopsy: Columnar mucosa with mild chronic inflammation; negative for intestinal metaplasia and dysplasia; no squamous mucosa present. TODAY'S VISIT: Notes heartburn if she forgets to take her medication. Continues to have dysphagia and drinks water with food and pills. Patient denies symptoms of nausea, vomiting, change in appetite. Notes intermittent pain high in the epigastric/lower chest. Pain has been less frequent and less severe since she started taking sucralfate and simethicone Denies radiation. Pain is sharp, 10/10 in intensity and can last from 1/2 an hour to 3-4 hrs. Denies any known precipitating factors. Tries to stand and walk around or presses upon it. Pain does not feel like a gas bubble. ? bloating. Notes diarrhea after eating fried and spicy foods. Has a BM every 3 days with intermittent straining. Lost 5 lbs after the colonoscopy. Denies recent black stools or rectal bleeding. Patient denies known family history of colon polyps, colon cancer or other GI malignancies. Mom had anemia and needed repeated blood transfusions Dad had Crohn's disease. PAST GI HISTORY BY REVIEW OF MEDICAL RECORDS:11/2022 PATIENT WAS SEEN BY GOLD LANGE: A 57 y/o female follows up after EGD and colonoscopy- chronic epigastric pain- acid reflux and dysphagia Overall symptoms have improved. Appetite is good bowels are okay Discussed procedure report and pathology Pleasant 57-year-old female pacemaker multiple adenomas persistent acid reflux intermittent epigastric pain followed up after recent EGD colonoscopy Reviewed procedure report and pathology, due to findings will repeat colonoscopy in 6 months. [facility] Medical History (Updated 12/14/23 @ 15:21 by Krishna Baxter MD) Colon adenomas Anxiety and depression Epigastric hernia Cardiac pacemaker (~03/2021) Sick sinus syndrome Family history of aortic aneurysm Cardiac murmur Obesity (BMI 30.0-34.9) Carpal tunnel syndrome on right Urinary incontinence, mixed Impaired fasting glucose Irritable bowel syndrome Osteopenia of multiple sites Hiatal hernia Cervical disc disease Glaucoma GERD (gastroesophageal reflux disease) Surgical History History of esophagogastroduodenoscopy (EGD) History of incisional hernia repair History of shoulder surgery Hx of elbow surgery History of cardiac pacemaker (~2020) History of carpal tunnel surgery of right wrist (~2013) History of colonoscopy (~2013) History of fusion of cervical spine History of hernia repair (~2008) History of tonsillectomy Family History Father Leukemia Crohn disease Mother HTN (hypertension) Small cell lung cancer Maternal Grandmother Alzheimer's disease Dementia Maternal Grandfather No problems noted. Paternal Grandmother No problems noted. Paternal Grandfather Alzheimer's disease Dementia Daughter No problems noted. Daughter No problems noted. Son No problems noted. Sister No problems noted. Brother Hx of CABG S/P AVR (aortic valve replacement) AAA (abdominal aortic aneurysm) Brother No problems noted. Brother No problems noted. Brother No problems noted. Brother No problems noted. Social History Household Members: Spouse Housing: House Are you a primary childcare administrator to a significant other at home: No Do you presently have visiting nurse or other home services: No Alcohol intake: current Alcohol intake frequency: holidays/special occasions only Alcohol type: wine Patient Tobacco Use Status: Former Tobacco user Tobacco use type: Cigarette e-Cigarette/Vaping Use: Never Used service: No Current occupational status: retired Cognitive needs: No Hearing needs: No Vision needs: Yes Review of Systems Const All systems reviewed & are unremarkable except as noted in HPI and below Physical Exam Vital Signs: Last Vital Signs Pulse 60 08/24/23 12:07 BP 122/58 L 08/24/23 12:07 BMI result Body Mass Index 38.7 Const General: healthy appearing and no acute distress Nutritional Appearance: obese Orientation/consciousness: patient oriented x3 Limitations: no limitations HEENT Head: Yes normal to inspection Ears: hearing grossly normal bilaterally Eyes Sclerae: sclerae normal Pupils: Equal, round and reactive pupils present Neck Neck: Yes normal visual inspection Chest Chest palpation & inspection: normal inspection of the chest Resp Effort & Inspection: normal respiratory effort Auscultation: clear to auscultation bilaterally Cardio Palpation: normal PMI Rate: regular rate Rhythm: regular rhythm Heart sounds: S1 normal heart sound present, S2 normal heart sound present and no murmurs GI Palpation (GI): Soft to palpation, nontender and No hepatosplenomegaly present Auscultation: normal bowel sounds Rectal Exam - Female: deferred Skin General skin exam: no rashes or lesions noted Neuro General: patient oriented x3, gait normal and moves all extremities Cranial nerves: Yes Equal, round and reactive pupils present Psych Appearance: grossly normal Mental Status: mental status grossly normal Assessment & Plan Assessment & Plan (1) Epigastric pain: Comment: Update labs, CBC CMP Code(s): R10.13 - Epigastric pain Category: Medical Plan 58 YF followed in GI for GERD and abdominal pain. ENDOSCOPIC STUDIES: 08/11/23 EGD AND COLON SHOWED: Endoscopy Findings: ESOPHAGUS: GE junction at 33 cms, hiatal hernia 33 to 35 cms. Tortuous esophagus with decreased contractions without stricture or ring. A 1 cms tongue of possible Lama's - biopsies were obtained which were negative for Lama's esophagus. Biopsies obtained during past EGD were negative for EOE. Empiric esophageal balloon dilation was performed with a 20 mm (60 F) CRE balloon for 60 seconds STOMACH: Mild gastritis DUODENUM: Normal bulb and a medium sized diverticulum in the 2nd part of descending duodenum. Colonoscopy Findings: No polyps were detected Moderate diverticulosis seen in the sigmoid colon Moderate hemorrhoids on retroflexed exam. Plan: Repeat Colonoscopy interval based on path results - in 3 years due to a history of large adenomatous colon polyps. BIOPSIES SHOWED: A. Gastric antrum, biopsy: Gastric antral mucosa with minimal chronic inactive gastritis; negative for H pylori, intestinal metaplasia and dysplasia. B. Esophagus, distal, biopsy: Columnar mucosa with mild chronic inflammation; negative for intestinal metaplasia and dysplasia; no squamous mucosa present. Patient was advised to schedule an abd US (RUQ pain and FU of GB polyp) and take hyoscyamine p.r.n. for abdominal pain. Follow-up in 3 months Orders: Orders US abdomen complete 08/24/23 R10.13 - Epigastric pain Medications: New hyoscyamine sulfate 0.25 mg (2 x 0.125 mg) PO QID PRN 30 tabs 1RF dyspepsia 30 days Coding Level of Care Code Est Pt Level 4 (81397) Diagnoses Epigastric pain R10.13 Time Spent (min) 21
[2023-08-24 12:07] VITALS: BP 122/58; PULSE 60; BMI 38.7
== END 2023-08-24 12:58 | disposition home or self-care (01) ==
PROVIDERS: PCP Internal Medicine; Visit Provider Internal Medicine Gastroenterology
DX: R10.13 Epigastric pain (principal)
CPT/HCPCS: 99499

== ENCOUNTER → 2023-08-24 11:55 | Outpatient (BNVA) | payer OTHER, SELFPAY | PROVIDERS: PCP Internal Medicine; Visit Provider Internal Medicine Gastroenterology ==

== ENCOUNTER 2023-09-07 13:38 | Outpatient (REF) | payer OTHER, SELFPAY ==
--- NOTE | ~2023-09-07 | MM_ITS ---
EXAMINATION: MM SCREENING DIGITAL BREAST TOMOSYNTHESIS, BILATERAL CLINICAL INFORMATION: Screening. Asymptomatic. COMPARISON: Mammography: This study is compared with prior exams dating back to 2019. TECHNIQUE: Digital breast tomosynthesis is performed in both the craniocaudal and mediolateral oblique views along with computer-aided detection (CAD). Synthesized 2D images are generated from the tomosynthesis. FINDINGS: There are scattered areas of fibroglandular density (ACR BI-RADS breast composition Category b). There are no significant masses, abnormal calcifications, or other abnormalities. There is a tissue marker in each breast from prior benign percutaneous biopsies. MM/MM tomosynthesis screening BI IMPRESSION: No mammographic evidence of malignancy. ASSESSMENT: BI-RADS BI-RADS 2 - Benign Findings RECOMMENDATION: Routine annual mammography screening. 1 year F/U This examination should not preclude the clinical evaluation of a suspicious palpable abnormality. This patient's information was entered into a reminder system with a target due date for their next mammogram.
== END 2023-09-07 13:39 | disposition home or self-care (01) ==
LOC: HO.MAMMO 13:38
PROVIDERS: PCP Internal Medicine; Visit Provider Internal Medicine
DX: Z12.31 Encounter for screening mammogram for malignant neoplasm of breast (principal)
CPT/HCPCS: 77063; 77067

== ENCOUNTER → 2023-09-07 13:45 | Outpatient (BNV) | payer OTHER, SELFPAY | PROVIDERS: PCP Internal Medicine; Visit Provider Radiology Diagnostic Radiology | DX: Z12.31 Encounter for screening mammogram for malignant neoplasm of breast (principal) | CPT/HCPCS: 77063; 77067 ==

== ENCOUNTER 2023-09-13 07:54 | Outpatient (REF) | payer OTHER, SELFPAY ==
--- NOTE | ~2023-09-13 | US_ITS ---
EXAMINATION: US ABDOMEN COMPLETE CLINICAL INFORMATION: Epigastric pain. Rule out gallbladder sludge. Follow-up gallbladder polyp. COMPARISON: CT abdomen and pelvis 05/16/2022. Ultrasound abdomen complete 02/18/2021. TECHNIQUE: Real-time imaging of the abdominal viscera. FINDINGS: PANCREAS: Normal. ABDOMINAL AORTA: The proximal, mid, and distal segments are normal in caliber. INFERIOR VENA CAVA: Visualized portions are normal. LIVER: The liver is normal in size. The liver contour is normal. Parenchymal echogenicity is normal. There is no intrahepatic biliary duct dilatation seen. Within the right hepatic lobe, a 1.2 cm simple cyst is seen. Within the left hepatic lobe, a 1.1 x 0.9 x 1.1 cm mildly complex cyst with fine septation is seen, versus 2 adjacent simple cysts. There is an adjacent 1.9 cm simple cyst. GALLBLADDER: A 4 mm nonmobile polyp is seen. The gallbladder is physiologically distended without evidence of stones, sludge, wall thickening or pericholecystic fluid. COMMON BILE DUCT: Normal in caliber measuring 0.5 cm in diameter. RIGHT KIDNEY: At the lower pole, a 1.2 x 0.9 x 1.1 cm hyperechoic, circumscribed angiomyolipoma is redemonstrated, consistent with the CT appearance of 05/16/2022 (3:34 and 4:83). No hydronephrosis or renal calculi. The kidney measures 9.9 cm in maximum dimension. LEFT KIDNEY: There is mild pelviectasis, without danette hydronephrosis. No renal calculi or focal parenchymal lesions. The kidney measures 9.9 cm in maximum dimension. SPLEEN: Normal. The spleen measures 10.0 cm in maximum dimension. FREE FLUID: None. US/US abdomen complete IMPRESSION: 1. There are benign, stable hepatic cysts, as detailed. 2. A 4 mm nonmobile gallbladder polyp is seen. No specific ultrasound follow-up is recommended. 3. 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
== END 2023-09-13 07:55 | disposition home or self-care (01) ==
LOC: HO.US 07:54
PROVIDERS: PCP Internal Medicine; Visit Provider Internal Medicine Gastroenterology
DX: R10.13 Epigastric pain (principal)
CPT/HCPCS: 76700

== ENCOUNTER 2023-12-07 08:05 | Outpatient (AMB) | payer OTHER, SELFPAY ==
--- NOTE | 2023-12-07 08:10 | A.OFFPC_ITS ---
Vital Signs 12/07/23 08:19 Height 5 ft 1 in Weight 198 lb BMI 37.4 BP 102/70 Blood Pressure Location Rt brachial Position Sitting Pulse 60 Pulse Source Pulse Oximeter Pulse Oximetry (%) 96 Oxygen Delivery Method Room Air Intake Visit Reasons: Annual check up. Intake Note: Pt is here today for her PE: Last mammogram 09/07/23, papsmear 07/27/22, Allergies amoxicillin [Augmentin] Allergy (Severe, Verified 12/07/23 08:25) hives clavulanic acid [Augmentin] Allergy (Severe, Verified 12/07/23 08:25) hives Medication List - Last Reconciled 12/07/23 by Suzy Lares MD acetaminophen 650 mg (2 x 325 mg) PO Q4H PRN 7 days bimatoprost 0.01% (Lumigan) 1 drp ophthalmic (eye) BEDTIME calcium citrate 250 mg PO BID cholecalciferol (vitamin D3) (Vitamin D3) 50 mcg PO DAILY [cranberry ] hyoscyamine sulfate 0.25 mg (2 x 0.125 mg) PO QID PRN 30 days ibuprofen 600 mg PO Q6H PRN methylcellulose (laxative) (Fiber Therapy (methylcellulose)) 500 mg PO TID mirabegron ER (Myrbetriq) 50 mg PO DAILY omeprazole 20 mg PO DAILY oxybutynin chloride ER 10 mg PO DAILY simethicone (Gas Relief Extra Strength) 125 mg PO TID-QID PRN 30 days sucralfate 1 g PO BID 21 days Tobacco use date assessed: 12/07/23 Dental Screening Dental Screen Date: 12/07/23 Did you have a dental visit in the last 12 months?: Yes Did you have a dental problem in the last 6 months where you did not have access to dental care?: No Was dental information given to patient?: Patient has dentist HPI Annual check up. HPI Details 58-year-old lady here today for physical exam. She is up-to-date with her screening mammogram, done earlier this year, she is also up-to-date with her cervical cancer screening done last year with negative findings. Is screening colonoscopy was done by Dr. Baxter 08/11/2023 which showed only presence of diverticulosis and hemorrhoids. EGD was done at the same time. She is up-to-date with her COVID vaccine, gets yearly flu shot and up-to-date with her Tdap, has not yet had her shingles vaccine. Has history of sick sinus syndrome status post cardiac pacemaker placement, followed by Dr. Levin Has osteopenia of multiple sites, seen by Dr. Mack, advised to just continue with calcium and vitamin-D 3 supplements, due for repeat bone density. She has seen [facility] for routine skin exam FOR[facility]LY [facility], [facility] Medical History (Updated 12/07/23 @ 09:05 by Suzy Lares MD) Colon adenomas Anxiety and depression Epigastric hernia Cardiac pacemaker (~03/2021) Sick sinus syndrome Family history of aortic aneurysm Cardiac murmur Obesity (BMI 30.0-34.9) Carpal tunnel syndrome on right Urinary incontinence, mixed Impaired fasting glucose Irritable bowel syndrome Osteopenia of multiple sites Hiatal hernia Cervical disc disease Glaucoma GERD (gastroesophageal reflux disease) Surgical History History of esophagogastroduodenoscopy (EGD) History of incisional hernia repair History of shoulder surgery Hx of elbow surgery History of cardiac pacemaker (~2020) History of carpal tunnel surgery of right wrist (~2013) History of colonoscopy (~2013) History of fusion of cervical spine History of hernia repair (~2008) History of tonsillectomy Family History Father Leukemia Crohn disease Mother HTN (hypertension) Small cell lung cancer Maternal Grandmother Alzheimer's disease Dementia Maternal Grandfather No problems noted. Paternal Grandmother No problems noted. Paternal Grandfather Alzheimer's disease Dementia Daughter No problems noted. Daughter No problems noted. Son No problems noted. Sister No problems noted. Brother Hx of CABG S/P AVR (aortic valve replacement) AAA (abdominal aortic aneurysm) Brother No problems noted. Brother No problems noted. Brother No problems noted. Brother No problems noted. Social History Household Members: Spouse Housing: House Are you a primary customer care specialist to a significant other at home: No Do you presently have visiting nurse or other home services: No Alcohol intake: current Alcohol intake frequency: holidays/special occasions only Alcohol type: wine Patient Tobacco Use Status: Former Tobacco user Quit Date: > 40 yrs ago Tobacco use type: Cigarette e-Cigarette/Vaping Use: Never Used service: No Current occupational status: retired Cognitive needs: No Hearing needs: No Vision needs: Yes Questionnaire PHQ-9 Over the last 2 weeks, how often have you been bothered by any of the following problems? 1. Little interest or pleasure in doing things: not at all 2. Feeling down, depressed, or hopeless: not at all 3. Trouble falling or staying asleep, or sleeping too much: not at all 4. Feeling tired or having little energy: not at all 5. Poor appetite or overeating: not at all 6. Feeling bad about yourself - or that you are a failure or have let yourself or your family down: not at all 7. Trouble concentrating on things, such as reading the newspaper or watching television: not at all 8. Moving or speaking so slowly that other people could have noticed. Or the opposite - being so fidgety or restless that you have been moving around a lot more than usual: not at all 9. Thoughts that you would be better off or of hurting yourself in some way: not at all Total score: 0 Depression Screening Interpretation: Negative Depression Screening Done: Yes 90530 - PHQ-9 Billing: Yes Source: Developed by Drs. Baudilio Patel, Anjelica Martinez, Catracho Cobb and colleagues, with an educational tracee from [employer]. Thrive Questionnaire Date Thrive assessed: 12/07/23 I am a: Patient What is your living situation today?: I have a steady place to live Within the past 12 months, did the food you bought not last and you didn't have the money to get more?: Never true Within the past 12 months, did you worry whether your food would run out before you got money to buy more?: Never true Do you have trouble paying for medicines?: No Do you have trouble getting transportation to medical appointments?: No Do you have trouble paying your heating and electricity bill?: No Do you have trouble taking care of your child, family member or friend?: No Do you have trouble with day-to-day activities such as bathing, preparing meals, shopping, managing finances, etc.?: No Are you currently unemployed and looking for a job?: No Are you interested in more education?: No THRIVE Score: 0 AUDIT C Alcohol Use Questionnaire (AUDIT-C) 1. How often do you have a drink containing alcohol?: 2-4 times a month 2. How many drinks containing alcohol do you have on a typical day when you are drinking?: 1 or 2 3. How often do you have six or more drinks on one occasion?: Never Total Score: 2 GABI-7 AMB Questionnaire GABI-7 Date GABI - 7 assessed: 12/07/23 Feeling nervous, anxious, or on edge: 0 = Not at all Not being able to stop or control worryin = Not at all Worrying too much about different things: 0 = Not at all Trouble relaxin = Not at all Being so restless that it is hard to sit still: 0 = Not at all Becoming easily annoyed or irritable: 0 = Not at all Feeling afraid as if something awful might happen: 0 = Not at all Total GABI-7 score (0-4 normal; 5-9 mild; 10-14 moderate; 15-21 severe): 0 Source: Developed by Drs. Baudilio Patel, Anjelica Martinez, Catracho Cobb and colleagues, with an educational tracee from [employer]. GABI-7 Assessment Billing GABI-7 Assessment Tool: GABI-7 Assessment 36762 Review of Systems Const Denies body aches, Denies fatigue, Denies fever(s), Denies headache(s) and Denies weakness Eyes Details: Sees Dr. Degroot, followed for her glaucoma Denies change in vision, Denies eye discharge and Denies itchy eyes ENT Denies dizziness, Denies headache(s), Denies nasal congestion, Denies nasal discharge and Denies sore throat Card Denies chest pain, Denies lightheadedness, Denies palpitations and Denies dyspnea Resp Denies chest congestion, Denies cough, Denies dyspnea and Denies wheezing GI Denies abdominal pain, Denies change in bowel habits and Denies heartburn Denies hematuria, Denies urinary frequency, Denies dysuria and Denies urinary urgency Musc Reports no additional complaints Skin/Breast Denies breast pain, Denies breast mass, Denies lesions and Denies rash Neuro Denies dizziness, Denies headache(s) and Denies weakness Psych Reports no additional complaints Endo Denies fatigue, Denies polydipsia, Denies polyuria and Denies palpitations Chris/Lymph Denies easy bruising Aller/Immun Denies itchy eyes, Denies seasonal rhinorrhea and Denies wheezing Physical exam (Primary Care) Tobacco/Smoking Status: Tobacco use Status Tobacco use date assessed 07/27/22 12/07/23 08:12 Patient Tobacco Use Status Former Tobacco user 12/07/23 08:12 Tobacco use type Cigarette 12/07/23 08:12 e-Cigarette/Vaping Use Never Used 12/07/23 08:12 Depression Screening Interpretation: Negative Thrive Assessment: Date of Thrive Assessment Date Thrive assessed 07/27/22 12/07/23 08:12 Advance Care Planning discussion: Completed/Scanned Date of discussion: 12/07/23 Who was present: Patient Forms completed: Health Care Proxy Time spent: 16-45 minutes Actual minutes spent: 16 Const Other: Alert oriented x3, no acute distress noted ambulatory normal Nutritional Appearance: obese Orientation/consciousness: patient oriented x3 HENMT Head: Yes normocephalic Ears: external ears normal, TM's normal bilaterally and EAC's normal General nose exam: Normal external nose present Face and sinus: Yes face symmetric Mouth: Normal oral and palatal mucosa present, oropharynx normal and moist mucous membranes Eyes General: appearance normal, both eyes and all related structures Neck Neck: Yes full ROM, Yes no lymphadenopathy and Yes supple Thyroid: Thyroid normal (Nonpalpable) Chest Other: Pacemaker in place Chest palpation & inspection: normal inspection of the chest Breast/axilla inspection: normal inspection of the breasts Breast/axilla palpation: normal palpation of the breasts Resp Auscultation: clear to auscultation bilaterally Cardio Other: S1-S2 present regular in rhythm GI Inspection: Yes obesity Palpation (GI): Soft to palpation, nontender, no guarding and no masses General: Yes no CVA tenderness Back/Spine/Pelvis Back: no CVA tenderness Skin General skin exam: no rashes or lesions noted Neuro General: patient oriented x3, gait normal, tone normal, moves all extremities and no focal motor deficits Extrem General: Yes full ROM, Yes no joint enlargement, Yes no calf tenderness and Yes normal gait Psych Appearance: grossly normal Mental Status: mental status grossly normal Speech and movement: Normal speech and movement present Attitude: cooperative Thought process: Normal thought process present Thought content: Normal thought content present Assessment and Plan Assessment & Plan (1) Annual visit for general adult medical examination with abnormal findings: Code(s): Z00.01 - Encounter for general adult medical examination with abnormal findings Plan: Will check appropriate labs. Continue with regular dental visit every 6 months and regular eye exams, sees Dr. Degroot Take adequate calcium in diet and vitamin- D 3 at 2000 IU per cap once a day, in addition to weight-bearing exercises to help maintain good muscle tone and weight control. Instructed to do self-breast exam, and continue with yearly mammogram, ordered for next year together with a bone density scan for next year.. Up-to-date with her screening colonoscopy, done by Dr. Baxter earlier this year. Up-to-date with her COVID vaccination, advised to get yearly flu vaccine, up-to-date with Tdap, reminded to get her shingles vaccine (2) GERD (gastroesophageal reflux disease): Comment: Followed by Code(s): K21.9 - Gastro-esophageal reflux disease without esophagitis Plan: Followed by Dr. Baxter, currently on omeprazole 20 mg daily and hyoscyamine tablets as needed (3) Glaucoma: Code(s): H40.9 - Unspecified glaucoma Plan: Followed by Dr. Degroot (4) Osteopenia of multiple sites: Comment: (Bone Dexa T-score -1.8 lumbar - 09/02/2019 - Followed by Dr. Gee) Code(s): M85.89 - Other specified disorders of bone density and structure, multiple sites Plan: Continue with regular weight-bearing exercise, take adequate calcium from dietary sources and supplements, get continue vitamin-D 3 2000 units daily. Ordered a bone does scan to be done together with her screening mammogram next year (5) Impaired fasting glucose: Code(s): R73.01 - Impaired fasting glucose Plan: Your previous fasting blood sugar was elevated above 100 mg/dL. Impaired glucose metabolism increases the risk for developing diabetes mellitus type 2, as well as heart attack and stroke later on. Lifestyle changes at just weight loss, healthy eating habits, and regular exercise are important, and can prevent the progression to diabetes (6) Urinary incontinence, mixed: Comment: Seen by Urogynecology Code(s): N39.46 - Mixed incontinence Plan: Followed by Urology in [place] currently on Myrbetriq 50 mg daily (7) Obesity (BMI 30.0-34.9): Code(s): E66.9 - Obesity, unspecified Plan: Recommended focusing on improving your health instead of dieting. : Eat Mediterranean diet, limit foods high in fat, sugar, and calories, eat slowly, pay attention to portion sizes, plan your meals ahead of time, walks daily for her exercise. (8) Encounter for counseling regarding advance directives: Code(s): Z71.89 - Other specified counseling Plan: Initiated the conversation about Advanced Directives. Advanced Directives help patients prepare for current and future decisions about their medical treatment and place of care. Discussed with patient that it is a process where a patients current condition and prognosis are reviewed, their wishes for information regarding their illness are elicited, and likely medical dilemmas are presented and options discussed. Healthcare proxy form done today. The form can be amended as needed, reviewed yearly and make changes as needed (9) Irritable bowel syndrome: Code(s): K58.9 - Irritable bowel syndrome without diarrhea (10) Hiatal hernia: Code(s): K44.9 - Diaphragmatic hernia without obstruction or gangrene (11) Sick sinus syndrome: Comment: (s/p [place] DCPP - placed 03/2021) Code(s): I49.5 - Sick sinus syndrome Orders: Orders XR DEXA axial skeleton Today Z12.31 - Encounter for screening mammogram for malignant neoplasm of breast, Z78.0 - Asymptomatic menopausal state, Z87.81 - Personal history of (healed) traumatic fracture MM tomosynthesis screening BI Today Z12.31 - Encounter for screening mammogram for malignant neoplasm of breast, Z78.0 - Asymptomatic menopausal state, Z87.81 - Personal history of (healed) traumatic fracture Lipid Panel Today D12.6 - Benign neoplasm of colon, unspecified, E66.9 - Obesity, unspecified, H40.9 - Unspecified glaucoma, K21.9 - Gastro-esophageal reflux disease without esophagitis, M85.89 - Other specified disorders of bone density and structure, multiple sites, N39.46 - Mixed incontinence, R73.01 - Impaired fasting glucose, Z00.01 - Encounter for general adult medical examination with abnormal findings, Z71.89 - Other specified counseling Alanine Aminotransferase Today D12.6 - Benign neoplasm of colon, unspecified, E66.9 - Obesity, unspecified, H40.9 - Unspecified glaucoma, K21.9 - Gastro- esophageal reflux disease without esophagitis, M85.89 - Other specified disorders of bone density and structure, multiple sites, N39.46 - Mixed incontinence, R73.01 - Impaired fasting glucose, Z00.01 - Encounter for general adult medical examination with abnormal findings, Z71.89 - Other specified counseling Aspartate Amino Transferase Today D12.6 - Benign neoplasm of colon, unspecified, E66.9 - Obesity, unspecified, H40.9 - Unspecified glaucoma, K21.9 - Gastro-esophageal reflux disease without esophagitis, M85.89 - Other specified disorders of bone density and structure, multiple sites, N39.46 - Mixed incontinence, R73.01 - Impaired fasting glucose, Z00.01 - Encounter for general adult medical examination with abnormal findings, Z71.89 - Other specified counseling Basic Metabolic Panel Fasting Today D12.6 - Benign neoplasm of colon, unspecified, E66.9 - Obesity, unspecified, H40.9 - Unspecified glaucoma, K21.9 - Gastro-esophageal reflux disease without esophagitis, M85.89 - Other specified disorders of bone density and structure, multiple sites, N39.46 - Mixed incontinence, R73.01 - Impaired fasting glucose, Z00.01 - Encounter for general adult medical examination with abnormal findings, Z71.89 - Other specified counseling Vitamin D 25-OH Total Today D12.6 - Benign neoplasm of colon, unspecified, E66.9 - Obesity, unspecified, H40.9 - Unspecified glaucoma, K21.9 - Gastro- esophageal reflux disease without esophagitis, M85.89 - Other specified disorders of bone density and structure, multiple sites, N39.46 - Mixed inc ontinence, R73.01 - Impaired fasting glucose, Z00.01 - Encounter for general adult medical examination with abnormal findings, Z71.89 - Other specified counseling Hemoglobin and Hematocrit Today D12.6 - Benign neoplasm of colon, unspecified, E66.9 - Obesity, unspecified, H40.9 - Unspecified glaucoma, K21.9 - Gastro- esophageal reflux disease without esophagitis, M85.89 - Other specified disorders of bone density and structure, multiple sites, N39.46 - Mixed incontinence, R73.01 - Impaired fasting glucose, Z00.01 - Encounter for general adult medical examination with abnormal findings, Z71.89 - Other specified counseling Medications: New psyllium husk-calcium 1-60 gram-mg (Metamucil Plus Calcium) administer with large glass of water 1 cap PO DAILY 90 caps 5RF Refilled calcium citrate 250 mg PO BID 180 tabs 3RF M85.89 - Other specified disorders of bone density and structure, multiple sites cholecalciferol (vitamin D3) (Vitamin D3) 50 mcg PO DAILY 90 caps 1RF Coding Level of Care Code Est Pt Prev Care 40-64y(75357) Diagnoses Annual visit for general adult medical examination with abnormal findings Z00.01 GERD (gastroesophageal reflux disease) K21.9 Glaucoma H40.9 Osteopenia of multiple sites M85.89 Impaired fasting glucose R73.01 Urinary incontinence, mixed N39.46 Obesity (BMI 30.0-34.9) E66.9 Encounter for counseling regarding advance directives Z71.89 Irritable bowel syndrome K58.9 Hiatal hernia K44.9 Sick sinus syndrome I49.5 Additional Codes GABI-7 Assessment Billing - GABI-7 Assessment Tool: GABI-7 Assessment 84052 ([id number]) Vital Signs *Quality* - Advance Care Planning discussion: Completed/Scanned ([id number]) Vital Signs *Quality* - Time spent: 16-45 minutes ([id number])
[2023-12-07 08:19] VITALS: BP 102/70; PULSE 60; O2SAT 96; BMI 37.4
== END 2023-12-07 08:59 | disposition home or self-care (01) ==
PROVIDERS: PCP Internal Medicine; Visit Provider Internal Medicine
DX: Z00.00 Encounter for general adult medical examination without abnormal findings (principal); K21.9 Gastro-esophageal reflux disease without esophagitis; I49.5 Sick sinus syndrome; H40.9 Unspecified glaucoma; M85.89 Other specified disorders of bone density and structure, multiple sites; R73.01 Impaired fasting glucose; N39.46 Mixed incontinence; E66.9 Obesity, unspecified; Z71.89 Other specified counseling; K58.9 Irritable bowel syndrome, unspecified; K44.9 Diaphragmatic hernia without obstruction or gangrene
CPT/HCPCS: 1123F; 99396; 99497

== ENCOUNTER 2023-12-14 07:51 | Outpatient (AMB) | payer OTHER, SELFPAY ==
--- NOTE | 2023-12-14 08:04 | A.OFFVIS_ITS ---
Vital Signs 12/14/23 08:05 Height 5 ft 5 in Weight 190 lb BMI 31.6 BP 108/67 Blood Pressure Location Lt brachial Position Sitting Pulse 60 Intake Visit Reasons: 3 month follow up Intake Note: Patient follow up for Epigastric pain and US results. Patient cc: GERD come and go, abdominal pain and bloating on and off. Denies any other GI issues. Curriculum And Assessment Coordinator Required: No Accompanied by: Self / Same As Patient Allergies amoxicillin [Augmentin] Allergy (Severe, Verified 12/14/23 08:04) hives clavulanic acid [Augmentin] Allergy (Severe, Verified 12/14/23 08:04) hives Medication List - Last Reconciled 12/14/23 by Krishna Baxter MD acetaminophen 650 mg (2 x 325 mg) PO Q4H PRN 7 days bimatoprost 0.01% (Lumigan) 1 drp ophthalmic (eye) BEDTIME calcium citrate 250 mg PO BID cholecalciferol (vitamin D3) (Vitamin D3) 50 mcg PO DAILY [cranberry ] hyoscyamine sulfate 0.25 mg (2 x 0.125 mg) PO QID PRN 30 days hyoscyamine sulfate 0.25 mg (2 x 0.125 mg) PO QID PRN 30 days ibuprofen 600 mg PO Q6H PRN methylcellulose (laxative) (Fiber Therapy (methylcellulose)) 500 mg PO TID mirabegron ER (Myrbetriq) 50 mg PO DAILY omeprazole 20 mg PO DAILY oxybutynin chloride ER 10 mg PO DAILY psyllium husk-calcium 1-60 gram-mg (Metamucil Plus Calcium) 1 cap PO DAILY simethicone (Gas Relief Extra Strength) 125 mg PO TID-QID PRN sucralfate 1 g PO BID 21 days HPI HPI 3 month follow up: Details: GI clinic visit for this 58 YF for FU of GERD and abdominal pain LABS IN [facility] : 11/10/22 reviewed IMAGING STUDIES: 09/2023 ABD US SHOWED: 1. There are benign, stable hepatic cysts, as detailed. 2. A 4 mm nonmobile gallbladder polyp is seen. No specific ultrasound follow-up is recommended. 3. 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 ENDOSCOPIC STUDIES: 08/11/23 EGD AND COLON SHOWED: Endoscopy Findings: ESOPHAGUS: GE junction at 33 cms, hiatal hernia 33 to 35 cms. Tortuous esophagus with decreased contractions without stricture or ring. A 1 cms tongue of possible Lama's - biopsies were obtained. Biopsies obtained during past EGD were negative for EOE. Empiric esophageal balloon dilation was performed with a 20 mm (60 F) CRE balloon for 60 seconds STOMACH: Mild gastritis DUODENUM: Normal bulb and a medium sized diverticulum in the 2nd part of descending duodenum. Colonoscopy Findings: No polyps were detected Moderate diverticulosis seen in the sigmoid colon Moderate hemorrhoids on retroflexed exam. Plan: Repeat Colonoscopy interval based on path results - in 3 years due to a history of large adenomatous colon polyps. BIOPSIES SHOWED: A. Gastric antrum, biopsy: Gastric antral mucosa with minimal chronic inactive gastritis; negative for H pylori, intestinal metaplasia and dysplasia. B. Esophagus, distal, biopsy: Columnar mucosa with mild chronic inflammation; negative for intestinal metaplasia and dysplasia; no squamous mucosa present. TODAY'S VISIT: Patient cc: GERD come and go, abdominal pain and bloating on and off. Denies any other GI issues. Not feeling good since she has a bad chest cold. Abdominal ultrasound results were reviewed Notes abdominal pain once a week or every other week and lasts from 10 min to an hour. Takes Hysocyamine and pain goes away and can come back later and takes a 2nd dose. GERD is not too bad if she takes her medication. PAST VISITS: Notes heartburn if she forgets to take her medication. Continues to have dysphagia and drinks water with food and pills. Patient denies symptoms of nausea, vomiting, change in appetite. Notes intermittent pain high in the epigastric/lower chest. Pain has been less frequent and less severe since she started taking sucralfate and simethicone Denies radiation. Pain is sharp, 10/10 in intensity and can last from 1/2 an hour to 3-4 hrs. Denies any known precipitating factors. Tries to stand and walk around or presses upon it. Pain does not feel like a gas bubble. ? bloating. Notes diarrhea after eating fried and spicy foods. Has a BM every 3 days with intermittent straining. Lost 5 lbs after the colonoscopy. Denies recent black stools or rectal bleeding. Patient denies known family history of colon polyps, colon cancer or other GI malignancies. Mom had anemia and needed repeated blood transfusions Dad had Crohn's disease. PAST GI HISTORY BY REVIEW OF MEDICAL RECORDS:11/2022 PATIENT WAS SEEN BY GOLD LANGE: A 57 y/o female follows up after EGD and colonoscopy- chronic epigastric pain- acid reflux and dysphagia Overall symptoms have improved. Appetite is good bowels are okay Discussed procedure report and pathology Pleasant 57-year-old female pacemaker multiple adenomas persistent acid reflux intermittent epigastric pain followed up after recent EGD colonoscopy Reviewed procedure report and pathology, due to findings will repeat colonoscopy in 6 months [facility] Medical History (Updated 12/14/23 @ 15:21 by Krishna Baxter MD) Colon adenomas Anxiety and depression Epigastric hernia Cardiac pacemaker (~03/2021) Sick sinus syndrome Family history of aortic aneurysm Cardiac murmur Obesity (BMI 30.0-34.9) Carpal tunnel syndrome on right Urinary incontinence, mixed Impaired fasting glucose Irritable bowel syndrome Osteopenia of multiple sites Hiatal hernia Cervical disc disease Glaucoma GERD (gastroesophageal reflux disease) Surgical History History of esophagogastroduodenoscopy (EGD) History of incisional hernia repair History of shoulder surgery Hx of elbow surgery History of cardiac pacemaker (~2020) History of carpal tunnel surgery of right wrist (~2013) History of colonoscopy (~2013) History of fusion of cervical spine History of hernia repair (~2008) History of tonsillectomy Family History Father Leukemia Crohn disease Mother HTN (hypertension) Small cell lung cancer Maternal Grandmother Alzheimer's disease Dementia Maternal Grandfather No problems noted. Paternal Grandmother No problems noted. Paternal Grandfather Alzheimer's disease Dementia Daughter No problems noted. Daughter No problems noted. Son No problems noted. Sister No problems noted. Brother Hx of CABG S/P AVR (aortic valve replacement) AAA (abdominal aortic aneurysm) Brother No problems noted. Brother No problems noted. Brother No problems noted. Brother No problems noted. Social History Household Members: Spouse Housing: House Are you a primary animal care attendant to a significant other at home: No Do you presently have visiting nurse or other home services: No Alcohol intake: current Alcohol intake frequency: holidays/special occasions o nly Alcohol type: wine Patient Tobacco Use Status: Former Tobacco user Tobacco use type: Cigarette e-Cigarette/Vaping Use: Never Used service: No Current occupational status: retired Cognitive needs: No Hearing needs: No Vision needs: Yes Review of Systems Const All systems reviewed & are unremarkable except as noted in HPI and below Physical Exam Vital Signs: Last Vital Signs Pulse 60 12/14/23 08:05 BP 108/67 12/14/23 08:05 BMI result Body Mass Index 31.6 Const General: no acute distress Nutritional Appearance: obese Orientation/consciousness: patient oriented x3 Limitations: no limitations HEENT Head: Yes normal to inspection Ears: hearing grossly normal bilaterally Mouth: Normal oral and palatal mucosa present Eyes Sclerae: sclerae normal Pupils: Equal, round and reactive pupils present Neck Neck: Yes normal visual inspection Chest Chest palpation & inspection: normal inspection of the chest Resp Effort & Inspection: normal respiratory effort Auscultation: clear to auscultation bilaterally Cardio Palpation: normal PMI Rate: regular rate Rhythm: regular rhythm Heart sounds: S1 normal heart sound present, S2 normal heart sound present and no murmurs GI Palpation (GI): Soft to palpation, Tenderness to palpation present (GI) (minimal epigastric tenderness) and No hepatosplenomegaly present Auscultation: normal bowel sounds Rectal Exam - Female: deferred Skin General skin exam: no rashes or lesions noted Neuro General: patient oriented x3, gait normal and moves all extremities Cranial nerves: Yes Equal, round and reactive pupils present Psych Appearance: grossly normal Mental Status: mental status grossly normal Assessment & Plan Assessment & Plan (1) GERD (gastroesophageal reflux disease): Comment: Followed by Code(s): K21.9 - Gastro-esophageal reflux disease without esophagitis Category: Medical (2) Hiatal hernia: Code(s): K44.9 - Diaphragmatic hernia without obstruction or gangrene Category: Medical (3) Irritable bowel syndrome: Code(s): K58.9 - Irritable bowel syndrome without diarrhea Category: Medical (4) Dysphagia: Comment: Intermittent Code(s): R13.10 - Dysphagia, unspecified Category: Medical (5) History of colon polyps: Comment: 08/2023 Colonoscopy Findings: No polyps were detected Moderate diverticulosis seen in the sigmoid colon Moderate hemorrhoids on retroflexed exam. Plan: Repeat Colonoscopy interval based on path results - in 3 years due to a history of large adenomatous colon polyps. Code(s): Z86.010 - Personal history of colonic polyps Category: Medical Plan 58 YF followed in GI for GERD and abdominal pain. Abd US showed a stable 4 mm GB polyp ENDOSCOPIC STUDIES: 08/11/23 EGD AND COLON SHOWED: Endoscopy Findings: ESOPHAGUS: GE junction at 33 cms, hiatal hernia 33 to 35 cms. Tortuous esophagus with decreased contractions without stricture or ring. A 1 cms tongue of possible Lama's - biopsies were obtained which were negative for Lama's esophagus. Biopsies obtained during past EGD were negative for EOE. Empiric esophageal balloon dilation was performed with a 20 mm (60 F) CRE balloon for 60 seconds STOMACH: Mild gastritis DUODENUM: Normal bulb and a medium sized diverticulum in the 2nd part of descending duodenum. Colonoscopy Findings: No polyps were detected Moderate diverticulosis seen in the sigmoid colon Moderate hemorrhoids on retroflexed exam. Plan: Repeat Colonoscopy interval based on path results - in 3 years due to a history of large adenomatous colon polyps. BIOPSIES SHOWED: A. Gastric antrum, biopsy: Gastric antral mucosa with minimal chronic inactive gastritis; negative for H pylori, intestinal metaplasia and dysplasia. B. Esophagus, distal, biopsy: Columnar mucosa with mild chronic inflammation; negative for intestinal metaplasia and dysplasia; no squamous mucosa present. Patient was advised to continue hyoscyamine p.r.n. for abdominal pain. Follow-up in 6 months Orders: Orders Vitamin B12 and Folate Today K21.9 - Gastro-esophageal reflux disease without esophagitis Medications: Refilled hyoscyamine sulfate 0.25 mg (2 x 0.125 mg) PO QID 30 days PRN 30 tabs 1RF dyspepsia Coding Level of Care Code Est Pt Level 4 (48446) Diagnoses GERD (gastroesophageal reflux disease) K21.9 Hiatal hernia K44.9 Irritable bowel syndrome K58.9 Dysphagia R13.10 History of colon polyps Z86.010 Time Spent (min) 21
[2023-12-14 08:05] VITALS: BP 108/67; PULSE 60; BMI 31.6
== END 2023-12-14 08:45 | disposition home or self-care (01) ==
PROVIDERS: PCP Internal Medicine; Visit Provider Internal Medicine Gastroenterology
DX: K21.9 Gastro-esophageal reflux disease without esophagitis (principal); K44.9 Diaphragmatic hernia without obstruction or gangrene; K58.9 Irritable bowel syndrome, unspecified; R13.10 Dysphagia, unspecified; Z86.010 Personal history of colon polyps
CPT/HCPCS: 99214

== ENCOUNTER → 2023-12-14 07:51 | Outpatient (BNVA) | payer OTHER, SELFPAY | PROVIDERS: PCP Internal Medicine; Visit Provider Internal Medicine Gastroenterology | DX: K21.9 Gastro-esophageal reflux disease without esophagitis (principal); R13.10 Dysphagia, unspecified; K44.9 Diaphragmatic hernia without obstruction or gangrene; K58.9 Irritable bowel syndrome, unspecified; Z86.010 Personal history of colon polyps | CPT/HCPCS: 99212; J0330; J1885; J2405; J2704 ==

== ENCOUNTER 2023-12-18 11:38 | Outpatient (AMB) | payer OTHER, SELFPAY ==
--- NOTE | 2023-12-18 12:22 | MHC.OFFWIV ---
Intake Vital Signs 12/18/23 12:27 Height 5 ft 5 in Weight 190 lb BMI 31.6 BP 122/64 Blood Pressure Location Rt brachial Position Sitting Pulse 60 Pulse Source Pulse Oximeter Temp 98.6 F Temp Source Oral Pulse Oximetry (%) 98 Intake Visit Reasons: EP Congestion Intake Note: pt is here for ocngestion Patient Tobacco Use Status: Former Tobacco user Quit Date: > 40 yrs ago Allergies amoxicillin [Augmentin] Allergy (Severe, Verified 12/18/23 12:28) hives clavulanic acid [Augmentin] Allergy (Severe, Verified 12/18/23 12:28) hives Do you need a note to return to daycare/school/sports/work: No HPI HPI Comments History of Present Illness Details Patient is a 58-year-old female complaining of chest congestion x1 week. She states she has been coughing for the last week, she does not cough up any sputum but she did blow her nose this morning and says it was orange in color. She states her coughing is worse when she lays down and she has a reduced appetite and upper back pain. She states she called her health insurance company and they sent someone to her house yesterday and they listened to her lungs and recommended she come in and get a chest x-ray. She denies any fevers, vomiting or diarrhea. She states her daughter is also sick with a similar illness but seems to be on the mend without any antibiotics. She states she has been taking NyQuil and using a vaporizer at night and then Mucinex during the daytime. [facility] Medical History (Updated 12/18/23 @ 12:48 by Litzy Bran PA-C) Colon adenomas Anxiety and depression Epigastric hernia Cardiac pacemaker (~03/2021) Sick sinus syndrome Family history of aortic aneurysm Cardiac murmur Obesity (BMI 30.0-34.9) Carpal tunnel syndrome on right Urinary incontinence, mixed Impaired fasting glucose Irritable bowel syndrome Osteopenia of multiple sites Hiatal hernia Cervical disc disease Glaucoma GERD (gastroesophageal reflux disease) Surgical History History of esophagogastroduodenoscopy (EGD) History of incisional hernia repair History of shoulder surgery Hx of elbow surgery History of cardiac pacemaker (~2020) History of carpal tunnel surgery of right wrist (~2013) History of colonoscopy (~2013) History of fusion of cervical spine History of hernia repair (~2008) History of tonsillectomy Family History Father Leukemia Crohn disease Mother HTN (hypertension) Small cell lung cancer Maternal Grandmother Alzheimer's disease Dementia Maternal Grandfather No problems noted. Paternal Grandmother No problems noted. Paternal Grandfather Alzheimer's disease Dementia Daughter No problems noted. Daughter No problems noted. Son No problems noted. Sister No problems noted. Brother Hx of CABG S/P AVR (aortic valve replacement) AAA (abdominal aortic aneurysm) Brother No problems noted. Brother No problems noted. Brother No problems noted. Brother No problems noted. Social History Household Members: Spouse Housing: House Are you a primary primary care coordinator to a significant other at home: No Do you presently have visiting nurse or other home services: No Alcohol intake: current Alcohol intake frequency: holidays/special occasions only Alcohol type: wine Patient Tobacco Use Status: Former Tobacco user Tobacco use type: Cigarette e-Cigarette/Vaping Use: Never Used service: No Current occupational status: retired Cognitive needs: No Hearing needs: No Vision needs: Yes Review of Systems Const All systems reviewed & are unremarkable except as noted in HPI and below Physical Exam Vital Signs: Last Vital Signs Temp 98.6 F 12/18/23 12:27 Pulse 60 12/18/23 12:27 BP 122/64 12/18/23 12:27 Pulse Ox 98 12/18/23 12:27 BMI result Body Mass Index 31.6 Const General: cooperative, comfortable, no acute distress and tired appearing Orientation/consciousness: patient oriented x3 Limitations: no limitations HEENT Head: Yes normal to inspection Ears: external ears normal General nose exam: Normal external nose present and Normal nares present Face and sinus: Yes normal facial exam and Yes sinuses nontender Mouth: Normal oral and palatal mucosa present and moist mucous membranes Throat: Yes tonsils normal, Yes uvula midline and Yes posterior oropharynx abnormal (Erythema) Eyes General: appearance normal, both eyes and all related structures Neck Neck: Yes normal visual inspection Resp Effort & Inspection: normal respiratory effort, able to speak in complete sentences, Actively coughing, no respiratory distress, not tachypneic, no tripod positioning and no use of accessory muscles Auscultation: wheezes expiratory wheezes (Lower bilaterally) Cardio Rate: regular rate Rhythm: regular rhythm Heart sounds: normal S1 and S2 Skin General skin exam: no rashes or lesions noted Neuro General: patient oriented x3 Extrem General: Yes normal to inspection and Yes no clubbing, cyanosis or edema Assessment & Plan Assessment & Plan (1) Chest congestion: Code(s): R09.89 - Other specified symptoms and signs involving the circulatory and respiratory systems Plan: Vital signs stable. With the bilateral expiratory wheeze, sent prednisone for 5 days as well as inhaler for her coughing, chest x-ray pending. Advised if her symptoms get worse or if she becomes short of breath to seek emergent medical care. (2) Cough: Code(s): R05.9 - Cough, unspecified Qualifiers: Cough type: acute Qualified Code(s): R05.1 - Acute cough Plan: See above Plan See above Orders: Orders XR chest 2V Today R05.9 - Cough, unspecified Medications: New prednisone 20 mg PO DAILY 5 tabs 0RF albuterol sulfate 90 mcg/actuation 2 puffs inhalation Q6H PRN 8.5 grams 0RF shortness of breath or wheezing Coding Level of Care Code Est Pt Level 4 (07071) Diagnoses Chest congestion R09.89 Acute cough R05.1 Cough type: acute
[2023-12-18 12:27] VITALS: BP 122/64; PULSE 60; TEMP 37; O2SAT 98; BMI 31.6
== END 2023-12-18 13:22 | disposition home or self-care (01) ==
PROVIDERS: PCP Internal Medicine; Visit Provider Physician Assistant
DX: R05.1 Acute cough (principal); R09.89 Other specified symptoms and signs involving the circulatory and respiratory systems
CPT/HCPCS: 99214

== ENCOUNTER 2023-12-18 12:43 | Outpatient (REF) | payer OTHER, SELFPAY ==
--- NOTE | ~2023-12-18 | XR_ITS ---
EXAMINATION: XR CHEST, 2 VIEWS CLINICAL INFORMATION: Cough. COMPARISON: 05/04/2023 TECHNIQUE: PA and lateral views of the chest were obtained. FINDINGS: Left pectoral pacemaker leads terminate in the right atrium and right ventricle, unchanged. Lungs are clear. No consolidation, pneumothorax, or pleural effusion. Cardiac and mediastinal contours are normal. Pulmonary vasculature is unremarkable. Trachea is midline. No acute osseous findings. ACDF hardware is noted. IMPRESSION No acute cardiopulmonary findings.
[2023-12-18 16:13] LABS: Hematocrit 41.4 % (37.0-47.0); Hemoglobin 13.5 g/dl (12.0-16.0)
[2023-12-18 16:17] LABS: Alanine Aminotransferase 10 U/L (0-31); Anion Gap 9 (12-20); Aspartate Amino Transferase 18 U/L (5-31); Blood Urea Nitrogen 12 mg/dL (9-16); Calcium 9.7 mg/dL (8.4-10.2); Carbon Dioxide 27 mmol/L (22-29); Chloride 109 mmol/L (96-108); Cholesterol 164 mg/dL (<200); Estimated Glomerular Filt Rate > 60; Glucose Fasting 89 mg/dL (60-99); HDL Cholesterol 54 mg/dL (>40); LDL Cholesterol Calculated 94 mg/dL (<100); Potassium 4.2 mmol/L (3.3-5.1); Sodium 141 mmol/L (135-145); Triglycerides 83 mg/dL (<150)
[2023-12-18 16:32] LABS: Vitamin D 25-OH Total 77.3 ng/mL (>30)
[2023-12-18 16:47] LABS: Folate 8.4 ng/mL (> or = 4.0); Vitamin B12 245 pg/mL (200-900)
== END 2023-12-18 12:44 | disposition home or self-care (01) ==
LOC: HO.HMGCX 12:43
PROVIDERS: Internal Medicine Gastroenterology; PCP Internal Medicine; Referring Provider Physician Assistant; Visit Provider Internal Medicine
DX: D12.6 Benign neoplasm of colon, unspecified (principal); R73.01 Impaired fasting glucose; N39.46 Mixed incontinence; K21.9 Gastro-esophageal reflux disease without esophagitis; H40.9 Unspecified glaucoma; E66.9 Obesity, unspecified; Z00.01 Encounter for general adult medical examination with abnormal findings; Z71.89 Other specified counseling; R05.9 Cough, unspecified; M85.89 Other specified disorders of bone density and structure, multiple sites
CPT/HCPCS: 36415; 71046; 80048; 80061; 82306; 82607; 82746; 84450; 84460; 85014; 85018; 93005; 93280; 99212

== ENCOUNTER 2023-12-18 15:03 | Outpatient (AMB) | payer OTHER, SELFPAY ==
[2023-12-18 15:09] VITALS: BP 120/72; PULSE 60; BMI 31.5
--- NOTE | 2023-12-18 15:09 | MHC.OFFVIS ---
Vital Signs 12/18/23 15:09 Height 5 ft 5 in Weight 189 lb 9.561 oz BMI 31.5 BP 120/72 Blood Pressure Location Lt brachial Position Sitting Pulse 60 Intake Visit Reasons: 1 year follow up w/ [facility] Intake Note: 1 year follow-up with ekg and [facility] doing good Labeling Associate Required: No Allergies amoxicillin [Augmentin] Allergy (Severe, Verified 12/18/23 12:28) hives clavulanic acid [Augmentin] Allergy (Severe, Verified 12/18/23 12:28) hives Medication List - Last Reconciled 12/18/23 by Basil Levin MD acetaminophen 650 mg (2 x 325 mg) PO Q4H PRN 7 days albuterol sulfate 90 mcg/actuation 2 puffs inhalation Q6H PRN bimatoprost 0.01% (Lumigan) 1 drp ophthalmic (eye) BEDTIME calcium citrate 250 mg PO BID cholecalciferol (vitamin D3) (Vitamin D3) 50 mcg PO DAILY [cranberry ] hyoscyamine sulfate 0.25 mg (2 x 0.125 mg) PO QID PRN 30 days ibuprofen 600 mg PO Q6H PRN methylcellulose (laxative) (Fiber Therapy (methylcellulose)) 500 mg PO TID mirabegron ER (Myrbetriq) 50 mg PO DAILY omeprazole 20 mg PO DAILY oxybutynin chloride ER 10 mg PO DAILY prednisone 20 mg PO DAILY psyllium husk-calcium 1-60 gram-mg (Metamucil Plus Calcium) 1 cap PO DAILY simethicone (Gas Relief Extra Strength) 125 mg PO TID-QID PRN sucralfate 1 g PO BID 21 days HPI Comments Details: Tess comes for follow up. She comes for pacemaker check. She says she has been suffering from while syndrome and has not been feeling well. She has reduced activity a lot because of chest congestion and shortness of breath. She denies any lightheadedness, syncope. No prolonged palpitation irregular heartbeat. No orthopnea, PND, leg edema. She has been wheezing a lot. No exertional chest pain. [facility] Medical History (Updated 12/18/23 @ 12:48 by Litzy Bran PA-C) Colon adenomas Anxiety and depression Epigastric hernia Cardiac pacemaker (~03/2021) Sick sinus syndrome Family history of aortic aneurysm Cardiac murmur Obesity (BMI 30.0-34.9) Carpal tunnel syndrome on right Urinary incontinence, mixed Impaired fasting glucose Irritable bowel syndrome Osteopenia of multiple sites Hiatal hernia Cervical disc disease Glaucoma GERD (gastroesophageal reflux disease) Surgical History History of esophagogastroduodenoscopy (EGD) History of incisional hernia repair History of shoulder surgery Hx of elbow surgery History of cardiac pacemaker (~2020) History of carpal tunnel surgery of right wrist (~2013) History of colonoscopy (~2013) History of fusion of cervical spine History of hernia repair (~2008) History of tonsillectomy Family History Father Leukemia Crohn disease Mother HTN (hypertension) Small cell lung cancer Maternal Grandmother Alzheimer's disease Dementia Maternal Grandfather No problems noted. Paternal Grandmother No problems noted. Paternal Grandfather Alzheimer's disease Dementia Daughter No problems noted. Daughter No problems noted. Son No problems noted. Sister No problems noted. Brother Hx of CABG S/P AVR (aortic valve replacement) AAA (abdominal aortic aneurysm) Brother No problems noted. Brother No problems noted. Brother No problems noted. Brother No problems noted. Social History Household Members: Spouse Housing: House Are you a primary customer care agent to a significant other at home: No Do you presently have visiting nurse or other home services: No Alcohol intake: current Alcohol intake frequency: holidays/special occasions only Alcohol type: wine Patient Tobacco Use Status: Former Tobacco user Tobacco use type: Cigarette e-Cigarette/Vaping Use: Never Used service: No Current occupational status: retired Cognitive needs: No Hearing needs: No Vision needs: Yes Review of Systems Const Denies chills, Denies fatigue, Denies fever(s), Denies frequent falls, Denies weakness, Denies weight gain and Denies weight loss ENT Denies dizziness Card Denies chest pain, Denies leg edema, Denies lightheadedness, Denies palpitations, Denies dyspnea, Denies dyspnea on exertion, Denies orthopnea and Denies other (loss of consciousness) Resp Denies cough, Denies dyspnea and Denies dyspnea on exertion GI Denies hematochezia and Denies change in stool character Musc Denies abnormal gait, Denies muscle weakness, Denies numbness, Denies radiating pain into limb and Denies tingling Neuro Denies abnormal gait, Denies dizziness, Denies frequent falls, Denies numbness, Denies tingling and Denies weakness Endo Denies fatigue and Denies palpitations Physical Exam Vital Signs: Last Vital Signs Pulse 60 12/18/23 15:09 BP 120/72 12/18/23 15:09 BMI result Body Mass Index 31.5 Const General: cooperative, comfortable, no acute distress, alert, awake and well groomed Nutritional Appearance: obese Orientation/consciousness: patient oriented x3 Limitations: no limitations Neck Neck: Yes trachea midline, Yes supple and Yes no JVD Resp Effort & Inspection: normal respiratory effort Auscultation: wheezes throughout Cardio Jugular venous distension: no JVD Palpation: normal PMI Rate: regular rate and bradycardic Rhythm: regular rhythm Heart sounds: S1 normal heart sound present and S2 normal heart sound present GI Auscultation: normal bowel sounds Skin General skin exam: no rashes or lesions noted Neuro General: patient oriented x3 and no focal motor deficits Extrem General: Yes no clubbing, cyanosis or edema Psych Appearance: grossly normal Office Procedures Cardiac Device Check Cardiac Device Check Details: Dual-chamber [place] pacemaker in place. Programmed in DDDR at 60 beats per minute. Atrial pacing 73% of time. No significant arrhythmias noted. Atrial ventricular pacing thresholds adequate and in our capture mode. Atrial ventricular sensing is adequate. Pacing lead impedance is stable. Battery life is at about 3 years [id number] Cardiac Device Check, pacemaker dual lead Procedure code (CPT) selection complete EKG Details: EKG shows atrially paced, ventricularly sensed rhythm with left anterior fascicular block with QS pattern in lead V1 [id number], Complete Assessment & Plan Assessment & Plan (1) Cardiac pacemaker: Onset Date: ~03/2021 Comment: ([facility] [place] DCPP - placed 03/2021) Code(s): Z95.0 - Presence of cardiac pacemaker Category: Medical Plan: Cardiac pacemaker in-situ, working well. Reprogrammed for adequate function. Will follow remotely every 3 months and follow up in the clinic in 6 months. Given the symptoms exertional shortness of breath will obtain echocardiogram in near future. Currently she suffering from what appears to be acute bronchitis most likely related to viral syndrome. Has been prescribe therapy for the same. Follow up in the clinic in 1 year's time, sooner p.r.n.. Thank you for allowing me to partake in her care Orders: Orders CA echo transthoracic complete Today R06.02 - Shortness of breath, Z95.0 - Presence of cardiac pacemaker Coding Level of Care Code Est Pt Level 3 (34307) Diagnoses Cardiac pacemaker Z95.0 CPT Codes Cardiac Device Check - Cardiac Device 2: [id number]-BL Cardiac Device Check, pacemaker dual lead ([id number]) EKG - CPT: 10844-[id number], Complete ([id number])
== END 2023-12-18 15:37 | disposition home or self-care (01) ==
PROVIDERS: PCP Internal Medicine; Visit Provider Internal Medicine Cardiovascular Disease
DX: R06.02 Shortness of breath (principal); Z95.0 Presence of cardiac pacemaker
CPT/HCPCS: 93010; 93280; 99213

== ENCOUNTER → 2024-01-04 14:55 | Outpatient (REF) | payer OTHER, SELFPAY ==
--- NOTE | 2024-01-04 14:57 | CA_ITS ---
Transthoracic Echocardiogram Patient (Last, First, Middle): Tess Fallon Ann Gender: Female Date of : 1965 Age: 58 Procedure Date: 01/04/2024 Procedure Type: Transthoracic Echocardiogram Location: OP Height: 167.64 cm Weight: 85.73 kg BSA: 1.95 m2 Heart Rate: 60 bpm BP: 120 / 74 mmHg Registered Nurse Renal: HARLAN Referring MD: Basil Levin MD Tyre Retreader: Basil Levin MD Symptoms: Z95.0 - Presence of cardiac pacemaker Study Quality: Adequate ECG Rhythm: Sinus Conclusions: - 1. Normal LV ejection fraction of 60 65% 2. Trivial aortic regurgitation 3. Normal RV systolic pressure 4. No gross pericardial effusion Findings Left Ventricle Normal left ventricular size, thickness, and systolic function. The visually estimated ejection fraction is between 60-65%. Spectral Doppler is indicative of a normal filling pattern. Right Ventricle Normal right ventricular cavity size and systolic function. There is a pacemaker wire seen in the right ventricle. Atria Both atria are normal in size. A pacemaker wire is identified in the right atrium. Aortic Valve Normal aortic valve structure and function. There is no aortic valve stenosis. There is trace (trivial) aortic valve regurgitation. Mitral Valve Normal mitral valve structure and function. There is trace mitral valve regurgitation. There is no mitral valve stenosis. Pulmonic Valve The pulmonic valve is likely normal. Tricuspid Valve Normal tricuspid valve structure. There is trace tricuspid valve regurgitation. The right ventricular systolic pressure is normal. Normal right atrial pressure. There is no evidence of pulmonary hypertension. Great Vessels The pulmonary artery was not well visualized. There is no dilatation of the ascending aorta measuring 3.40 cm. Venous The inferior vena cava is normal in size and collapses greater than 50% with inspiration. Pericardium/Pleural There is no evidence of pericardial effusion. Prior Study Comparison No significant change compared to prior study dated: 11/24/2020. Measurements 2D Linear Measurements IVSd: 0.82 0.6-0.9/0.6-1.0 cm LVIDd: 4.57 3.9-5.3/4.2-5.9 cm LVIDd Index: 2.34 2.4-3.2/2.2-3.1 cm/m2 LVIDs: 2.27 2.0-3.6 cm LVPWd: 0.72 0.7-1.1 cm LA Diam: 3.50 2.7-3.8/3.0-4.0 cm LAIDs Index: 1.79 1.5-2.3 cm/m2 LV Mass: 137.15 67-162/88-224 g LV Mass Index: 70.33 43-95/49-115 g/m2 LVOT Diam: 2.30 3.0+(-)1.3 cm 2D Systolic Function EF 4C: 63.40 >55% EF 2C: 65.50 >55% EF BiP: 64.80 >55% Mitral Valve MV Pk E: 0.52 MV PK A: 0.64 MV Decel Time: 229.00 E/A: 0.80 E'Lateral: 9.03 E'Medial: 5.11 E/E' Med: 10.10 E/E' Lat: 5.70 PHT: 67.00 MVA PHT: 3.28 Decel [place]: 2.26 Aortic Valve AoV Pk Ward: 0.98 AoV Pk Grad: 4.00 SHASHANK: 3.85 LVOT LVOT Pk Ward: 0.90 LVOT Mn Ward: 0.63 LVOT VTI: 0.18 LVOT Pk Grad: 3.00 LVOT Mn Grad: 2.00 LVOT Diam: 2.30 LVOT Area: 4.15 Diastolic Function MV Pk E: 0.52 MV Pk A: 0.64 E/A: 0.80 E'Medial: 5.11 E/E' Med: 10.10 E' Laterial: 9.03 E/E' Lat: 5.70 Right Ventricle TAPSE (mm): 20.70 TVS' Ward: 10.80 Tricuspid Valve TR Pk Ward: 2.06 TR Pk Grad: 17.00 RA Press: 8.00 RVSP: 25.00 Great Vessels Aorta Sinus of Valsalva: 3.90 2.0-3.5 cm Ao Asc: 3.40 2.1-3.4 cm Pulmonary Valve PV Pk Ward: 0.73 Peak PV Grad: 2.00 Updated in Other Vendor System with Status of Final Basil Levin MD electronically signed on 01/05/2024 12:23:37 PM with status of Final
== END ==
LOC: HO.CARD 14:55
PROVIDERS: PCP Internal Medicine; Visit Provider Internal Medicine Cardiovascular Disease
DX: R06.02 Shortness of breath (principal); Z95.0 Presence of cardiac pacemaker
CPT/HCPCS: 93306

== ENCOUNTER → 2024-01-04 14:57 | Outpatient (BNV) | payer OTHER, SELFPAY | PROVIDERS: PCP Internal Medicine; Visit Provider Internal Medicine Cardiovascular Disease | DX: I35.1 Nonrheumatic aortic (valve) insufficiency (principal); Z95.0 Presence of cardiac pacemaker | CPT/HCPCS: 93306 ==

== ENCOUNTER → 2024-01-16 23:59 | Outpatient (BNV) | payer OTHER, SELFPAY ==
--- NOTE | 2024-01-23 16:08 | MHC.OFFVIS ---
Intake Visit Reasons: Remote device check-[place] Allergies amoxicillin [Augmentin] Allergy (Severe, Verified 12/18/23 12:28) hives clavulanic acid [Augmentin] Allergy (Severe, Verified 12/18/23 12:28) hives [facility] Medical History (Updated 12/18/23 @ 12:48 by Litzy Bran PA-C) Colon adenomas Anxiety and depression Epigastric hernia Cardiac pacemaker (~03/2021) Sick sinus syndrome Family history of aortic aneurysm Cardiac murmur Obesity (BMI 30.0-34.9) Carpal tunnel syndrome on right Urinary incontinence, mixed Impaired fasting glucose Irritable bowel syndrome Osteopenia of multiple sites Hiatal hernia Cervical disc disease Glaucoma GERD (gastroesophageal reflux disease) Surgical History History of esophagogastroduodenoscopy (EGD) History of incisional hernia repair History of shoulder surgery Hx of elbow surgery History of cardiac pacemaker (~2020) History of carpal tunnel surgery of right wrist (~2013) History of colonoscopy (~2013) History of fusion of cervical spine History of hernia repair (~2008) History of tonsillectomy Family History Father Leukemia Crohn disease Mother HTN (hypertension) Small cell lung cancer Maternal Grandmother Alzheimer's disease Dementia Maternal Grandfather No problems noted. Paternal Grandmother No problems noted. Paternal Grandfather Alzheimer's disease Dementia Daughter No problems noted. Daughter No problems noted. Son No problems noted. Sister No problems noted. Brother Hx of CABG S/P AVR (aortic valve replacement) AAA (abdominal aortic aneurysm) Brother No problems noted. Brother No problems noted. Brother No problems noted. Brother No problems noted. Social History Household Members: Spouse Housing: House Are you a primary healthcare consulting manager to a significant other at home: No Do you presently have visiting nurse or other home services: No Alcohol intake: current Alcohol intake frequency: holidays/special occasions only Alcohol type: wine Patient Tobacco Use Status: Former Tobacco user Tobacco use type: Cigarette e-Cigarette/Vaping Use: Never Used service: No Current occupational status: retired Cognitive needs: No Hearing needs: No Vision needs: Yes Office Procedures Cardiac Device Check Cardiac Device Check Details: Remote pacemaker report generated 01/16/2024. Pacemaker function is adequate. Two episodes of nonsustained ventricular tachycardia noted [id number] Cardiac Device Interrogation, pacemaker Procedure code (CPT) selection complete Assessment & Plan Assessment & Plan (1) Cardiac pacemaker: Onset Date: ~03/2021 Comment: ([place] DCPP - placed 03/2021) Code(s): Z95.0 - Presence of cardiac pacemaker Category: Medical Plan: See above Coding Level of Care Code Procedure Only Diagnoses Cardiac pacemaker Z95.0 CPT Codes Cardiac Device Check - Cardiac Device 12: [id number] Cardiac Device Interrogation, pacemaker ([id number])
== END ==
PROVIDERS: PCP Internal Medicine; Visit Provider Internal Medicine Cardiovascular Disease
DX: I47.29 Other ventricular tachycardia (principal); Z95.0 Presence of cardiac pacemaker
CPT/HCPCS: 93294

== ENCOUNTER → 2024-04-16 23:59 | Outpatient (BNV) | payer OTHER, SELFPAY ==
--- NOTE | 2024-04-17 11:49 | MHC.OFFVIS ---
Intake Visit Reasons: Remote device check-[facility] Allergies amoxicillin [Augmentin] Allergy (Severe, Verified 12/18/23 12:28) hives clavulanic acid [Augmentin] Allergy (Severe, Verified 12/18/23 12:28) hives [facility] Medical History (Updated 12/18/23 @ 12:48 by Litzy Bran PA-C) Colon adenomas Anxiety and depression Epigastric hernia Cardiac pacemaker (~03/2021) Sick sinus syndrome Family history of aortic aneurysm Cardiac murmur Obesity (BMI 30.0-34.9) Carpal tunnel syndrome on right Urinary incontinence, mixed Impaired fasting glucose Irritable bowel syndrome Osteopenia of multiple sites Hiatal hernia Cervical disc disease Glaucoma GERD (gastroesophageal reflux disease) Surgical History History of esophagogastroduodenoscopy (EGD) History of incisional hernia repair History of shoulder surgery Hx of elbow surgery History of cardiac pacemaker (~2020) History of carpal tunnel surgery of right wrist (~2013) History of colonoscopy (~2013) History of fusion of cervical spine History of hernia repair (~2008) History of tonsillectomy Family History Father Leukemia Crohn disease Mother HTN (hypertension) Small cell lung cancer Maternal Grandmother Alzheimer's disease Dementia Maternal Grandfather No problems noted. Paternal Grandmother No problems noted. Paternal Grandfather Alzheimer's disease Dementia Daughter No problems noted. Daughter No problems noted. Son No problems noted. Sister No problems noted. Brother Hx of CABG S/P AVR (aortic valve replacement) AAA (abdominal aortic aneurysm) Brother No problems noted. Brother No problems noted. Brother No problems noted. Brother No problems noted. Social History Household Members: Spouse Housing: House Are you a primary medicare compliance auditor to a significant other at home: No Do you presently have visiting nurse or other home services: No Alcohol intake: current Alcohol intake frequency: holidays/special occasions only Alcohol type: wine Patient Tobacco Use Status: Former Tobacco user Tobacco use type: Cigarette e-Cigarette/Vaping Use: Never Used service: No Current occupational status: retired Cognitive needs: No Hearing needs: No Vision needs: Yes Office Procedures Cardiac Device Check Cardiac Device Check Details: Remote pacemaker report generated 04/16/2024. Pacemaker function is adequate [id number] Cardiac Device Interrogation, pacemaker Procedure code (CPT) selection complete Assessment & Plan Assessment & Plan (1) Cardiac pacemaker: Onset Date: ~03/2021 Comment: ([facility] [place] DCPP - placed 03/2021) Code(s): Z95.0 - Presence of cardiac pacemaker Category: Medical Plan: See above Coding Level of Care Code Procedure Only Diagnoses Cardiac pacemaker Z95.0 CPT Codes Cardiac Device Check - Cardiac Device 12: [id number] Cardiac Device Interrogation, pacemaker ([id number])
== END ==
PROVIDERS: PCP Internal Medicine; Visit Provider Internal Medicine Cardiovascular Disease
DX: Z45.018 Encounter for adjustment and management of other part of cardiac pacemaker (principal)
CPT/HCPCS: 93294

== ENCOUNTER 2024-05-28 11:28 | Outpatient (REF) | payer OTHER, SELFPAY | END 2024-05-28 11:29 | disposition home or self-care (01) | LOC: HO.HMGCX 11:28 | PROVIDERS: PCP Internal Medicine; Visit Provider Internal Medicine | DX: M25.561 Pain in right knee (principal); M25.562 Pain in left knee; Z91.81 History of falling; G89.29 Other chronic pain; N39.46 Mixed incontinence | CPT/HCPCS: 73560; 96127; 99212 ==

== ENCOUNTER 2024-05-28 11:28 | Outpatient (AMB) | payer OTHER, SELFPAY ==
[2024-05-28 12:21] VITALS: BP 120/68; PULSE 60; O2SAT 95; BMI 32.9
--- NOTE | 2024-05-28 12:21 | MHC.PC.OV ---
Vital Signs 05/28/24 12:21 Height 5 ft 5 in Weight 197 lb 8 oz BMI 32.9 BP 120/68 Blood Pressure Location Rt brachial Position Sitting Pulse 60 Pulse Source Pulse Oximeter Pulse Oximetry (%) 95 Oxygen Delivery Method Room Air Intake Visit Reasons: Wrist and knee pain Intake Note: Pt is here today referral for rt wrist, pt mentions possible carpal tunnel. Allergies amoxicillin [Augmentin] Allergy (Severe, Verified 05/28/24 12:38) hives clavulanic acid [Augmentin] Allergy (Severe, Verified 05/28/24 12:38) hives Medication List - Last Reconciled 05/28/24 by Suzy Lares MD acetaminophen 650 mg (2 x 325 mg) PO Q4H PRN 7 days bimatoprost 0.01% (Lumigan) 1 drp ophthalmic (eye) BEDTIME calcium citrate 250 mg PO BID cholecalciferol (vitamin D3) (Vitamin D3) 50 mcg PO DAILY [cranberry ] hyoscyamine sulfate 0.25 mg (2 x 0.125 mg) PO QID PRN 30 days ibuprofen 600 mg PO Q6H PRN methylcellulose (laxative) (Fiber Therapy (methylcellulose)) 500 mg PO TID metoprolol succinate ER 25 mg PO DAILY mirabegron ER (Myrbetriq) 50 mg PO DAILY omeprazole 20 mg PO DAILY oxybutynin chloride ER 10 mg PO DAILY psyllium husk-calcium 1-60 gram-mg (Metamucil Plus Calcium) 1 cap PO DAILY simethicone (Gas Relief Extra Strength) 125 mg PO TID-QID PRN sucralfate 1 g PO BID Tobacco use date assessed: 05/28/24 Dental Screening Dental Screen Date: 12/07/23 HPI Wrist and knee pain HPI Details The patient is a 59-year-old female presenting with right wrist pain, knee pain, and urinary incontinence. The patient had carpal tunnel surgery on the right wrist 10 [address] performed [address] Davalos at [facility]. She has experienced recurrent right wrist pain that has intensified over the past two months, significantly worsening over the weekend. The patient reports weakness and difficulty gripping objects, occasionally dropping items like cups and phones. She also has been having numbness and tingling, particularly after swimming. Additionally, the patient reports knee pain exacerbated by two falls: one that resulted from slipping in the tub and another recent fall causing bilateral knee pain, more severe in the right knee. Her initial evaluation post-fall was by Dr. Mack, yet limited intervention was offered then. The pain interferes with activities like squatting and causes distress with certain physical activities, such as using an elliptical machine. The patient also complaining urinary incontinence issues, having frequent, uncontrolled leakage despite medication management. She uses incontinence pads numerous times daily and feels the current treatment with mirabegron ER 50 mg daily seems to be be inadequate. The patient reports prior evaluation with a urologist [facility] Medical History (Updated 05/28/24 @ 12:55 by Suzy Lares MD) Urinary incontinence Chronic pain of right wrist Colon adenomas Anxiety and depression Epigastric hernia Cardiac pacemaker (~03/2021) Sick sinus syndrome Family history of aortic aneurysm Cardiac murmur Obesity (BMI 30.0-34.9) Carpal tunnel syndrome on right Urinary incontinence, mixed Impaired fasting glucose Irritable bowel syndrome Osteopenia of multiple sites Hiatal hernia Cervical disc disease Glaucoma GERD (gastroesophageal reflux disease) Surgical History History of esophagogastroduodenoscopy (EGD) History of incisional hernia repair History of shoulder surgery Hx of elbow surgery History of cardiac pacemaker (~2020) History of carpal tunnel surgery of right wrist (~2013) History of colonoscopy (~2013) History of fusion of cervical spine History of hernia repair (~2008) History of tonsillectomy Family History Father Leukemia Crohn disease Mother HTN (hypertension) Small cell lung cancer Maternal Grandmother Alzheimer's disease Dementia Maternal Grandfather No problems noted. Paternal Grandmother No problems noted. Paternal Grandfather Alzheimer's disease Dementia Daughter No problems noted. Daughter No problems noted. Son No problems noted. Sister No problems noted. Brother Hx of CABG S/P AVR (aortic valve replacement) AAA (abdominal aortic aneurysm) Brother No problems noted. Brother No problems noted. Brother No problems noted. Brother No problems noted. Social History Household Members: Spouse Housing: House Are you a primary critical care physician assistant to a significant other at home: No Do you presently have visiting nurse or other home services: No Alcohol intake: current Alcohol intake frequency: holidays/special occasions only Alcohol type: wine Patient Tobacco Use Status: Former Tobacco user Tobacco use type: Cigarette e-Cigarette/Vaping Use: Never Used service: No Current occupational status: retired Cognitive needs: No Hearing needs: No Vision needs: Yes Questionnaire PHQ-9 Over the last 2 weeks, how often have you been bothered by any of the following problems? 1. Little interest or pleasure in doing things: not at all 2. Feeling down, depressed, or hopeless: not at all 3. Trouble falling or staying asleep, or sleeping too much: several days 4. Feeling tired or having little energy: several days 5. Poor appetite or overeating: not at all 6. Feeling bad about yourself - or that you are a failure or have let yourself or your family down: not at all 7. Trouble concentrating on things, such as reading the newspaper or watching television: not at all 8. Moving or speaking so slowly that other people could have noticed. Or the opposite - being so fidgety or restless that you have been moving around a lot more than usual: not at all 9. Thoughts that you would be better off or of hurting yourself in some way: not at all Total score: 2 Depression Screening Interpretation: Negative Depression Screening Done: Yes 89447 - PHQ-9 Billing: Yes Source: Developed by Drs. Baudilio Patel, Anjelica Martinez, Catracho Cobb and colleagues, with an educational tracee from [employer]. Thrive Questionnaire Date Thrive assessed: 12/07/23 I am a: Patient What is your living situation today?: I have a steady place to live Within the past 12 months, did the food you bought not last and you didn't have the money to get more?: I choose not to answer this question Within the past 12 months, did you worry whether your food would run out before you got money to buy more?: I choose not to answer this question Do you have trouble paying for medicines?: No Do you have trouble getting transportation to medical appointments?: No Do you have trouble paying your heating and electricity bill?: No Do you have trouble taking care of your child, family member or friend?: No Do you have trouble with day-to-day activities such as bathing, preparing meals, shopping, managing finances, etc.?: No Are you currently unemployed and looking for a job?: I choose not to answer this question Are you interested in more education?: I choose not to answer this question Please select the resources that you would like help with: None Currently or been in a relationship where the following occur: No concerns reported THRIVE Score: 0 AUDIT C Alcohol Use Questionnaire (AUDIT-C) 1. How often do you have a drink containing alcohol?: Monthly or less 2. How many drinks containing alcohol do you have on a typical day when you are drinking?: 1 or 2 3. How often do you have six or more drinks on one occasion?: Never Total Score: 1 GABI-7 AMB Questionnaire GABI-7 Date GABI - 7 assessed: 12/07/23 Feeling nervous, anxious, or on edge: 0 = Not at all Not being able to stop or control worryin = Not at all Worrying too much about different things: 0 = Not at all Trouble relaxin = Several days Being so restless that it is hard to sit still: 0 = Not at all Becoming easily annoyed or irritable: 0 = Not at all Feeling afraid as if something awful might happen: 0 = Not at all Total GABI-7 score (0-4 normal; 5-9 mild; 10-14 moderate; 15-21 severe): 1 Source: Developed by Drs. Baudilio Patel, Anjelica Martinez, Catracho Cobb and colleagues, with an educational tracee from [employer]. GABI-7 Assessment Billing GABI-7 Assessment Tool: GABI-7 Assessment 16797 Review of Systems Const Denies body aches, Denies fever(s) and Denies headache(s) Eyes Details: Sees Dr. Degroot, followed for her glaucoma Denies change in vision ENT Denies dizziness and Denies headache(s) Card Denies chest pain, Denies lightheadedness and Denies dyspnea Resp Denies cough and Denies dyspnea GI Denies abdominal pain, Denies change in bowel habits and Denies heartburn Reports as per HPI, Denies hematuria and Denies dysuria Musc Reports as per HPI Neuro Denies dizziness and Denies headache(s) Physical exam (Primary Care) Vital Signs: Last Vital Signs Pulse 60 05/28/24 12:21 BP 120/68 05/28/24 12:21 Pulse Ox 95 05/28/24 12:21 Oxygen Delivery Method Room Air 05/28/24 12:21 BMI result Body Mass Index 32.9 Tobacco/Smoking Status: Tobacco use Status Tobacco use date assessed 05/28/24 05/28/24 12:27 Patient Tobacco Use Status Former Tobacco user 05/28/24 12:27 Tobacco use type Cigarette 05/28/24 12:27 e-Cigarette/Vaping Use Never Used 05/28/24 12:27 PHQ-9: PHQ-9 Score PHQ-9: Total score 2 05/28/24 12:40 Depression Screening Interpretation: Negative Thrive Assessment: Date of Thrive Assessment Date Thrive assessed 12/07/23 05/28/24 12:27 Currently or been in a relationship where the following occur: No concerns reported Const Other: Alert oriented x3, no acute distress noted ambulatory normal HENMT Head: Yes normocephalic Ears: external ears normal General nose exam: Normal external nose present Face and sinus: Yes face symmetric Mouth: Normal oral and palatal mucosa present, oropharynx normal and moist mucous membranes Eyes General: appearance normal, both eyes and all related structures Neck Neck: Yes full ROM, Yes no lymphadenopathy and Yes supple Thyroid: Thyroid normal (Nonpalpable) Resp Auscultation: clear to auscultation bilaterally Cardio Other: S1-S2 present regular in rhythm GI Inspection: Yes obesity Palpation (GI): Soft to palpation, nontender, no guarding and no masses General: Yes no CVA tenderness Back/Spine/Pelvis Back: no CVA tenderness Skin General skin exam: no rashes or lesions noted Neuro General: gait normal, tone normal, moves all extremities and no focal motor deficits Extrem Other: Positive indentation on left patella, slightly tender to palpation, General: Yes full ROM, Yes no joint enlargement, Yes no calf tenderness and Yes normal gait Coding Level of Care Code Est Pt Level 4 (92148) Diagnoses Chronic pain of both knees M25.561; M25.562; G89.29 Chronicity: chronic History of fall Z91.81 Chronic pain of right wrist M25.531; G89.29 History of carpal tunnel surgery of right wrist Z98.890 Urinary incontinence, mixed N39.46 Additional Codes GABI-7 Assessment Billing - GABI-7 Assessment Tool: GABI-7 Assessment 16728 ([id number]) PHQ-9 - 85958 - PHQ-9 Billing: Yes ([id number]) Assessment & Plan Assessment & Plan (1) Pain in both knees: Code(s): M25.561 - Pain in right knee; M25.562 - Pain in left knee Qualifiers: Chronicity: chronic Qualified Code(s): M25.561 - Pain in right knee; M25.562 - Pain in left knee; G89.29 - Other chronic pain (2) History of fall: Code(s): Z91.81 - History of falling (3) Chronic pain of right wrist: Code(s): M25.531 - Pain in right wrist; G89.29 - Other chronic pain Category: Medical (4) History of carpal tunnel surgery of right wrist: Code(s): Z98.890 - Other specified postprocedural states (5) Urinary incontinence, mixed: Comment: Seen by Urogynecology Code(s): N39.46 - Mixed incontinence Category: Medical Plan - Schedule an appointment with Dr. Davalos for right wrist evaluation. - Get x-rays of both knees as per order. - Continue use of prescribed incontinence pads; return for further evaluation if symptoms persist or worsen. - Follow up with your urologist as needed for urinary incontinence. Orders: Orders XR knee LT 2V 05/28/24 M25.561 - Pain in right knee, M25.562 - Pain in left knee, Z91.81 - History of falling XR knee RT 2V 05/28/24 M25.561 - Pain in right knee, M25.562 - Pain in left knee, Z91.81 - History of falling Referrals Orthopedics Referral G89.29 - Other chronic pain, M25.531 - Pain in right wrist, Z98.890 - Other specified postprocedural states Medications: New incontinence pad, liner, disp use TID 90 ea 5RF R32 - Unspecified urinary incontinence
== END 2024-05-28 14:37 | disposition home or self-care (01) ==
PROVIDERS: PCP Internal Medicine; Visit Provider Internal Medicine
DX: M25.561 Pain in right knee (principal); M25.562 Pain in left knee; G89.29 Other chronic pain; Z91.81 History of falling; M25.531 Pain in right wrist; Z98.890 Other specified postprocedural states; N39.46 Mixed incontinence

== ENCOUNTER 2024-06-20 09:49 | Outpatient (AMB) | payer OTHER, SELFPAY ==
--- NOTE | 2024-06-20 09:53 | MHC.OFFVIS ---
Vital Signs 06/20/24 09:55 Height 5 ft 5 in Weight 203 lb BMI 33.8 BP 112/68 Blood Pressure Location Lt brachial Position Sitting Pulse 59 Intake Visit Reasons: 6 month follow up Intake Note: Patient 6 month follow up for Dysphagia. Patient cc: between constipation and diarrhea on and off, swallowing problems are much better.. 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: No Accompanied by: Self / Same As Patient Allergies amoxicillin (Augmentin) Allergy (Severe, Verified 05/15/25 14:25) hives clavulanic acid (Augmentin) Allergy (Severe, Verified 05/15/25 14:25) hives Medication List - Last Reconciled 06/20/24 by Krishna Baxter MD acetaminophen 650 mg (2 x 325 mg) PO Q4H PRN 7 days bimatoprost 0.01% (Lumigan) 1 drp ophthalmic (eye) BEDTIME calcium citrate 250 mg PO BID cholecalciferol (vitamin D3) (Vitamin D3) 50 mcg PO DAILY [cranberry ] hyoscyamine sulfate 0.25 mg (2 x 0.125 mg) PO QID PRN 30 days ibuprofen 600 mg PO Q6H PRN incontinence pad, liner, disp use TID methylcellulose (laxative) (Fiber Therapy (methylcellulose)) 500 mg PO TID metoprolol succinate ER 25 mg PO DAILY mirabegron ER (Myrbetriq) 50 mg PO DAILY omeprazole 20 mg PO DAILY oxybutynin chloride ER 10 mg PO DAILY psyllium husk-calcium 1-60 gram-mg (Metamucil Plus Calcium) 1 cap PO DAILY simethicone (Gas Relief Extra Strength) 125 mg PO TID-QID PRN sucralfate 1 g PO BID tramadol 50 mg PO Q6H PRN HPI HPI 6 month follow up: Details: GI clinic visit for this 59 YF for FU of GERD and abdominal pain TODAY'S VISIT: Patient reports between constipation and diarrhea on and off, swallowing problems are much better. Had a little bout of diarrhea and took some imodium which always helps - takes once a week or once every other week. Also takes fibre twice a day which has been helping her symptoms Can have abd pain before she has the diarrhea and resolves after she takes imodium. Takes hyoscyamine every 2 weeks Trying to loose wt and was down to 194 - gained wt due since not able to go to the Gym PAST VISITS: Not feeling good since she has a bad chest cold. Abdominal ultrasound results were reviewed Notes abdominal pain once a week or every other week and lasts from 10 min to an hour. Takes Hysocyamine and pain goes away and can come back later and takes a 2nd dose. GERD is not too bad if she takes her medication. Notes heartburn if she forgets to take her medication. Continues to have dysphagia and drinks water with food and pills. Patient denies symptoms of nausea, vomiting, change in appetite. Notes intermittent pain high in the epigastric/lower chest. Pain has been less frequent and less severe since she started taking sucralfate and simethicone Denies radiation. Pain is sharp, 10/10 in intensity and can last from 1/2 an hour to 3-4 hrs. Denies any known precipitating factors. Tries to stand and walk around or presses upon it. Pain does not feel like a gas bubble. ? bloating. Notes diarrhea after eating fried and spicy foods. Has a BM every 3 days with intermittent straining. Lost 5 lbs after the colonoscopy. Denies recent black stools or rectal bleeding. Patient denies known family history of colon polyps, colon cancer or other GI malignancies. Mom had anemia and needed repeated blood transfusions Dad had Crohn's disease. LABS IN [facility] : 11/10/22 reviewed IMAGING STUDIES: 09/2023 ABD US SHOWED: 1. There are benign, stable hepatic cysts, as detailed. 2. A 4 mm nonmobile gallbladder polyp is seen. No specific ultrasound follow-up is recommended. 3. 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 ENDOSCOPIC STUDIES: 08/11/23 EGD AND COLON SHOWED: Endoscopy Findings: ESOPHAGUS: GE junction at 33 cms, hiatal hernia 33 to 35 cms. Tortuous esophagus with decreased contractions without stricture or ring. A 1 cms tongue of possible Lama's - biopsies were obtained. Biopsies obtained during past EGD were negative for EOE. Empiric esophageal balloon dilation was performed with a 20 mm (60 F) CRE balloon for 60 seconds STOMACH: Mild gastritis DUODENUM: Normal bulb and a medium sized diverticulum in the 2nd part of descending duodenum. Colonoscopy Findings: No polyps were detected Moderate diverticulosis seen in the sigmoid colon Moderate hemorrhoids on retroflexed exam. Plan: Repeat Colonoscopy interval based on path results - in 3 years due to a history of large adenomatous colon polyps. BIOPSIES SHOWED: A. Gastric antrum, biopsy: Gastric antral mucosa with minimal chronic inactive gastritis; negative for H pylori, intestinal metaplasia and dysplasia. B. Esophagus, distal, biopsy: Columnar mucosa with mild chronic inflammation; negative for intestinal metaplasia and dysplasia; no squamous mucosa present. PAST GI HISTORY BY REVIEW OF MEDICAL RECORDS: 11/2022 PATIENT WAS SEEN BY GOLD LANGE: A 57 y/o female follows up after EGD and colonoscopy- chronic epigastric pain-acid reflux and dysphagia Overall symptoms have improved. Appetite is good bowels are okay Discussed procedure report and pathology Pleasant 57-year-old female pacemaker multiple adenomas persistent acid reflux intermittent epigastric pain followed up after recent EGD colonoscopy Reviewed procedure report and pathology, due to findings will repeat colonoscopy in 6 months [facility] Medical History (Updated 05/24/25 @ 20:45 by Suzy Lares MD) Colon adenomas Anxiety and depression Epigastric hernia Family history of aortic aneurysm Cardiac murmur Carpal tunnel syndrome on right Surgical History History of esophagogastroduodenoscopy (EGD) History of incisional hernia repair History of shoulder surgery Hx of elbow surgery History of cardiac pacemaker (~2020) History of carpal tunnel surgery of right wrist (~2013) History of colonoscopy (~2013) History of fusion of cervical spine History of hernia repair (~2008) History of tonsillectomy Family History Father Leukemia Crohn disease Mother HTN (hypertension) Small cell lung cancer Maternal Grandmother Alzheimer's disease Dementia Maternal Grandfather No problems noted. Paternal Grandmother No problems noted. Paternal Grandfather Alzheimer's disease Dementia Daughter No problems noted. Daughter No problems noted. Son No problems noted. Sister No problems noted. Brother Hx of CABG S/P AVR (aortic valve replacement) AAA (abdominal aortic aneurysm) Brother No problems noted. Brother No problems noted. Brother No problems noted. Brother No problems noted. Social History Household Members: Spouse Housing: House Are you a primary hospice care transitions coordinator to a significant other at home: No Do you presently have visiting nurse or other home services: No Alcohol intake: current Alcohol intake frequency: holidays/special occasions only Alcohol type: wine Patient Tobacco Use Status: Former Tobacco user Tobacco use type: Cigarette e-Cigarette/Vaping Use: Never Used service: No Current occupational status: retired Cognitive needs: No Hearing needs: No Vision needs: Yes Review of Systems Const Denies body aches, Denies fever(s) and Denies headache(s) Eyes Details: Sees Dr. Degroot, followed for her glaucoma Denies change in vision ENT Denies dizziness and Denies headache(s) Card Denies chest pain, Denies lightheadedness and Denies dyspnea Resp Denies cough and Denies dyspnea GI Denies abdominal pain, Denies change in bowel habits and Denies heartburn Reports as per HPI, Denies hematuria and Denies dysuria Musc Reports as per HPI Neuro Denies dizziness and Denies headache(s) Physical Exam Vital Signs: Last Vital Signs Pulse 59 06/20/24 09:55 BP 112/68 06/20/24 09:55 BMI result Body Mass Index 33.8 Const General: healthy appearing and no acute distress Nutritional Appearance: obese Orientation/consciousness: patient oriented x3 Limitations: no limitations HEENT Head: Yes normal to inspection Ears: hearing grossly normal bilaterally Eyes Sclerae: sclerae normal Pupils: Equal, round and reactive pupils present Neck Neck: Yes normal visual inspection Chest Chest palpation & inspection: normal inspection of the chest Resp Effort & Inspection: normal respiratory effort Auscultation: clear to auscultation bilaterally Cardio Palpation: normal PMI Rate: regular rate Rhythm: regular rhythm Heart sounds: S1 normal heart sound present, S2 normal heart sound present and no murmurs GI Palpation (GI): Soft to palpation, nontender and No hepatosplenomegaly present Auscultation: normal bowel sounds Rectal Exam - Female: deferred Skin General skin exam: no rashes or lesions noted Neuro General: patient oriented x3, gait normal and moves all extremities Cranial nerves: Yes Equal, round and reactive pupils present Psych Appearance: grossly normal Mental Status: mental status grossly normal Assessment & Plan Assessment & Plan (1) GERD (gastroesophageal reflux disease): Comment: Followed by Code(s): K21.9 - Gastro-esophageal reflux disease without esophagitis Category: Medical (2) Hiatal hernia: Code(s): K44.9 - Diaphragmatic hernia without obstruction or gangrene Category: Medical (3) Irritable bowel syndrome: Code(s): K58.9 - Irritable bowel syndrome, unspecified Category: Medical (4) Dysphagia: Comment: Intermittent Code(s): R13.10 - Dysphagia, unspecified Category: Medical (5) History of colon polyps: Comment: 08/2023 Colonoscopy Findings: No polyps were detected Moderate diverticulosis seen in the sigmoid colon Moderate hemorrhoids on retroflexed exam. Plan: Repeat Colonoscopy interval based on path results - in 3 years due to a history of large adenomatous colon polyps. Code(s): Z86.010 - Personal history of colon polyps Category: Medical Plan 59 YF followed in GI for GERD and abdominal pain. Abd US showed a stable 4 mm GB polyp ENDOSCOPIC STUDIES: 08/11/23 EGD AND COLON SHOWED: Endoscopy Findings: ESOPHAGUS: GE junction at 33 cms, hiatal hernia 33 to 35 cms. Tortuous esophagus with decreased contractions without stricture or ring. A 1 cms tongue of possible Lama's - biopsies were obtained which were negative for Lama's esophagus. Biopsies obtained during past EGD were negative for EOE. Empiric esophageal balloon dilation was performed with a 20 mm (60 F) CRE balloon for 60 seconds STOMACH: Mild gastritis DUODENUM: Normal bulb and a medium sized diverticulum in the 2nd part of descending duodenum. Colonoscopy Findings: No polyps were detected Moderate diverticulosis seen in the sigmoid colon Moderate hemorrhoids on retroflexed exam. Plan: Repeat Colonoscopy interval based on path results - in 3 years due to a history of large adenomatous colon polyps. BIOPSIES SHOWED: A. Gastric antrum, biopsy: Gastric antral mucosa with minimal chronic inactive gastritis; negative for H pylori, intestinal metaplasia and dysplasia. B. Esophagus, distal, biopsy: Columnar mucosa with mild chronic inflammation; negative for intestinal metaplasia and dysplasia; no squamous mucosa present. Patient was advised to continue hyoscyamine p.r.n. for abdominal pain. 06/20/24 Had a little bout of diarrhea and took some imodium which always helps - takes once a week or once every other week. Also takes fibre twice a day which has been helping her symptoms Can have abd pain before she has the diarrhea and resolves after she takes imodium. Takes hyoscyamine every 2 weeks Follow-up in 9 months - FU of abdominal pain, GERD and colon polyps Coding Level of Care Code Est Pt Level 4 (58848) Diagnoses GERD (gastroesophageal reflux disease) K21.9 Hiatal hernia K44.9 Irritable bowel syndrome K58.9 Dysphagia R13.10 History of colon polyps Z86.010 Time Spent (min) 23
--- OUTSIDE RECORDS SUMMARY | 2024-06-20 09:53 | XMS_ITS | Data Portability ---
Author Organization [employer] [facility] [place] - [employer] Address [address] [place] [id number] Care Team Providers Care Flight Coordinator Name Role Phone HIM BERNABE OTHER Assessment Encounter Date Assessment Date Assessment LastModified by Organization Details LastModified Time 05/05/2023 05/05/2023 service called for +COVID19, fatigue found 60 ritu +ICD recent +COVID19 no fevers/chills able continue PO intake but reduced marked fatigue VSS #COVID-19 stable course +risk factors -paxlovid conitnue supportive care otherwise return to primary team vkudesia Not available 05/05/2023 18:06:47 Plan of Treatment Reminders Order Date Submit Date Provider Last Modified By Organization Details Last Modified Time Details Appointments None recorded. Lab None recorded. Referral None recorded. Procedures None recorded. Surgeries None recorded. Imaging None recorded. Medication Orders Paxlovid 300 mg (150 mg x 2)-100 mg tablets in a dose pack 2022 023 [facility]/Pharmacy #[id number], [address] [facility], [place], [address], 18:00:38 Patient TargetsNo targets recorded. Patient InstructionsNo instructions recorded. Reason for Referral None Reported. Medical Equipment None Reported. Medications Name Sig Start Date Stop Date Status Note LastModified by Organization Details LastModified Time oxybutynin chloride ER 10 mg tablet,exten ded release 24 hr TAKE 1 TABLET BY MOUTH EVERY DAY active Not Available Not Available No t Available sucralfate 1 gram tablet 1 G ORALLY 4 TIMES A DAY NEEDED FOR FOR ACID REFLUX active Not Available Not Available No t Available fluorouracil 5 % topical cream MIX 50/50 WITH DICLOFENAC GEL AND APPLY AT BEDTIME FOR 7 CONSECUTIVE DAYS. PT IS MIXING active Not Available Not Available No t Available travoprost 0.004 % eye drops INSTILL 1 DROP INTO BOTH EYES AT BEDTIME active Not Available Not Available N ot Available omeprazole 20 mg capsule,shaan yed release TAKE 1 CAPSULE BY MOUTH EVERY DAY active Not Available Not Available No t Available simethicone 125 mg chewable tablet TAKE 1 TABLET BY MOUTH 3 TO 4 TIMES A DAY NEEDED FOR FOR ABDOMINAL PAIN active Not Available Not Available No t Available timolol maleate 0.5 % eye gel forming solution INSTILL 1 DROP IN BOTH EYES IN THE MORNING active Not Available Not Available No t Available Laxative (bisacodyl) 5 mg tablet,delay ed release TAKE 2 TABLETS BY MOUTH AT 12:00PM THE DAY BEFORE YOUR PROCEDURE. active Not Available Not Available N ot Available escitalopram 10 mg tablet TAKE 1 TABLET BY MOUTH DAILY active Not Available Not Available Not Available Fiber Therapy (methylcellu lose) 500 mg tablet TAKE 1 TABLET BY MOUTH THREE TIMES A DAY active Not Available Not Available Not Available timolol maleate 0.5 % once daily eye drops INSTILL 1 DROP INTO BOTH EYES TWICE A DAY active Not Available Not Available Not Available calcium 250 mg (as citrate) tablet TAKE 1 TABLET BY MOUTH TWICE A DAY active Not Available Not Available No t Available diclofenac 1 % topical gel MIX WITH THE FLUOURACIL 50/50 AND APPLY TO AFFECTED AREAS AT BEDTIME , WASH OFF IN AM X 7DAYS active Not Available Not Available N ot Available Gavilax 17 gram/dose oral powder 238 G ORALLY ONCE FOR 1 DAY TAKE DIRECTED BY MOUTH THE DAY BEFORE YOUR PROCEDURE. active Not Available Not Available N ot Available Lumigan 0.01 % eye drops INSTILL 1 DROP INTO BOTH EYES AT BEDTIME active Not Available Not Available N ot Available Vitamin D3 50 mcg (2,000 unit) capsule TAKE 1 CAPSULE BY MOUTH DAILY active Not Available Not Available Not Available Myrbetriq 50 mg tablet,exten ded release TAKE 1 TABLET BY MOUTH EVERY DAY active Not Available Not Available No t Available Paxlovid 300 mg (150 mg x 2)-100 mg tablets in a dose pack TAKE 3 TABLETS BY MOUTH TWICE A DAY FOR 5 DAYS active Not Available Not Available No t Available Vitals Date Recorded Heart rate Body height Body weight Oxygen saturation Oxygen saturation in Arterial blood by Pulse oximetry Respiratory rate Body temperature Systolic blood pressure Diastolic blood pressure Provider Name and Address Organization Details Last Updated DateTime 3 60 /min 162.56 cm 291232 g 98 % 98 % 14 /min 98.1 [degF] 132 mm[Hg] 84 mm[Hg] Not Available [employer] - production 17:53:31 Date Recorded Body temperature Body weight Respiratory rate Heart rate Body height Oxygen saturation Oxygen saturation in Arterial blood by Pulse oximetry Systolic blood pressure Diastolic blood pressure Provider Name and Address Organization Details Last Updated DateTime 4 97.6 [degF] 00380.4 8 g 18 /min 60 /min 162.56 cm 99 % 99 % 134 mm[Hg] 90 mm[Hg] Not Available [employer] - Narrative 4 14:38:33 Social History None recorded. Functional Status None recorded. Mental Status None recorded. Family History Nothing Reported. Medical History No medical history recorded. Gynecological HistoryNo gynecological history recorded. Obstetrics History GPAL:G 0 P 0 0 0 0 Past Encounters Encounter ID Performer Location Encounter Start Date Encounter Closed Date Diagnosis/Indication Diagnosis SNOMED-CT Code Diagnosis ICD10 Code [id number] Nehemias Salazar MD [facility] [address] [place] [phone] 05/05/2023 17:53:29 05/08/2023 12:43:17 COVID-19 336432506 U07.1 [id number] Lucian Renteria MD [facility] [address] [place] [phone] 12/17/2023 14:38:23 12/20/2023 04:17:49 Upper respiratory infection 60509773 J06.9 Health Concerns Section Related Observation LastModified by Organization Detai ls LastModified Time None Recorded Concern Status LastModified by Organization Details LastModified Time None Recorded Advance Directives Directive None Recorded Payers Encounter Date Sequence Insurance Name Policy Number Policy Suazo Covered Member ID Suazo Member ID Guarantor Name 05/05/2023 1 [facility] - DOS ON OR AFTER 2022 - DUAL ELIGIBLE - JAIL OPTIONS AND ONE CARE (MEDICARE REPLACEMENT/AD VANTAGE - HMO) Tess Fallon [id number] Tess Fallon 12/17/2023 1 [facility] [employer] - DOS ON OR AFTER 2022 - DUAL ELIGIBLE - JAIL OPTIONS AND ONE CARE (MEDICARE REPLACEMENT/AD VANTAGE - HMO) Tess Fallon [id number] Tess Fallon Notes Date Note Type Note Provider Name and Address Organization Details Recorded Time 05/05/2023 text/html [facility] Nursing Assessment: Reason For Request: PT presented to PCP yesterday where she was diagnosed with COVID-19 upon getting results today>very congested in her chest, hard to talk, had a headache earlier with some coughing, sore throat, extremely tired, DENIES fever/chills Chief Complaints: URI PMH: Heart Disease Comments: Member calling in to place a referral, identified via /name. Member with respiratory symptoms since Monday. Member saw PCP yesterday and was swabbed for covid, member checked portal which showed a positive result, she also did a home test which was positive. Member is experiencing cough, chest congestion, headache, sore throat, body aches and fatigue, denies fever/chills, no n/v/d. Member would like to be evaluated. Nehemias Salazar MD [address] [place] [address],[address], [place], [address], [employer] 05/05/2023 18:07:03 12/17/2023 text/html [facility] Nurse Triage Notes (Bharathi Black): Reason For Request: Pt reporting a really bad chest cold since last monday>started with a sore throat with a little sneezy>tiredness>w heezing every single night>cannot cough up any phlegm Patient Reports: Sputum increase ; Cough; Shortness of breath with exertion Denies: Unable to speak in full sentences without distress Shortness of breath in setting of confusion Cough, fever greater than 2 days Lower extremity swelling History of asthma, increased use of inhaler COPD Pain with inspiration Chief Complaints: URI PMH: Heart Disease Allergies: Unknown Comments: Corporate Law Assistant verified the member's name//address and phone number. Education provided on the response time and the member was advised to monitor reported s/s and seek emergency treatment if needed. Member reports feeling unwell with a cough/cold and congestion -with a sore throat. SOB with wheezing - Breathing is non labored and the member is speaking full sentences. Denies fever. S/S for 1 week. Wellness check requested Manager Culinary POC Test Results from Brandon Sanabria - [facility] Rapid COVID antigen (14:35:27) COVID: - Rapid influenza antigen (14:35:28) Flu: - .................. .................. .................. .................. .................. .................. .................. ............... Manager Culinary Note From Brandon Sanabria: Pt reports cough producing white and sometimes yellow sputum since Monday. Pt taking mucinex and NyQuil with some relief. Pt denies CP, SOB, CEVALLOS, f/n/v/d and has no hx of asthma or COPD. Pt is alert, NAD. VSS. Afebrile. Non focal neuro exam. Normal gait. Unremarkable ENT exam. No sinus tenderness. Lower left rales. Benign ABD exam. No LE edema. Rapid covid and flu negative. [facility] recommends pt increase oral hydration and f/u with PCP tomorrow. Red flags reviewed. .................. .................. .................. .................. .................. .................. .................. ............... Disposition: Fulfilled Lucian Renteria MD [address] [facility],[address], [place], [address], VERA MARIN 12/17/2023 14:50:55 OBGyn Episode No OBEpisode recorded.
--- OUTSIDE RECORDS SUMMARY | 2024-06-20 09:53 | XMS_ITS | Continuity of Care Document ---
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 Name Role Phone Arnaud PAULINO, Suzy Mathur Primary Care Physician [id number] Date(s): 06/12/24 - 06/12/[address] [phone]- Encounter Diagnosis Closed fracture of base of proximal phalanx of finger(Final) - 06/12/24 Discharge Disposition: A-D/C Home Attending Physician: Brett Tran MD Admitting Physician: Brett Tran MD Referring Physician: Not on Staff, Referring MD Encounter Type: Disch ES Allergies, Adverse Reactions, Alerts Substance Criticality Severity Reaction Reaction Severity Status Augmentin 1 Skin rash Active 1rash Immunizations Given and Recorded Vaccine Date Status Refusal Reason tetanus/diphtheria/pertussis, acel(Tdap) 02/18/14 Given Medications Biotin By Mouth, Daily, 0 Refills, Maintenance, 01/03/23 3:16:00 PM EDT, Partial fill upon patient request if the prescription is for a schedule II opioid drug. Start Date: 01/03/23 Status: Ordered Repeat number: 1 Calcium Citrate By Mouth, 2 times a day, 0 Refills, Maintenance, 04/30/24 10:21:00 AM EDT, Partial fill upon patient request if the prescription is for a schedule II opioid drug. Start Date: 04/30/24 Status: Ordered Repeat number: 1 cranberry oral tablet 0 Refills, Maintenance, 05/30/19 2:26:38 PM EST Start Date: 05/30/19 Status: Ordered Repeat number: 1 Estrace Vaginal Cream 0.1 mg/g See Instructions, 1 gram Vaginally at bedtime twice per week, # 42 Gm, 4 Refills, Maintenance, 04/30/24 10:36:00 AM EDT, [facility]/pharmacy #[id number], Partial fill upon patient request if the prescription is for a schedule II opioid drug., 165.1, cm, 01/03/23 15:03:00 EDT, Height Start Date: 04/30/24 Status: Ordered Quantity: 42.0 Unit: g Repeat number: 5 Fiber Laxative = 1,250 mg, By Mouth, 4 times a day, 0 Refills, Maintenance, 04/30/24 10:22:00 AM EDT, Partial fillupon patient request if the prescription is for a schedule II opioid drug. Start Date: 04/30/24 Status: Ordered Repeat number: 1 Gas-X = 80 mg, 3 times a day after meals and bedtime, 0 Refills, Maintenance, 01/03/23 3:16:00 PM EDT, Partial fill upon patient request if the prescription is for a schedule II opioid drug. Start Date: 01/03/23 Status: Ordered Repeat number: 1 Lumigan Daily before dinner, 0 Refills, Maintenance, 04/30/24 10:22:00 AM EDT, Partial fill upon patient request if the prescription is for a schedule II opioid drug. Start Date: 04/30/24 Status: Ordered Repeat number: 1 metoprolol (OP) 0 Refills, Maintenance, 2 Start Date: 04/30/24 Status: Ordered Repeat number: 1 Myrbetriq 50 mg oral tablet, extended release 1 tablet, By Mouth, Daily, # 90 tablet, 3 Refills, Maintenance, 04/30/24 10:36:00 AM EDT, [facility]/pharmacy #[id number], 165.1, cm, 01/03/23 15:03:00 EDT, Height Start Date: 04/30/24 Status: Ordered Quantity: 90.0 Unit: tablet Repeat number: 4 Omeprazole By Mouth, Daily, 0 Refills, Maintenance, 04/30/24 10:22:00 AM EDT, Partial fill upon patient request if the prescription is for a schedule II opioid drug. Start Date: 04/30/24 Status: Ordered Repeat number: 1 oxybutynin 10 mg/24 hr oral tablet, extended release 1 tablet, By Mouth, Daily, # 90 tablet, 3 Refills, Maintenance, 04/30/24 10:36:00 AM EDT, [facility]/pharmacy #[id number], 165.1, cm, 01/03/23 15:03:00 EDT, Height Start Date: 04/30/24 Status: Ordered Quantity: 90.0 Unit: tablet Repeat number: 4 Sucralfate = 1 Gm, By Mouth, 3 times a day before meals and bedtime, 0 Refills, Maintenance, 01/03/23 3:15:00 PM EDT, Partial fill upon patient request if the prescription is for a schedule II opioid drug. Start Date: 01/03/23 Status: Ordered Repeat number: 1 Timolol 0.5% Ophth Eyes, Both, 2 times a day, Refills 0, Maintenance, 10/04/18 2:59:33 PM EDT Start Date: 10/04/18 Status: Ordered Repeat number: 1 Vitamin D3 By Mouth, 0 Refills, Maintenance, 10/04/18 3:01:13 PM EDT Start Date: 10/04/18 Status: Ordered Repeat number: 1 Problem List Condition Confirmation Course Effective Dates Status Health St atus Informant Carpal tunnel syndrome Confirmed Active Depression Confirmed Active GERD (gastroesophageal reflux disease) Confirmed Active Glaucoma Confirmed Active IBS (irritable bowel syndrome) Confirmed Active Obese class I Confirmed Active Osteopenia Confirmed Active Urinary urgency Confirmed Active Results Radiology Reports * Exam Date Time Procedure Performing Provider Status 06/12/24 1:41 PM Hand Min 3 Views Left Juan Miguel Hanley; Chuck (Verified) Notes: (Hand Min 3 Views Left) Reason For Exam: with Pain;Trauma RESULT: Hand Min 3 Views Left Hand 3 Views Left, 3 views Reason: Trauma with pain and swelling to the fifth digit; Clinical Question(s): Fracture COMPARISON: Left wrist radiograph-01/26/2013. FINDINGS: Minimally displaced fracture within the proximal third of the fifth proximal phalanx. Status post ORIF of the distal radius. Soft tissue swelling about the fifth digit. IMPRESSION: Minimally displaced fracture of the fifth proximal phalanx with associated soft tissue swelling. I have personally reviewed the images and I agree with this report. WSN: [id number] Ordering Physician: Brett Tran Dictated By: Zeeshan Perea MD Dictated Date/Time: 06/12/24 2:07 pm Reviewed By: Shyam Shafer MD, V Signed By: Shyam Shafer MD, V Signed Date/Time: 06/12/24 2:12 pm Transcribed By: JUNG Transcribed Date/Time: 06/12/24 2:05 pm Vital Signs Most recent to oldest [Reference Range]: 1 2 3 Height 163 cm (06/12/24 2:40 PM) 163 cm (06/12/24 11:08 AM) Weight 91 kg (06/12/24 2:40 PM) 91 kg (06/12/24 11:08 AM) Oxygen Saturation [94-100 %] 96 % (06/12/24 2:40 PM) 96 % (06/12/24 11:08 AM) 100 % (06/12/24 11:02 AM) Pulse Rate [55-90 bpm] 58 bpm (06/12/24 2:40 PM) 60 bpm (06/12/24 11:08 AM) Body Mass Index [18.5-24.99 kg/m2] 34.25 kg/m2 *>HHI* (06/12/24 2:40 PM) 34.25 kg/m2 *>HHI* (06/12/24 11:08 AM) Blood Pressure [90-138/55-84 mm Hg] 143/94mm Hg *H* (06/12/24 2:40 PM) 143/89mm Hg *H* (06/12/24 11:08 AM) Respiratory Rate [16-30 br/min] 16 br/min (06/12/24 2:40 PM) 18 br/min (06/12/24 11:08 AM) 18 br/min (06/12/24 11:02 AM) Temperature [96.8-100.4 DegF] 97.4 DegF (06/12/24 11:08 AM) Mode of Delivery (Oxygen) Room air (06/12/24 2:40 PM) Room air (06/12/24 11:08 AM) Room air (06/12/24 11:02 AM) Blood pressure sites Arm, left (06/12/24 11:08 AM) Temperature Route Oral (06/12/24 11:08 AM) Dry Weight 91 kg (06/12/24 2:40 PM) 91 kg (06/12/24 11:08 AM) Weight Obtained Via Patient/family state d (06/12/24 11:08 AM) Dry Weight Obtained Via Patient/family s tated (06/12/24 11:08 AM) Social History Social History Type Response Smoking Status Former smoker, quit more than 30 days ago entered on: 10/04/18 Sex Female Sex Representation Female (finding) Patient Care team information Care Team Personnel Name: Arnaud PAULINO , Suzy Mathur Position: Reference Physician Member Role: PCP Address: [address] [place] [address] Telecom: Care Team Related Persons Name: MOUNA NARVAEZ Insurance Providers Guarantor name: PEGGY Health Plan Information #: 1 Payer: [facility] CARE ALLIANCE/ONE CARE Member Number: [id number] Policy Number: NA Group Number: PEGGY Health Plan Information #: 2 P[facility]: [facility] Member Number: [id number] Policy Number: PEGGY Group Number: NA
--- OUTSIDE RECORDS SUMMARY | 2024-06-20 09:53 | XMS_ITS | Continuity of Care Document ---
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 Name Role Phone Arnaud PAULINO, Suzy Mathur Primary Care Physician Encounter [facility] Date(s): 04/30/24 - 05/30/24 [employer] Iankaykay MeyersFAB BAG[employer] [facility] [address] [facility] [place], [place] [address] Attending Physician: Ulises Toribio Admitting Physician: Ulises Toribio Referring Physician: tr [id number] Encounter Type: Triage Allergies, Adverse Reactions, Alerts Substance Criticality Severity [...] 4 Refills, Maintenance, 04/30/24 10:36:00 AM EDT, [facility]/pharmacy #[id number], Partial fill upon patient request if [...] 3 Refills, Maintenance, 04/30/24 10:36:00 AM EDT, [facility]/pharmacy #[id number], 165.1, cm, 01/03/23 15:03:00 EDT, Height [...] 3 Refills, Maintenance, 04/30/24 10:36:00 AM EDT, [facility]/pharmacy #[id number], 165.1, cm, 01/03/23 15:03:00 EDT, Height [...] Osteopenia Confirmed Active Urinary urgency Confirmed Active Social History Social History Type Response Smoking Status Former smoker, quit more than 30 days ago entered on: 10/04/18 Sex Female Sex Representation Female (finding) Patient Care team information Care Team Personnel Name: Arnaud PAULINO , Suzy Mathur Position: Reference Physician Member Role: PCP Address: [address] [place] [address] Telecom: Care Team Related Persons Name: MOUNA NARVAEZ Insurance Providers Guarantor name: PEGGY Health Plan Information #: 1 Payer: [facility]/ONE CARE Member Number: NA Policy Number: NA Group Number: NA
[2024-06-20 09:55] VITALS: BP 112/68; PULSE 59; BMI 33.8
== END 2024-06-20 11:29 | disposition home or self-care (01) ==
PROVIDERS: PCP Internal Medicine; Visit Provider Internal Medicine Gastroenterology
DX: K21.9 Gastro-esophageal reflux disease without esophagitis (principal); K44.9 Diaphragmatic hernia without obstruction or gangrene; K58.9 Irritable bowel syndrome, unspecified; R13.10 Dysphagia, unspecified; Z86.0100 Personal history of colon polyps, unspecified
CPT/HCPCS: 99499

== ENCOUNTER → 2024-07-16 23:59 | Outpatient (BNV) | payer OTHER, SELFPAY ==
--- NOTE | 2024-07-17 16:27 | A.OFFVIS_ITS ---
Intake Visit Reasons: Remote device check- [facility] Allergies amoxicillin [Augmentin] Allergy (Severe, Verified 06/20/24 09:53) hives clavulanic acid [Augmentin] Allergy (Severe, Verified 06/20/24 09:53) hives [facility] Medical History (Updated 05/28/24 @ 12:55 by Suzy Lares MD) Urinary incontinence Chronic pain of right wrist Colon adenomas Anxiety and depression Epigastric hernia Cardiac pacemaker (~03/2021) Sick sinus syndrome Family history of aortic aneurysm Cardiac murmur Obesity (BMI 30.0-34.9) Carpal tunnel syndrome on right Urinary incontinence, mixed Impaired fasting glucose Irritable bowel syndrome Osteopenia of multiple sites Hiatal hernia Cervical disc disease Glaucoma GERD (gastroesophageal reflux disease) Surgical History History of esophagogastroduodenoscopy (EGD) History of incisional hernia repair History of shoulder surgery Hx of elbow surgery History of cardiac pacemaker (~2020) History of carpal tunnel surgery of right wrist (~2013) History of colonoscopy (~2013) History of fusion of cervical spine History of hernia repair (~2008) History of tonsillectomy Family History Father Leukemia Crohn disease Mother HTN (hypertension) Small cell lung cancer Maternal Grandmother Alzheimer's disease Dementia Maternal Grandfather No problems noted. Paternal Grandmother No problems noted. Paternal Grandfather Alzheimer's disease Dementia Daughter No problems noted. Daughter No problems noted. Son No problems noted. Sister No problems noted. Brother Hx of CABG S/P AVR (aortic valve replacement) AAA (abdominal aortic aneurysm) Brother No problems noted. Brother No problems noted. Brother No problems noted. Brother No problems noted. Social History Household Members: Spouse Housing: House Are you a primary career guidance counselor to a significant other at home: No Do you presently have visiting nurse or other home services: No Alcohol intake: current Alcohol intake frequency: holidays/special occasions only Alcohol type: wine Patient Tobacco Use Status: Former Tobacco user Tobacco use type: Cigarette e-Cigarette/Vaping Use: Never Used service: No Current occupational status: retired Cognitive needs: No Hearing needs: No Vision needs: Yes Office Procedures Cardiac Device Check Cardiac Device Check Details: Remote pacemaker report generated 07/16/2024. Pacemaker function is adequate [id number] Cardiac Device Interrogation, pacemaker Procedure code (CPT) selection complete Assessment & Plan Assessment & Plan (1) Cardiac pacemaker: Onset Date: ~03/2021 Comment: ([facility] DCPP - placed 03/2021) Code(s): Z95.0 - Presence of cardiac pacemaker Category: Medical Plan: See above Coding Level of Care Code Procedure Only Diagnoses Cardiac pacemaker Z95.0 CPT Codes Cardiac Device Check - Cardiac Device 12: [id number] Cardiac Device Interrogation, pacemaker ([id number])
== END ==
PROVIDERS: PCP Internal Medicine; Visit Provider Internal Medicine Cardiovascular Disease
DX: Z45.018 Encounter for adjustment and management of other part of cardiac pacemaker (principal)
CPT/HCPCS: 93294

== ENCOUNTER 2024-09-10 13:15 | Outpatient (REF) | payer OTHER, SELFPAY ==
--- NOTE | ~2024-09-10 | MM_ITS ---
EXAMINATION: DXA BONE DENSITY AXIAL HISTORY: Estrogen deficiency TECHNIQUE: [employer] Dual energy absorptiometry (DEXA) of the lumbar spine, total left hip, and femoral neck was performed. COMPARISON: Comparison is made with the prior examination dated 11/03/2021. FINDINGS: The bone mineral density of the lumbar spine is 1.048 with a T-score of -1.1, and a Z-score of -0.7. This represents a BMD change of 9.7% compared to the prior exam. This is statistically significant. The bone mineral density of the left total hip is 0.820 with a T-score of -1.5, and a Z-score of -1.1. This represents BMD change of -2.8% compared to the prior exam. This is not statistically significant. The bone mineral density of the left femoral neck is 0.829 with a T-score of -1.5, and a Z-score of -0.8. This represents BMD change of -2.4% compared to the prior exam. FRACTURE RISK: The FRAX index suggests a ten year probability of major osteoporotic fracture of 13.3%, and of hip fracture 1.2%. MM/XR DEXA axial skeleton IMPRESSION: Based on bone mineral density, and according to World Health Organization (WHO) criteria, the diagnosis is consistent with osteopenia. All bone density values are in grams per centimeter squared (g/cm2). Statistically, 68% of repeat scans fall within 1 SD (+/- 0.010 g/cm2 for AP spine L1-L4) and 1 SD (+/- 0.012 g/cm2 for femur total) FRAX is a trademark of the [employer] [facility] [employer] Disease, a World Health Organization (WHO) Collaborating Center. Electronically signed by: Baudilio Adair MD 09/13/2024 07:30 AM [facility]
--- NOTE | ~2024-09-10 | MM_ITS ---
EXAMINATION: MM SCREENING DIGITAL BREAST TOMOSYNTHESIS, BILATERAL CLINICAL INFORMATION: Screening. Asymptomatic. COMPARISON: Mammography: Comparison is made with available priors TECHNIQUE: Digital breast mammography with tomosynthesis is performed in both the craniocaudal and mediolateral oblique views along with computer-aided detection (CAD). FINDINGS: There are scattered areas of fibroglandular density (ACR BI-RADS breast composition Category b). Bilateral marker clips. There are no significant masses, abnormal calcifications, or other abnormalities. MM/MM tomosynthesis screening BI IMPRESSION: No mammographic evidence of malignancy. ASSESSMENT: BI-RADS BI-RADS 2 - Benign Findings RECOMMENDATION: Routine annual mammography screening. 1 year F/U This examination should not preclude the clinical evaluation of a suspicious palpable abnormality. This patient's information was entered into a reminder system with a target due date for their next mammogram. Electronically signed by: Giselle Hill DO 09/12/2024 11:43 AM [facility]
--- OUTSIDE RECORDS SUMMARY | 2024-09-10 16:35 | XMS_ITS | Continuity of Care Document ---
Author Organization [facility] Address [address] [facility], [address] Floor, [address] [place] [id number]- Care Team Providers Care Director Business Intelligence Name Role Phone Arnaud PAULINO, Suzy Mathur Primary Care Physician [place] [facility] [place]07[place]24 - 09/06/24 [facility] [address], [address] [place] [id number]- Encounter Type: Triage Allergies, Adverse Reactions, Alerts [...] 4 Refills, Maintenance, 04/30/24 10:36:00 AM EDT, [facility]/pharmacy #[id number], Partial fill upon patient request if [...] 3 Refills, Maintenance, 04/30/24 10:36:00 AM EDT, [facility]/pharmacy #[id number], 165.1, cm, 01/03/23 15:03:00 EDT, Height [...] 3 Refills, Maintenance, 04/30/24 10:36:00 AM EDT, [facility]/pharmacy #[id number], 165.1, cm, 01/03/23 15:03:00 EDT, Height [...] Position: Reference Physician Member Role: PCP Address: [address] [place] [address] Telecom: Care Team Related Persons Name: MOUNA NARVAEZ Name: CAL TREVIZO Insurance Providers Guarantor name: PEGGY Health Plan Information #: 1 Payer: [facility] [employer] Member Number: NA Policy Number: NA Group Number: NA
--- OUTSIDE RECORDS SUMMARY | 2024-09-10 16:35 | XMS_ITS | Data Portability ---
Author Organization [place] - [facility], [facility] Address [address] [place] [address] Care Team Providers Care Squeegee Operator Name Role Phone KELLIE SMART Primary Care Provider Assessment Encounter Date Assessment Date Assessment LastModified by Organization Details LastModified Time 06/14/2024 06/14/2024 I am seeing the patient today under the supervision of Dr. Garcia who was available but who did not see the patient. HPI: Who injured his left small finger. It against a door. Severe pain and bruising noted. Limited range of motion Past family, medical, social history and review of systems has been reviewed, updated and is located in the patient? s chart. Examination: No deformity no rotational deformity no resting tach bruising or ecchymosis is noted swelling limited range of motion. Tender over the proximal phalanx X-rays reviewed at [facility] x-rays interpreted by myself from outside source showed nondisplaced proximal phalanx fracture of the left small finger Impression: Small finger fracture left hand Plan: Shorty short ulnar gutter cast to the tip for the next 10 days return 10 days cast off x-rays of fracture stable transition her back into another cast for another 2-3 weeks comfortable with plan [facility] speech recognition linter tender software was used to create portions of this document. An attempt at proofreading has been made to minimize errors. Please call for corrections. [email or web address] Not available 06/14/2024 13:48:07 07/18/2024 07/18/2024 Diagnosis: Nondisplaced proximal phalanx fracture left small finger 59-year-old female with a long-standing history of numbness and pain in both hands worse on the right than the left. This developed without history of trauma or other inciting event. Her small finger is most commonly involved. The patient has recently suffered a fracture of the proximal phalanx of her left small finger. She is in a cast on that side. Past family, medical, social history and review of systems has been reviewed, updated and is located in the patient? s chart. Examination: Healthy appearing patient in no apparent distress. Alert and oriented. Elbow flexion testing, cubital tunnel compression testing, carpal tunnel compression testing and Phalen's maneuver negative bilaterally. There is no angular or rotational deformity to the patient's left small finger. No atrophy in either upper extremity. Brisk capillary refill in all digits X-rays ordered, obtained, and reviewed today at [facility]: PA, lateral, oblique views of the left hand reveal a nondisplaced fracture proximal phalanx a small finger Plan:The patient and I discussed the situation at length. The patient's history and physical examination are consistent with a peripheral nerve irritation. I would like to obtain an EMG/NCS to confirm the diagnosis and get a sense of its severity and location. The patient will follow-up with me after the study has been obtained. Patient will work on range of motion of her small finger today 2 view of the left hand were intact by myself showed healing fracture Not available 07/18/2024 12:23:00 08/22/2024 08/22/2024 I am seeing the patient today under the supervision of darrell who was available but who did not see the patient. HPI: Patient presents today complaining of B hand numbness and tingling. Has been going on for B. Difficulty holding things for a long periods of time and talking on the phone. The numbness and tingling wakes the patient up at night. Has numbness into the thumb index and middle finger and occasional pain. Past family, medical, social history and review of systems has been reviewed, updated and is located in the patient? s chart. Examination:B Hand exam: no warmth, effusion, erythema, ecchymosis, full ROM of the digits, good FDS/FDPS function, no triggering, good cap refill, grossly nontender,negative basal joint grind, digits are neurovascularly intact, 4/5 wheel tuner strength. Does have positive nerve compression signs with the median nerve. EMG positive for mild right carpal tunnel Impression:B Carpal tunnel Plan: Previous left-sided carpal tunnel having residual symptoms will try injections today on [place] contact me in the future for possible surgical management [facility] speech recognition linter tender software was used to create portions of this document. An attempt at proofreading has been made to minimize errors. Please call for corrections. Not available 08/22/2024 10:14:15 Plan of Treatment Reminders Order Date Submit Date Provider Last Modified By Organization Details Last Modified Time Details Appointments None recorded. Lab None recorded. 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 Surgeries None recorded. Imaging XR, knee, 4 or more view - rm 209. 4V bilat knee pain 2024 025 [facility], [address], [address], [place], [address], 5 08:59:03 XR, hand, 3 or more view - rm 314 3v left hand 2024 025 [facility] [place] [facility], [address], [address], [place], [address], 5 09:57:51 electromyog jossue + nerve conduction study - Diagnosis:B UE EVALUATE BRACHIAL PLEXUS CARPAL AND CUBITAL TUNNELS AND CERVICAL RADICULOPAT HY, please schedule with or Dr.Marinez- Cortes [address] [place] [address] (Emg), [address] , [facility] [address], [place], [address], 4 08:45:50 XR, hand, 3 or more view - 3v lt hand, pickling grader, rm 117, cast room 2023 024 [facility], [address], [address], [place], [address], 08:45:50 Medication Orders tramadol 50 mg tablet 2023 024 [id number], [address] [facility], [place], [address], 19:05:55 Patient TargetsNo targets recorded. Patient Instructions Encounter Date Encounter Id Patient Instructions Last Modified By Organization Details Last Modified Time 06/14/[id number] application of cast, short arm cast* - rm 315 SS UG CAST TO TIP LEFT HAND [email or web address] Not available 06/14/2024 14:25:55 06/24/[id number] cast removal* - cast off lt hand, rm 117, f/u xray Not available 06/26/2024 08:45:50 application of cast, ulnar gutter* - shorty short ulnar gutter cast, mp's flexed, ip's extended, rm 117 Not available 06/26/2024 08:45:50 07/18/20246695500 cast removal* - rm 314 left hand cast removal xray after Not available 07/18/2024 12:40:44 Reason for Referral DX: FX OF PHALANX OF LEFT LI TTLE FINGERTX: ROM, STRENGTHENING, AND STRETCHING Referring Physician: Brandon Griffin, Orthopedic Surgery, Encounter Date: 07/18/2024 Results Created Date Observation Date Name Description Value Unit Range Abnormal Flag Note LastModifiedBy Organization Detail LastModifiedTime 06/24/20 24 06/24/2024 XR, hand, 3 or more view [email or web address] ?Encry pted=s hAaTro YD8dLq bEUv6g %2BXZw aYqtaq 0bqfl% 2Fg9IQ a4ajBk vP9nXo QUaueC m3YtLR FvZlgJ JJ8mAn HZtai3 9s2452 AC0Kqb n%2BMU 6qvKiQ trMwF INTERFACE [facility] [address] [facility] [address], [place], [address], 06/24/2024 15:02:17 06/24/20 24 06/24/2024 XR, hand, 3 or more view [email or web address] ?Encry pted=s hAaTro YD8dLq bEUv6g %2BXZw aYqtaq 0bqfl% 2Fg9IQ a4ajBk vP9nXo QUaueC m3YtLR FvZlgJ JJ8[place] HZtai3 2a2992 AC0Kqb n%2BMU 6qvKiQ trMwF INTERFACE [facility] [address] [facility] [place] [address] [address], [place], [address], 06/24/2024 15:02:19 07/18/19 25 07/18/2024 XR, hand, 3 or more view [email or web address] ?Encry pted=s hAaTro YD8dLq bEUv6g %2BXZw aYqtaq 0bqfl% 2Fg9IQ a4ajBk vP9nXo QUaueC m3YtLR FvZlJ JJ8mAn HZtai3 0g5271 AC0Kqb 3yNV6O lKiQtr MwF INTERFACE [facility] [address] [address], [place], [address], 07/18/2024 09:57:51 07/18/19 25 07/18/2024 XR, hand, 3 or more view [email or web address] ?Encry pted=s hAaTro YD8dLq bEUv6g %2BXZw aYqtaq 0bqfl% 2Fg9IQ a4ajBk vP9nXo QUaueC m3YtLR FvZlgJ JJ8mAn HZtai3 7o6381 AC0Kqb 3yNV6O lKiQtr MwF INTERFACE [facility] [address] [facility] [place] [address], [address], 07/18/2024 09:57:53 08/14/19 25 08/14/2024 XR, knee, 4 or more view [email or web address] ?Encry pted=s hAaTro YD8dLq bEUv6g %2BXZw aYqtaq 0bqfl% 2Fg9IQ a4ajBk vP9nXo QUaueC m3YtLR FvZlgJ JJ8mAn HZtai3 1u9659 AC0Kqb HmBVqe gKiQtr MwF INTERFACE [facility] [address], [place], [address], 08/14/2024 09:58:39 08/14/19 25 08/14/2024 XR, knee, 4 or more view [email or web address] ?Encry pted=s hAaTro YD8dLq bEUv6g %2BXZw aYqtaq 0bqfl% 2Fg9IQ a4ajBk vP9nXo QUaueC m3YtLR FvZlgJ JJ8mAn HZtai3 4u9594 AC0Kqb HmBVqe gKiQtr MwF INTERFACE [facility] [address] [facility] [address], [place], [address], 08/14/2024 09:58:41 08/14/19 25 08/12/2024 elect romyo gram + nerve condu ction study No observ ation record ed. [email or web address] [facility] ([facility]) [address], [place], [address], 08/14/2024 15:24:59 Result Notes None recorded. Problems Name Problem SNOMED Code Status Onset Date Resolution Date Notes Provider Name and Address Organization Details Recorded Time Bilateral carpal tunnel syndrome 40972870056433 101 Active 2024 Brandon Griffin PA-C [address], [place], [address], [facility] 10:14:35 Problem Notes None recorded. Procedures Surgical History Date Name Laterality Status Provider Name and Address Organization Details Recorded Time 5 JZCT inj Tomas completed Brandon Griffin PA-C [address], [place], [address], [facility] 08/22/2024 10:13:12 5 Knee Kenalog 40 1cc Injection, Bilateral completed Cindy Reilly PA-C [address], [place], [address], [facility] 08/14/2024 12:09:53 Fracture Surgery completed IVV GUZMAN [facility] 06/24/2024 14:23:18 Elbow Surgery completed VIV GUZMAN [facility] 06/24/2024 14:23:18 Imaging Results Imaging Date Name Status LastModified by Organization Details LastModified Time 06/24/2024 XR, hand, 3 or more view completed INTERFACE [facility] [address], [place], [address], 06/24/2024 15:02:17 06/24/2024 XR, hand, 3 or more view completed INTERFACE [facility] [address], [place], [address], 06/24/2024 15:02:19 07/18/2024 XR, hand, 3 or more view completed INTERFACE [facility] [address], [place], [address], 07/18/2024 09:57:51 07/18/2024 XR, hand, 3 or more view completed INTERFACE [facility] [address], [place], [address], 07/18/2024 09:57:53 08/14/2024 XR, knee, 4 or more view completed INTERFACE [facility] [address], [place], [address], 08/14/2024 09:58:39 08/14/2024 XR, knee, 4 or more view completed INTERFACE [facility] [address], [place], [address], 08/14/2024 09:58:41 08/12/2024 electromyogram + nerve conduction study completed [email or web address] [facility] ([facility]) [address], [place], [address], 08/14/2024 15:24:59 Procedure Notes None recorded. Medical Equipment None Reported. Allergies No known drug allergies Medications Name Sig Start Date Stop Date Status Note LastModified by Organization Details LastModified Time oxybutynin chloride ER 10 mg tablet,exte nded release 24 hr TAKE 1 TABLET BY MOUTH EVERY DAY active Not Available Not Available No t Available sucralfate 1 gram tablet TAKE 1 TABLET BY MOUTH TWICE A DAY active Not Available Not Available No t Available prednisone 20 mg tablet TAKE 1 TABLET BY MOUTH EVERY DAY 06/14 completed Not Available Not Available Not Available fluorouraci l 5 % topical cream MIX 50/50 WITH DICLOFENA C GEL AND APPLY AT BEDTIME FOR 7 CONSECUTI VE DAYS. PT IS MIXING active Not Available Not Available No t Available tramadol 50 mg tablet Take 1 tablet every 6 hours by oral route after meal(s). active Not Available Not Available No t Available hyoscyamine 0.125 mg disintegrat ing tablet DISSOLVE 2 TABLETS IN MOUTH 4 TIMES A DAY NEEDED FOR DYSPEPSIA active Not Available Not Available No t Available omeprazole 20 mg capsule,del ayed release TAKE 1 CAPSULE BY MOUTH DAILY active Not Available Not Available No t Available metoprolol succinate ER 25 mg tablet,exte nded release 24 hr TAKE 1 TABLET BY MOUTH EVERY DAY active Not Available Not Available No t Available estradiol 0.01% (0.1 mg/gram) vaginal cream INSERT 1 GRAM VAGINALLY AT BEDTIME TWICE PER WEEK active Not Available Not Available No t Available albuterol sulfate HFA 90 mcg/actuati on aerosol inhaler INHALE 2 PUFFS EVERY 6 HOURS NEEDED FOR SHORTNESS OF BREATH OR WHEEZING active Not Available Not Available No t Available timolol maleate 0.5 % eye drops INSTILL 1 DROP IN BOTH EYES IN THE MORNING active Not Available Not Available No t Available timolol maleate 0.5 % eye gel forming solution INSTILL 1 DROP IN BOTH EYES IN THE MORNING active Not Available Not Available No t Available Fiber Therapy (methylcell ulose) 500 mg tablet TAKE 1 TABLET BY MOUTH THREE TIMES A DAY active Not Available Not Available No t Available Gas Relief Extra Strength 125 mg chewable tablet CHEW 1 TABLET ORALLY 3 TO 4 TIMES A DAY NEEDED FOR FOR ABDOMINAL PAIN active Not Available Not Available No t Available calcium 250 mg (as citrate) tablet TAKE 1 TABLET BY MOUTH TWICE A DAY active Not Available Not Available No t Available cholecalcif tee (vitamin D3) 50 mcg (2,000 unit) capsule TAKE 1 CAPSULE BY MOUTH EVERY DAY active Not Available Not Available No t Available Lumigan 0.01 % eye drops INSTILL 1 DROP INTO BOTH EYES AT BEDTIME active Not Available Not Available No t Available mirabegron ER 50 mg tablet,exte nded release 24 hr TAKE 1 TABLET BY MOUTH EVERY DAY active Not Available Not Available No t Available Vitals Date Recorded Body height Body mass index (BMI) Body weight Provider Name and Address Organization Details Last Updated DateTime 06/14/2024 157.48 cm 31.1 kg/m2 53024.7 g Oswaldo Person [facility] 06/14/2024 13:39:33 Date Recorded Body height Body mass index (BMI) Body weight Provider Name and Address Organization Details Last Updated DateTime 06/24/2024 157.48 cm 31.1 kg/m2 83895.7 g VIV GUZMAN [facility] 06/24/2024 14:23:26 Date Recorded Body height Body mass index (BMI) Body weight Provider Name and Address Organization Details Last Updated DateTime 07/18/2024 157.48 cm 31.1 kg/m2 49798.7 g Oswaldo Person [facility] 07/18/2024 09:42:40 Date Recorded Body height Body mass index (BMI) Body weight Provider Name and Address Organization Details Last Updated DateTime 08/14/2024 157.48 cm 37.5 kg/m2 37832.44 g AMANDA STOCKTON [facility] 08/14/2024 09:30:06 Date Recorded Body height Body mass index (BMI) Body weight Provider Name and Address Organization Details Last Updated DateTime 08/22/2024 157.48 cm 37.5 kg/m2 03182.44 g Oswaldo [facility] 08/22/2024 10:02:16 Social History None recorded. Functional Status None recorded. Mental Status None recorded. Family History Nothing Reported. Medical History Condition Response Coronary Artery Disease N Anxiety/Depression N Emphysema N COPD N Pacemaker N Vascular Disease N Heart Trouble Y Gastrointestinal Disease N Autoimmune disease N Inflammatory Joint disease N Orthotics N Arthritis Y Blood Clot N Acid Reflux (GERD) N Cancer N Stroke N Circulation Problems Y Rheumatoid Arthritis N Arrhythmia N Headaches N Fibromyalgia N Allergies/Hayfever N Breathing or lung disorders N Nerve Disorders N Thyroid Problems N Kidney/Bladder Problems Y Anemia N Heart Attack (WA) N Cholesterol N Diabetes N Bleeding Disorder N Seizures/Epilepsy N AIDS/HIV N Congestive Heart Failure (CHF) N Asthma N Peripheral Vascular Disease N Sleep Apnea N Hepatitis N Heart Disease N Pulmonary Embolism N Hypertension N Osteoporosis N Gynecological HistoryNo gynecological history recorded. Obstetrics History GPAL:G 0 P 0 0 0 0 Past Encounters Encounter ID Performer Location Encounter Start Date Encounter Closed Date Diagnosis/Indication Diagnosis SNOMED-CT Code Diagnosis ICD10 Code Diagnosis Note [id number] ANTHONY Ba[facility]uelos [address] [place] [address] 06/14/2024 13:28:07 07/11/2024 11:41:55 Fracture of hand 54059652 S62.92XD [id number] MD Kamala Hassan [address] [place] [address] 06/24/2024 13:44:24 07/19/2024 10:06:59 Pain of left hand 3199457007 44144 M79.642 Bilateral carpal tunnel syndrome 2726052248 9113469 G56.03 Closed fra cture of proximal phalanx of little finger 806324452 S62.647D [id number] ANTHONY Ba[facility]uelos [address] [place] [address] 07/18/2024 09:34:49 07/30/2024 14:54:04 Injury of finger of left hand 5247322192 7942154 S69.92XD [id number] ANTHONY Brown [address] [place] [address] 08/14/2024 09:21:48 08/23/2024 08:59:03 Pain of knee region 6088642573 M25.561 M25.562 Primary go narthrosis, bilateral 506334608 M17.0 [id number] ANTHONY Bañuelos [address] [place] [place] [address] 08/22/2024 09:57:48 09/09/2024 16:08:28 Bilateral carpal tunnel syndrome 8724138125 7275585 G56.03 Health Concerns Section Related Observation LastModified by Organization Detai ls LastModified Time None Recorded Concern Status LastModified by Organization Details LastModified Time None Recorded Advance Directives Directive None Recorded Payers Encounter Date Sequence Insurance Name Policy Number Policy Suazo Covered Member ID Suazo Member ID Guarantor Name 06/14/2024 1 [facility] [employer] [employer] - DOS ON OR AFTER 2022 - ONE CARE (MEDICARE REPLACEMENT/AD VANTAGE - HMO) Tess Fallon [id number] Tess Fallon 06/24/2024 1 [facility] [employer] - DOS ON OR AFTER 2022 - ONE CARE (MEDICARE REPLACEMENT/AD VANTAGE - HMO) Tess Fallon [id number] Tess Fallon 07/18/2024 1 [facility] [employer] - DOS ON OR AFTER 2022 - ONE CARE (MEDICARE REPLACEMENT/AD VANTAGE - HMO) Tess Fallon [id number] Tess Fallon 08/14/2024 1 [facility] [employer] - DOS ON OR AFTER 2022 - ONE CARE (MEDICARE REPLACEMENT/AD VANTAGE - HMO) Tess Fallon [id number] Tess Fallon 08/22/2024 1 [facility] [employer] - DOS ON OR AFTER 2022 - ONE CARE (MEDICARE REPLACEMENT/AD VANTAGE - HMO) Tess Fallon [id number] eTss Fallon Notes Date Note Type Note Provider Name and Address Organization Details Recorded Time 06/24/2024 text/html Diagnosis: Nondisplaced proximal phalanx fracture left small fingerPeripheral nerve irritation bilateral upper [id number] female with a long-standing history of numbness and pain in both hands worse on the right than the left. This developed without history of trauma or other inciting event. Her small finger is most commonly involved.The patient has recently suffered a fracture of the proximal phalanx of her left small finger. She is in a cast on that side.Past family, medical, social history and review of systems has been reviewed, updated and is located in the patient? s chart.Examination: Healthy appearing patient in no apparent distress. Alert and oriented. Elbow flexion testing, cubital tunnel compression testing, carpal tunnel compression testing and Phalen's maneuver negative bilaterally. There is no angular or rotational deformity to the patient's left small finger. No atrophy in either upper extremity. Brisk capillary refill in all digitsX-rays ordered, obtained, and reviewed today at [facility]: PA, lateral, oblique views of the left hand reveal a nondisplaced fracture proximal phalanx a small fingerPlan:The patient and I discussed the situation at length. The patient's history and physical examination are consistent with a peripheral nerve irritation. I would like to obtain an EMG/NCS to confirm the diagnosis and get a sense of its severity and location. The patient will follow-up with me after the study has been obtained.The patient was placed back into a short he short ulnar gutter cast with MPs flexed and IP's extended. She will follow-up after she completes 4 weeks of immobilization. Arthur Regan MD [address] [place] [address] [address], [place], [address], [facility] 06/24/2024 16:52:38 08/14/2024 text/html I am seeing the patient today under the supervision of Dr. Ortiz who was available but who did not see the patient. HPI: Tess Chan presents to the office today for an evaluation of her bilateral knees. She admits to bilateral knee pain, left greater than right, which has been present since a fall out of her bathtub 1.5 years ago. She indicates that she has a divot over her left anterior knee that developed after her fall. She describes her pain as being over the anterior knees and worse with kneeling, stairs, and squatting. She denies instability. She takes over the counter medication intermittently for her pain. She is here for treatment recommendations. PMH/PSH/MEDS/ALL/FMH/S OC HX/ROS are reviewed in detail per my medical intake sheet. General Exam: Vital signs are as noted below Mental status: Alert and lucid. Normal insight, affect and grooming. PROCESS STEWARD: Gross motor coordination is intact. No spasticity or clonus noted. EXAMINATION: The patient is well appearing and in no apparent distress. Alert and oriented x3. Gait is antalgic. {{Right knee reveals Left knee reveals Bilateral knees reveal*}} {{varus valgus no*}} deformity upon inspection other than a small divot over the anterior right knee soft tissue. No joint effusion, edema, erythema, ecchymosis, or lesions. Neurovascularly intact. No localized tenderness. ROM is from 0-125 degrees. Patellofemoral crepitus noted. Stability intact with anterior, posterior, and varus/valgus stress at both 0 and 30 degrees of flexion. 5/5 strength. Calf/leg compartments soft and compressible. Bilateral hip exam reveals painless passive range of motion. No instability. 5/5 strength. X-rays ordered, obtained and reviewed at [facility] today include {{4 views of bilateral knees.*}} Images reveal mild to moderate osteoarthritis in the tibiofemoral compartment and moderate patellofemoral osteoarthritis bilaterally. No acute fracture or lesion. IMPRESSION: {{Right Left Bilateral *}} knee osteoarthritis PLAN: The patient was thoroughly counseled today regarding their knee condition, its natural history, and conservative versus surgical treatment options. The patient is interested in receiving an injection with corticosteroid. {{The right knee was The left knee was Bilateral knees were*}} prepped sterilely and an injection was administered utilizing 40mg of Kenalog and 4cc of 0.25% Marcaine. The patient tolerated the procedure well. Post-injection precautions were discussed. Recommended avoiding strenuous activity over the next 24-48 hours. Encouraged elevation of the leg, applying ice, and taking over the counter medication as needed. The patient is aware that the injection can be repeated as often as every 3 months. She is also interested in proceeding with viscosupplementation. We will obtain authorization through her insurance. All questions answered. [facility] [address], [place], [address], [facility] H[facility] - [facility] 08/14/2024 13:25:08 OBGyn Episode No OBEpisode recorded.
--- OUTSIDE RECORDS SUMMARY | 2024-09-10 16:36 | XMS_ITS | Continuity of Care Document ---
Author Organization [place] [facility], [facility] 3rd floor Address [address] [place] [address] Care Team Providers Care Turn Out Worker Name Role Phone KELLIE SMART Primary Care Provider [phone] Assessment Encounter Date Assessment Date Assessment LastModified by Organization Details LastModified Time 08/22/2024 08/22/2024 I am seeing the patient [...] joint grind, digits are neurovascularly intact, 4/5 director speech and hearing strength. Does have positive nerve compression signs with the median nerve. EMG positive for mild right carpal tunnel Impression:B Carpal tunnel Plan: Previous left-sided carpal tunnel having residual symptoms will try injections today on Gary contact me in the future for possible surgical management [facility] speech recognition instrumentation chemist software was used to create portions of this document. An attempt at proofreading has been made to minimize errors. Please call for corrections. Not available 08/22/2024 10:14:15 Plan of Treatment Reminders Order Date Submit Date Provider Last Modified By Organization Details Last Modified Time Details Appointments None record ed. Lab None record ed. Referral None record ed. Procedures None record ed. Surgeries None record ed. Imaging None record ed. Medication Orders None record ed. Patient TargetsNo targets recorded. Patient InstructionsNo instructions recorded. Reason for Referral None Reported. Results Created Date Observation Date Name Description Value Unit Range Abnormal Flag Note LastModifiedBy Organization Detail LastModifiedTime 08/14/1908/14/2024 XR, knee, 4 or more view [email or web address] ?Encry pted=s hAaTro YD8dLq bEUv6g %2BXZw aYqtaq 0bqfl% 2Fg9IQ a4ajBk vP9nXo QUaueC m3YtLR FvZlgJ JJ8mAn HZtai3 6q4828 AC0Kqb HmBVqe gKiQtr MwF INTERFACE [facility] [address] [facility] [address], [place], [address], 08/14/2024 09:58:39 08/14/19 25 08/14/2024 XR, knee, 4 or more view [email or web address] ?Encry pted=s hAaTro YD8dLq bEUv6g %2BXZw aYqtaq 0bqfl% 2Fg9IQ a4ajBk vP9nXo QUaueC m3YtLR FvZlgJ JJ8mAn HZtai3 4g6741 AC0Kqb HmBVqe gKiQtr MwF INTERFACE [employer] [facility] Office [address] [facility] [address], [place], [address], 08/14/2024 09:58:41 08/14/19 25 08/12/2024 elect romyo gram + nerve condu ction study No observ ation record ed. [facility]) [address], [place], [address], 08/14/2024 15:24:59 Result Notes None recorded. Problems Name Problem SNOMED Code Status Onset Date Resolution Date Notes Provider Name and Address Organization Details Recorded Time Bilateral carpal tunnel syndrome 54715346839815 101 Active 2024 Brandon Griffin PA-C [address], [place], [address], [facility] 10:14:35 Problem Notes None recorded. Procedures Surgical History Date Name Laterality Status Provider Name and Address Organization Details Recorded Time 5 JZCT inj Tomas completed Brandon Griffin PA-C [address], [place], [address], [facility] 08/22/2024 10:13:12 5 Knee Kenalog 40 1cc Injection, Bilateral completed Cindy Reilly PA-C [address], [place], [address], [facility] 08/14/2024 12:09:53 Fracture Surgery completed VIV GUZMAN [facility] 06/24/2024 14:23:18 Elbow Surgery completed VIV GUZMAN [facility] 06/24/2024 14:23:18 Imaging Results None recorded. Procedure Notes None recorded. Medical Equipment None [...] Updated DateTime 08/22/2024 157.48 cm 37.5 kg/m2 61714.44 g Oswaldo Person [place] [facility] [place] [facility] 08/22/2024 10:02:16 Social History None recorded. Functional Status None recorded. Mental Status None recorded. Family History Nothing Reported. Medical History Condition Response Allergies/Hayfever N Coronary Artery Disease N Breathing or lung disorders N Anxiety/Depression N Emphysema N Nerve Disorders N Thyroid Problems N COPD N Pacemaker N Kidney/Bladder Problems Y Anemia N Vascular Disease N Heart Trouble Y Heart Attack (MS) N Gastrointestinal Disease N Cholesterol N Diabetes N Autoimmune disease N Inflammatory Joint disease N Bleeding Disorder N Orthotics N Seizures/Epilepsy N Arthritis Y Blood Clot N AIDS/HIV N Congestive Heart Failure (CHF) N Acid Reflux (GERD) N Cancer N Stroke N Asthma N Circulation Problems Y Peripheral Vascular Disease N Sleep Apnea N Hepatitis N Heart Disease N Rheumatoid Arthritis N Pulmonary Embolism N Arrhythmia N Headaches N Fibromyalgia N Hypertension N Osteoporosis N Gynecological HistoryNo gynecological history recorded. Obstetrics History GPAL:G 0 P 0 0 0 0 Past Encounters Encounter ID Performer Location Encounter Start Date Encounter Closed Date Diagnosis/Indication Diagnosis SNOMED-CT Code Diagnosis ICD10 Code Diagnosis Note [id number] [facility] [place] [address] [place] [address] 08/14/2024 09:21:48 08/23/2024 08:59:03 Pain of knee region 5123174834 M25.561 M25.562 Primary go narthrosis, bilateral [id number] M17.0 [id number] ANTHONY Ba[facility]uelos [facility] [place] [address]rd [address] [place] [address] 08/22/2024 09:57:48 09/09/2024 16:08:28 Bilateral carpal tunnel syndrome [id number] 9107611 G56.03 Health Concerns Section Related Observation LastModified by Organization Detai ls LastModified Time None Recorded Concern Status LastModified by Organization Details LastModified Time None Recorded Payers Encounter Date Sequence Insurance Name Policy Number Policy Suazo Covered Member ID Suazo Member ID Guarantor Name 08/22/2024 1 [facility] - DOS ON OR AFTER 2022 - ONE CARE (MEDICARE REPLACEMENT/AD VANTAGE - HMO) Tess Fallon [id number] Tess Fallon OBGyn Episode No OBEpisode recorded.
--- OUTSIDE RECORDS SUMMARY | 2024-09-10 16:36 | XMS_ITS | Data Portability ---
Author Organization [facility], [place] - [employer] Address [address] [place] [address] Care Team Providers Care Esthetician Makeup Artist Name Role Phone HIM BERNABE OTHER Assessment [...] tablets in a dose pack 2022 023 [facility] #[id number], [address] [facility], [place], [address], 18:00:38 Patient TargetsNo targets recorded. Patient InstructionsNo [...] Updated DateTime 3 60 /min 162.56 cm 169255 g 98 % 98 % 14 /min 98.1 [degF] 132 mm[Hg] 84 mm[Hg] Not Available [employer] 3 17:53:31 Date Recorded Body temperature Body weight Respiratory rate Heart rate Body height Oxygen saturation Oxygen saturation in Arterial blood by Pulse oximetry Systolic blood pressure Diastolic blood pressure Provider Name and Address Organization Details Last Updated DateTime 4 97.6 [degF] 60680.4 8 g 18 /min 60 /min 162.56 cm 99 % 99 % 134 mm[Hg] 90 mm[Hg] Not Available [employer] 4 14:38:33 Social History None recorded. Functional Status None recorded. Mental Status None recorded. Family History Nothing Reported. Medical History No medical history recorded. Gynecological HistoryNo gynecological history recorded. Obstetrics History GPAL:G 0 P 0 0 0 0 Past Encounters Encounter ID Performer Location Encounter Start Date Encounter Closed Date Diagnosis/Indication Diagnosis SNOMED-CT Code Diagnosis ICD10 Code Diagnosis Note [id number] Nehemias Salazar MD [facility] [address] [place] [phone] 05/05/2023 17:53:29 05/08/2023 12:43:17 COVID-19 [id number] U07.1 [id number] Lucian Renteria MD [facility] - [facility] [address] [place] [phone] 12/17/2023 14:38:23 12/20/2023 04:17:49 Upper respiratory infection [id number] J06.9 As noted, we were called to see this patient regarding concerns of URI vs LRI. Evaluation in the field was performed by my musician instrumental colleague, as noted above, I provided real-time direction and supervisio n for this visit. The evaluation revealed normal VS, patient with cough but otherwise well-appea ring, and some rales in LLL and no wheezes Sick contact with similar sxNo change in appetiteNo limitation in exertional capacityMa in complaint is feeling she can't cough up the phlegm and wheezing or gurgling she hears with breathingF eels good during day, just not at night and when she wakes up Impression :Story is most c/w acute bronchitis , which is usually viral, c/w with recent sick contact. Lung sounds on exam could also fit with PNA, though these are very subjective and the overall picture is lacking for PNA and certainly not compatible with a severe PNA. Considered treatment but given abx are not entirely benign will not do this for now. She will continue to monitor, hydrate well, and might go to her PCP for walk-in care if things are not improving. Discussed x-ray could be helpful as well though if she is improving it is not required. Plan:Fluid s, OTCs, supportive careContin ue to monitorRap id covid and flu negativeId eally see PCP if not improving Primary care, considerramya canela care visit this week Dispositio n: We discussed the diagnostic uncertaint y of home visits and the risk associated with this. In this case, the patient and I felt this to be an acceptable and reasonable amount of risk given the benefit of avoiding an ED visit. We discussed the need to seek care urgently/e mergently in the setting of any new or worsening serious symptoms, particular ly dyspnea, fever, poor appetite or confusion. Health Concerns Section Related Observation LastModified by Organization Detai ls LastModified Time None Recorded Concern Status LastModified by Organization Details LastModified Time None Recorded Advance Directives Directive None Recorded Payers Encounter Date Sequence Insurance Name Policy Number Policy Suazo Covered Member ID Suazo Member ID Guarantor Name 05/05/2023 1 [facility] - DOS ON OR AFTER 2022 - DUAL ELIGIBLE - CUSTODIAL OPTIONS AND ONE CARE (MEDICARE REPLACEMENT/AD VANTAGE - HMO) Tess Fallon [id number] Tess Fallon 12/17/2023 1 [facility] - DOS ON OR AFTER 2022 - DUAL ELIGIBLE - CUSTODIAL OPTIONS AND ONE CARE (MEDICARE REPLACEMENT/AD VANTAGE - HMO) Tess Fallon [id number] Tess Fallon Notes Date Note Type Note Provider Name and Address Organization Details Recorded Time 05/05/2023 text/html [facility] Nursing Assessment: Reason For Request: PT presented [...] like to be evaluated. Nehemias Salazar MD [address] [facility], [place], [address], [employer] 05/05/2023 18:07:03 12/17/2023 text/html [facility] Nurse Triage Notes (Bharathi Black): Reason For [...] URI PMH: Heart Disease Allergies: Unknown Comments: General Farmer verified the member's name//address and phone number. [...] S/S for 1 week. Wellness check requested [employer] Re[employer] Inspector POC Test Results from Brandon Sanabria - [facility] Rapid COVID antigen (14:35:27) COVID: - Rapid influenza antigen (14:35:28) Flu: - .................. .................. .................. .................. .................. .................. .................. ............... [employer] Re[employer] Inspector Note From Brandon Sanabria: Pt reports cough [...] LE edema. Rapid covid and flu negative. [facility] recommends pt increase oral hydration and f/u with PCP tomorrow. Red flags reviewed. .................. .................. .................. .................. .................. .................. .................. ............... Disposition: Fulfilled Lucian Renteria MD [address] [facility],[address], [place], [address], [employer]VERA OMALLEY 12/17/2023 14:50:55 OBGyn Episode No OBEpisode recorded.
== END 2024-09-10 13:16 | disposition home or self-care (01) ==
LOC: HO.MAMMO 13:15
PROVIDERS: PCP Internal Medicine; Visit Provider Internal Medicine
DX: Z12.31 Encounter for screening mammogram for malignant neoplasm of breast (principal); Z13.820 Encounter for screening for osteoporosis; Z78.0 Asymptomatic menopausal state; Z87.81 Personal history of (healed) traumatic fracture
CPT/HCPCS: 77063; 77067; 77080

== ENCOUNTER → 2024-09-10 13:45 | Outpatient (BNV) | payer OTHER, SELFPAY | PROVIDERS: PCP Internal Medicine; Visit Provider Internal Medicine | DX: Z12.31 Encounter for screening mammogram for malignant neoplasm of breast (principal) | CPT/HCPCS: 77063; 77067 ==

== ENCOUNTER → 2024-10-15 23:59 | Outpatient (BNV) | payer OTHER, SELFPAY ==
--- NOTE | 2024-10-18 13:35 | A.OFFVIS_ITS ---
Intake Visit Reasons: Remote device check- [facility] Allergies amoxicillin [Augmentin] Allergy (Severe, Verified 06/20/24 09:53) hives clavulanic acid [Augmentin] Allergy (Severe, Verified 06/20/24 09:53) hives [facility] Medical History (Updated 05/28/24 @ 12:55 by Suzy Lares MD) Urinary incontinence Chronic pain of right wrist Colon adenomas Anxiety and depression Epigastric hernia Cardiac pacemaker (~03/2021) Sick sinus syndrome Family history of aortic aneurysm Cardiac murmur Obesity (BMI 30.0-34.9) Carpal tunnel syndrome on right Urinary incontinence, mixed Impaired fasting glucose Irritable bowel syndrome Osteopenia of multiple sites Hiatal hernia Cervical disc disease Glaucoma GERD (gastroesophageal reflux disease) Surgical History History of esophagogastroduodenoscopy (EGD) History of incisional hernia repair History of shoulder surgery Hx of elbow surgery History of cardiac pacemaker (~2020) History of carpal tunnel surgery of right wrist (~2013) History of colonoscopy (~2013) History of fusion of cervical spine History of hernia repair (~2008) History of tonsillectomy Family History Father Leukemia Crohn disease Mother HTN (hypertension) Small cell lung cancer Maternal Grandmother Alzheimer's disease Dementia Maternal Grandfather No problems noted. Paternal Grandmother No problems noted. Paternal Grandfather Alzheimer's disease Dementia Daughter No problems noted. Daughter No problems noted. Son No problems noted. Sister No problems noted. Brother Hx of CABG S/P AVR (aortic valve replacement) AAA (abdominal aortic aneurysm) Brother No problems noted. Brother No problems noted. Brother No problems noted. Brother No problems noted. Social History Household Members: Spouse Housing: House Are you a primary home visit field care manager to a significant other at home: No Do you presently have visiting nurse or other home services: No Alcohol intake: current Alcohol intake frequency: holidays/special occasions only Alcohol type: wine Patient Tobacco Use Status: Former Tobacco user Tobacco use type: Cigarette e-Cigarette/Vaping Use: Never Used service: No Current occupational status: retired Cognitive needs: No Hearing needs: No Vision needs: Yes Office Procedures Cardiac Device Check Cardiac Device Check Details: Remote pacemaker report generated 10/15/2024. Pacemaker function is adequate [id number] Cardiac Device Interrogation, pacemaker Procedure code (CPT) selection complete Assessment & Plan Assessment & Plan (1) Cardiac pacemaker: Onset Date: ~03/2021 Comment: ([facility] DCPP - placed 03/2021) Code(s): Z95.0 - Presence of cardiac pacemaker Category: Medical Plan: See above Coding Level of Care Code Procedure Only Diagnoses Cardiac pacemaker Z95.0 CPT Codes Cardiac Device Check - Cardiac Device 12: [id number] Cardiac Device Interrogation, pacemaker ([id number])
== END ==
PROVIDERS: PCP Internal Medicine; Visit Provider Internal Medicine Cardiovascular Disease
DX: Z45.018 Encounter for adjustment and management of other part of cardiac pacemaker (principal)
CPT/HCPCS: 93294

== ENCOUNTER 2024-12-19 14:54 | Outpatient (AMB) | payer OTHER, SELFPAY ==
--- NOTE | 2024-12-19 15:03 | MHC.OFFVIS ---
Vital Signs 12/19/24 15:04 Height 5 ft 5 in Weight 198 lb 6.656 oz BMI 33.0 BP 120/80 Blood Pressure Location Lt brachial Position Sitting Pulse 60 Intake Visit Reasons: [address]/ [facility] ck Intake Note: 1 year follow-up [facility] check has been getting low heart rate reading on fit bit Packing Tractor Machine Operator Required: No Allergies amoxicillin [Augmentin] Allergy (Severe, Verified 06/20/24 09:53) hives clavulanic acid [Augmentin] Allergy (Severe, Verified 06/20/24 09:53) hives Medication List - Last Reconciled 12/19/24 by Basil Levin MD acetaminophen 650 mg (2 x 325 mg) PO Q4H PRN 7 days bimatoprost 0.01% (Lumigan) 1 drp ophthalmic (eye) BEDTIME calcium citrate 250 mg PO BID cholecalciferol (vitamin D3) (Vitamin D3) 50 mcg PO DAILY [cranberry ] hyoscyamine sulfate 0.25 mg (2 x 0.125 mg) PO QID PRN 30 days ibuprofen 600 mg PO Q6H PRN incontinence pad, liner, disp use TID methylcellulose (laxative) (Fiber Therapy (methylcellulose)) 500 mg PO TID metoprolol succinate ER 25 mg PO DAILY mirabegron ER (Myrbetriq) 50 mg PO DAILY omeprazole 20 mg PO DAILY oxybutynin chloride ER 10 mg PO DAILY psyllium husk-calcium 1-60 gram-mg (Metamucil Plus Calcium) 1 cap PO DAILY simethicone (Gas Relief Extra Strength) 125 mg PO TID-QID PRN sucralfate 1 g PO BID tramadol 50 mg PO Q6H PRN HPI Comments Details: Tess comes for follow-up. She has no new cardiac symptoms. Denies any lightheadedness, syncope. Doing activity as tolerated but has issues with the right hip as well as both knees and her feet walking long distances but she goes to the gym regularly. Takes all her medications. No prolonged palpitation irregular heartbeat. Denies any exertional chest pain or shortness of breath. No orthopnea, PND, leg edema. [facility] Medical History Urinary incontinence Chronic pain of right wrist Colon adenomas Anxiety and depression Epigastric hernia Cardiac pacemaker (~03/2021) Sick sinus syndrome Family history of aortic aneurysm Cardiac murmur Obesity (BMI 30.0-34.9) Carpal tunnel syndrome on right Urinary incontinence, mixed Impaired fasting glucose Irritable bowel syndrome Osteopenia of multiple sites Hiatal hernia Cervical disc disease Glaucoma GERD (gastroesophageal reflux disease) Surgical History History of esophagogastroduodenoscopy (EGD) History of incisional hernia repair History of shoulder surgery Hx of elbow surgery History of cardiac pacemaker (~2020) History of carpal tunnel surgery of right wrist (~2013) History of colonoscopy (~2013) History of fusion of cervical spine History of hernia repair (~2008) History of tonsillectomy Family History Father Leukemia Crohn disease Mother HTN (hypertension) Small cell lung cancer Maternal Grandmother Alzheimer's disease Dementia Maternal Grandfather No problems noted. Paternal Grandmother No problems noted. Paternal Grandfather Alzheimer's disease Dementia Daughter No problems noted. Daughter No problems noted. Son No problems noted. Sister No problems noted. Brother Hx of CABG S/P AVR (aortic valve replacement) AAA (abdominal aortic aneurysm) Brother No problems noted. Brother No problems noted. Brother No problems noted. Brother No problems noted. Social History Household Members: Spouse Housing: House Are you a primary laboratory animal care veterinarian to a significant other at home: No Do you presently have visiting nurse or other home services: No Alcohol intake: current Alcohol intake frequency: holidays/special occasions only Alcohol type: wine Patient Tobacco Use Status: Former Tobacco user Tobacco use type: Cigarette e-Cigarette/Vaping Use: Never Used service: No Current occupational status: retired Cognitive needs: No Hearing needs: No Vision needs: Yes Review of Systems Const Denies chills, Denies fatigue, Denies fever(s), Denies frequent falls, Denies weakness, Denies weight gain and Denies weight loss ENT Denies dizziness Card Denies chest pain, Denies leg edema, Denies lightheadedness, Denies palpitations, Denies dyspnea, Denies dyspnea on exertion, Denies orthopnea and Denies other (loss of consciousness) Resp Denies cough, Denies dyspnea and Denies dyspnea on exertion GI Denies hematochezia and Denies change in stool character Musc Denies abnormal gait, Denies muscle weakness, Denies numbness, Denies radiating pain into limb and Denies tingling Neuro Denies abnormal gait, Denies dizziness, Denies frequent falls, Denies numbness, Denies tingling and Denies weakness Endo Denies fatigue and Denies palpitations Physical Exam Vital Signs: Last Vital Signs Pulse 60 12/19/24 15:04 BP 120/80 12/19/24 15:04 BMI result Body Mass Index 33.0 Const General: cooperative, comfortable, no acute distress, alert, awake and well groomed Nutritional Appearance: obese Orientation/consciousness: patient oriented x3 Limitations: no limitations Neck Neck: Yes trachea midline, Yes supple and Yes no JVD Resp Effort & Inspection: normal respiratory effort Auscultation: wheezes throughout Cardio Jugular venous distension: no JVD Palpation: normal PMI Rate: regular rate and bradycardic Rhythm: regular rhythm Heart sounds: S1 normal heart sound present and S2 normal heart sound present GI Auscultation: normal bowel sounds Skin General skin exam: no rashes or lesions noted Neuro General: patient oriented x3 and no focal motor deficits Extrem General: Yes no clubbing, cyanosis or edema Psych Appearance: grossly normal Office Procedures Cardiac Device Check Cardiac Device Check Details: Dual-chamber [facility] pacemaker in place. Programmed in DDDR at 60 beats per minute. Atrial pacing greater than 80% of the time. No arrhythmias noted. Minimal ventricular pacing noted. Atrial ventricular sensing is adequate. Atrial ventricular pacing thresholds adequate, ventricular pacing thresholds are stable. Battery life is adequate [id number] Cardiac Device Check, pacemaker dual lead Procedure code (CPT) selection complete EKG Details: EKG shows atrially paced, ventricularly sensed rhythm with poor R-wave progression most likely lead placement [id number], Complete Assessment & Plan Assessment & Plan (1) Cardiac pacemaker: Onset Date: ~03/2021 Comment: ([facility] DCPP - placed 03/2021) Code(s): Z95.0 - Presence of cardiac pacemaker Category: Medical Plan: Cardiac pacemaker in-situ, secondary to sick sinus syndrome. Pacemaker is working well. Reprogrammed for adequate functioning. Discussed with her about importance of regular physical activity and weight loss program for cardiovascular disease reduction. She understands agrees. Will continue monitor pacemaker remotely every 3 months. Follow up in the clinic in 1 year's time, sooner p.r.n.. Thank you for allowing me to partake in his care Coding Level of Care Code Est Pt Level 4 (35160) Complex EM visit Add On G2211 Diagnoses Cardiac pacemaker Z95.0 CPT Codes Cardiac Device Check - Cardiac Device 2: [id number] Cardiac Device Check, pacemaker dual lead ([id number]) EKG - CPT: 83184-[id number], Complete ([id number])
[2024-12-19 15:04] VITALS: BP 120/80; PULSE 60; BMI 33.0
--- OUTSIDE RECORDS SUMMARY | 2024-12-19 17:33 | XMS_ITS | Patient Health Record ---
Author Organization [facility] Address [address] [place] [address] Care Team Providers Care Lead Systems Analyst Name Role Phone Arnaud PAULINO, Suzy Ramirez Primary Care Provider Un available Black, Cailin Unavailable [phone] Allergies Allergen (clinical drug ingredient) Drug/Non Drug Allergy documented on EMR Reaction Allergy Type Onset Date Status amoxicillin / clavulanate Augmentin itchy, rash Drug Allergy Active Reason For Referral No Information Medications Medication SIG (Take, Route, Fr equency, Duration) Notes Start Date End Date Status Motrin Active Work Note . . . . for . 12/22/2011 Activ e Physical Therapy . . . 2-3x/week for 3-4 weeks Active Problems Problem Type SNOMED Code ICD Code Onset Dates Problem Status W/U Status Risk Notes Problem Ankle sprain (12406866) Ankle Sprain (845.00) Active confirmed Problem Edema (63773799) Edema (782.3) Active confirmed Problem Pain in limb (13973157) Pain in Limb (729.5) Active confirmed Plan Of Treatment Pending Test Test Name Order Date X ray : Ankle, left 2V 12/08/2011 X ray : Ankle, left 3V 11/24/2011 73482 I&D ABSCESS- SIMPLE,SINGLE 012 25190 I&D ABSCESS- SIMPLE,SINGLE 012 97328 I&D ABSCESS- SIMPLE,SINGLE 012 09048- I&D ABSCESS-COMPLICATED,MULTI 90207- I&D ABSCESS-COMPLICATED,MULTI 04780- I&D ABSCESS-COMPLICATED,MULTI , J0702- INJECT TENDON ORIGIN/INSER T 11/24/2011, J0702- INJECT TENDON ORIGIN/INSER T 12/08/2011, J0702- INJECT TENDON ORIGIN/INSER T 12/22/2011, J0702- INJECT or DRAIN, JOINT/BUR SA 12/22/2011, J0702- INJECT or DRAIN, JOINT/BUR SA 11/24/2011, J0702- INJECT or DRAIN, JOINT/BUR SA 12/08/2011 Insurance Providers Payer Name Payer Address Payer Phone Subscriber Number Group Number Insured Name Patient Relationship to Insured Coverage Start Date Coverage End Date [employer] [address] [place] [address] [id number] Tess Cruz i Self - patient is the insured Medical (General) History Medical History History ICD Code hernia chicken pox glaucoma back, hip, knee pain Surgical History Surgery Date(Month/Year) herniated disk repair 2008
== END 2024-12-19 15:28 | disposition home or self-care (01) ==
LOC: HO.HCS 14:55
PROVIDERS: PCP Internal Medicine; Visit Provider Internal Medicine Cardiovascular Disease
DX: I49.5 Sick sinus syndrome (principal); Z95.0 Presence of cardiac pacemaker
CPT/HCPCS: 93280; 99214; G2211

== ENCOUNTER → 2024-12-19 14:54 | Outpatient (BNVA) | payer OTHER, SELFPAY | PROVIDERS: PCP Internal Medicine; Visit Provider Internal Medicine Cardiovascular Disease | DX: Z95.0 Presence of cardiac pacemaker (principal) | CPT/HCPCS: 93280; 99212 ==

== ENCOUNTER → 2025-01-14 23:59 | Outpatient (BNV) | payer OTHER, SELFPAY ==
--- NOTE | 2025-01-15 15:02 | MHC.OFFVIS ---
Intake Visit Reasons: Remote device check- [facility] Allergies amoxicillin (Augmentin) Allergy (Severe, Verified 06/20/24 09:53) hives clavulanic acid (Augmentin) Allergy (Severe, Verified 06/20/24 09:53) hives [facility] Medical History Urinary incontinence Chronic pain of right wrist Colon adenomas Anxiety and depression Epigastric hernia Cardiac pacemaker (~03/2021) Sick sinus syndrome Family history of aortic aneurysm Cardiac murmur Obesity (BMI 30.0-34.9) Carpal tunnel syndrome on right Urinary incontinence, mixed Impaired fasting glucose Irritable bowel syndrome Osteopenia of multiple sites Hiatal hernia Cervical disc disease Glaucoma GERD (gastroesophageal reflux disease) Surgical History History of esophagogastroduodenoscopy (EGD) History of incisional hernia repair History of shoulder surgery Hx of elbow surgery History of cardiac pacemaker (~2020) History of carpal tunnel surgery of right wrist (~2013) History of colonoscopy (~2013) History of fusion of cervical spine History of hernia repair (~2008) History of tonsillectomy Family History Father Leukemia Crohn disease Mother HTN (hypertension) Small cell lung cancer Maternal Grandmother Alzheimer's disease Dementia Maternal Grandfather No problems noted. Paternal Grandmother No problems noted. Paternal Grandfather Alzheimer's disease Dementia Daughter No problems noted. Daughter No problems noted. Son No problems noted. Sister No problems noted. Brother Hx of CABG S/P AVR (aortic valve replacement) AAA (abdominal aortic aneurysm) Brother No problems noted. Brother No problems noted. Brother No problems noted. Brother No problems noted. Social History Household Members: Spouse Housing: House Are you a primary family member caretaker to a significant other at home: No Do you presently have visiting nurse or other home services: No Alcohol intake: current Alcohol intake frequency: holidays/special occasions only Alcohol type: wine Patient Tobacco Use Status: Former Tobacco user Tobacco use type: Cigarette e-Cigarette/Vaping Use: Never Used service: No Current occupational status: retired Cognitive needs: No Hearing needs: No Vision needs: Yes Office Procedures Cardiac Device Check Cardiac Device Check Details: Remote pacemaker report generated 01/13/2025. Pacemaker function is adequate [id number] Cardiac Device Interrogation, pacemaker Procedure code (CPT) selection complete Assessment & Plan Assessment & Plan (1) Cardiac pacemaker: Onset Date: ~03/2021 Comment: ([facility] DCPP - placed 03/2021) Code(s): Z95.0 - Presence of cardiac pacemaker Category: Medical Plan: See above Coding Level of Care Code Procedure Only Diagnoses Cardiac pacemaker Z95.0 CPT Codes Cardiac Device Check - Cardiac Device 12: [id number] Cardiac Device Interrogation, pacemaker ([id number])
== END ==
PROVIDERS: PCP Internal Medicine; Visit Provider Internal Medicine Cardiovascular Disease
DX: Z45.018 Encounter for adjustment and management of other part of cardiac pacemaker (principal)
CPT/HCPCS: 93294

== ENCOUNTER 2025-03-31 12:50 | Outpatient (AMB) | payer OTHER, SELFPAY ==
[2025-03-31 12:55] VITALS: BP 110/72; PULSE 60; RESP 16; TEMP 36.6; O2SAT 95; BMI 34.8
--- NOTE | 2025-03-31 12:55 | A.OFFPC_ITS ---
Vital Signs 03/31/25 12:55 Height 5 ft 5 in Weight 209 lb BMI 34.8 BP 110/72 Blood Pressure Location Rt brachial Position Sitting Respiration 16 Pulse 60 Pulse Source Pulse Oximeter Temp 97.8 F Pulse Oximetry (%) 95 Oxygen Delivery Method Room Air Intake Visit Reasons: PE Intake Note: Pt is here today for her PE: Last mammogram 09/10/24, papsmear 07/27/22, colonoscopy 08/11/23 Allergies amoxicillin (Augmentin) Allergy (Severe, Verified 03/31/25 13:38) hives clavulanic acid (Augmentin) Allergy (Severe, Verified 03/31/25 13:38) hives Medication List - Last Reconciled 03/31/25 by Suzy Lares MD acetaminophen 650 mg (2 x 325 mg) PO Q4H PRN 7 days bimatoprost 0.01% (Lumigan) 1 drp ophthalmic (eye) BEDTIME calcium citrate 250 mg PO BID cholecalciferol (vitamin D3) (Vitamin D3) 50 mcg PO DAILY [cranberry ] cranberry 500 mg PO BID hyoscyamine sulfate 0.25 mg (2 x 0.125 mg) PO QID PRN 30 days ibuprofen 600 mg PO Q6H PRN incontinence pad, liner, disp use TID methylcellulose (laxative) (Fiber Therapy (methylcellulose)) 500 mg PO TID metoprolol succinate ER 25 mg PO DAILY mirabegron ER (Myrbetriq) 50 mg PO DAILY omeprazole 20 mg PO DAILY oxybutynin chloride ER 10 mg PO DAILY simethicone (Gas Relief Extra Strength) 125 mg PO TID-QID PRN sucralfate 1 g PO BID timolol maleate 0.5% 1 drp ophthalmic (eye) QAM Tobacco use date assessed: 03/31/25 Dental Screening Dental Screen Date: 03/31/25 Did you have a dental visit in the last 12 months?: Yes Did you have a dental problem in the last 6 months where you did not have access to dental care?: No Was dental information given to patient?: Patient has dentist HPI PE HPI Details 59-year-old lady with history of urinary incontinence, sick sinus syndrome status post pacemaker placement, osteopenia multiple sites, gastroesophageal reflux disease, glaucoma,. Fasting glucose, cervical disc disease, obesity, here today for her physical exam. Up-to-date with her screening colonoscopy done by Dr. Baxter June 2024, with repeat due again in 2026 due to history of adenomatous polyps in the past. Had her bone density scan done 09/10/2024 which showed presence of osteopenia in multiple sites, no history of fracture. Mammogram was also done on that same day which showed benign findings. [facility] Medical History Urinary incontinence Chronic pain of right wrist Colon adenomas Anxiety and depression Epigastric hernia Cardiac pacemaker (~03/2021) Sick sinus syndrome Family history of aortic aneurysm Cardiac murmur Obesity (BMI 30.0-34.9) Carpal tunnel syndrome on right Urinary incontinence, mixed Impaired fasting glucose Irritable bowel syndrome Osteopenia of multiple sites Hiatal hernia Cervical disc disease Glaucoma GERD (gastroesophageal reflux disease) Surgical History History of esophagogastroduodenoscopy (EGD) History of incisional hernia repair History of shoulder surgery Hx of elbow surgery History of cardiac pacemaker (~2020) History of carpal tunnel surgery of right wrist (~2013) History of colonoscopy (~2013) History of fusion of cervical spine History of hernia repair (~2008) History of tonsillectomy Family History Father Leukemia Crohn disease Mother HTN (hypertension) Small cell lung cancer Maternal Grandmother Alzheimer's disease Dementia Maternal Grandfather No problems noted. Paternal Grandmother No problems noted. Paternal Grandfather Alzheimer's disease Dementia Daughter No problems noted. Daughter No problems noted. Son No problems noted. Sister No problems noted. Brother Hx of CABG S/P AVR (aortic valve replacement) AAA (abdominal aortic aneurysm) Brother No problems noted. Brother No problems noted. Brother No problems noted. Brother No problems noted. Social History Household Members: Spouse Housing: House Are you a primary wound care specialist to a significant other at home: No Do you presently have visiting nurse or other home services: No Alcohol intake: current Alcohol intake frequency: holidays/special occasions only Alcohol type: wine Patient Tobacco Use Status: Former Tobacco user Tobacco use type: Cigarette e-Cigarette/Vaping Use: Never Used service: No Current occupational status: retired Cognitive needs: No Hearing needs: No Vision needs: Yes Questionnaire PHQ-9 Over the last 2 weeks, how often have you been bothered by any of the following problems? 1. Little interest or pleasure in doing things: not at all 2. Feeling down, depressed, or hopeless: not at all 3. Trouble falling or staying asleep, or sleeping too much: several days 4. Feeling tired or having little energy: several days 5. Poor appetite or overeating: not at all 6. Feeling bad about yourself - or that you are a failure or have let yourself or your family down: not at all 7. Trouble concentrating on things, such as reading the newspaper or watching television: not at all 8. Moving or speaking so slowly that other people could have noticed. Or the opposite - being so fidgety or restless that you have been moving around a lot more than usual: not at all 9. Thoughts that you would be better off or of hurting yourself in some way: not at all Total score: 2 Depression Screening Interpretation: Negative Depression Screening Done: Yes 33901 - PHQ-9 Billing: Yes Source: Developed by Drs. Baudilio Patel, Anjelica Martinez, Catracho Cobb and colleagues, with an educational tracee from [employer]. Thrive Questionnaire Date Thrive assessed: 03/24/25 I am a: Patient What is your living situation today?: I have a steady place to live Within the past 12 months, did the food you bought not last and you didn't have the money to get more?: I choose not to answer this question Within the past 12 months, did you worry whether your food would run out before you got money to buy more?: I choose not to answer this question Do you have trouble paying for medicines?: No Do you have trouble getting transportation to medical appointments?: No Do you have trouble paying your heating and electricity bill?: No Do you have trouble taking care of your child, family member or friend?: I choose not to answer this question Do you have trouble with day-to-day activities such as bathing, preparing meals, shopping, managing finances, etc.?: No Are you currently unemployed and looking for a job?: I choose not to answer this question Are you interested in more education?: I choose not to answer this question Please select the resources that you would like help with: None Currently or been in a relationship where the following occur: No concerns reported THRIVE Score: 0 AUDIT C Alcohol Use Questionnaire (AUDIT-C) 1. How often do you have a drink containing alcohol?: Monthly or less 2. How many drinks containing alcohol do you have on a typical day when you are drinking?: 1 or 2 3. How often do you have six or more drinks on one occasion?: Never Total Score: 1 Score Reviewed/Action Taken: Yes GABI-7 AMB Questionnaire GABI-7 Date GABI - 7 assessed: 03/31/25 Feeling nervous, anxious, or on edge: 0 = Not at all Not being able to stop or control worryin = Not at all Worrying too much about different things: 0 = Not at all Trouble relaxin = Not at all Being so restless that it is hard to sit still: 0 = Not at all Becoming easily annoyed or irritable: 0 = Not at all Feeling afraid as if something awful might happen: 0 = Not at all Total GABI-7 score (0-4 normal; 5-9 mild; 10-14 moderate; 15-21 severe): 0 Source: Developed by Drs. Baudilio Patel, Anjelica Martinez, Catracho Cobb and colleagues, with an educational tracee from [employer]. GABI-7 Assessment Billing GABI-7 Assessment Tool: GABI-7 Assessment 61760 Review of Systems Eyes Details: Sees [facility], getting treatment for glaucoma ENT Details: Gets dental cleaning every 6 months at [facility] dental Physical exam (Primary Care) Vital Signs: Last Vital Signs Temp 97.8 F 03/31/25 12:55 Pulse 60 03/31/25 12:55 Resp 16 03/31/25 12:55 BP 110/72 03/31/25 12:55 Pulse Ox 95 03/31/25 12:55 Oxygen Delivery Method Room Air 03/31/25 12:55 BMI result Body Mass Index 34.8 Tobacco/Smoking Status: Tobacco use Status Tobacco use date assessed 03/31/25 03/31/25 12:57 Patient Tobacco Use Status Former Tobacco user 03/31/25 12:57 Tobacco use type Cigarette 03/31/25 12:57 e-Cigarette/Vaping Use Never Used 03/31/25 12:57 PHQ-9: PHQ-9 Score PHQ-9: Total score 2 03/31/25 13:40 Depression Screening Interpretation: Negative Thrive Assessment: Date of Thrive Assessment Date Thrive assessed 03/24/25 03/31/25 12:57 Currently or been in a relationship where the following occur: No concerns reported Office Procedures Flu Questionnaire Does the patient have a severe egg allergy?: No Does the patient have severe life threatening allergies?: No Does the patient have a fever or illness today?: No Has the patient ever had Guillain-[place] Syndrome?: No Has the patient ever had any past reaction to a flu shot?: No Immunizations Fluarix [id number] (PF) 45 mcg (15 mcg x 3)/0.5 mL IM syringe Performing Provider: Suzy Lares MD Performing Location: [facility] Administered by: Maris Singh CMA on 03/31/25 14:10 Dose Route Admin Location Dispensed Lot Number Expiration Date [employer]DC [employer] 0.5 mL IM Right Deltoid 0.5 mL [id number] 01/06/26 22091-231-07 [employer] VIS Given Date VIS Provided VIS Publication Date 03/31/25 Single Vaccine 24 Eligibility Eligibility Date Funding Source Not [facility] Eligible 03/31/25 Private Coding Level of Care Code Est Pt Prev Care 40-64y(18905) Diagnoses GERD (gastroesophageal reflux disease) K21.9 Glaucoma H40.9 Osteopenia of multiple sites M85.89 Impaired fasting glucose R73.01 Urinary incontinence, mixed N39.46 Obesity (BMI 30.0-34.9) E66.9 Sick sinus syndrome I49.5 Annual visit for general adult medical examination with abnormal findings Z00.01 Additional Codes GABI-7 Assessment Billing - GABI-7 Assessment Tool: GABI-7 Assessment 36974 ([id number]) PHQ-9 - 00181 - PHQ-9 Billing: Yes ([id number]) Assessment & Plan Assessment & Plan (1) GERD (gastroesophageal reflux disease): Comment: Followed by Code(s): K21.9 - Gastro-esophageal reflux disease without esophagitis Category: Medical (2) Glaucoma: Code(s): H40.9 - Unspecified glaucoma Category: Medical (3) Osteopenia of multiple sites: Comment: (Bone Dexa T-score -1.8 lumbar - 09/02/2019 - Followed by Dr. Gee) Code(s): M85.89 - Other specified disorders of bone density and structure, multiple sites Category: Medical (4) Impaired fasting glucose: Code(s): R73.01 - Impaired fasting glucose Category: Medical (5) Urinary incontinence, mixed: Comment: Seen by Urogynecology Code(s): N39.46 - Mixed incontinence Category: Medical (6) Obesity (BMI 30.0-34.9): Code(s): E66.9 - Obesity, unspecified Category: Medical (7) Sick sinus syndrome: Comment: (s/p [place] DCPP - placed 03/2021) Code(s): I49.5 - Sick sinus syndrome Category: Medical (8) Annual visit for general adult medical examination with abnormal findings: Code(s): Z00.01 - Encounter for general adult medical examination with abnormal findings Orders: Orders Influenza [id number] Immunization Today Z23 - Encounter for immunization Hemoglobin and Hematocrit Today E66.9 - Obesity, unspecified, H40.9 - Unspecified glaucoma, I49.5 - Sick sinus syndrome, K21.9 - Gastro-esophageal reflux disease without esophagitis, M85.89 - Other specified disorders of bone density and structure, multiple sites, N39.46 - Mixed incontinence, R73.01 - Impaired fasting glucose, Z00.01 - Encounter for general adult medical examination with abnormal findings, Z13.220 - Encounter for screening for lipoid disorders Alanine Aminotransferase Today E66.9 - Obesity, unspecified, H40.9 - Unspecified glaucoma, I49.5 - Sick sinus syndrome, K21.9 - Gastro-esophageal reflux disease without esophagitis, M85.89 - Other specified disorders of bone density and structure, multiple sites, N39.46 - Mixed incontinence, R73.01 - Impaired fasting glucose, Z00.01 - Encounter for general adult medical examination with abnormal findings, Z13.220 - Encounter for screening for lipoid disorders Aspartate Amino Transferase Today E66.9 - Obesity, unspecified, H40.9 - Unspecified glaucoma, I49.5 - Sick sinus syndrome, K21.9 - Gastro-esophageal reflux disease without esophagitis, M85.89 - Other specified disorders of bone density and structure, multiple sites, N39.46 - Mixed incontinence, R73.01 - Impaired fasting glucose, Z00.01 - Encounter for general adult medical examination with abnormal findings, Z13.220 - Encounter for screening for lipoid disorders Vitamin D 25-OH Total Today E66.9 - Obesity, unspecified, H40.9 - Unspecified glaucoma, I49.5 - Sick sinus syndrome, K21.9 - Gastro-esophageal reflux disease without esophagitis, M85.89 - Other specified disorders of bone density and structure, multiple sites, N39.46 - Mixed incontinence, R73.01 - Impaired fasting glucose, Z00.01 - Encounter for general adult medical examination with abnormal findings, Z13.220 - Encounter for screening for lipoid disorders Basic Metabolic Panel Fasting Today E66.9 - Obesity, unspecified, H40.9 - Unspecified glaucoma, I49.5 - Sick sinus syndrome, K21.9 - Gastro-esophageal reflux disease without esophagitis, M85.89 - Other specified disorders of bone density and structure, multiple sites, N39.46 - Mixed incontinence, R73.01 - Impaired fasting glucose, Z00.01 - Encounter for general adult medical examination with abnormal findings, Z13.220 - Encounter for screening for lipoid disorders Lipid Panel Today E66.9 - Obesity, unspecified, H40.9 - Unspecified glaucoma, I49.5 - Sick sinus syndrome, K21.9 - Gastro-esophageal reflux disease without esophagitis, M85.89 - Other specified disorders of bone density and structure, multiple sites, N39.46 - Mixed incontinence, R73.01 - Impaired fasting glucose, Z00.01 - Encounter for general adult medical examination with abnormal findings, Z13.220 - Encounter for screening for lipoid disorders
--- OUTSIDE RECORDS SUMMARY | 2025-03-31 15:15 | XMS_ITS | Patient Health Record ---
Author
== END 2025-03-31 14:13 | disposition home or self-care (01) ==
LOC: HO.HMCC 12:50
PROVIDERS: PCP Internal Medicine; Visit Provider Internal Medicine
DX: Z23 Encounter for immunization (principal)

== ENCOUNTER 2025-03-31 12:50 | Outpatient (REF) | payer OTHER, SELFPAY ==
[2025-03-31 16:29] LABS: Hematocrit 37.5 % (37.0-47.0); Hemoglobin 12.8 g/dl (12.0-16.0)
[2025-03-31 16:50] LABS: Alanine Aminotransferase 11 U/L (0-31); Anion Gap 12 (12-20); Aspartate Amino Transferase 21 U/L (5-31); Blood Urea Nitrogen 23 mg/dL (9-16); Calcium 9.9 mg/dL (8.4-10.2); Carbon Dioxide 25 mmol/L (22-29); Chloride 106 mmol/L (96-108); Cholesterol 222 mg/dL (<200); Estimated Glomerular Filt Rate > 60; HDL Cholesterol 79 mg/dL (>40); Potassium 3.9 mmol/L (3.3-5.1); Sodium 139 mmol/L (135-145); Triglycerides 103 mg/dL (<150)
== END 2025-03-31 12:51 | disposition home or self-care (01) ==
LOC: HO.HMGCLDS 12:50
PROVIDERS: PCP Internal Medicine; Visit Provider Internal Medicine
DX: Z23 Encounter for immunization (principal); Z00.01 Encounter for general adult medical examination with abnormal findings; Z13.220 Encounter for screening for lipoid disorders; I49.5 Sick sinus syndrome; R73.01 Impaired fasting glucose; M85.89 Other specified disorders of bone density and structure, multiple sites; E66.9 Obesity, unspecified; H40.9 Unspecified glaucoma; K21.9 Gastro-esophageal reflux disease without esophagitis; N39.46 Mixed incontinence; Z79.899 Other long term (current) drug therapy; Z68.34 Body mass index [BMI] 34.0-34.9, adult
CPT/HCPCS: 36415; 80048; 80061; 82306; 84450; 84460; 85014; 85018; 90471; 90656; 96127; 99396

== ENCOUNTER → 2025-04-15 23:59 | Outpatient (BNV) | payer OTHER, SELFPAY ==
--- NOTE | 2025-04-16 12:21 | MHC.OFFVIS ---
Intake Visit Reasons: Remote device check- [facility] [place] Allergies amoxicillin (Augmentin) Allergy (Severe, Verified 03/31/25 13:38) hives clavulanic acid (Augmentin) Allergy (Severe, Verified 03/31/25 13:38) hives [facility] Medical History Urinary incontinence Chronic pain of right wrist Colon adenomas Anxiety and depression Epigastric hernia Cardiac pacemaker (~03/2021) Sick sinus syndrome Family history of aortic aneurysm Cardiac murmur Obesity (BMI 30.0-34.9) Carpal tunnel syndrome on right Urinary incontinence, mixed Impaired fasting glucose Irritable bowel syndrome Osteopenia of multiple sites Hiatal hernia Cervical disc disease Glaucoma GERD (gastroesophageal reflux disease) Surgical History History of esophagogastroduodenoscopy (EGD) History of incisional hernia repair History of shoulder surgery Hx of elbow surgery History of cardiac pacemaker (~2020) History of carpal tunnel surgery of right wrist (~2013) History of colonoscopy (~2013) History of fusion of cervical spine History of hernia repair (~2008) History of tonsillectomy Family History Father Leukemia Crohn disease Mother HTN (hypertension) Small cell lung cancer Maternal Grandmother Alzheimer's disease Dementia Maternal Grandfather No problems noted. Paternal Grandmother No problems noted. Paternal Grandfather Alzheimer's disease Dementia Daughter No problems noted. Daughter No problems noted. Son No problems noted. Sister No problems noted. Brother Hx of CABG S/P AVR (aortic valve replacement) AAA (abdominal aortic aneurysm) Brother No problems noted. Brother No problems noted. Brother No problems noted. Brother No problems noted. Social History Household Members: Spouse Housing: House Are you a primary home health care coordinator to a significant other at home: No Do you presently have visiting nurse or other home services: No Alcohol intake: current Alcohol intake frequency: holidays/special occasions only Alcohol type: wine Patient Tobacco Use Status: Former Tobacco user Tobacco use type: Cigarette e-Cigarette/Vaping Use: Never Used service: No Current occupational status: retired Cognitive needs: No Hearing needs: No Vision needs: Yes Office Procedures Cardiac Device Check Cardiac Device Check Details: Remote pacemaker report generated 04/15/2025. Pacemaker function is adequate [id number] Cardiac Device Interrogation, pacemaker Procedure code (CPT) selection complete Assessment & Plan Assessment & Plan (1) Cardiac pacemaker: Onset Date: ~03/2021 Comment: ([facility] [place] DCPP - placed 03/2021) Code(s): Z95.0 - Presence of cardiac pacemaker Category: Medical Plan: See above Coding Level of Care Code Procedure Only Diagnoses Cardiac pacemaker Z95.0 CPT Codes Cardiac Device Check - Cardiac Device 12: [id number] Cardiac Device Interrogation, pacemaker ([id number])
== END ==
PROVIDERS: PCP Internal Medicine; Visit Provider Internal Medicine Cardiovascular Disease
DX: Z45.018 Encounter for adjustment and management of other part of cardiac pacemaker (principal)
CPT/HCPCS: 93294

== ENCOUNTER 2025-05-15 13:14 | Outpatient (AMB) | payer OTHER, SELFPAY ==
[2025-05-15 13:48] VITALS: BP 112/80; PULSE 60; RESP 15; TEMP 36.6; O2SAT 98; BMI 34.8
--- NOTE | 2025-05-15 13:48 | A.OFFPC_ITS ---
Vital Signs 05/15/25 13:48 Height 5 ft 5 in Weight 209 lb BMI 34.8 BP 112/80 Blood Pressure Location Rt brachial Position Sitting Respiration 15 Pulse 60 Pulse Source Pulse Oximeter Temp 98 F Temp Source Oral Pulse Oximetry (%) 98 Oxygen Delivery Method Room Air Intake Visit Reasons: numbness/tingling hands and feet reschedule Intake Note: Pt is here today c/o numbness/tingling hands and feet Healthcare Management Required: No Allergies amoxicillin (Augmentin) Allergy (Severe, Verified 05/15/25 14:25) hives clavulanic acid (Augmentin) Allergy (Severe, Verified 05/15/25 14:25) hives Medication List - Last Reconciled 05/15/25 by Suzy Lares MD acetaminophen 650 mg (2 x 325 mg) PO Q4H PRN 7 days bimatoprost 0.01% (Lumigan) 1 drp ophthalmic (eye) BEDTIME calcium citrate 250 mg PO BID cholecalciferol (vitamin D3) (Vitamin D3) 50 mcg PO DAILY [cranberry ] cranberry 500 mg PO BID hyoscyamine sulfate 0.25 mg (2 x 0.125 mg) PO QID PRN 30 days ibuprofen 600 mg PO Q6H PRN incontinence pad, liner, disp use TID methylcellulose (laxative) (Fiber Therapy (methylcellulose)) 500 mg PO TID metoprolol succinate ER 25 mg PO DAILY mirabegron ER (Myrbetriq) 50 mg PO DAILY omeprazole 20 mg PO DAILY oxybutynin chloride ER 15 mg PO DAILY simethicone (Gas Relief Extra Strength) 125 mg PO TID-QID PRN sucralfate 1 g PO BID timolol maleate 0.5% 1 drp ophthalmic (eye) QAM Tobacco use date assessed: 05/15/25 Dental Screening Dental Screen Date: 05/15/25 Did you have a dental visit in the last 12 months?: Yes Did you have a dental problem in the last 6 months where you did not have access to dental care?: No Was dental information given to patient?: Patient has dentist HPI numbness/tingling hands and feet reschedule HPI Details 60-year-old female how to find numbness and a tingly sensation in both feet, which is not present all day but becomes pronounced at night, accompanied by a feeling of extreme coldness in her feet requiring her to wear socks to bed. 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 She also has a history of mild carpal tunnel syndrome, primarily in her right hand, which is exacerbated by activities that causes repetitive movement of her wrist. The patient has a history of widespread arthritis, with X-rays confirming its presence throughout her feet. She also has arthritis in her knee, confirmed by an MRI, which may require a future knee replacement. She was prescribed meloxicam, which helps with the arthritis pain. Additionally, she has been diagnosed with plantar fasciitis and wears shoe inserts and special boots in the evening, which she feels is somewhat helpful. Her foot, knee, and hip pain worsens with walking, affecting her posture and balance. The patient is followed by a urologist for bladder issues and is currently taking Myrbetriq and oxybutynin, which have not been effective. She has further urologic testing scheduled for July 31. A bone density scan revealed osteopenia in her lower back and left hip. She supplements with vitamin D daily and calcium twice a day, managing occasional constipation with fiber. Recent bloodwork showed a significant increase in her total cholesterol from 164 mg/dL to 222 mg/dL over the past year. She reports eating a whole egg every day as part of her Weight Watchers diet. She recently resumed gym workouts after a hiatus over the summer, focusing on light weights. Other lab results were normal, including a normal blood count, blood sugar, and electrolytes. [facility] Medical History (Updated 05/24/25 @ 20:45 by Suzy Lares MD) Hypercholesterolemia Arthritis Urinary incontinence Chronic pain of right wrist Colon adenomas Anxiety and depression Epigastric hernia Cardiac pacemaker (~03/2021) Sick sinus syndrome Family history of aortic aneurysm Cardiac murmur Obesity (BMI 30.0-34.9) Carpal tunnel syndrome on right Urinary incontinence, mixed Impaired fasting glucose Irritable bowel syndrome Osteopenia of multiple sites Hiatal hernia Cervical disc disease Glaucoma GERD (gastroesophageal reflux disease) Surgical History History of esophagogastroduodenoscopy (EGD) History of incisional hernia repair History of shoulder surgery Hx of elbow surgery History of cardiac pacemaker (~2020) History of carpal tunnel surgery of right wrist (~2013) History of colonoscopy (~2013) History of fusion of cervical spine History of hernia repair (~2008) History of tonsillectomy Family History Father Leukemia Crohn disease Mother HTN (hypertension) Small cell lung cancer Maternal Grandmother Alzheimer's disease Dementia Maternal Grandfather No problems noted. Paternal Grandmother No problems noted. Paternal Grandfather Alzheimer's disease Dementia Daughter No problems noted. Daughter No problems noted. Son No problems noted. Sister No problems noted. Brother Hx of CABG S/P AVR (aortic valve replacement) AAA (abdominal aortic aneurysm) Brother No problems noted. Brother No problems noted. Brother No problems noted. Brother No problems noted. Social History Household Members: Spouse Housing: House Are you a primary direct care professional to a significant other at home: No Do you presently have visiting nurse or other home services: No Alcohol intake: current Alcohol intake frequency: holidays/special occasions only Alcohol type: wine Patient Tobacco Use Status: Former Tobacco user Tobacco use type: Cigarette e-Cigarette/Vaping Use: Never Used service: No Current occupational status: retired Cognitive needs: No Hearing needs: No Vision needs: Yes Questionnaire PHQ-9 Over the last 2 weeks, how often have you been bothered by any of the following problems? 1. Little interest or pleasure in doing things: not at all 2. Feeling down, depressed, or hopeless: not at all 3. Trouble falling or staying asleep, or sleeping too much: several days 4. Feeling tired or having little energy: not at all 5. Poor appetite or overeating: not at all 6. Feeling bad about yourself - or that you are a failure or have let yourself or your family down: not at all 7. Trouble concentrating on things, such as reading the newspaper or watching television: not at all 8. Moving or speaking so slowly that other people could have noticed. Or the opposite - being so fidgety or restless that you have been moving around a lot more than usual: not at all 9. Thoughts that you would be better off or of hurting yourself in some way: not at all Total score: 1 Depression Screening Interpretation: Negative Depression Screening Done: Yes Source: Developed by Drs. Baudilio Patel, Anjelica Martinez, Catracho Cobb and colleagues, with an educational tracee from [employer]. Thrive Questionnaire Date Thrive assessed: 03/24/25 I am a: Patient What is your living situation today?: I have a steady place to live Within the past 12 months, did the food you bought not last and you didn't have the money to get more?: I choose not to answer this question Within the past 12 months, did you worry whether your food would run out before you got money to buy more?: I choose not to answer this question Do you have trouble paying for medicines?: No Do you have trouble getting transportation to medical appointments?: No Do you have trouble paying your heating and electricity bill?: No Do you have trouble taking care of your child, family member or friend?: I choose not to answer this question Do you have trouble with day-to-day activities such as bathing, preparing meals, shopping, managing finances, etc.?: No Are you currently unemployed and looking for a job?: I choose not to answer this question Are you interested in more education?: I choose not to answer this question Please select the resources that you would like help with: None Currently or been in a relationship where the following occur: No concerns reported THRIVE Score: 0 AUDIT C Alcohol Use Questionnaire (AUDIT-C) 1. How often do you have a drink containing alcohol?: Monthly or less 2. How many drinks containing alcohol do you have on a typical day when you are drinking?: 1 or 2 3. How often do you have six or more drinks on one occasion?: Never Total Score: 1 Score Reviewed/Action Taken: Yes GABI-7 AMB Questionnaire GABI-7 Date GABI - 7 assessed: 03/31/25 Feeling nervous, anxious, or on edge: 0 = Not at all Not being able to stop or control worryin = Not at all Worrying too much about different things: 0 = Not at all Trouble relaxin = Not at all Being so restless that it is hard to sit still: 0 = Not at all Becoming easily annoyed or irritable: 0 = Not at all Feeling afraid as if something awful might happen: 0 = Not at all Total GABI-7 score (0-4 normal; 5-9 mild; 10-14 moderate; 15-21 severe): 0 Source: Developed by Drs. Baudilio Patel, Anjelica Martinez, Catracho Cobb and colleagues, with an educational tracee from [employer]. Review of Systems Const Denies fever(s) and Denies headache(s) Eyes Details: Sees [facility], getting treatment for glaucoma Denies change in vision ENT Details: Gets dental cleaning every 6 months at [facility] dental Denies dizziness and Denies headache(s) Card Denies chest pain, Denies lightheadedness and Denies dyspnea Resp Denies cough and Denies dyspnea GI Denies abdominal pain, Denies change in bowel habits and Denies heartburn Reports as per HPI, Denies hematuria and Denies dysuria Musc Reports as per HPI Skin/Breast Denies breast pain, Denies breast mass and Denies rash Neuro Reports as per HPI, Denies dizziness and Denies headache(s) Psych Reports no additional complaints Endo Reports no additional complaints Chris/Lymph Reports no additional complaints Aller/Immun Reports no additional complaints Physical exam (Primary Care) Vital Signs: Last Vital Signs Temp 98 F 05/15/25 13:48 Pulse 60 05/15/25 13:48 Resp 15 05/15/25 13:48 BP 112/80 05/15/25 13:48 Pulse Ox 98 05/15/25 13:48 Oxygen Delivery Method Room Air 05/15/25 13:48 BMI result Body Mass Index 34.8 Tobacco/Smoking Status: Tobacco use Status Tobacco use date assessed 05/15/25 05/15/25 13:57 Patient Tobacco Use Status Former Tobacco user 05/15/25 13:50 Tobacco use type Cigarette 05/15/25 13:50 e-Cigarette/Vaping Use Never Used 05/15/25 13:50 PHQ-9: PHQ-9 Score PHQ-9: Total score 1 05/24/25 20:25 Depression Screening Interpretation: Negative Thrive Assessment: Date of Thrive Assessment Date Thrive assessed 03/24/25 05/15/25 13:50 Currently or been in a relationship where the following occur: No concerns reported Const Other: Alert oriented x3, no acute distress noted ambulatory normal HENMT Head: Yes normocephalic Ears: external ears normal General nose exam: Normal external nose present Face and sinus: Yes face symmetric Mouth: moist mucous membranes Eyes General: appearance normal, both eyes and all related structures Neck Neck: Yes full ROM, Yes no lymphadenopathy and Yes supple Thyroid: Thyroid normal (Nonpalpable) Resp Auscultation: clear to auscultation bilaterally Cardio Other: S1-S2 present regular in rhythm GI Inspection: Yes obesity Palpation (GI): Soft to palpation, nontender, no guarding and no masses General: Yes no CVA tenderness Back/Spine/Pelvis Back: no CVA tenderness Skin General skin exam: no rashes or lesions noted Neuro General: gait normal, tone normal, moves all extremities and no focal motor deficits Extrem General: Yes full ROM, Yes no joint enlargement, Yes no calf tenderness and Yes normal gait Psych Appearance: grossly normal and well kempt Mental Status: mental status grossly normal Speech and movement: Normal speech and movement present Affect: normal affect Results Reviewed Results Reviewed: Name: Tess Fallon Age/Sex: 59/F : 1965 Unit#: [id number] Attend Dr: Suzy Lares MD Re03/31/25 Status: DEP REF Location: [facility] Disch: SPEC : [id number] JASMIN: 03/31/25 STATUS: COMP REQ : [id number] RECD: 03/31/25-[address]: Suzy Lares MD COMP: 03/31/25 ENTERED: 03/31/25-[address]: ORDERED: Met Prof Fast, AST, ALT, Lipid Panel, Vitamin D 25-OH Test Result Flag Reference Sodium 139 135-145 mmol/L Potassium 3.9 3.3-5.1 mmol/L CL 106 96-108 mmol/L CO2 25 22-29 mmol/L Gap 12 12-20 BUN 23 H 9-16 mg/dL Creat 0.67 0.5-1.4 mg/dL eGFR > 60 Chronic Kidney Disease: Estimated GFR < 60 mL/min/1.73m2 Severe Kidney Disease: Estimated GFR < 15 mL/min/1.73m2 FBS 96 60-99 mg/dL CA 9.9 8.4-10.2 mg/dL AST (GOT) 21 5-31 U/L ALT (GPT) 11 0-31 U/L Triglyceride 103 <150 mg/dL Desirable Triglyceride: less than 150 mg/dL Borderline High Triglyceride 150-199 mg/dL High Triglyceride: 200-499 mg/dL Very High Triglyceride: greater than or equal to 5OO mg/dL Cholesterol 222 H <200 mg/dL Desirable Cholesterol: less than 200 mg/dL Borderline High Cholesterol: 200-239 mg/dL High Cholesterol: greater than 239 mg/dL LDL Calculated 123 H <100 mg/dL Desirable LDL: less than 100 mg/dL Near Optimal/Above Optimal LDL: 110-129 mg/dL Borderline High LDL: 130-159 mg/dL High LDL: 160-189 mg/dL Very High LDL: greater than or equal to 190 mg/dL HDL 79 >40 mg/dL Desirable HDL: greater than 40 mg/dL Note: This HDL assay may give artificially low results in patients with liver disease. Vitamin D 25-OH 74.6 >30 ng/mL Health Based Reference Values* < 20 ng/mL Deficient 20-30 ng/mL Insufficient > 30 ng/mL Sufficient *Hira MCKENZIE. N Engl J Med. 2007;357:266-280 There is no well-established upper level of normal vitamin D levels. Some laboratories use 50 ng/mL as an upper limit of normal. However, toxicity is patient-dependent and may occur at any level. Careful correlation with the patient's presentation is necessary and, if there is concern for vitamin D toxicity, treatment should be considered irrespective of the serum level. Care must be taken in interpreting Vitamin D results from different laboratories and methodologies. Published data demonstrated that results from patients undergoing hemodialysis may show a negative bias when tested with various automated 25-OH vitamin D assays when compared to LC-MS/MS. When testing samples from patients whose predominant form of Vitamin D is Vitamin D2, such as patients receiving Vitamin D2 supplementation, results that are subtherapeutic should be confirmed with another method such as LC-MS/MS. Laboratory Tests 03/31/25 14:14 Hgb 12.8 Hct 37.5 Coding Level of Care Code Est Pt Level 4 (38170) Complex EM visit Add On G2211 Diagnoses Numbness and tingling of lower extremity R20.0; R20.2 Arthritis M19.90 Hypercholesterolemia E78.00 Osteopenia of multiple sites M85.89 Urinary incontinence, mixed N39.46 Assessment & Plan Assessment & Plan (1) Numbness and tingling of lower extremity: Code(s): R20.0 - Anesthesia of skin; R20.2 - Paresthesia of skin (2) Arthritis: Code(s): M19.90 - Unspecified osteoarthritis, unspecified site Category: Medical (3) Hypercholesterolemia: Code(s): E78.00 - Pure hypercholesterolemia, unspecified Category: Medical (4) Osteopenia of multiple sites: Comment: (Bone Dexa T-score -1.8 lumbar - 09/02/2019 - Followed by Dr. Gee) Code(s): M85.89 - Other specified disorders of bone density and structure, multiple sites Category: Medical (5) Urinary incontinence, mixed: Comment: Seen by Urogynecology Code(s): N39.46 - Mixed incontinence Category: Medical Plan 1. Peripheral Neuropathy The patient presents with symptoms of tingling, numbness, and coldness in her feet, consistent with her previous diagnosis of neuropathy. The etiology is unclear, but a pinched nerve is a possibility. Vascular causes are less likely given good palpable pulses. Will order a nerve conduction study and EMG of the bilateral lower extremities to assess for nerve entrapment or other neuropathic processes. Recommended a trial of topical [id number] capsaicin cream for symptomatic relief of cold toes at night. 2. Arthritis and Musculoskeletal Pain The patient has extensive arthritis in her feet and knee, causing significant pain with ambulation, which alters her gait and balance. She currently takes meloxicam, which provides some relief. Advised to continue taking meloxicam with food as needed. Recommended transitioning to low-impact activities, such as aquatic exercise, to reduce joint stress. She can continue light weight training, adjusting as needed to avoid pain. 3. Hypercholesterolemia Recent labs show a significant increase in total cholesterol to 222 mg/dL, which is likely related to dietary factors, specifically daily consumption of whole eggs. Provided dietary counseling to reduce cholesterol intake by limiting egg yolks to twice a week and substituting with egg whites. Discussed alternative breakfast options like oatmeal and avocado toast. 4. Osteopenia Bone density scan showed bone thinning in the lower back and hips. The patient is already on appropriate supplementation. Plan: Patient to continue daily Vitamin D and twice-daily calcium supplements. Encouraged dietary calcium intake as tolerated. 5.Urinary incontinence , mixed The patient is under the care of a urologist and experiences persistent symptoms despite being on Myrbetriq and oxybutynin. She is scheduled for urological testing scheduled for July 31 and will continue to follow up with her urology specialist for management. Patient was informed and verbally consented to the use of an ambient scribe for clinic note documentation during this visit. Orders: Orders NE nerve conduction velocity 05/15/25 R20.0 - Anesthesia of skin, R20.2 - Paresthesia of skin NE electromyogram (EMG) 05/15/25 R20.0 - Anesthesia of skin, R20.2 - Paresthesia of skin
--- OUTSIDE RECORDS SUMMARY | 2025-05-15 16:06 | XMS_ITS | Data Portability ---
Author Organization [employer] [facility] [place] [facility] Address [address] [place] [address] Care Team Providers Care Communications Editor Name Role Phone HIM CCA OTHER Assessment Encounter Date Assessment Date Assessment [...] tablets in a dose pack 2022 023 [facility]acy #[id number], [address] [facility], [place], [address], 18:00:38 Patient TargetsNo targets recorded. Patient InstructionsNo [...] No t Available Vitals Date Recorded Body temperature Body weight Respiratory rate Heart rate Body height Oxygen saturation Oxygen saturation in Arterial blood by Pulse oximetry Systolic And Diastolic Provider Name and Address Organization Details Last Updated DateTime 4 97.6 [degF] 60973.4 8 g 18 /min 60 /min 162.56 cm 99 % 99 % 134/90 mm[Hg] Not Available [facility] - [facility] 4 14:38:33 Date Recorded Heart rate Body height Body weight Oxygen saturation Oxygen saturation in Arterial blood by Pulse oximetry Respiratory rate Body temperature Systolic And Diastolic Provider Name and Address Organization Details Last Updated DateTime 3 60 /min 162.56 cm 547855 g 98 % 98 % 14 /min 98.1 [degF] 132/84 mm[Hg] Not Available [facility] 3 17:53:31 Social History None recorded. Functional Status None recorded. Mental Status None recorded. Family History Nothing Reported. Medical History No medical history recorded. Gynecological HistoryNo gynecological history recorded. Obstetrics History GPAL:G 0 P 0 0 0 0 Past Encounters Encounter ID Performer Location Encounter Start Date Encounter Closed Date Diagnosis/Indication Diagnosis SNOMED-CT Code Diagnosis ICD10 Code Diagnosis IMO Codes Diagnosis Note [id number] Nehemias Salazar MD [facility] [address] [place] [address] [phone] 05/05/2023 17:53:29 05/08/2023 12:43:17 COVID-19 [id number] U07.1 [id number] Lucian Renteria MD [facility] - [facility] [address] [place] [address] [phone] 12/17/2023 14:38:23 12/20/2023 04:17:49 Upper respiratory infection [id number] J06.9 As noted, we were called to see this patient regarding concerns of URI vs LRI. Evaluation in the field was performed by my small stock facer colleague, as noted above, I provided real-time [...] Recorded Advance Directives Directive None Recorded Payers Insurance Date Sequence Insurance Name Policy Number Policy Suazo Covered Member ID Suazo Member ID Guarantor Name 12/17/2023 1 [facility] - DOS ON OR AFTER 2022 - DUAL ELIGIBLE - [facility] OPTIONS AND ONE [employer] (MEDICARE REPLACEMENT/AD VANTAGE - HMO) Tess Fallon [id number] Tess Fallon Notes Date Note Type Note [...] to be evaluated. Nehemias Salazar MD [address] [facility], [place], [address], [employer] 05/05/2023 18:07:03 12/17/2023 text/html CRC Nurse Triage [...] URI PMH: Heart Disease Allergies: Unknown Comments: [facility] verified the member's name//address and phone number. [...] S/S for 1 week. Wellness check requested [employer] POC Test Results from Brandon Sanabria - [facility] Rapid COVID antigen (14:35:27) COVID: - Rapid influenza antigen (14:35:28) Flu: - .................. .................. .................. .................. .................. .................. .................. ............... [employer] Note From Brandon Sanabria: Pt reports cough [...] LE edema. Rapid covid and flu negative. [facility] recommends pt increase oral hydration and f/u with PCP tomorrow. Red flags reviewed. .................. .................. .................. .................. .................. .................. .................. ............... Disposition: Fulfilled Lucian Renteria MD [address] [facility], [place], [address], [employer] 12/17/2023 14:50:55 OBGyn Episode No OBEpisode recorded.
--- OUTSIDE RECORDS SUMMARY | 2025-05-15 16:06 | XMS_ITS | Clinical Summary ---
Author Organization [facility] Address [address] [place] [address] Care Team Providers Care Body Press Operator Name Role Phone Suzy Lares MD Primary Care Provider Encounters Date Type Department Care Team Description 04/07/2025 2:53 PM EDT - 04/07/2025 11:59 PM EDT Hospital Encounter MRI [address] [address] Other instability, right knee Discharge Disposition: Home or Self Care () 04/07/2025 Orders Only MRI [address] [address] Dandre Wiley Other instability, right knee 04/07/2025 Orders Only MRI [address] [address] Dandre Wiley Other instability, right knee 02/20/2025 9:10 AM EDT - 02/20/2025 11:59 PM EDT Hospital Encounter [facility] Xray [address] [place] [address] Presence of cardiac pacemaker Discharge Disposition: Home or Self Care () from Last 3 Months Social History Tobacco Use Types Packs/Day Years Used Date Smoking Tobacco: Never Assessed Comments Unknown Sex and Gender Information Value Date Recorded Sex Assigned at Female 02/20/2025 9:08 AM EDT Legal Sex Female 3:18 PM EDT Gender Identity Not on file Sexual Orientation Not on file Plan of Treatment Health Maintenance Due Date Last Done Comments Cologuard 1963 Colon Cancer Screening 1963 Colonoscopy 1963 FOBT / Fit Test 1963 HIV Screening 1963 HPV and Pap Smear 1963 Sigmoidoscopy 1963 DTaP,Tdap,and Td Vaccines (1 - Tdap) 1985 Pneumococcal Vaccine: 50+ Years (1 of 1 - PCV) 2013 Zoster Vaccines (1 of 2) 2013 Mammogram 09/07/2018 09/07/2016, 08/06/2015 Cervical Cancer Screening 01/04/2019 Pap Smear 01/04/2019 01/05/2016 Alcohol/Substance Use Screening 07/10/2024 Depression Screening and Follow-Up 07/10/2024 Social Drivers of Health Annual Screening 07/10/2024 COVID-19 Vaccine (1 - 2024-2 6 season) 2025 Influenza Vaccine (#1) 2025 RSV Vaccine (60+ years old a nd patients) (1 - 1-dose 75+ series) 2038 Hepatitis B Vaccines Aged Out No long er eligible based on patient's age to complete this topic Procedures * Due to [place] [employer] law, this organization might not be sharing negative HIV tests. Procedure Name Priority Date/Time Associated Diagnosis Comments MRI KNEE RIGHT WO CONTRAST STAT 04/07/2025 4:40 PM EDT Other instability, right knee XR CHEST 2 VW Routine 02/20/2025 9:25 AM EDT Presence of cardiac pacemaker from Last 3 Months Results * Due to [place] [employer] law, this organization might not be sharing negative HIV tests. * MRI Knee Right WO Contrast (04/07/2025 4:40 PM EDT) Anatomical Region Laterality Modality Lower Extremities, Knee Right Magnetic Resonance 04/08/2025 8:23 AM EDT Impressions 04/08/2025 8:37 AM EDT 1. Complex degenerative tear of the lateral meniscus. 2. Tricompartmental cartilage wear, most pronounced in the lateral compartment. 3. Mild mucoid degeneration of the anterior cruciate ligament. 4. Mild joint effusion with body in the popliteal tendon sheath. If this radiology report contains a blank impression section, it is an incomplete radiology report. Please contact the interpreting radiologist or applicable radiology division as soon as possible to obtain the completed interpretation. Workstation ID: [id number] Narrative 04/08/2025 8:37 AM EDT INDICATION: Other instability, right knee TECHNIQUE: Multiplanar multisequence MR imaging of the right knee was performed without contrast using standard departmental protocol. COMPARISON: None. FINDINGS: OSSEOUS STRUCTURES: Alignment is anatomic. Marginal osteophytes. No acute fracture or bone bruise. No suspicious osseous lesions. Background marrow signal is normal without infiltrative marrow process. JOINT SPACE: Mild joint effusion. 0.7 cm body in the popliteus tendon sheath. No Underwood's cyst. MEDIAL COMPARTMENT: Medial meniscus: Normal in morphology and signal. Medial compartment cartilage: Mild thinning and fissuring. LATERAL COMPARTMENT: Lateral meniscus: Complex degenerative tear involving the anterior horn and anterior root. Lateral compartment cartilage: Moderate to high-grade cartilage loss with fissuring and reactive bone marrow edema. PATELLOFEMORAL COMPARTMENT: Patellofemoral compartment cartilage: Mild to moderate thinning and full- thickness fissuring and reactive bone marrow edema at the median ridge and medial patellar facet. Mild thinning of the central trochlear cartilage. EXTENSOR MECHANISM: Distal quadriceps tendon: No tendinosis or tear. Patella tendon: No tendinosis or tear. CRUCIATE LIGAMENTS: Anterior cruciate ligament (ACL): Mild mucoid degeneration. Posterior cruciate ligament (PCL): Unremarkable. COLLATERAL LIGAMENTS AND POSTEROLATERAL CORNER: Medial collateral ligament (MCL): Unremarkable. Lateral collateral ligament (LCL) complex: Unremarkable. Posterolateral corner structures: Unremarkable. SOFT TISSUES: Mild nonspecific subcutaneous edema. No soft tissue mass. Normal neurovascular bundle. Resulting Agency Comment [id number] Procedure Note Diego Fraga MD - 04/08/2025 INDICATION: Other instability, right knee TECHNIQUE: Multiplanar multisequence MR imaging of the right knee wasperformed without contrast using standard departmental protocol. COMPARISON: None. FINDINGS: OSSEOUS STRUCTURES: Alignment is anatomic. Marginal osteophytes. No acute fracture or bonebruise. No suspicious osseous lesions. Background marrow signal is normalwithout infiltrative marrow process. JOINT SPACE: Mild joint effusion. 0.7 cm body in the popliteus tendon sheath. NoBaker's cyst. MEDIAL COMPARTMENT: Medial meniscus: Normal in morphology and signal. Medial compartment cartilage: Mild thinning and fissuring. LATERAL COMPARTMENT: Lateral meniscus: Complex degenerative tear involving the anterior hornand anterior root. Lateral compartment cartilage: Moderate to high-grade cartilage loss withfissuring and reactive bone marrow edema. PATELLOFEMORAL COMPARTMENT: Patellofemoral compartment cartilage: Mild to moderate thinning andfull- thickness fissuring and reactive bone marrow edema at the medianridge and medial patellar facet. Mild thinning of the central trochlearcartilage. EXTENSOR MECHANISM: Distal quadriceps tendon: No tendinosis or tear. Patella tendon: No tendinosis or tear. CRUCIATE LIGAMENTS: Anterior cruciate ligament (ACL): Mild mucoid degeneration. Posterior cruciate ligament (PCL): Unremarkable. COLLATERAL LIGAMENTS AND POSTEROLATERAL CORNER: Medial collateral ligament (MCL): Unremarkable. Lateral collateral ligament (LCL) complex: Unremarkable. Posterolateral corner structures: Unremarkable. SOFT TISSUES: Mild nonspecific subcutaneous edema. No soft tissue mass. Normalneurovascular bundle. IMPRESSION: 1. Complex degenerative tear of the lateral meniscus. 2. Tricompartmental cartilage wear, most pronounced in the lateralcompartment. 3. Mild mucoid degeneration of the anterior cruciate ligament. 4. Mild joint effusion with body in the popliteal tendon sheath. If this radiology report contains a blank impression section, it is anincomplete radiology report. Please contact the interpreting radiologistor applicable radiology division as soon as possible to obtain thecompleted interpretation. Workstation ID: [id number] Dandre Wiley [facility] [place]ED[place] Final Result * XR Chest 2 vw. Standard (02/20/2025 9:25 AM EDT) Anatomical Region Laterality Modality Body Computed Radiogr aphy 02/21/2025 9:05 AM EDT Impressions 02/21/2025 9:05 AM EDT Heart size normal with left subpectoral dual-lead pacer. Otherwise negative. Lungs and pleural spaces clear. Cervical spine fusion hardware in place. If this radiology report contains a blank impression section, it is an incomplete radiology report. Please contact the interpreting radiologist or applicable radiology division as soon as possible to obtain the completed interpretation. Workstation ID: [id number] Narrative 02/21/2025 9:05 AM EDT COMPARISON: None FINDINGS AND Resulting Agency Comment [id number] Procedure Note Brandon Salas MD - 02/21/2025 COMPARISON: None FINDINGS AND IMPRESSION: Heart size normal with left subpectoral dual-lead pacer. Otherwisenegative. Lungs and pleural spaces clear. Cervical spine fusion hardwarein place. If this radiology report contains a blank impression section, it is anincomplete radiology report. Please contact the interpreting radiologistor applicable radiology division as soon as possible to obtain thecompleted interpretation. Workstation ID: [id number] Dandre Wiley IMG XR PROCEDURES Final Result from Last [address] [place] [address] [employer] [id number] Care Teams Body Press Operator Relationship Specialty Start Date End Date Suzy Lares MD 1963 [place] [address] PCP - General Internal Medicine 02/20/25
== END 2025-05-15 14:48 | disposition home or self-care (01) ==
LOC: HO.HMCC 13:15
PROVIDERS: PCP Internal Medicine; Visit Provider Internal Medicine
DX: R20.0 Anesthesia of skin (principal); R20.2 Paresthesia of skin; M19.90 Unspecified osteoarthritis, unspecified site; E78.00 Pure hypercholesterolemia, unspecified; M85.89 Other specified disorders of bone density and structure, multiple sites; N39.46 Mixed incontinence

== ENCOUNTER → 2025-05-15 13:14 | Outpatient (BNVA) | payer OTHER, SELFPAY | PROVIDERS: PCP Internal Medicine; Visit Provider Internal Medicine | DX: M19.072 Primary osteoarthritis, left ankle and foot (principal); M19.071 Primary osteoarthritis, right ankle and foot; M72.2 Plantar fascial fibromatosis; M85.89 Other specified disorders of bone density and structure, multiple sites; R20.0 Anesthesia of skin; R20.2 Paresthesia of skin; E78.00 Pure hypercholesterolemia, unspecified; N39.46 Mixed incontinence; Z79.899 Other long term (current) drug therapy | CPT/HCPCS: 96127; 99212 ==